=== PATIENT | male | born 1940 | race Caucasian/White ===

== ENCOUNTER 2020-11-27 14:15 | Outpatient (CLI) | payer OTHER, SELFPAY ==
--- NOTE | 2020-11-27 14:15 | USCV_ITS ---
Ernst Garcia Age: 80 Gender: M : 1940 Exam Date: 11/27/2020 14:57 Ordering Phys: Jyoti Smith MD ([email or web address]) Technologist: Ni Slade [place] [facility] [place]: Prosthetic MV BP: / HR: 76 Rhythm: Sinus Technical Quality: Adequate MEASUREMENTS (Male / Female) Normal Values 2D ECHO LV Diastolic Diameter PLAX 5.4 cm 4.2 - 5.9 / 3.9 - 5.3 cm LV Systolic Diameter PLAX 4.1 cm IVS Diastolic Thickness 1.1 cm 0.6 - 1.0 / 0.6 - 0.9 cm IVS Systolic Thickness 1.4 cm LVPW Diastolic Thickness 1.2 cm 0.6 - 1.0 / 0.6 - 0.9 cm LVPW Systolic Thickness 1.6 cm LVOT Diameter 2.1 cm LV Ejection Fraction 2D Teich 49.1 % LV Ejection Fraction MOD 2C 23.1 % LV Ejection Fraction 2C AL 22.3 % LA Diameter 4.9 cm LA Width 5.4 cm LA Height 6.5 cm RA Width 5.5 cm RA Height 6.8 cm Aorta at Sinotubular Diameter 3.8 cm DOPPLER AV Peak Velocity 104.0 cm/s LVOT Peak Velocity 70.0 cm/s AV Area Cont Eq vti 2.6 cm squared AV Area Cont Eq pk 2.4 cm squared MV Peak Velocity 225.0 cm/s MV Area PHT 1.7 cm squared Mitral E to A Ratio 9.1 MV E' Velocity 131.0 cm/s Mitral E to MV E' Ratio 39.0 Mitral E to LV E' Lateral Ratio 43.7 Mitral E to LV E' Septal Ratio 35.8 TR Peak Velocity 299.3 cm/s TR Peak Gradient 35.8 mmHg Right Atrial Pressure 10.0 mmHg Pulmonary Artery Systolic Pressu 45.8 mmHg PV Peak Velocity 76.0 cm/s RV Acceleration Time 0.1 s RV Ejection Time 0.3 s RV AcT/ET 0.2 FINDINGS Left Ventricle Normal left ventricular cavity size and mildly increased left ventricular wall thickness. Mildly decreased left ventricular systolic function. Left ventricular ejection fraction is estimated at 40-45 %. Mild global hypokinesis. Abnormal septal motion consistent with conduction abnormality. Right Ventricle Moderately increased right ventricular size. Moderately decreased right ventricular systolic function. Right ventricular systolic pressure 55 mmHg. Right Atrium Moderately increased right atrial size. Right atrial pressure estimated at 15 mmHg. Left Atrium Markedly increased left atrial size. Mitral Valve Moderate mitral annular calcification. Mitral valve bioprosthesis well-seated. Possible mild bioprosthetic mitral valve stenosis (peak velocity 2.1 m/s, mean gradient 7 mmHg). Mitral valve area by pressure half-time of 1.5 cm squared. Trace paravalvular regurgitation. No mitral valve regurgitation. Aortic Valve Mildly thickened trileaflet aortic valve. No aortic valve stenosis. No aortic valve regurgitation. Tricuspid Valve Structurally normal tricuspid valve. Moderate tricuspid valve regurgitation. Pulmonic Valve Structurally normal pulmonic valve. No pulmonary valve stenosis. Moderate to severe pulmonary valve regurgitation. Pericardium No pericardial effusion. Aorta Normal size aortic root at sinotubular junction. Ascending aorta mildly dilated measured at 4.2 cm. Dilated inferior vena cava with decreased respiratory variation. CONCLUSIONS 1. Normal left ventricular cavity size and mildly increased left ventricular wall thickness. Mildly decreased left ventricular systolic function. Left ventricular ejection fraction is estimated at 40-45 %. Mild global hypokinesis. Abnormal septal motion consistent with conduction abnormality. 2. Moderately dilated right ventricle with moderately decreased right ventricle systolic pressure. 3. Moderate pulmonary hypertension with pulmonary artery pressure estimated 55 mmHg. 4. Mitral valve bioprosthesis well-seated. Possible mild bioprosthetic mitral valve stenosis (peak velocity 2.1 m/s, mean gradient 7 mmHg). Mitral valve area by pressure half-time of 1.5 cm squared. Trace paravalvular regurgitation. No mitral valve regurgitation. 5. Markedly increased left atrial size. 6. Moderate tricuspid valve regurgitation. 7. Ascending aorta mildly dilated measured at 4.2 cm. 8. No prior similar studies to compare. Jyoti Smith MD (Electronically Signed) Final Date: 03 December 2020 13:19 S
== END 2020-11-27 14:16 | disposition home or self-care (01) ==
LOC: US 14:19
PROVIDERS: PCP Emergency Medicine Emergency Medical Services; Visit Provider Internal Medicine Cardiovascular Disease
DX: Z95.2 Presence of prosthetic heart valve (principal); I27.20 Pulmonary hypertension, unspecified; I34.0 Nonrheumatic mitral (valve) insufficiency
CPT/HCPCS: 93306

== ENCOUNTER → 2022-02-25 10:22 | Outpatient (BNVA) | payer OTHER, SELFPAY | PROVIDERS: PCP Emergency Medicine Emergency Medical Services; Visit Provider Internal Medicine Cardiovascular Disease | DX: I48.19 Other persistent atrial fibrillation (principal); Z95.2 Presence of prosthetic heart valve; T82.857A Stenosis of other cardiac prosthetic devices, implants and grafts, initial encounter; I36.1 Nonrheumatic tricuspid (valve) insufficiency; N18.9 Chronic kidney disease, unspecified; D69.6 Thrombocytopenia, unspecified; Z87.891 Personal history of nicotine dependence | CPT/HCPCS: 99214 ==

== ENCOUNTER 2022-08-05 17:38 | Inpatient (IN) | payer OTHER, SELFPAY ==
[2022-08-05] VITALS (9 sets, daily range): BP systolic 100–140; BP diastolic 72–108; PULSE 96–132; RESP 13–28; TEMP 36.4; O2SAT 90–98
--- NOTE | 2022-08-05 19:58 | W.ED.GENADLT ---
HPI - General Adult General: Chief complaint: General Medical Stated complaint: dehydration/cant urinate Time Seen by Provider: 08/05/22 19:22 Source: patient and family History of Present Illness: 82 yo male here with family. He complains of signficantly decreased urination. He is generally weak. He complains of right shoulder pain after trying to throw a rope over a tree limb. No fever. He has a history of atrial fibrillation, not on anticoagulation. He has had MVR in the past, bovine. He does have a history of transient renal failure due to dehydration. Onset (ago): day(s) Location: right and upper extremity Radiation: other Quality: other Pain Consistency: constant Relieving factors: none Exacerbating factors: none Associated symptoms: Reports confusion, decreased appetite and weakness (generalized); Deny chest pain, cough, dyspnea, fevers/chills, nausea, seizures or vomiting Review of Systems General: Reports: ROS unobtainable due to mental status (taken from family. ) Const: Denies: fever(s) or chills Card: Denies: chest pain Resp: Denies: dyspnea GI: Denies: nausea or vomiting Neuro: Reports: confusion PFSH ED PFSH: Medical History Atrial fibrillation Chronic kidney disease (CKD) Stenosis of prosthetic mitral valve Thrombocytopenia Tricuspid valve regurgitation, nonrheumatic Surgical History Hx of mitral valve replacement 2006 Family History Father Myocardial infarction Denies family history of Diabetes Stroke Social History Smoking and tobacco status: former smoker Alcohol intake: current Alcohol intake frequency: holidays/special occasions only Substance/Drug Use: never Physical Exam Const: GENERAL APPEARANCE: cooperative, ill appearing and frail appearing ORIENTATION/CONSCIOUSNESS: Yes awake, Yes oriented to person and Yes confused; not oriented to place HENMT: COMMON NORMALS: normocephalic and atraumatic HEAD & SCALP: normocephalic and atraumatic FACE & SINUS: normal facial exam NOSE: Normal nares present Eye: COMMON NORMALS: Equal, round and reactive pupils present and EOMs intact bilaterally PUPIL: Yes Equal, round and reactive pupils present Neck/C-Spine: CERVICAL SPINE: Yes cervical ROM normal Chest: CHEST: Yes Symmetrical chest wall rise Resp: COMMON NORMALS: clear to auscultation bilaterally EFFORT & INSPECTION: Yes tachypneic AUSCULTATION: clear to auscultation bilaterally and diminished lung sounds Cardio: COMMON NORMALS: negative for regular rate and negative for regular rhythm RATE: abnormal rate and tachycardic RHYTHM: abnormal rhythm and abnormal rhythm irregularly irregular GI: COMMON NORMALS: Normal to inspection, nondistended, normoactive bowel sounds present Extremity: GENERAL: Yes edema (1+) Neuro: MANUELA COMA SCALE: document GCS findings [place] coma scale eye opening: Spontaneous [place] coma scale verbal response: Confused [place] coma scale motor response: Obey commands [place] coma scale total score: 14 SENSORIUM/ORIENTATION: Yes oriented to person and No oriented to place Psych: ATTITUDE: Yes agitated (mildly) Course Vital Signs: Vital signs: Vital Signs Temperature 97.6 F 08/06/22 12:30 Pulse Rate 81 08/06/22 14:00 Respiratory Rate 14 08/06/22 12:30 Blood Pressure 111/90 08/06/22 12:30 Pulse Oximetry 92 08/06/22 12:30 Oxygen Delivery Me thod Nasal Cannula 08/06/22 08:00 Oxygen Flow Rate 2 08/06/22 08:00 Fraction of Inspir ed Oxygen 100 08/06/22 06:51 MDM - General Adult Medical Decision Making Mr. Garcia is confused, tachycardic, irregular and in pain. He is mildly sob by my observation. He is in Atrial fibrillation with rapid ventricular response. He's placed on diltiazem drip to control this. Heart rate currently and the 110s. He has received one liter fluid bolus, but is BNP is significantly elevated, he shows signs of early pulmonary edema 0n chest X-ray, and he had his fluid in his hepatic gutter on gallbladder ultrasound. This was performed because of his bilirubin elevation, the ideology of which is somewhat unclear. His gallbladder wall is thickened, but this may be from the edema surrounding the liver. He does not have significant elevation in other liver enzymes. Urinalysis is still pending at the time of admission. He is confused. He will require CSU admission at the very least. Hospitalists will see the patient in the ER. They are aware of the patient. Lab Data 08/06/22 01:25 08/06/22 07:11 Radiology Impressions Chest X-Ray 08/05/22 20:02 IMPRESSION: 1. Aortic valve replacement. 2. Mild to moderate globular cardiomegaly consistent with 4-chamber enlargment and/or pericardial effusion. 3. Minimal blunting of the right lateral costophrenic angle. Shoulder X-Ray 08/05/22 20:02 IMPRESSION: Moderate right acromioclavicular arthropathy. Gallbladder Ultrasound 08/05/22 22:01 IMPRESSION: 1. 13 mm thickened gallbladder wall versus pericholecystic hepatic edema. 2. Multiple gallstones within the gallbladder. 3. Sonographically negative Wood's sign suggesting no cholecystitis. 4. 12.5 mm main portal vein with bidirectional flow. 5. Gwoo-tz-jjefdsju perihepatic fluid consistent with ascites. Abdomen/Pelvis CT 08/05/22 22:28 IMPRESSION: 1. Mild to moderate cardiomegaly. 2. Mild left pleural fluid collection. 3. Mild to moderate right pleural fluid collection. 4. Mild four-quadrant ascites. 5. Prominent edema surrounding the gallbladder consistent with cholecystitis versus hepatitis versus portal hypertension. Head CT 08/06/22 08:00 IMPRESSION: 1. No acute intracranial findings. 2. Mild cerebral small-vessel disease. 3. Age-related involutional changes of the brain. 4. 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 Laboratory Results WBC 16.8 10^3/uL (4.0-10.0) H 08/05/22 19:41 RBC 4.04 10^6/uL (4.1-5.3) L 08/05/22 19:41 Hgb 12.9 g/dL (11.7-16.6) 08/05/22 19:41 Hct 40.0 % (42.0-52.0) L 08/05/22 19:41 MCV 99.0 fl (80-94) H 08/05/22 19:41 MCH 31.9 pg (28.0-34.0) 08/05/22 19:41 MCHC 32.3 g/dL (30.0-36.0) 08/05/22 19:41 RDW 16.1 % (12.1-15.1) H 08/05/22 19:41 Plt Count 93 10^3/cmm (130-400) L 08/05/22 19:41 MPV 10.9 fL (7.4-10.4) H 08/05/22 19:41 Neut % (Auto) 74.1 % 08/05/22 19:41 Lymph % (Auto) 15.4 % 08/05/22 19:41 Bee % (Auto) 9.2 % 08/05/22 19:41 Eos % (Auto) 0.2 % 08/05/22 19:41 Baso % (Auto) 0.4 % 08/05/22 19:41 Neut # (Auto) 12.41 10^3/uL (1.8-7.7) H 08/05/22 19:41 Lymph # (Auto) 2.6 10^3/uL (0.8-4.8) 08/05/22 19:41 Bee # (Auto) 1.6 10^3/uL (0.2-0.9) H 08/05/22 19:41 Eos # (Auto) 0.0 10^3/uL (0.0-0.8) 08/05/22 19:41 Baso # (Auto) 0.1 10^3/uL (0.0-0.1) 08/05/22 19:41 Nucleated RBC % (auto) 0 % 08/05/22 19:41 Nucleated RBCs # 0.0 /100WBC 08/05/22 19:41 PT 18.70 SECONDS (12.1-14.9) H 08/05/22 19:41 INR 1.51 (0.8-1.2) H 08/05/22 19:41 APTT 32.4 SECONDS (23.9-36.7) 08/05/22 19:41 Sodium 134 mmol/L (136-145) L 08/05/22 19:41 Potassium 5.2 mmol/L (3.5-5.1) H 08/05/22 19:41 Chloride 99 mmol/L (98-107) 08/05/22 19:41 Carbon Dioxide 20 mmol/L (22-29) L 08/05/22 19:41 Anion Gap 20.2 (5-19) H 08/05/22 19:41 BUN 44 mg/dL (8-23) H 08/05/22 19:41 Creatinine 1.9 mg/dL (0.7-1.2) H 08/05/22 19:41 GFR Calculation Not Reportable 08/05/22 19:41 Glucose 95 mg/dL (65-115) 08/05/22 19:41 Calculated Osmolality 289 mOsm/kg (285-295) 08/05/22 19:41 Calcium 9.1 mg/dL (8.5-10.5) 08/05/22 19:41 Magnesium 2.3 mg/dL (1.7-2.3) 08/05/22 19:41 Total Bilirubin 5.4 mg/dL (0.15-1.2) H 08/05/22 19:41 AST 29 U/L (0-40) 08/05/22 19:41 ALT 14 U/L (0-41) 08/05/22 19:41 Alkaline Phosphatase 92 U/L (40-130) 08/05/22 19:41 Creatine Kinase 111 U/L (39-308) 08/05/22 19:41 Troponin T Baseline 38 ng/L (0-15) H 08/05/22 19:41 Troponin T 120 Minute 40.71 ng/L (0-15) H 08/05/22 22:10 Delta Troponin T 2.71 ABS# (0-10) 08/05/22 22:10 NT-Pro-B Natriuret Pep 66501 pg/mL (0-450) H 08/05/22 19:41 Total Protein 6.9 g/dL (6.6-8.7) 08/05/22 19:41 Albumin 4.3 g/dL (3.5-5.2) 08/05/22 19:41 Globulin 2.6 g/dL (1.3-4.6) 08/05/22 19:41 Urine Color Red (Yellow) 08/05/22 19:41 Urine Appearance Cloudy (CLEAR) A 08/05/22 19:41 Urine pH 5 (5-7) 08/05/22 19:41 Ur Specific [place] 1.025 (1.005-1.030) 08/05/22 19:41 Urine Protein 2+ (Negative) H 08/05/22 19:41 Urine Glucose (UA) Norm (Normal) 08/05/22 19:41 Urine Ketones Negative (Negative) 08/05/22 19:41 Urine Blood 3+ (Negative) H 08/05/22 19:41 Urine Nitrate Positive (Negative) H 08/05/22 19:41 Urine Bilirubin 1+ (Negative) H 08/05/22 19:41 Urine Urobilinogen 1 mg/dL (Negative) H 08/05/22 19:41 Ur Leukocyte Esterase 2+ (Negative) H 08/05/22 19:41 Urine RBC 5-10 /hpf (0-2) H 08/05/22 19:41 Urine WBC 80-100 /hpf (0-5) H 08/05/22 19:41 Ur Squamous Epith Cells 0-4 /hpf (0-5) H 08/05/22 19:41 Amorphous Sediment Not Reportable 08/05/22 19:41 Urine Bacteria 4+ /hpf (NONE) H 08/05/22 19:41 Critical Care Time Critical Care Time: Critical Care Time: Yes Total Critical Care Time: 35 Attestation: This case had a high probability of a clinically significant, sudden, or life threatening deterioration of this patient's condition which required my full and direct attention, intervention and personal management. Time is independent of any procedures performed. 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
--- NOTE | 2022-08-05 20:02 | XRR_ITS ---
PROCEDURE INFORMATION: Exam: XR Right Shoulder Exam date and time: 08/05/2022 8:33 PM Age: 82 years old Clinical indication: Pain; Shoulder; Right; Additional info: R shoulder pain TECHNIQUE: Imaging protocol: Radiologic exam of the right shoulder. Views: 2 or more views. COMPARISON: CR (CHEST, ) 08/05/2022 8:30 PM FINDINGS: Bones/joints: Moderate right acromioclavicular arthropathy. Soft tissues: Normal. XR/XR shoulder RT min 2V* [id number] IMPRESSION: Moderate right acromioclavicular arthropathy.
--- NOTE | 2022-08-05 20:02 | XRR_ITS ---
PROCEDURE INFORMATION: Exam: XR Chest Exam date and time: 08/05/2022 8:30 PM Age: 82 years old Clinical indication: Other: Afib; Additional info: Afib rvr TECHNIQUE: Imaging protocol: Radiologic exam of the chest. Views: 1 view. COMPARISON: No relevant prior studies available. FINDINGS: Lungs: Unremarkable. No consolidation. Pleural spaces: Minimal blunting of the right lateral costophrenic angle. Heart/Mediastinum: Aortic valve replacement. Mild to moderate globular cardiomegaly consistent with 4-chamber enlargment and/or pericardial effusion. Bones/joints: Previous sternotomy. XR/XR chest 1V portable [id number] IMPRESSION: 1. Aortic valve replacement. 2. Mild to moderate globular cardiomegaly consistent with 4-chamber enlargment and/or pericardial effusion. 3. Minimal blunting of the right lateral costophrenic angle.
[2022-08-05 20:11] LABS: Basophils # 0.1 10^3/uL (0.0-0.1); Basophils % 0.4 %; Eosinophils % 0.2 %; Hemoglobin 12.9 g/dL (11.7-16.6); Lymphocytes # 2.6 10^3/uL (0.8-4.8); Lymphocytes % 15.4 %; Mean Corpuscular HGB Conc 32.3 g/dL (30.0-36.0); Mean Corpuscular Hemoglobin 31.9 pg (28.0-34.0); Mean Platelet Volume 10.9 fL (7.4-10.4); Monocytes # 1.6 10^3/uL (0.2-0.9); Monocytes % 9.2 %; Neutrophils # 12.41 10^3/uL (1.8-7.7); Neutrophils % 74.1 %; Nucleated Red Blood Cells % 0 %; Platelet Count 93 10^3/cmm (130-400); Red Blood Count 4.04 10^6/uL (4.1-5.3); Red Cell Distribution Width 16.1 % (12.1-15.1); White Blood Count 16.8 10^3/uL (4.0-10.0)
--- NOTE | 2022-08-05 20:16 | ECG_ITS ---
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 Measurements Intervals [place] Rate: 119 P: 0 [place]: 0 QRS: 97 QRSD: 97 T: 60 QT: 316 QTc: 445 Interpretive Statements ATRIAL FIBRILLATION WITH RAPID VENTRICULAR RESPONSE BORDERLINE RIGHT AXIS DEVIATION [QRS AXIS > 90] NONSPECIFIC T-WAVE ABNORMALITY ABNORMAL RHYTHM ECG No previous ECG available for comparison Electronically Signed On 08-05-2022 22:09:22 CDT by Anneliese Aceves M.D. [email or web address]
[2022-08-05] MEDS: sodium chloride 0.9% 1,000 ML 999 ML IV (20:22)
[2022-08-05 20:35] LABS: Troponin(5th) Baseline 38 ng/L (0-15)
[2022-08-05 20:36] LABS: Partial Thromboplastin Time 32.4 SECONDS (23.9-36.7)
[2022-08-05 20:44] LABS: Alanine Aminotransferase 14 U/L (0-41); Albumin Level 4.3 g/dL (3.5-5.2); Alkaline Phosphatase 92 U/L (40-130); Anion Gap 20.2 (5-19); Aspartate Amino Transferase 29 U/L (0-40); Blood Urea Nitrogen 44 mg/dL (8-23); Calcium 9.1 mg/dL (8.5-10.5); Carbon Dioxide 20 mmol/L (22-29); Chloride 99 mmol/L (98-107); Creatine Phosphokinase 111 U/L (39-308); Globulin 2.6 g/dL (1.3-4.6); Glucose 95 mg/dL (65-115); Magnesium 2.3 mg/dL (1.7-2.3); NT Pro B Type Natriuretic Pept 22549 pg/mL (0-450); Osmolality Calculated 289 mOsm/kg (285-295); Potassium 5.2 mmol/L (3.5-5.1); Sodium 134 mmol/L (136-145); Total Bilirubin 5.4 mg/dL (0.15-1.2); Total Protein 6.9 g/dL (6.6-8.7)
[2022-08-05 21:53] LABS: INR 1.51 (0.8-1.2)
[2022-08-05] MEDS: dilTIAZem 100 MG in sodium chloride 0.9% (add-van) 100 ML IV (21:57)
--- NOTE | 2022-08-05 22:01 | USR_ITS ---
PROCEDURE INFORMATION: Exam: US Abdomen, Limited; Right Upper Quadrant Exam date and time: 08/05/2022 10:15 PM Age: 82 years old Clinical indication: Abnormal findings; Abnormal lab test; Other: Hyperbiliruben; Additional info: Hyperbilirubinemia TECHNIQUE: Imaging protocol: Real time ultrasound of the abdomen with image documentation. Limited exam focused on the right upper quadrant. COMPARISON: No relevant prior studies available. FINDINGS: Liver: 15.3 cm liver. Gallbladder: 13 mm thickened gallbladder wall versus pericholecystic hepatic edema. Multiple gallstones within the gallbladder. Sonographically negative Wood's sign suggesting no cholecystitis. Biliary ducts: 6 mm common bile duct which is normal for the patient's age. Pancreas: Visualized pancreas is unremarkable. Right kidney: 11.8 x 5.3 x 5.1 cm right kidney. 1.1 cm right renal cortex. Inferior vena cava: Patent 4.7 cm diameter inferior vena cava. Portal venous: 12.5 mm main portal vein with bidirectional flow. Intraperitoneal space: [id number] perihepatic fluid consistent with ascites. US/US gall bladder [id number] IMPRESSION: 1. 13 mm thickened gallbladder wall versus pericholecystic hepatic edema. 2. Multiple gallstones within the gallbladder. 3. Sonographically negative Wood's sign suggesting no cholecystitis. 4. 12.5 mm main portal vein with bidirectional flow. 5. Pxgd-[id number] perihepatic fluid consistent with ascites.
--- NOTE | 2022-08-05 22:02 | ECG_ITS ---
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 Measurements Intervals [place] Rate: 128 P: 0 DE: 0 QRS: 101 QRSD: 102 T: -18 QT: 306 QTc: 447 Interpretive Statements ATRIAL FIBRILLATION WITH RAPID VENTRICULAR RESPONSE RIGHT AXIS DEVIATION [QRS AXIS > 100] NONSPECIFIC T-WAVE ABNORMALITY Compared to ECG 08/05/2022 20:16:49 No significant changes Electronically Signed On 08-06-2022 10:07:19 CDT by Hesham Cloud M.D. [id number]
--- NOTE | 2022-08-05 22:28 | CTR_ITS ---
PROCEDURE INFORMATION: Exam: CT Abdomen And Pelvis Without Contrast Exam date and time: 08/05/2022 11:44 PM Age: 82 years old Clinical indication: Other: Liver failure; Abdominal pain; Generalized TECHNIQUE: Imaging protocol: Computed tomography of the abdomen and pelvis without contrast. Radiation optimization: All CT scans at this facility use at least one of these dose optimization techniques: automated exposure control; mA and/or kV adjustment per patient size (includes targeted exams where dose is matched to clinical indication); or iterative reconstruction. REPORTING DATA: Count of CT and Cardiac NM exams in prior 12 months: This patient has received 0 known CTs and 0 known cardiac nuclear medicine studies in the 12 months prior to the current study. COMPARISON: US gall bladder [id number] 08/05/2022 10:15 PM RADIATION DOSE METRICS: Total DLP (mGy-cm): 937.7 FINDINGS: Pleural spaces: Mild left pleural fluid collection. Mild to moderate right pleural fluid collection. Heart: Mild to moderate cardiomegaly. Liver: See Gallbladder and bile ducts finding. Gallbladder and bile ducts: Prominent edema surrounding the gallbladder consistent with cholecystitis versus hepatitis versus portal hypertension. Pancreas: Normal. No ductal dilation. Spleen: Normal. No splenomegaly. Adrenal glands: Normal. No mass. Kidneys and ureters: Normal. No hydronephrosis. Stomach and bowel: Unremarkable. No obstruction. No mucosal thickening. Appendix: No evidence of appendicitis. Intraperitoneal space: Mild four-quadrant ascites. Vasculature: Calcification of the abdominal aorta and/or iliac arteries consistent with atherosclerotic vessel disease. One or more calcified pelvic phleboliths. Lymph nodes: Unremarkable. No enlarged lymph nodes. Urinary bladder: Unremarkable as visualized. Reproductive: Unremarkable as visualized. Bones/joints: Previous sternotomy. Soft tissues: Unremarkable. CT/CT abdomen pelvis wo con [id number] IMPRESSION: 1. Mild to moderate cardiomegaly. 2. Mild left pleural fluid collection. 3. Mild to moderate right pleural fluid collection. 4. Mild four-quadrant ascites. 5. Prominent edema surrounding the gallbladder consistent with cholecystitis versus hepatitis versus portal hypertension.
--- NOTE | 2022-08-05 22:42 | PC.NURSE ---
Unable to administer meds at this time secondary to US at bedside doing an echo. Pt has one IV with cardizem gtt infusing. Will start second IV and give meds as soon as US is complete.
[2022-08-05 22:43] LABS: Troponin 5 2HR 40.71 ng/L (0-15)
[2022-08-05 22:49] LABS: Troponin 5 2HR Delta 2.71 ABS# (0-10)
[2022-08-05] MEDS: ondansetron 2 mg/ML SDV 2 mL 4 MG IVP (23:24)
[2022-08-05] MEDS: morphine 4 mg/mL SDV 1 mL 2 MG IVP (23:24)
[2022-08-06] VITALS (52 sets, daily range): BP systolic 80–146; BP diastolic 46–92; PULSE 57–112; RESP 0–31; TEMP 36.4–37.2; O2SAT 83–99; BMI 30.5
--- NOTE | 2022-08-06 00:19 | USCV_ITS ---
Ernst Garcia Age: 82 Gender: M : 1940 Exam Date: 08/06/2022 09:34 Ordering Phys: Zach Fry MD Technologist: PARMJIT [place]am [place] [facility] [place]ication: afib BP: / HR: 85 Rhythm: Atrial fibrillation Technical Quality: Suboptimal secondary to patient agitation MEASUREMENTS (Male / Female) Normal Values 2D ECHO LV Diastolic Diameter PLAX 5.3 cm 4.2 - 5.9 / 3.9 - 5.3 cm LV Systolic Diameter PLAX 4.4 cm IVS Diastolic Thickness 0.8 cm 0.6 - 1.0 / 0.6 - 0.9 cm IVS Systolic Thickness 1.3 cm LVPW Diastolic Thickness 0.7 cm 0.6 - 1.0 / 0.6 - 0.9 cm LVPW Systolic Thickness 0.9 cm LVOT Diameter 2.4 cm LV Ejection Fraction 2D Teich 36.1 % LA Diameter 5.4 cm IVC Diameter 5.2 cm M-MODE Aortic Annulus Diameter 3.8 cm LA Ao Ratio MM 1.4 DOPPLER AV Peak Velocity 243.0 cm/s LVOT Peak Velocity 65.0 cm/s AV Area Cont Eq vti 1.0 cm squared AV Area Cont Eq pk 1.3 cm squared MV Area PHT 2.5 cm squared MV E' Velocity 209.0 cm/s TR Peak Velocity 292.8 cm/s TR Peak Gradient 34.3 mmHg Right Atrial Pressure 9.0 mmHg Pulmonary Artery Systolic Pressu 43.3 mmHg PV Peak Velocity 83.0 cm/s FINDINGS Left Ventricle The study is suboptimal because the patient was agitated. Additionally the rhythm is atrial fibrillation. The ventricle is probably normal in size. There are no obvious wall motion disturbances. Ventricular function is lower limit of normal with an ejection fraction of about 50%. Diastolic function cannot be determined due to the rhythm. Right Ventricle Normal right ventricular size and systolic function. Mild pulmonary hypertension, RVSP 43.3 mmHg. Right Atrium Moderately increased right atrial size. Left Atrium Moderately increased left atrial size. Mitral Valve The mitral valve appears normal. There is heavy mitral annular calcification. No obvious mitral stenosis. Probably trace mitral regurgitation. There may be a bioprosthetic mitral valve. It is poorly seen. Aortic Valve Moderate aortic valve calcification. Mild aortic valve stenosis, mean gradient 11.7 mmHg, MARIAH 1 cm squared. No aortic valve regurgitation Tricuspid Valve Structurally normal tricuspid valve. Severe tricuspid valve regurgitation. Pulmonic Valve Pulmonic valve not well visualized. Pericardium Normal pericardium without effusion. Aorta Normal ascending aorta dimension. IVC Dilated IVC. CONCLUSIONS The study is suboptimal because the patient was agitated. Additionally the rhythm is atrial fibrillation. The ventricle is probably normal in size. There are no obvious wall motion disturbances. Ventricular function is lower limit of normal with an ejection fraction of about 50%. Diastolic function cannot be determined due to the rhythm. Normal right ventricular size and systolic function. Mild pulmonary hypertension, RVSP 43.3 mmHg. Moderately increased right atrial size. Moderately increased left atrial size. The mitral valve appears normal. There is heavy mitral annular calcification. No obvious mitral stenosis. Probably trace mitral regurgitation. There may be a bioprosthetic mitral valve. It is poorly seen. Moderate aortic valve calcification. Mild aortic valve stenosis, mean gradient 11.7 mmHg, MARIAH 1 cm squared. No aortic valve regurgitation . Structurally normal tricuspid valve. Severe tricuspid valve regurgitation. Dilated IVC. There is essentially no change from the previous echo dated 11/27/2020 Dr. Hesham Cloud MD (Electronically Signed) Final Date: 07 August 2022 09:01 S
--- NOTE | 2022-08-06 00:23 | PM.HP ---
Providers/Chief Complaint Admitting Physician: Zach Fry MD Primary Care Provider: Daniel Rios DO Chief Complaint: dehydration/cant urinate History of Present Illness Ernst Garcia is a 82 year old male with a past medical history of Bovie and MVR, CKD, history of thrombocytopenia who presents [facility] due to poor appetite, decreased hydration, increased confusion. Currently patient is alert to person, not to place, not to time, he can follow some commands but is quite confused, most of the history was obtained by family members at bedside. Who tell me that for the last few days he has not had any appetite, has not been drinking water, his urine was looking more dark and cloudy. No falls, no injuries, he denies any abdominal pain, no diarrhea. No fevers, no cough. He denies any chest pain, no palpitations. Family members were worried that because his urination was decreasing was becoming more dark that he might be going to kidney failure so they brought him to [facility] for evaluation Review of Systems Const: Denies: fever(s) Card: Denies: chest pain Resp: Denies: dyspnea GI: Denies: abdominal pain : Denies: flank pain Neuro: Denies: headache(s) Medications/Allergies Home Medications Medication Instructions Recorded Confirmed Last Taken Type cholecalciferol (vitamin D3) 50 50 mcg PO DAILY 10/13/20 02/25/22 Unknown History mcg (2,000 unit) capsule multivitamin 1 tab PO DAILY 12/04/20 02/25/22 Unknown History ferrous sulfate 300 mg (60 mg PO 06/08/21 02/25/22 Unknown History iron) tablet zinc 50 mg tablet 50 mg PO DAILY 06/08/21 02/25/22 Unknown History furosemide 20 mg tablet 20 - 40 mg PO DAILY PRN edema 02/25/22 02/25/22 Unknown History Allergies Allergy/AdvReac Type Severity Reaction Status Date / Time acetaminophen [From Percocet] Allergy Unknown Verified 08/05/22 17:59 Histamine H2 Inhibitors Allergy Unknown Verified 08/05/22 17:59 oxycodone [From Percocet] Allergy Unknown Verified 08/05/22 17:59 pork derived (porcine) Allergy Unknown Verified 08/05/22 17:59 PFSH Acute PFSH: Medical History Atrial fibrillation Chronic kidney disease (CKD) Stenosis of prosthetic mitral valve Thrombocytopenia Tricuspid valve regurgitation, nonrheumatic Surgical History Hx of mitral valve replacement 2005 Family History Father Myocardial infarction Denies family history of Diabetes Stroke Social History Smoking and tobacco status: former smoker Alcohol intake: current Alcohol intake frequency: holidays/special occasions only Substance/Drug Use: never Vitals/I&O/Wt Last Vital Signs Temp 97.6 F 08/05/22 17:52 Pulse 132 H 08/05/22 22:33 Resp 28 H 08/05/22 22:33 BP 123/101 08/05/22 22:30 Pulse Ox 96 08/05/22 22:33 O2 Del Method Room Air 08/05/22 22:33 08/05/22 08/05/22 08/06/22 14:59 22:59 06:59 Intake Total 1002.167 / 1002.167 5.5 / 1007.667 Balance 1002.167 / 1002.167 5.5 / 1007.667 Weight last 48 hrs Weight 97.069 kg Physical Exam Const: COMMON NORMALS: no acute distress ORIENTATION/CONSCIOUSNESS: Yes awake, Yes oriented to person and Yes confused; not oriented to place and not oriented to time HENMT: COMMON NORMALS: normocephalic HEAD & SCALP: normocephalic Eye: COMMON NORMALS: Equal, round and reactive pupils present OTHER: Scleral icterus Neck/C-Spine: COMMON NORMALS: full ROM and no lymphadenopathy Lymph: LYMPHATIC: no lymphadenopathy noted Resp: COMMON NORMALS: normal respiratory effort, No retractions, No use of accessory muscles and clear to auscultation bilaterally AUSCULTATION: clear to auscultation bilaterally Cardio: COMMON NORMALS: S1 normal heart sound present and S2 normal heart sound present RATE: tachycardic RHYTHM: abnormal rhythm irregularly irregular HEART SOUNDS: S1 normal heart sound present and S2 normal heart sound present GI: COMMON NORMALS: Normal to inspection, nondistended, normoactive bowel sounds present and Soft to palpation OTHER: Right upper tenderness Extremity: NARRATIVE EXTREMITY EXAM: 1+ pitting edema bilateral extremity Neuro: COMMON NORMALS: patient oriented x3, CN's II-XII intact bilaterally, moves all extremities and no focal motor deficits Psych: COMMON NORMALS: mental status grossly normal Data 08/05/22 19:41 08/05/22 19:41 A&P Assessment and plan (1) Acute cholecystitis: (2) Leukocytosis: (3) Acute encephalopathy: (4) Elevated INR: (5) Acute kidney injury: (6) NSTEMI (non-ST elevated myocardial infarction): (7) Diastolic CHF: (8) Atrial fibrillation with RVR: Plan Acute encephalopathy -Etiology unclear -Obtain a UA -Nonfocal, no facial droop, no slurring of words, no focal weakness more global symptoms -Does have leukocytosis CT head -CT head -Neurochecks, aspiration precautions A-fib with RVR -Continue Cardizem drip -As per documentation patient and family have refused anticoagulation in the past -We will monitor, consider anticoagulation based on clinical progress Fluid overload, diastolic CHF -Hold off on Lasix for now KE, baseline creatinine unknown 1.9 monitor NSTEMI -Likely type II, from A-fib with RVR -Serial EKGs, serial troponins, telemetry monitoring -Cardiac echo Hyperbilirubinemia -Possibly secondary to gallstone passage -No intra or extrahepatic biliary dilatation -Multiple gallstones seen in the gallbladder -We will order acute hep panel -However no transaminitis, no alk phos elevation? Elevated INR, 1.51? Thrombocytopenia, chronic, monitor Concern for acute cholecystitis 1. ? 13 mm thickened gallbladder wall versus pericholecystic hepatic edema. 2. ? Multiple gallstones within the gallbladder. 3. ? Sonographically negative Wood's sign suggesting no cholecystitis. 4. ? 12.5 mm main portal vein with bidirectional flow. 5. ? Lfyz-ye-qlsbrzuk perihepatic fluid consistent with ascites. -Does have right upper quadrant tenderness -With leukocytosis, will start him on Zosyn -Keep n.p.o. Has ascites, monitor Attestations Medical Necessity Statement*: TherapyPatient requires hospitalization, inpatient, greater than 2 minutes, for her, acute encephalopathy,, NSTEMI, A-fib with RVR, fluid overload, KE, concerns for acute cholecystitis Diagnoses Acute cholecystitis K81.0 Leukocytosis D72.829 Acute encephalopathy G93.40 Elevated INR R79.1 Acute kidney injury N17.9 NSTEMI (non-ST elevated myocardial infarction) I21.4 Diastolic CHF I50.30 Atrial fibrillation with RVR I48.91
[2022-08-06 01:37] LABS: Basophils % 0.3 %; Hemoglobin 12.7 g/dL (11.7-16.6); Lymphocytes # 2.2 10^3/uL (0.8-4.8); Lymphocytes % 14.4 %; Mean Corpuscular HGB Conc 32.6 g/dL (30.0-36.0); Mean Corpuscular Hemoglobin 32.2 pg (28.0-34.0); Mean Corpuscular Volume 98.7 fl (80-94); Mean Platelet Volume 10.5 fL (7.4-10.4); Monocytes # 1.2 10^3/uL (0.2-0.9); Monocytes % 7.9 %; Neutrophils % 76.5 %; Nucleated Red Blood Cells % 0 %; Platelet Count 92 10^3/cmm (130-400); Red Blood Count 3.95 10^6/uL (4.1-5.3); White Blood Count 15.3 10^3/uL (4.0-10.0)
[2022-08-06] MEDS: enoxaparin 40 mg/0.4 mL Syringe SUBCUT (01:45)
[2022-08-06] MEDS: pantoprazole 40 mg SDV IVP (01:46)
[2022-08-06] MEDS: piperacillin-tazobactam 3.375 GM in sodium chloride 0.9% (plus) 50 ML IV ×3 (01:51→17:15)
[2022-08-06 01:58] LABS: Ammonia 28 umol/L (16-60); Lactic Sepsis W/Reflex 2.9 mmol/L (0.5-2.2)
[2022-08-06 01:59] LABS: Estmated Average Glucose 91; Hemoglobin A1C 4.8 % (4.0-6.0)
[2022-08-06 02:06] LABS: Troponin 5 6HR 39.08 ng/L (0-15)
[2022-08-06 02:12] LABS: Hepatitis A Antibody IgM Non-Reactive (Nonreactive); Hepatitis B Core IgM Non-Reactive (Nonreactive); Hepatitis B Surface Antigen Non-Reactive (Nonreactive); Hepatitis C Virus Antibody Non-Reactive (Nonreactive)
[2022-08-06 02:14] LABS: HIV 1 & 2 Antibody Non-Reactive (Non-Reactiv); HIV 1 & 2 Antigen Non-Reactive (Non-Reactiv); Troponin 5 6HR Delta 1.08 ng/L (0-12)
[2022-08-06 02:35] LABS: Bilirubin Urine 1+ (Negative); Blood Urine 3+ (Negative); Glucose Urine UA Norm (Normal); Ketones Urine Negative (Negative); Nitrate Urine Positive (Negative); Protein Urine 2+ (Negative); Specific Gravity, Urine 1.025 (1.005-1.030); Urine Appearance Cloudy (CLEAR); Urine Color Red (Yellow); Urobilinogen Urine 1 mg/dL (Negative); pH Urine 5 (5-7)
[2022-08-06 02:36] LABS: Add Urine Microscopic? YES; Leukocyte Esterase Urine 2+ (Negative)
[2022-08-06 02:39] LABS: Bacteria Urine 4+ /hpf; Squamous Epithelial Cell Urine 0-4 /hpf (0-5); WBC Urine 80-100 /hpf (0-5)
[2022-08-06 02:40] LABS: Add Urine Culture? Yes
--- NOTE | 2022-08-06 03:45 | PC.NURSE ---
Called to room by family stating pt is trying to get out of bed. 3 RN's at bedside to help pt back to bed. Pt is awake, but not alert to person, place, or time. Pt doesn't follow commands. Pt assisted back in the bed. Two RN's remained at bedside while this RN notifed Dr. Fry of pt condition. Verbal order for Haldol 1mg IM eery 4 hours PRN agitation received. Ordered and given.
[2022-08-06] MEDS: haloperidol inj 5 mg/mL INJ 1 mL 1 MG IM ×2 (04:05→09:52)
[2022-08-06 04:13] LABS: Alanine Aminotransferase 14 U/L (0-41); Albumin Level 3.9 g/dL (3.5-5.2); Alkaline Phosphatase 86 U/L (40-130); Anion Gap 15.9 (5-19); Aspartate Amino Transferase 27 U/L (0-40); Bilirubin Neonatal Total 5.6 mg/dL (0.15-1.0); Blood Urea Nitrogen 46 mg/dL (8-23); Carbon Dioxide 19 mmol/L (22-29); Chloride 93 mmol/L (98-107); Chol HDL Ratio 2.17 mg/dL (1.0-5.00); Cholesterol 76 mg/dL (0-200); Ferritin 278 ng/mL (30-400); Gamma Glutamyl Transferase 147 U/L (8-61); Glucose 102 mg/dL (65-115); HDL Cholesterol 35 mg/dL (60-100); LDL Cholesterol Calculated 28 mg/dL (50-129); Lipase 11 U/L (13-60); Magnesium 2.3 mg/dL (1.7-2.3); Osmolality Calculated 268 mOsm/kg (285-295); Phosphorus 3.1 mg/dL (2.5-4.5); Potassium 4.9 mmol/L (3.5-5.1); Sodium 123 mmol/L (136-145); Total Bilirubin 5.6 mg/dL (0.15-1.2); Total Protein 6.9 g/dL (6.6-8.7); Triglycerides 63 mg/dL (0-150)
[2022-08-06 04:36] LABS: Procalcitonin 1.13 ng/mL (0-0.5); Thyroid Stimulating Hormone 7.29 uIU/mL (0.27-4.20)
[2022-08-06] MEDS: morphine 4 mg/mL SDV 1 mL 2 MG IVP ×3 (04:40→19:50)
[2022-08-06 07:41] LABS: Free T4 Free Thyroxine 1.34 ng/dL (0.82-1.77); T3 Free 1.5 PG/ML (2.0-4.4)
[2022-08-06 07:44] LABS: Blood Urea Nitrogen 49 mg/dL (8-23); Calcium 8.7 mg/dL (8.5-10.5); Carbon Dioxide 20 mmol/L (22-29); Chloride 93 mmol/L (98-107); Glucose 103 mg/dL (65-115); Osmolality Calculated 267 mOsm/kg (285-295); Sodium 122 mmol/L (136-145)
--- NOTE | 2022-08-06 08:00 | CTR_ITS ---
PROCEDURE INFORMATION: Exam: CT Head Without Contrast Exam date and time: 08/06/2022 5:45 AM Age: 82 years old Clinical indication: Altered mental status/memory loss; Confusion or disorientation; Patient HX: Liver failure; Additional info: AMS TECHNIQUE: Imaging protocol: Computed tomography of the head without contrast. Radiation optimization: All CT scans at this facility use at least one of these dose optimization techniques: automated exposure control; mA and/or kV adjustment per patient size (includes targeted exams where dose is matched to clinical indication); or iterative reconstruction. REPORTING DATA: Count of CT and Cardiac NM exams in prior 12 months: This patient has received [address] and 0 known cardiac nuclear medicine studies in the 12 months prior to the current study. COMPARISON: No relevant prior studies available. RADIATION DOSE METRICS: Total DLP (mGy-cm): 1221.38 FINDINGS: Brain: There is no evidence of intracranial hemorrhage. No mass effect or midline shift. There is no territorial edema. There are mild confluent periventricular hypodensities consistent with chronic microischemic changes of white matter. Cerebral ventricles: There is moderate volume loss and commensurate ventricular dilatation, consistent with the patient's age. Paranasal sinuses: No air-fluid levels. Mastoid air cells: The visualized mastoid air cells are well aerated. Bones/joints: There is fibrous dysplasia involving the area of the left frontal bone and area of the frontal sinus, a developmental process. Soft tissues: Unremarkable. CT/CT head wo con* [id number] IMPRESSION: 1. No acute intracranial findings. 2. Mild cerebral small-vessel disease. 3. Age-related involutional changes of the brain. 4. 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
[2022-08-06] MEDS: dexmedetomidine 400 MCG in sodium chloride 0.9% (100 ml) 100 ML IV (10:46)
--- NOTE | 2022-08-06 16:51 | P.PN_ITS ---
Subjective Subjective: Sleeping, wakes up to voice. Denies pain, but is not very cooperative, turns away, not wanting to speak. Vitals/I&O/Wt Last Vital Signs Temp 97.6 F 08/06/22 12:30 Pulse 68 08/06/22 16:30 Resp 20 H 08/06/22 16:30 BP 103/64 08/06/22 16:30 Pulse Ox 91 08/06/22 16:30 O2 Del Method Nasal Cannula 08/06/22 08:00 O2 Flow Rate 2 08/06/22 08:00 FiO2 100 08/06/22 06:51 08/06/22 08/06/22 08/06/22 06:59 14:59 22:59 Intake Total 147.667 / 1149.834 100 / 100 Balance 147.667 / 1149.834 100 / 100 Weight last 48 hrs Weight 96.479 kg Weight 97.069 kg Physical Exam Const: ORIENTATION/CONSCIOUSNESS: Yes awake and Yes confused HENMT: COMMON NORMALS: oropharynx normal Neck/C-Spine: COMMON NORMALS: no JVD Resp: COMMON NORMALS: normal respiratory effort and clear to auscultation bilaterally AUSCULTATION: clear to auscultation bilaterally Cardio: COMMON NORMALS: no JVD, regular rhythm, S1 normal heart sound present, S2 normal heart sound present and No murmurs present (Cardio) RHYTHM: regular rhythm HEART SOUNDS: S1 normal heart sound present and S2 normal heart sound present GI: COMMON NORMALS: Normal to inspection, nondistended, normoactive bowel sounds present, Soft to palpation and non-tender PALPATION: Yes Soft to palpation Extremity: COMMON NORMALS: no joint enlargement and no pedal edema Neuro: COMMON NORMALS: moves all extremities Data 08/06/22 01:25 08/06/22 07:11 Micro: Microbiology 08/06/22 01:30 Blood Culture - Preliminary Blood SPECIMEN COLLECTED 08/06/22 01:25 Blood Culture - Preliminary Blood SPECIMEN COLLECTED A&P Assessment and plan (1) Acute cholecystitis: (2) Leukocytosis: (3) Acute encephalopathy: (4) Elevated INR: (5) Acute kidney injury: (6) NSTEMI (non-ST elevated myocardial infarction): (7) Diastolic CHF: (8) Atrial fibrillation with RVR: Plan Acute encephalopathy -Etiology unclear -He is noted to have urinary tract infection, 80-100 WBC, without hydronephrosis, obstruction on CT. Noted pleural effusion, but otherwise no good evidence for pneumonia. Effusion too small to tap at this time. Question of possible cholecystitis, possible transient choledocholithiasis noted by admitting physician, but appears less likely. Metabolic encephalopathy possible as well. She has KE, hyponatremia. -Nonfocal, no facial droop, no slurring of words, no focal weakness more global symptoms -CT head without acute findings. Mild cerebral small vessel disease. Age- related involutional changes. 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 -Neurochecks, aspiration precautions This morning at first, although confused, but subsequently with agitation, required a dose of Haldol, started on Precedex drip. Continue drip for now with cardiac monitoring in ICU. Hyperbilirubinemia, elevation of both direct and indirect bilirubin. Assess for hemolysis. Check LDH, haptoglobin, DIC panel. Noted INR abnormal 1.51. Peripheral smear. Reticulocyte. DIC panel. Was thought to have passed a possible CBD stone, reassess liver parameters. MRCP is ordered. Other liver parameters without elevation with normal AST, LT, alk phos. Ammonia 28. Question of possible cholecystitis, sonographic Wood negative. With echocardiogram as noted pulmonary hypertension, suspect perihepatic fluid may be related secondary to portal hypertension. However, does also have multiple gallstones in the gallbladder, wall thickening. At current time with the outside window for cholecystectomy at this time unless no other choice continue antibiotics, but would follow-up with surgery for consideration of interval cholecystectomy. Acute hepatitis panel and HIV negative. Complicated UTI: With acute encephalopathy. 80-100 WBC, 510 RBC. 0-4 squamous cell cells, positive nitrate. Continue Zosyn. Follow-up urine culture. No obstructive uropathy on CT. A-fib with RVR Wean down on Cardizem drip to 2.5 mg/h. Attempted transition this morning to oral Cardizem, but then he became agitated, confused, refused oral medication. -Attempt to switch to oral Cardizem, otherwise for now continue Cardizem drip -As per documentation patient and family have refused anticoagulation in the past -We will monitor, consider anticoagulation based on clinical progress Fluid overload, diastolic CHF -Hold off on Lasix for now KE, creatinine appears to have stated that 2. Reassess. No obstructive uropathy on CT. NSTEMI -Likely type II, from A-fib with RVR -Serial EKGs, serial troponins, telemetry monitoring -Follow-up cardiac echo Cardiology documentation reviewed. Elevated INR, 1.51. Follow-up requested. Vitamin K deficiency possible, otherwise additional assessment for DIC. Thrombocytopenia, reportedly chronic, however, with hyperbilirubinemia tiara tionally assess for hemolysis as above. No splenomegaly on CT. Has ascites, monitor Subclinical hypothyroidism. TSH 7.29, free T41.34. Will need follow-up thyroid studies. Discussed with nursing staff. Attempted to reach his but unsuccessful on the listed phone number. Will follow-up. Attestations Medical Necessity Statement*: Continue assessment and management of complicated UTI, further assessment of hyperbilirubinemia, possibly passed CBD stone, KE, optimization of control of A-fib with RVR, acute encephalopathy. Coding Level of Care Code Critical Care >/= 30 minutes Critical care time (in minutes): 35 The high probability of a clinically significant, sudden or life threatening deterioration, as referenced in this documentation, required my full and direct attention, intervention and personal management. The critical care time shown is in addition to time spent performing any reported separately billable procedures and includes the following: [x] Data and vital sign review and interpretation [x ] Patient assessment, examination and intervention [x] Medication orders and management [x] Patient/Family updates as able [x] Care Coordination and Documentation. Diagnoses Acute cholecystitis K81.0 Leukocytosis D72.829 Acute encephalopathy G93.40 Elevated INR R79.1 Acute kidney injury N17.9 NSTEMI (non-ST elevated myocardial infarction) I21.4 Diastolic CHF I50.30 Atrial fibrillation with RVR I48.91
[2022-08-06 17:28] LABS: LAB Peripheral Smear Sent for Review
[2022-08-06 17:32] LABS: INR 1.61 (0.8-1.2)
[2022-08-06 17:33] LABS: Fibrinogen 336 mg/dL (174-498); Partial Thromboplastin Time 36.6 SECONDS (23.9-36.7)
[2022-08-06 17:36] LABS: D Dimer 1.64 ug/mIFEU (0-0.59)
[2022-08-06 17:40] LABS: Alanine Aminotransferase 21 U/L (0-41); Albumin Level 3.4 g/dL (3.5-5.2); Alkaline Phosphatase 76 U/L (40-130); Blood Urea Nitrogen 52 mg/dL (8-23); Calcium 8.9 mg/dL (8.5-10.5); Carbon Dioxide 13 mmol/L (22-29); Chloride 97 mmol/L (98-107); Globulin 3.1 g/dL (1.3-4.6); Glucose 97 mg/dL (65-115); Osmolality Calculated 280 mOsm/kg (285-295); Sodium 128 mmol/L (136-145); Total Bilirubin 6.2 mg/dL (0.15-1.2); Total Protein 6.5 g/dL (6.6-8.7)
[2022-08-06 17:41] LABS: Anion Gap 23.4 (5-19); Aspartate Amino Transferase 45 U/L (0-40); Lactate Dehydrogenase 368 U/L (135-225); Potassium 5.4 mmol/L (3.5-5.1)
[2022-08-06] MEDS: dexmedetomidine 400 MCG in sodium chloride 0.9% (100 ml) 100 ML 7.53 MCG IV (21:11)
[2022-08-06] MEDS: dilTIAZem 30 mg Tablet 15 MG PO (22:59)
[2022-08-07] VITALS (47 sets, daily range): BP systolic 76–128; BP diastolic 51–90; PULSE 58–114; RESP 14–25; TEMP 36.6–37.2; O2SAT 83–100
[2022-08-07] MEDS: morphine 4 mg/mL SDV 1 mL 2 MG IVP ×2 (00:22→04:51)
[2022-08-07] MEDS: piperacillin-tazobactam 3.375 GM in sodium chloride 0.9% (plus) 50 ML IV ×3 (00:30→16:39)
[2022-08-07] MEDS: haloperidol inj 5 mg/mL INJ 1 mL 1 MG IM (00:30)
[2022-08-07] MEDS: pantoprazole 40 mg SDV IVP (00:30)
[2022-08-07] MEDS: enoxaparin 40 mg/0.4 mL Syringe SUBCUT (00:31)
--- NOTE | 2022-08-07 02:09 | PC.NURSE ---
Patient's MAP continues to trend into the upper 50s and low 60s. Hospitalist notified and order for 500 NS bolus received as well as repeat lactic acid with morning labs.
[2022-08-07] MEDS: sodium chloride 0.9% 500 ML 999 ML IV (02:22)
[2022-08-07 05:08] LABS: Basophils % 0.3 %; Eosinophils % 0.1 %; Hematocrit 35.1 % (42.0-52.0); Hemoglobin 11.2 g/dL (11.7-16.6); Lymphocytes # 1.4 10^3/uL (0.8-4.8); Lymphocytes % 13.4 %; Mean Corpuscular HGB Conc 31.9 g/dL (30.0-36.0); Mean Corpuscular Hemoglobin 32.1 pg (28.0-34.0); Mean Corpuscular Volume 100.6 fl (80-94); Mean Platelet Volume 11.3 fL (7.4-10.4); Monocytes # 0.7 10^3/uL (0.2-0.9); Monocytes % 6.8 %; Neutrophils # 8.03 10^3/uL (1.8-7.7); Neutrophils % 78.8 %; Nucleated Red Blood Cells % 0 %; Platelet Count 74 10^3/cmm (130-400); Red Blood Count 3.49 10^6/uL (4.1-5.3); Red Cell Distribution Width 16.2 % (12.1-15.1); White Blood Count 10.2 10^3/uL (4.0-10.0)
[2022-08-07 05:28] LABS: Alanine Aminotransferase 31 U/L (0-41); Alkaline Phosphatase 56 U/L (40-130); Aspartate Amino Transferase 60 U/L (0-40); Blood Urea Nitrogen 61 mg/dL (8-23); Calcium 8.3 mg/dL (8.5-10.5); Carbon Dioxide 19 mmol/L (22-29); Chloride 100 mmol/L (98-107); Globulin 2.4 g/dL (1.3-4.6); Glucose 92 mg/dL (65-115); Osmolality Calculated 291 mOsm/kg (285-295); Sodium 132 mmol/L (136-145); Total Bilirubin 4.9 mg/dL (0.15-1.2); Total Protein 5.4 g/dL (6.6-8.7)
[2022-08-07 05:41] LABS: Anion Gap 18.3 (5-19); Potassium 5.3 mmol/L (3.5-5.1)
[2022-08-07 06:17] LABS: Lactate (Lactic Acid level) 3.7 mmol/L (0.5-2.2)
[2022-08-07 07:54] LABS: D Dimer 2.56 ug/mIFEU (0-0.59); Fibrinogen 314 mg/dL (174-498); INR 1.97 (0.8-1.2); Partial Thromboplastin Time 36.9 SECONDS (23.9-36.7)
--- NOTE | 2022-08-07 08:44 | USR_ITS ---
PROCEDURE INFORMATION: Exam: US Duplex Lower Extremity Veins, Bilateral Exam date and time: 08/07/2022 3:20 PM Age: 82 years old Clinical indication: Swelling (edema) of limb; Lower extremity, bilateral; Additional info: Assess for dvt TECHNIQUE: Imaging protocol: Real-time duplex ultrasound of the bilateral extremities with 2-D garay scale, color Doppler flow and spectral waveform analysis including responses to compression and other maneuvers (when performed) with image documentation. Complete exam focused on the lower extremity veins. COMPARISON: CT abdomen pelvis wo con [id number] 08/05/2022 11:44 PM FINDINGS: Right deep veins: Occlusive DVT noted in the proximal aspects of the right peroneal and posterior tibial calf veins. The common femoral, superficial femoral, and popliteal veins are patent. Right superficial veins: Saphenofemoral junction is patent without thrombus. Left deep veins: Unremarkable. The common femoral, femoral, proximal profunda femoral and popliteal veins are patent without thrombus. Normal Doppler waveforms. Normal compressibility and/or augmentation response. Left superficial veins: Saphenofemoral junction is patent without thrombus. Soft tissues: Unremarkable. US/[place] [id number] IMPRESSION: 1. Occlusive DVT within the proximal aspects of the right peroneal and posterior tibial calf veins. 2. No left lower extremity DVT.
[2022-08-07] MEDS: dilTIAZem 30 mg Tablet 15 MG PO ×3 (09:23→22:03)
[2022-08-07 17:20] LABS: Anion Gap 16.5 (5-19); Blood Urea Nitrogen 69 mg/dL (8-23); Calcium 8.9 mg/dL (8.5-10.5); Carbon Dioxide 20 mmol/L (22-29); Chloride 90 mmol/L (98-107); Glucose 92 mg/dL (65-115); Osmolality Calculated 274 mOsm/kg (285-295); Potassium 4.5 mmol/L (3.5-5.1); Sodium 122 mmol/L (136-145)
--- NOTE | 2022-08-07 21:12 | P.PN_ITS ---
Subjective Subjective: Today he is doing slightly better, also noted by his family. He has been calmer, more alert, more interactive. He is oriented to being in the hospital, does not remember the year. Denies pain. Vitals/I&O/Wt Last Vital Signs Temp 98.0 F 08/07/22 20:30 Pulse 81 08/07/22 20:30 Resp 14 08/07/22 20:30 BP 116/85 08/07/22 20:30 Pulse Ox 95 08/07/22 20:30 O2 Del Method Room Air 08/07/22 20:30 O2 Flow Rate 1 08/07/22 04:00 FiO2 100 08/06/22 06:51 08/07/22 08/07/22 08/07/22 06:59 14:59 22:59 Intake Total 602.019 / 849.351 50 / 50 588.529 / 638.529 Output Total 125 / 125 400 / 400 Balance 477.019 / 724.351 50 / 50 188.529 / 238.529 Weight last 48 hrs Weight 96.479 kg Physical Exam Const: ORIENTATION/CONSCIOUSNESS: Yes awake, Yes oriented to place and Yes confused HENMT: COMMON NORMALS: oropharynx normal Neck/C-Spine: COMMON NORMALS: no JVD Resp: COMMON NORMALS: normal respiratory effort and clear to auscultation bilaterally AUSCULTATION: clear to auscultation bilaterally Cardio: COMMON NORMALS: no JVD, regular rhythm, S1 normal heart sound present, S2 normal heart sound present and No murmurs present (Cardio) RHYTHM: regular rhythm HEART SOUNDS: S1 normal heart sound present and S2 normal heart sound present GI: COMMON NORMALS: Normal to inspection, nondistended, normoactive bowel sounds present, Soft to palpation and non-tender PALPATION: Yes Soft to palpation Extremity: COMMON NORMALS: no joint enlargement and no pedal edema Neuro: COMMON NORMALS: moves all extremities SENSORIUM/ORIENTATION: Yes oriented to place Urinary Catheter Management: Tinsley: Cath Placed During This Visit: yes Reason for Continuing Indwelling Catheter: Accurate Measurement of Urinary Output in Critically Ill Patients Urinary Catheter Date of Insertion: 08/07/22 Urinary Catheter Time of Insertion: 17:19 Data 08/07/22 04:20 08/07/22 16:58 Micro: Microbiology 04/22/23 01:25 Blood Culture - Preliminary Blood Gram Negative Rods 08/05/22 19:41 Urine Culture - Preliminary Urine,Clean Catch Gram Negative Rods 08/06/22 01:30 Blood Culture - Preliminary Blood NEGATIVE TO DATE A&P Assessment and plan (1) Acute cholecystitis: (2) Leukocytosis: (3) Acute encephalopathy: (4) Elevated INR: (5) Acute kidney injury: (6) NSTEMI (non-ST elevated myocardial infarction): (7) Diastolic CHF: (8) Atrial fibrillation with RVR: Plan Acute encephalopathy Slightly better today. Still confusion, but is oriented to being in the hospital now. Cannot tell me the year. Continue to treat underlying conditions, continue to reorient. Per discussion with his also there is some possibility he may have been developing some very mild cognitive impairment previously, she did take over bills and finances several years ago. She states she otherwise is usually oriented, lucid, no problems with memory. She does state that they use shower stool for him but otherwise he is independent at baseline. She feels likely would want him to return home if possible with home health. We also discussed that unfortunately it is difficult to predict how he may recover cognitively from the episode of severe illness, there may be prolonged and/or incomplete/partial recovery. Acute encephalopathy likely secondary to complicated UTI, as well as acute metabolic cephalopathy with hyponatremia, KE. Metabolic acidosis. Noted also pleural effusion, but otherwise no good evidence for pneumonia. Effusion too small to tap at this time. -Nonfocal, no facial droop, no slurring of words, no focal weakness more global symptoms -CT head without acute findings. Mild cerebral small vessel disease. Age- related involutional changes. 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 -Neurochecks, aspiration precautions Transiently required Precedex drip on 08/06 in addition to Haldol due to 100 patient, but this has since resolved. Discontinue Precedex. Complicated UTI: Gram-negative rods in urine with gram-negative sepsis, with 2/4 bottles gram-negative rods in blood. Discussed with his and son. Continue Zosyn. Follow-up urine and blood culture. No obstructive uropathy on CT. Appears to be showing gradual improvement. Suspected sepsis on presentation, with acute kidney injury, also noted thrombocytopenia. DIC panel assessed, not suggestive of DIC, possibly low-grade DIC, fibrinogen 314. D-dimer noted abnormal 2.56. Followed up with lower extremity duplex with noted right lower extremity DVT. Urine retention: Over 200 mL on bladder scan. Now that he is calmer, more cooperative, less likely to pull out the catheter, Tinsley catheter placed. Monitor I&O. Right lower extremity DVT right peroneal and posterior tibial calf veins: Dis cussed with his and son. Discussed usually would want to start on anticoagulation, her, has been having dropping platelets. Currently on prophylactic Lovenox. May have risk of embolization and/or clot extension, although embolization less common with more distal clots. However, will benefit from anticoagulation once risk of bleeding is lower, platelets stabilized. Discussed option of starting anticoagulation currently, option of continuing with prophylactic dose Lovenox is currently, other consideration, possibly IVC filter, although this may be considered in case there is proximal extension of the clot. For now consensus is that they prefer to continue with prophylactic dose Lovenox, continue monitoring and moved to full dose anticoagulation once he is able to do so more safely. Hyperbilirubinemia, noted improving, bilirubin down to 4.9. Possibly some low- grade DIC, If platelets do not drop precipitously would benefit from anticoagulation. Otherwise haptoglobin 77. LDH 368. Not significantly suggestive of hemolysis. Plasmic score low risk group for TTP, but follow-up peripheral smear which has been ordered. Noted INR abnormal 1.97. Follow-up DIC panel, haptoglobin, LDH. Was thought to have passed a possible CBD stone, reassess liver parameters. MRCP is ordered. Other liver parameters without elevation with minimal abnormality AST, normal ALT, alk phos. Ammonia 28. Acute hepatitis and HIV negative. Question of possible cholecystitis, sonographic Wood negative. With echocardiogram as noted pulmonary hypertension, suspect perihepatic fluid may be related secondary to portal hypertension. However, does also have multiple gallstones in the gallbladder, wall thickening. At current time with the outside window for cholecystectomy at this time unless no other choice continue antibiotics, but would follow-up with surgery for consideration of interval cholecystectomy. Acute hepatitis panel and HIV negative. A-fib with RVR Now taking oral medication. Stop Cardizem drip. Continue p.o. Cardizem. -As per documentation patient and family have refused anticoagulation in the past -We will monitor, consider anticoagulation based on clinical progress Fluid overload, diastolic CHF -Hold off on Lasix for now KE, possibility of postrenal KE as well, with noted urine retention. Tinsley catheter placed. Today creatinine 2.5, BUN 69. Follow-up renal function. No obstructive uropathy on CT. NSTEMI -Likely type II, from A-fib with RVR -Serial EKGs, serial troponins, telemetry monitoring Echo with lower limit of normal EF. No obvious wall motion abnormality. Study suboptimal. Mild pulmonary hypertension. Bioprosthetic mitral valve, possibly trace regurgitation. Mild AVS. Severe TVR. Dilated IVC. Elevated INR, 1.9. held off vitamin K supplementation given DVT. Possible component of low-grade DIC. Follow-up INR, DIC panel. Does not appear to be in acute liver failure. Monitor liver parameters. Thrombocytopenia, reportedly chronic, however, with hyperbilirubinemia additionally assess for hemolysis as above. No splenomegaly on CT. Hyponatremia: For now does not obviously appear hypervolemic, but may be getting hypervolemic, noted distended IVC. He is off IV fluid. Recheck sodium. His appetite did improve today and he ate, do anticipate he may show some improvement. Has ascites, monitor Subclinical hypothyroidism. TSH 7.29, free T41.34. Will need follow-up thyroid studies. Discussed with case management, would prefer if you are able to return home with home health. We discussed with family that certainly depending on how he recovers he may be quite deconditioned and may benefit from rehabilitation. Attestations Medical Necessity Statement*: Continue admission for assessment and management of complicated UTI, resolving sepsis, acute encephalopathy, KE, possible low-grade DIC, additional comorbidities as above. Critical Care Time: The high probability of a clinically significant, sudden or life threatening deterioration of the patient's heme system(s) required my full and direct attention, intervention and personal management. The critical care time is as shown. This time is in addition to time spent performing any reported procedures but includes the following: [x] Data and vital sign review and interpretation [x] Patient assessment, examination and intervention [x] Documentation [x] Medication orders and management Critical Care Time (min): 20 Diagnoses Acute cholecystitis K81.0 Leukocytosis D72.829 Acute encephalopathy G93.40 Elevated INR R79.1 Acute kidney injury N17.9 NSTEMI (non-ST elevated myocardial infarction) I21.4 Diastolic CHF I50.30 Atrial fibrillation with RVR I48.91
[2022-08-08] VITALS (46 sets, daily range): BP systolic 88–136; BP diastolic 60–87; PULSE 81–99; RESP 12–25; TEMP 36.5–36.7; O2SAT 93–98
[2022-08-08] MEDS: pantoprazole 40 mg SDV IVP (01:30)
[2022-08-08] MEDS: enoxaparin 30 mg/0.3 mL Syringe SUBCUT (01:30)
[2022-08-08] MEDS: piperacillin-tazobactam 3.375 GM in sodium chloride 0.9% (plus) 50 ML IV ×3 (01:30→16:30)
[2022-08-08] MEDS: dilTIAZem 30 mg Tablet 15 MG PO ×4 (03:12→21:10)
[2022-08-08 04:23] LABS: Basophils # 0.1 10^3/uL (0.0-0.1); Basophils % 0.8 %; Eosinophils # 0.1 10^3/uL (0.0-0.8); Eosinophils % 1.3 %; Hemoglobin 12.8 g/dL (11.7-16.6); Lymphocytes # 1.6 10^3/uL (0.8-4.8); Mean Corpuscular HGB Conc 32.8 g/dL (30.0-36.0); Mean Corpuscular Hemoglobin 32.2 pg (28.0-34.0); Mean Corpuscular Volume 98.2 fl (80-94); Mean Platelet Volume 10.5 fL (7.4-10.4); Monocytes # 0.7 10^3/uL (0.2-0.9); Neutrophils # 6.03 10^3/uL (1.8-7.7); Nucleated Red Blood Cells % 0 %; Platelet Count 96 10^3/cmm (130-400); Red Blood Count 3.97 10^6/uL (4.1-5.3); Red Cell Distribution Width 16.2 % (12.1-15.1); White Blood Count 8.6 10^3/uL (4.0-10.0)
[2022-08-08 04:24] LABS: Hematocrit 39.2 % (42.0-52.0); Retic Production Index 2.84; Reticulocyte % 2.9 % (0.5-2.0)
[2022-08-08 04:43] LABS: Alanine Aminotransferase 60 U/L (0-41); Albumin Level 3.4 g/dL (3.5-5.2); Alkaline Phosphatase 67 U/L (40-130); Anion Gap 15.7 (5-19); Aspartate Amino Transferase 81 U/L (0-40); Blood Urea Nitrogen 70 mg/dL (8-23); Calcium 8.8 mg/dL (8.5-10.5); Carbon Dioxide 19 mmol/L (22-29); Chloride 98 mmol/L (98-107); Globulin 3.1 g/dL (1.3-4.6); Glucose 89 mg/dL (65-115); Osmolality Calculated 286 mOsm/kg (285-295); Potassium 4.7 mmol/L (3.5-5.1); Sodium 128 mmol/L (136-145); Total Bilirubin 4.2 mg/dL (0.15-1.2); Total Protein 6.5 g/dL (6.6-8.7)
[2022-08-08 04:44] LABS: Lactate Dehydrogenase 213 U/L (135-225)
[2022-08-08 05:20] LABS: INR 1.48 (0.8-1.2); Partial Thromboplastin Time 33.4 SECONDS (23.9-36.7)
[2022-08-08 05:21] LABS: Fibrinogen 409 mg/dL (174-498)
[2022-08-08 05:30] LABS: D Dimer 3.97 ug/mIFEU (0-0.59)
--- NOTE | 2022-08-08 09:30 | MR_ITS ---
WS: [id number] MRCP (MAGNETIC RESONANCE CHOLANGIOPANCREATOGRAPHY) HISTORY: hyperbilirubinemia COMPARISON: CT 08/05/2022 and gallbladder ultrasound 08/05/2022 TECHNIQUE: Multiple sequences are performed to evaluate the intra and extrahepatic ducts. Small layering RIGHT pleural effusion. Heart is moderately enlarged. Limited evaluation of the bowel ducts as patient unable to hold his breath. Portions of the gallbladd er visualized are not dilated. Common bile duct measures 5.5 mm. There is normal tapering towards the ampulla. The visualized pancreatic duct is not dilated. No intrahepatic duct dilatation. Gallbladder is very difficult to visualize due to motion. No significant gallbladder hydrops. Less th an 4 cm diameter. There are stones present. Diffuse gallbladder wall thickening was noted on the prio r ultrasound. No pericholecystic fluid. The intrahepatic ducts are more difficult to visualize due to motion and breathing artifact. Visualized liver is negative otherwise. There is no large mass. No ascites. MR/MR MRCP [id number] IMPRESSION: 1. Although limited the common bile duct is normal size measuring 5.5 mm. No f illing defects or choledocholithiasis. Normal tapering towards the ampulla of V ater. The intrahepatic ducts are less well visualized. 2. Normal pancreatic duct. 3. Cholelithiasis. 4. Gallbladder is not overly distended. No adjacent edema or pericholecystic f luid. 5. Small RIGHT pleural effusion.
--- NOTE | 2022-08-08 12:50 | PM.PN ---
Subjective Subjective: Patient is able to converse at [facility] numbers unremarkable Patient was told about the DVT Patient is contemplating EGD colonoscopy, IVC filter versus no intervention at all, at the bedside Had a family meeting in detail ICU nurse updated Vitals/I&O/Wt Last Vital Signs Temp 97.7 F 08/08/22 04:00 Pulse 91 08/08/22 10:43 Resp 21 H 08/08/22 09:30 BP 118/77 08/08/22 09:30 Pulse Ox 94 08/08/22 10:43 O2 Del Method Room Air 08/08/22 10:43 O2 Flow Rate 1 08/07/22 04:00 FiO2 100 08/06/22 06:51 08/07/22 08/08/22 08/08/22 22:59 06:59 14:59 Intake Total 888.529 / 938.529 250 / 1188.529 Output Total 800 / 800 250 / 1050 Balance 88.529 / 138.529 0 / 138.529 Weight last 48 hrs Weight 97.522 kg Physical Exam Narrative: Patient is sitting in a chair eating breakfast Abdomen soft bowel sound present S1, S2 Currently patient is on room air Doing well with S1-S2 heart sounds Clinical signs of fluid overload Lower extremity 2+ edema Tinsley catheter draining dark urine Urinary Catheter Management: Tinsley: Cath Placed During This Visit: yes Reason for Continuing Indwelling Catheter: Accurate Measurement of Urinary Output in Critically Ill Patients Urinary Catheter Date of Insertion: 08/07/22 Urinary Catheter Time of Insertion: 17:19 Data 08/08/22 04:06 08/08/22 04:06 Micro: Microbiology 08/05/22 19:41 Urine Culture - Final Urine,Clean Catch Enterobacter aerogenes 08/06/22 01:25 Blood Culture - Preliminary Blood Enterobacter aerogenes A&P Assessment and plan (1) Atrial fibrillation with RVR: (2) Diastolic CHF: (3) NSTEMI (non-ST elevated myocardial infarction): (4) Acute kidney injury: (5) Elevated INR: (6) Acute encephalopathy: (7) Leukocytosis: (8) Tricuspid valve regurgitation, nonrheumatic: (9) Stenosis of prosthetic mitral valve: Qualifiers: Encounter type: initial encounter Qualified Code(s): T82.857A - Stenosis of other cardiac prosthetic devices, implants and grafts, initial encounter (10) Chronic kidney disease (CKD): Qualifiers: Chronic kidney disease stage: unspecified stage Qualified Code(s): N18.9 - Chronic kidney disease, unspecified (11) Thrombocytopenia: (12) Hx of mitral valve replacement: Plan Metabolic encephalopathy related to UTI: Resolved Cholecystitis: Ruled out No signs of choledocholithiasis Right leg DVT, history of therapeutic Lovenox hemoglobin has remained stable Abnormal transaminases most likely related to passage of biliary stone no active signs of cholangitis Chronic thrombocytopenia Hemoglobin stable Patient has history of H. pylori ulcer 1994 which was treated Patient and family will discuss further whether they would opt for EGD colonoscopy Patient and his not agreeable for IVC filter placement or Eliquis for now A-fib RVR is chronic patient has been taking aspirin in the past Diastolic CHF with acute exacerbation Continue diuresis NSTEMI: Likely type II with A-fib History of mild AVS severe tricuspid valve regurgitation bioprosthetic mitral valve UTI with gram-negative matt Low platelets with confusion and high creatinine Confusion improved, peripheral smear was requested, TTP? Start patient on mechanical soft diet Detailed discussion took place when family was at the bedside this morning ICU nurse updated Resume all medications Family is willing to take him to home with home health services does not want SNF Goals of care we discussed, for now he is full code, will discuss with her today as he is more awake and alert Attestations Medical Necessity Statement*: Continue medical management Diagnoses Atrial fibrillation with RVR I48.91 Diastolic CHF I50.30 NSTEMI (non-ST elevated myocardial infarction) I21.4 Acute kidney injury N17.9 Elevated INR R79.1 Acute encephalopathy G93.40 Leukocytosis D72.829 Tricuspid valve regurgitation, nonrheumatic I36.1 Stenosis of prosthetic mitral valve T82.857A Encounter type: initial encounter Chronic kidney disease (CKD) N18.9 Chronic kidney disease stage: unspecified stage Thrombocytopenia D69.6 Hx of mitral valve replacement Z95.2
[2022-08-08] MEDS: FUROsemide 20 mg Tablet PO (13:45)
--- NOTE | 2022-08-08 18:34 | PC.NURSE ---
Shift summary: Pt to have EGD tomorrow. Tolerated being out of bed majority of day. uneventful shift
[2022-08-08] MEDS: metoprolol tartrate 25 mg Tablet 12.5 MG PO (21:10)
[2022-08-09] VITALS (52 sets, daily range): BP systolic 98–136; BP diastolic 63–95; PULSE 67–103; RESP 12–27; TEMP 36.5–36.7; O2SAT 84–100
[2022-08-09] MEDS: piperacillin-tazobactam 3.375 GM in sodium chloride 0.9% (plus) 50 ML IV ×2 (00:02→09:04)
[2022-08-09] MEDS: pantoprazole 40 mg SDV IVP (00:02)
[2022-08-09] MEDS: morphine 4 mg/mL SDV 1 mL 2 MG IVP (02:10)
[2022-08-09] MEDS: dilTIAZem 30 mg Tablet 15 MG PO ×2 (03:52→09:01)
[2022-08-09 05:42] LABS: Basophils # 0.1 10^3/uL (0.0-0.1); Basophils % 0.8 %; Eosinophils # 0.2 10^3/uL (0.0-0.8); Eosinophils % 2.1 %; Hematocrit 36.8 % (42.0-52.0); Lymphocytes # 1.8 10^3/uL (0.8-4.8); Lymphocytes % 22.1 %; Mean Corpuscular HGB Conc 32.6 g/dL (30.0-36.0); Mean Corpuscular Hemoglobin 32.3 pg (28.0-34.0); Mean Corpuscular Volume 98.9 fl (80-94); Mean Platelet Volume 10.3 fL (7.4-10.4); Monocytes # 0.8 10^3/uL (0.2-0.9); Monocytes % 10.2 %; Neutrophils # 5.05 10^3/uL (1.8-7.7); Neutrophils % 63.5 %; Nucleated Red Blood Cells % 0 %; Platelet Count 88 10^3/cmm (130-400); Red Blood Count 3.72 10^6/uL (4.1-5.3); Red Cell Distribution Width 16.5 % (12.1-15.1)
[2022-08-09 06:00] LABS: INR 1.33 (0.8-1.2)
[2022-08-09 06:01] LABS: Fibrinogen 358 mg/dL (174-498); Partial Thromboplastin Time 33.5 SECONDS (23.9-36.7)
[2022-08-09 06:04] LABS: Glucose Point of Care 108 mg/dL (70-110)
[2022-08-09 06:07] LABS: Alanine Aminotransferase 53 U/L (0-41); Albumin Level 3.3 g/dL (3.5-5.2); Alkaline Phosphatase 85 U/L (40-130); Aspartate Amino Transferase 66 U/L (0-40); Blood Urea Nitrogen 60 mg/dL (8-23); Calcium 8.6 mg/dL (8.5-10.5); Carbon Dioxide 18 mmol/L (22-29); Chloride 103 mmol/L (98-107); Globulin 2.7 g/dL (1.3-4.6); Glucose 94 mg/dL (65-115); Osmolality Calculated 295 mOsm/kg (285-295); Sodium 134 mmol/L (136-145)
[2022-08-09 06:10] LABS: D Dimer 4.34 ug/mIFEU (0-0.59)
[2022-08-09] MEDS: metoprolol tartrate 25 mg Tablet 12.5 MG PO ×2 (09:03→21:19)
[2022-08-09] MEDS: FUROsemide 20 mg Tablet PO (09:04)
--- NOTE | 2022-08-09 10:24 | PM.CONSULT ---
Providers/Reason For Consult Consulting Physician/Specialty*: Hospitalist Reason for Consult*: EGD Attending Physician: Christophe García MD Primary Care Provider: Daniel Rios DO History of Present Illness History of Present Illness Ernst Garcia is a 82 year old male with multiple medical problems. The patient found to have a DVT. The patient will need to be anticoagulated. Hospitalist would like a EGD before anticoagulation. The patient has a history of an upper GI bleed. Would like to rule out gastritis/peptic ulcer disease. Medications/Allergies Home Medications Medication Instructions Recorded Confirmed Last Taken Type cholecalciferol (vitamin D3) 50 50 mcg PO DAILY 10/13/20 08/06/22 Unknown History mcg (2,000 unit) capsule multivitamin 1 tab PO DAILY 12/04/20 08/06/22 Unknown History ferrous sulfate 300 mg (60 mg 300 mg PO DAILY 06/08/21 08/06/22 Unknown History iron) tablet zinc 50 mg tablet 50 mg PO DAILY 06/08/21 08/06/22 Unknown History furosemide 20 mg tablet 20 - 40 mg PO DAILY PRN edema 02/25/22 08/06/22 08/01/22 History Allergies Allergy/AdvReac Type Severity Reaction Status Date / Time acetaminophen [From Percocet] Allergy Unknown Verified 08/05/22 17:59 Histamine H2 Inhibitors Allergy Unknown Verified 08/05/22 17:59 oxycodone [From Percocet] Allergy Unknown Verified 08/05/22 17:59 pork derived (porcine) Allergy Unknown Verified 08/05/22 17:59 Current Medications Generic Name Dose Route Start Last Admin Trade Name Freq PRN Reason Stop Dose Admin Diltiazem HCl 15 mg 08/06/22 10:00 08/09/22 09:01 Diltiazem 30 Mg Tablet PO 15 mg Q6H INES Administration Enoxaparin Sodium 30 mg 08/08/22 00:30 08/08/22 01:30 Enoxaparin 30 Mg/0.3 Ml Syringe SUBCUT 30 mg Q24H INES Administration Furosemide 20 mg 08/08/22 13:15 08/09/22 09:04 Furosemide 20 Mg Tablet PO 20 mg DAILY INES Administration Haloperidol Lactate 1 mg 08/06/22 03:45 08/07/22 00:30 Haloperidol Inj 5 Mg/Ml Inj 1 Ml IM 1 mg Q4H PRN Administration AGITATION Piperacillin Sod/Tazobactam 50 mls @ 12.5 mls/hr 08/06/22 00:30 08/09/22 09:04 Sod 3.375 gm/ Sodium Chloride IV 12.5 mls/hr Q8H INES Administration Protocol Metoprolol Tartrate 12.5 mg 08/08/22 21:00 08/09/22 09:03 Metoprolol Tartrate 25 Mg Tablet PO 12.5 mg BID@0900,2100 INES Administration Morphine Sulfate 2 mg 08/06/22 00:19 08/09/22 02:10 Morphine 4 Mg/Ml Sdv 1 Ml IVP 2 mg Q4H PRN Administration SEVERE PAIN Pantoprazole Sodium 40 mg 08/06/22 00:30 08/09/22 00:02 Pantoprazole 40 Mg Sdv IVP 40 mg Q24H INES Administration PFSH Acute PFSH: Medical History Atrial fibrillation Chronic kidney disease (CKD) Stenosis of prosthetic mitral valve Thrombocytopenia Tricuspid valve regurgitation, nonrheumatic Surgical History Hx of mitral valve replacement 2005 Family History Father Myocardial infarction Denies family history of Diabetes Stroke Social History Smoking and tobacco status: former smoker Alcohol intake: current Alcohol intake frequency: holidays/special occasions only Substance/Drug Use: never Vitals/I&O/Wt Last Vital Signs Temp 97.7 F 08/09/22 04:00 Pulse 88 08/09/22 09:36 Resp 16 08/09/22 08:30 BP 118/74 08/09/22 08:30 Pulse Ox 93 08/09/22 09:36 O2 Del Method Room Air 08/09/22 09:36 O2 Flow Rate 1 08/07/22 04:00 FiO2 100 08/06/22 06:51 08/08/22 08/09/22 08/09/22 22:59 06:59 14:59 Intake Total 300 / 750 50 / 800 0 / 0 Output Total 1100 / 1100 400 / 1500 Balance -800 / -350 -350 / -700 0 / 0 Weight last 48 hrs Weight 215 lb Physical Exam Narrative: Generally: Sitting up in the chair HEENT: Normocephalic atraumatic Lungs: Clear to auscultation Heart: Irregular rate and rhythm Abdomen: Soft, nontender without masses. There is no hernias I can appreciate. Neurologic: The patient is awake, alert, oriented x3. Patient sensations intact throughout Urinary Catheter Management: Tinsley: Cath Placed During This Visit: yes Reason for Continuing Indwelling Catheter: Accurate Measurement of Urinary Output in Critically Ill Patients Urinary Catheter Date of Insertion: 08/07/22 Urinary Catheter Time of Insertion: 17:19 Data 08/09/22 04:48 08/09/22 04:48 Micro: Microbiology 08/09/22 08:29 Blood Culture - Preliminary Blood SPECIMEN COLLECTED 08/05/22 19:41 Urine Culture - Final Urine,Clean Catch Enterobacter aerogenes 08/06/22 01:25 Blood Culture - Preliminary Blood Enterobacter aerogenes A&P Assessment and plan (1) Deep venous thrombosis: I explained the risk and benefits of an EGD to the patient. The patient seems understand these risks and benefits would like to proceed. The patient's is at the bedside. She is in agreement. Her questions have been answered. Coding Level of Care Code Acute Code for [facility] Fwd Diagnoses Deep venous thrombosis I82.409
--- NOTE | 2022-08-09 13:04 | PC.SOCIAL ---
Pg 2 IMM Explained to pt & Pg 2 IMM. No questions voiced. Provided pt a copy. Initialed, dated, & timed a copy & placed in chart.
[2022-08-09] MEDS: sodium chloride 0.9% 1,000 ML 30 ML IV (13:25)
--- NOTE | 2022-08-09 13:33 | PM.PN ---
Subjective Subjective: Went for EGD today Dr. Ortiz has been notified and consulted Patient and in agreement Hemoglobin stable is endorsing that there is history of peptic ulcer disease which was treated in 1994, H. pylori ulcer was detected at that time which was treated Vitals/I&O/Wt Last Vital Signs Temp 97.8 F 08/09/22 13:17 Pulse 80 08/09/22 13:17 Resp 20 H 08/09/22 13:17 BP 130/73 08/09/22 13:17 Pulse Ox 90 08/09/22 12:00 O2 Del Method Room Air 08/09/22 09:36 O2 Flow Rate 1 08/07/22 04:00 FiO2 100 08/06/22 06:51 08/08/22 08/09/22 08/09/22 22:59 06:59 14:59 Intake Total 300 / 750 50 / 800 50 / 50 Output Total 1100 / 1100 400 / 1500 Balance -800 / -350 -350 / -700 50 / 50 Weight last 48 hrs Weight 97.522 kg Physical Exam Narrative: Patient is awake and alert Fatigued and lethargic Currently on room air Hemodynamically stable Fatigue and lethargic Able to follow commands Nonfocal neuro exam Abdomen soft No audible stridor or wheezing S1, S2 variable no signs of RVR, Urinary Catheter Management: Tinsley: Cath Placed During This Visit: yes Reason for Continuing Indwelling Catheter: Accurate Measurement of Urinary Output in Critically Ill Patients Urinary Catheter Date of Insertion: 08/07/22 Urinary Catheter Time of Insertion: 17:19 Data 08/09/22 04:48 08/09/22 04:48 Micro: Microbiology 08/06/22 01:25 Blood Culture - Final Blood Enterobacter aerogenes 08/09/22 08:29 Blood Culture - Preliminary Blood SPECIMEN COLLECTED 08/05/22 19:41 Urine Culture - Final Urine,Clean Catch Enterobacter aerogenes A&P Assessment and plan (1) Bacteremia: (2) Deep venous thrombosis: (3) Atrial fibrillation with RVR: (4) Diastolic CHF: (5) NSTEMI (non-ST elevated myocardial infarction): (6) Acute kidney injury: (7) Acute encephalopathy: (8) Stenosis of prosthetic mitral valve: Qualifiers: Encounter type: initial encounter Qualified Code(s): T82.857A - Stenosis of other cardiac prosthetic devices, implants and grafts, initial encounter (9) Tricuspid valve regurgitation, nonrheumatic: (10) Chronic kidney disease (CKD): Qualifiers: Chronic kidney disease stage: unspecified stage Qualified Code(s): N18.9 - Chronic kidney disease, unspecified (11) Thrombocytopenia: (12) UTI (urinary tract infection): Plan Metabolic encephalopathy related to UTI: Resolved Patient is awake and alert and oriented Patient is very fatigued and lethargic, Home health services on discharge stable request PT during hospitalization Cholecystitis ruled out MRCP unremarkable Right leg DVT patient and are in agreement for use of Eliquis however considering history of peptic ulcer disease/H. pylori would like to proceed with EGD first Chronic thrombocytopenia: Stable Hemoglobin stable A-fib without RVR we will use Eliquis and low-dose metoprolol Diastolic CHF with acute exacerbation Continue low-dose p.o. Lasix UTI with gram-negative matt: Bacteremia with gram-negative matt as well however sensitive to p.o. regimen I would use 2 weeks of p.o. antibiotics at discharge Patient is n.p.o., will advance diet after EGD Full code Plan to discharge him next 24 hours He can be transferred out of ICU after EGD DVT prophylaxis on hold Type II OH related to A-fib Spoke with Dr. Ortiz for EGD today Attestations Medical Necessity Statement*: He can be transferred out of ICU to [facility] Diagnoses Bacteremia R78.81 Deep venous thrombosis I82.409 Atrial fibrillation with RVR I48.91 Diastolic CHF I50.30 NSTEMI (non-ST elevated myocardial infarction) I21.4 Acute kidney injury N17.9 Acute encephalopathy G93.40 Stenosis of prosthetic mitral valve T82.857A Encounter type: initial encounter Tricuspid valve regurgitation, nonrheumatic I36.1 Chronic kidney disease (CKD) N18.9 Chronic kidney disease stage: unspecified stage Thrombocytopenia D69.6 UTI (urinary tract infection) N39.0
--- NOTE | 2022-08-09 13:57 | PC.NURSE ---
Patient arrived back to ICU from GI at 1353. EGD performed in GI lab, no findings.
[2022-08-09] MEDS: levoFLOXacin 750 mg Tablet PO (14:07)
--- NOTE | 2022-08-09 14:28 | ANES.PREANE2 ---
Pre-Anesthetic Assessment Height/Weight: Height 1.78 m Weight 97.522 kg Temp Pulse Resp BP Pulse Ox O2 Del Method O2 Flow Rate 97.8 F 67 19 H 110/77 98 Room Air 1 08/09/22 13:17 08/09/22 14:02 08/09/22 14:02 08/09/22 14:02 08/09/22 14:00 08/09/22 09:36 08/07/22 04:00 FiO2 100 08/06/22 06:51 Preop Diagnosis: DVT Operation Date: 08/09/22 12:30 Proposed Procedures p EGD(Not Applicable) - Abdullahi Ortiz MD Familial anesthetic complications: none Was Beta Ricardo taken within 24 hours: N/A Was Clonidine taken within 24 hours: N/A Social No alcohol and No tobacco Exam alert, oriented x 3, clear to auscultation bilaterally and regular rate & rhythm Airway Submandibular: within normal limits Cervical ROM: within normal limits Mallampati: Class II CV/HEM Atrial Fibrillation, Anemia, Coronary Artery Disease, Deep Vein Thrombosis and Myocardial Infarction Thrombocytopenia, MVR Chronic Renal Insufficiency Anesthetic Plan ASA status: 3 Anesthesia: MAC Medications/Allergies Home Medications Medication Instructions Recorded Confirmed Last Taken Type cholecalciferol (vitamin D3) 50 50 mcg PO DAILY 10/13/20 08/06/22 Unknown History mcg (2,000 unit) capsule multivitamin 1 tab PO DAILY 12/04/20 08/06/22 Unknown History ferrous sulfate 300 mg (60 mg 300 mg PO DAILY 06/08/21 08/06/22 Unknown History iron) tablet zinc 50 mg tablet 50 mg PO DAILY 06/08/21 08/06/22 Unknown History furosemide 20 mg tablet 20 - 40 mg PO DAILY PRN edema 02/25/22 08/06/22 08/01/22 History Allergies Allergy/AdvReac Type Severity Reaction Status Date / Time acetaminophen [From Percocet] Allergy Unknown Verified 08/05/22 17:59 Histamine H2 Inhibitors Allergy Unknown Verified 08/05/22 17:59 oxycodone [From Percocet] Allergy Unknown Verified 08/05/22 17:59 pork derived (porcine) Allergy Unknown Verified 08/05/22 17:59 Current Medications Generic Name Dose Route Start Last Admin Trade Name Freq PRN Reason Stop Dose Admin Furosemide 20 mg 08/08/22 13:15 08/09/22 09:04 Furosemide 20 Mg Tablet PO 20 mg DAILY INES Administration Haloperidol Lactate 1 mg 08/06/22 03:45 08/07/22 00:30 Haloperidol Inj 5 Mg/Ml Inj 1 Ml IM 1 mg Q4H PRN Administration AGITATION Sodium Chloride 1,000 mls @ 30 mls/hr 08/09/22 13:30 08/09/22 13:43 Sodium Chloride 0.9% IV 08/10/22 13:29 Infused .Q24H INES Infusion Levofloxacin 750 mg 08/09/22 14:00 08/09/22 14:07 Levofloxacin 750 Mg Tablet PO 750 mg Q48H INES Administration Protocol Metoprolol Tartrate 12.5 mg 08/08/22 21:00 08/09/22 09:03 Metoprolol Tartrate 25 Mg Tablet PO 12.5 mg BID@0900,2100 INES Administration Morphine Sulfate 2 mg 08/06/22 00:19 08/09/22 02:10 Morphine 4 Mg/Ml Sdv 1 Ml IVP 2 mg Q4H PRN Administration SEVERE PAIN Pantoprazole Sodium 40 mg 08/06/22 00:30 08/09/22 00:02 Pantoprazole 40 Mg Sdv IVP 40 mg Q24H INES Administration PFSH Anesthesia Medical History Atrial fibrillation Chronic kidney disease (CKD) Stenosis of prosthetic mitral valve Thrombocytopenia Tricuspid valve regurgitation, nonrheumatic Surgical History Hx of mitral valve replacement 2006 Family History Father Myocardial infarction Denies family history of Diabetes Stroke Social History Smoking and tobacco status: former smoker Alcohol intake: current Alcohol intake frequency: holidays/special occasions only Substance/Drug Use: never Data Anesthesia 08/09/22 04:48 08/09/22 04:48 Short CBC 08/08/22 08/08/22 08/09/22 Range/Units 04:06 04:06 04:48 WBC 8.6 8.0 (4.0-10.0) 10^3/uL Hgb 12.8 12.0 (11.7-16.6) g/dL Hct 39.2 L 39.0 L 36.8 L (42.0-52.0) % MCV 98.2 H 98.9 H (80-94) fl Plt Count 96 L 88 L (130-400) 10^3/cmm Neut % (Auto) 70.0 63.5 % Neut # (Auto) 6.03 5.05 (1.8-7.7) 10^3/uL BMP 08/07/22 08/08/22 08/09/22 16:58 04:06 04:48 Sodium 122 L 128 L 134 L Potassium 4.5 4.7 4.0 Chloride 90 L 98 103 Carbon Dioxide 20 L 19 L 18 L BUN 69 H 70 H 60 H Creatinine 2.5 H 2.4 H 2.1 H Glucose 92 89 94 Calcium 8.9 8.8 8.6 Liver Function 08/08/22 08/09/22 Range/Units 04:06 04:48 Total Bilirubin 4.2 H 3.0 H (0.15-1.2) mg/dL AST 81 H 66 H (0-40) U/L ALT 60 H 53 H (0-41) U/L Alkaline Phosphatase 67 85 (40-130) U/L Albumin 3.4 L 3.3 L (3.5-5.2) g/dL Coags 08/08/22 08/09/22 04:06 04:48 PT 18.40 H 16.90 H INR 1.48 H 1.33 H APTT 33.4 33.5 Fibrinogen 409 358 Fibrin Degrad Products Pos, 10-40 H Pos, >=40 H D-Dimer 3.97 H 4.34 H Microbiology 08/06/22 01:25 Blood Culture - Final Blood Enterobacter aerogenes 08/09/22 08:29 Blood Culture - Preliminary Blood SPECIMEN COLLECTED 08/05/22 19:41 Urine Culture - Final Urine,Clean Catch Enterobacter aerogenes Cardiac Studies: Echocardiogram 08/06/22
--- NOTE | 2022-08-09 14:30 | ANE.PACU2 ---
Inpatient post-anesthesia follow up: Airway intact: Yes Vital signs: Temperature 97.8 F Pulse Rate 67 Respiratory Rate 19 Blood Pressure 110/77 Pulse Oximetry 98 Oxygen Delivery Me thod [ Room Air Current Rate & Del kaykay] Oxygen Delivery Me thod Room Air Oxygen Flow Rate 1 Fraction of Inspir ed Oxygen 100 Hydration adequate: Yes Nausea and vomiting: No Pain level: 2 Mental status: Baseline
[2022-08-09] MEDS: apixaban 5 mg Tablet PO (21:19)
[2022-08-09] MEDS: acetaminophen 325 mg Tablet 650 MG PO (21:20)
[2022-08-10] VITALS (21 sets, daily range): BP systolic 105–128; BP diastolic 63–92; PULSE 73–161; RESP 12–21; TEMP 36.1–36.6; O2SAT 89–98
[2022-08-10] MEDS: pantoprazole 40 mg SDV IVP (01:04)
[2022-08-10] MEDS: morphine 4 mg/mL SDV 1 mL 2 MG IVP (01:15)
[2022-08-10 04:55] LABS: Basophils # 0.1 10^3/uL (0.0-0.1); Basophils % 0.7 %; Eosinophils # 0.1 10^3/uL (0.0-0.8); Eosinophils % 1.5 %; Hematocrit 35.2 % (42.0-52.0); Hemoglobin 11.6 g/dL (11.7-16.6); Lymphocytes # 1.7 10^3/uL (0.8-4.8); Lymphocytes % 22.5 %; Mean Corpuscular Hemoglobin 31.6 pg (28.0-34.0); Mean Corpuscular Volume 95.9 fl (80-94); Mean Platelet Volume 10.1 fL (7.4-10.4); Monocytes # 0.8 10^3/uL (0.2-0.9); Monocytes % 10.5 %; Neutrophils # 4.74 10^3/uL (1.8-7.7); Neutrophils % 62.8 %; Nucleated Red Blood Cells % 0 %; Platelet Count 77 10^3/cmm (130-400); Red Blood Count 3.67 10^6/uL (4.1-5.3); Red Cell Distribution Width 16.5 % (12.1-15.1); White Blood Count 7.5 10^3/uL (4.0-10.0)
[2022-08-10 05:19] LABS: Anion Gap 15.7 (5-19); Blood Urea Nitrogen 49 mg/dL (8-23); Calcium 8.5 mg/dL (8.5-10.5); Carbon Dioxide 19 mmol/L (22-29); Chloride 105 mmol/L (98-107); Glucose 93 mg/dL (65-115); Osmolality Calculated 295 mOsm/kg (285-295); Potassium 3.7 mmol/L (3.5-5.1); Sodium 136 mmol/L (136-145)
--- NOTE | 2022-08-10 06:37 | PM.DCS ---
Discharge Providers Date of Admission: 08/06/22 00:16 Date of Discharge: August 10, 2022 Attending Provider at Admission: Zach Fry MD Attending Provider at Discharge: Christophe García MD Primary Care Provider: Daniel Rios DO Diagnoses at Discharge Discharge Diagnosis (1) Bacteremia: Status: Acute (2) Deep venous thrombosis: Status: Acute (3) Atrial fibrillation with RVR: Status: Acute (4) Diastolic CHF: Status: Acute (5) NSTEMI (non-ST elevated myocardial infarction): Status: Acute (6) Acute kidney injury: Status: Acute (7) Acute encephalopathy: Status: Acute (8) Stenosis of prosthetic mitral valve: Status: Acute Qualifiers: Encounter type: initial encounter Qualified Code(s): T82.857A - Stenosis of other cardiac prosthetic devices, implants and grafts, initial encounter (9) Tricuspid valve regurgitation, nonrheumatic: Status: Acute (10) Chronic kidney disease (CKD): Status: Acute Qualifiers: Chronic kidney disease stage: unspecified stage Qualified Code(s): N18.9 - Chronic kidney disease, unspecified (11) Thrombocytopenia: Status: Acute (12) UTI (urinary tract infection): Status: Acute Reason for Visit Reason for Visit: dehydration/cant urinate Hospital Course Hospital Course 82-year-old male came in with metabolic encephalopathy, sepsis related to complicated UTI, states prior to this alert and oriented and normally independent, condition worsened over the preceding week or so, on presentation with dehydration, scant dark urine, also with A-fib with RVR. Has history of atrial fibrillation. On admission there was some concern for possible acute cholecystitis with thickened gallbladder wall versus pericholecystic hepatic edema, multiple gallstones within gallbladder. Hyperbilirubinemia. Elevation appears both direct and indirect bilirubin. CT abdomen pelvis with prominent edema surrounding gallbladder thought to be due to cholecystitis versus hepatitis versus portal hypertension. No intra or extrahepatic biliary dilation, so he was thought to have had a stone which he possibly passed. Abdomen has been nontender. MRCP unremarkable T. bili has been decreasing since then. overall suspicion for acute cholecystitis is on the low side, with more suspected congestive hepatopathy as he does have IVC dilation on echo, borderline low EF, mild pulmonary hypertension. Severe tricuspid regurgitation. sepsis with complicated UTI as he is having gram-negative matt growing in urine and in blood. Urine and blood culture showed Enterobacter erogenous sensitive to penicillin and levofloxacin. Patient's KE improved with the use of diuretics. I will discharge him on levofloxacin 7-day course. Family wants him to come home on home health services. They do not want him to go to any rehab at this point. During this visit he was diagnosed with right leg DVT, family was concerned about initiation of Eliquis because he carries history of A-fib and in the past patient experiencing bleeding with Pradaxa. I requested general surgeon for an EGD which did not show any signs of gastric or peptic ulcer disease. He has history of H. pylori 1994 which was eradicated with treatmenmt as per the . Patient and his both agreeable for use of Eliquis for treatment of DVT, he will be considered high risk for stroke [id number], I did enrollment counselor them regarding side effects of Eliquis. Chronic thrombocytopenia, is 50, has not reduced significantly, however peripheral smear did show schistocytes with hemoglobin remained stable, his confusion improved I do not think he is suffering from TTP or HUS, creatinine improved, at the time of discharge creatinine is 1.6, it peaked at 2.4 Physical Exam Narrative: Patient is awake and alert Much more energetic today Currently on room air Hemodynamically stable Fatigue and lethargic Able to follow commands Nonfocal neuro exam Abdomen soft No audible stridor or wheezing S1, S2 variable no signs of RVR, Urinary Catheter Management: Tinsley: Cath Placed During This Visit: yes Reason for Continuing Indwelling Catheter: Accurate Measurement of Urinary Output in Critically Ill Patients Urinary Catheter Date of Insertion: 08/07/22 Urinary Catheter Time of Insertion: 17:19 Discharge Data Studies Completed and Pending Completed Studies During Hospitalization Category Date Time Status CT abdomen pelvis wo con [id number] Stat Cat Scan 08/05/22 22:[address] head wo con* [id number] Routine Cat Scan 08/06/22 08:00 Completed XR chest 1V portable [id number] Stat Exams 08/05/22 20:02 Completed XR shoulder RT min 2V* [id number] Stat Exams 08/05/22 20:02 Completed MR MRCP [id number] Stat MRI 08/08/22 09:30 [place] [id number] Routine Ultrasound 08/07/22 08:44 Completed CV. echo complete* [id number] Routine Ultrasound 08/06/22 00:19 Completed US gall bladder [id number] Stat Ultrasound 08/05/22 22:01 Completed Pending at discharge Category Date Time Status Blood Culture Stat Lab 08/06/22 01:25 Results Blood Culture Stat Lab 08/09/22 08:09 Results Radiology Impressions Chest X-Ray 08/05/22 20:02 IMPRESSION: 1. Aortic valve replacement. 2. Mild to moderate globular cardiomegaly consistent with 4-chamber enlargment and/or pericardial effusion. 3. Minimal blunting of the right lateral costophrenic angle. Shoulder X-Ray 08/05/22 20:02 IMPRESSION: Moderate right acromioclavicular arthropathy. Gallbladder Ultrasound 08/05/22 22:01 IMPRESSION: 1. 13 mm thickened gallbladder wall versus pericholecystic hepatic edema. 2. Multiple gallstones within the gallbladder. 3. Sonographically negative Wood's sign suggesting no cholecystitis. 4. 12.5 mm main portal vein with bidirectional flow. 5. [id number] perihepatic fluid consistent with ascites. Abdomen/Pelvis CT 08/05/22 22:28 IMPRESSION: 1. Mild to moderate cardiomegaly. 2. Mild left pleural fluid collection. 3. Mild to moderate right pleural fluid collection. 4. Mild four-quadrant ascites. 5. Prominent edema surrounding the gallbladder consistent with cholecystitis versus hepatitis versus portal hypertension. Head CT 08/06/22 08:00 IMPRESSION: 1. No acute intracranial findings. 2. Mild cerebral small-vessel disease. 3. Age-related involutional changes of the brain. 4. 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 Venous Duplex 08/07/22 08:44 IMPRESSION: 1. Occlusive DVT within the proximal aspects of the right peroneal and posterior tibial calf veins. 2. No left lower extremity DVT. ADDENDUM: 08/07/22 1658 Findings were discussed with AICHA Chavez at 08/07/2022 4:57 PM CDT. Cholangiopancreatography MRI 08/08/22 09:30 IMPRESSION: 1. Although limited the common bile duct is normal size measuring 5.5 mm. No filling defects or choledocholithiasis. Normal tapering towards the ampulla of Vater. The intrahepatic ducts are less well visualized. 2. Normal pancreatic duct. 3. Cholelithiasis. 4. Gallbladder is not overly distended. No adjacent edema or pericholecystic fluid. 5. Small RIGHT pleural effusion. Laboratory Results WBC 7.5 10^3/uL (4.0-10.0) 08/10/22 04:32 RBC 3.67 10^6/uL (4.1-5.3) L 08/10/22 04:32 Hgb 11.6 g/dL (11.7-16.6) L 08/10/22 04:32 Hct 35.2 % (42.0-52.0) L 08/10/22 04:32 MCV 95.9 fl (80-94) H 08/10/22 04:32 MCH 31.6 pg (28.0-34.0) 08/10/22 04:32 MCHC 33.0 g/dL (30.0-36.0) 08/10/22 04:32 RDW 16.5 % (12.1-15.1) H 08/10/22 04:32 Plt Count 77 10^3/cmm (130-400) L 08/10/22 04:32 MPV 10.1 fL (7.4-10.4) 08/10/22 04:32 Neut % (Auto) 62.8 % 08/10/22 04:32 Lymph % (Auto) 22.5 % 08/10/22 04:32 Hayes % (Auto) 10.5 % 08/10/22 04:32 Eos % (Auto) 1.5 % 08/10/22 04:32 Baso % (Auto) 0.7 % 08/10/22 04:32 Reticulocyte % (Auto) 2.9 % (0.5-2.0) H 08/08/22 04:06 Neut # (Auto) 4.74 10^3/uL (1.8-7.7) 08/10/22 04:32 Lymph # (Auto) 1.7 10^3/uL (0.8-4.8) 08/10/22 04:32 Hayes # (Auto) 0.8 10^3/uL (0.2-0.9) 08/10/22 04:32 Eos # (Auto) 0.1 10^3/uL (0.0-0.8) 08/10/22 04:32 Baso # (Auto) 0.1 10^3/uL (0.0-0.1) 08/10/22 04:32 Nucleated RBC % (auto) 0 % 08/10/22 04:32 Nucleated RBCs # 0.0 /100WBC 08/10/22 04:32 Retic Production Index 2.84 08/08/22 04:06 Haptoglobin 108.0 mg/L (30-200) 08/08/22 04:06 PT 16.90 SECONDS (12.1-14.9) H 08/09/22 04:48 INR 1.33 (0.8-1.2) H 08/09/22 04:48 APTT 33.5 SECONDS (23.9-36.7) 08/09/22 04:48 Fibrinogen 358 mg/dL (174-498) 08/09/22 04:48 Fibrin Degrad Products Pos, >=40 ug/mL (NEG) H 08/09/22 04:48 D-Dimer 4.34 ug/mIFEU (0-0.59) H 08/09/22 04:48 Sodium 136 mmol/L (136-145) 08/10/22 04:32 Potassium 3.7 mmol/L (3.5-5.1) 08/10/22 04:32 Chloride 105 mmol/L (98-107) 08/10/22 04:32 Carbon Dioxide 19 mmol/L (22-29) L 08/10/22 04:32 Anion Gap 15.7 (5-19) 08/10/22 04:32 BUN 49 mg/dL (8-23) H 08/10/22 04:32 Creatinine 1.6 mg/dL (0.7-1.2) H 08/10/22 04:32 GFR Calculation Not Reportable 08/10/22 04:32 Glucose 93 mg/dL (65-115) 08/10/22 04:32 POC Glucose 108 mg/dL (70-110) 08/09/22 06:01 Estimat Average Glucose 91 08/06/22 01:25 Hemoglobin A1c 4.8 % (4.0-6.0) 08/06/22 01:25 Calculated Osmolality 295 mOsm/kg (285-295) 08/10/22 04:32 Lactic Acid 2.9 mmol/L (0.5-2.2) H 08/06/22 01:25 Lactate 3.7 mmol/L (0.5-2.2) H 08/07/22 04:50 Calcium 8.5 mg/dL (8.5-10.5) 08/10/22 04:32 Phosphorus 3.1 mg/dL (2.5-4.5) 08/06/22 01:25 Magnesium 2.3 mg/dL (1.7-2.3) 08/06/22 01:25 Ferritin 278 ng/mL (30-400) 08/06/22 01:25 Total Bilirubin 3.0 mg/dL (0.15-1.2) H 08/09/22 04:48 Direct Bilirubin 2.10 mg/dL (0.00-0.30) H 08/06/22 01:25 Neonat Total Bilirubin 5.6 mg/dL (0.15-1.0) H 08/06/22 01:25 GGT 147 U/L (8-61) H 08/06/22 01:25 AST 66 U/L (0-40) H 08/09/22 04:48 ALT 53 U/L (0-41) H 08/09/22 04:48 Alkaline Phosphatase 85 U/L (40-130) 08/09/22 04:48 Ammonia 28 umol/L (16-60) 08/06/22 01:25 Lactate Dehydrogenase 213 U/L (135-225) 08/08/22 04:06 Creatine Kinase 111 U/L (39-308) 08/05/22 19:41 Troponin T Baseline 38 ng/L (0-15) H 08/05/22 19:41 Troponin T 120 Minute 40.71 ng/L (0-15) H 08/05/22 22:10 Delta Troponin T 2.71 ABS# (0-10) 08/05/22 22:10 Troponin T Hi Sens 6Hr 39.08 ng/L (0-15) H 08/06/22 01:25 Troponin T Hi Sens 6Hr Delta 1.08 ng/L (0-12) 08/06/22 01:25 C-Reactive Protein 52.0 mg/L (0.0-4.9) H 08/06/22 01:25 NT-Pro-B Natriuret Pep 15929 pg/mL (0-450) H 08/05/22 19:41 Total Protein 6.0 g/dL (6.6-8.7) L 08/09/22 04:48 Albumin 3.3 g/dL (3.5-5.2) L 08/09/22 04:48 Globulin 2.7 g/dL (1.3-4.6) 08/09/22 04:48 Triglycerides 63 mg/dL (0-150) 08/06/22 01:25 Cholesterol 76 mg/dL (0-200) 08/06/22 01:25 LDL Cholesterol, Calc 28 mg/dL (50-129) L 08/06/22 01:25 HDL Cholesterol 35 mg/dL (60-100) L 08/06/22 01:25 LDL/HDL Ratio 0.80 RATIO (0.00-3.22) 08/06/22 01:25 Cholesterol/HDL Ratio 2.17 mg/dL (1.0-5.00) 08/06/22 01:25 Lipase 11 U/L (13-60) L 08/06/22 01:25 Procalcitonin 1.13 ng/mL (0-0.5) H 08/06/22 01:25 TSH 7.29 uIU/mL (0.27-4.20) H 08/06/22 01:25 Free T4 1.34 ng/dL (0.82-1.77) 08/06/22 01:25 Free T3 1.5 PG/ML (2.0-4.4) L 08/06/22 01:25 Urine Color Red (Yellow) 08/05/22 19:41 Urine Appearance Cloudy (CLEAR) A 08/05/22 19:41 Urine pH 5 (5-7) 08/05/22 19:41 Ur Specific [place] 1.025 (1.005-1.030) 08/05/22 19:41 Urine Protein 2+ (Negative) H 08/05/22 19:41 Urine Glucose (UA) Norm (Normal) 08/05/22 19:41 Urine Ketones Negative (Negative) 08/05/22 19:41 Urine Blood 3+ (Negative) H 08/05/22 19:41 Urine Nitrate Positive (Negative) H 08/05/22 19:41 Urine Bilirubin 1+ (Negative) H 08/05/22 19:41 Urine Urobilinogen 1 mg/dL (Negative) H 08/05/22 19:41 Ur Leukocyte Esterase 2+ (Negative) H 08/05/22 19:41 Urine RBC 5-10 /hpf (0-2) H 08/05/22 19:41 Urine WBC 80-100 /hpf (0-5) H 08/05/22 19:41 Ur Squamous Epith Cells 0-4 /hpf (0-5) H 08/05/22 19:41 Amorphous Sediment Not Reportable 08/05/22 19:41 Urine Bacteria 4+ /hpf (NONE) H 08/05/22 19:41 Hepatitis A IgM Ab Non-reactive (Nonreactive) 08/06/22 01:25 Hep Bs Antigen Non-reactive (Nonreactive) 08/06/22 01:25 Hep B Core IgM Ab Non-reactive (Nonreactive) 08/06/22 01:25 Hepatitis C Antibody Non-reactive (Nonreactive) 08/06/22 01:25 HIV 1&2 Ab & HIV 1 Ag Non-reactive (Non-Reactiv) 08/06/22 01:25 HIV 1&2 Antibody Non-reactive (Non-Reactiv) 08/06/22 01:25 Vitals Last Vital Signs Temp 97.0 F L 08/10/22 04:00 Pulse 73 08/10/22 06:00 Resp 12 08/10/22 04:00 BP 115/83 08/10/22 04:00 Pulse Ox 91 08/10/22 04:00 O2 Del Method Room Air 08/10/22 04:00 O2 Flow Rate 1 08/07/22 04:00 FiO2 100 08/06/22 06:51 Discharge Plan Discharge Patient Disposition: Home Health Service Condition: Serious Prescriptions: New levofloxacin 750 mg Tablet 750 mg PO DAILY Qty: 7 0RF potassium chloride 10 mEq tablet extended release 10 meq PO DAILY PRN (Reason: with lasix only) Qty: 30 0RF metoprolol tartrate 25 mg Tablet 12.5 mg PO BID@0900,2100 Qty: 60 0RF Eliquis 5 mg Tablet 5 mg PO BID@0900,2100 Qty: 60 3RF Continued cholecalciferol (vitamin D3) 50 mcg (2,000 unit) capsule 50 mcg PO DAILY multivitamin Tablet 1 tab PO DAILY zinc 50 mg tablet 50 mg PO DAILY Changed furosemide 20 mg tablet 20 mg PO DAILY PRN (Reason: edema) Qty: 30 0RF Discontinued ferrous sulfate 300 mg (60 mg iron) tablet 300 mg PO DAILY Discharge Orders: Discharge Order (Routine); Ordered 08/10/22 Ordered By: Christophe García Referrals: [facility] [place] [facility] ([facility]) [Outside] Patient Instructions: GI Discharge Instructions, Opioid Safety Discharge Attestations Time Spent in Discharge Care*: greater than 30 min Quality Metrics Clinical Quality Measures [ No reported AMI, CVA or VTE this stay] Coding Level of Care Code Acute Code for Chg Fwd Diagnoses Bacteremia R78.81 Deep venous thrombosis I82.409 Atrial fibrillation with RVR I48.91 Diastolic CHF I50.30 NSTEMI (non-ST elevated myocardial infarction) I21.4 Acute kidney injury N17.9 Acute encephalopathy G93.40 Stenosis of prosthetic mitral valve T82.857A Encounter type: initial encounter Tricuspid valve regurgitation, nonrheumatic I36.1 Chronic kidney disease (CKD) N18.9 Chronic kidney disease stage: unspecified stage Thrombocytopenia D69.6 UTI (urinary tract infection) N39.0
[2022-08-10] MEDS: FUROsemide 20 mg Tablet PO (09:08)
[2022-08-10] MEDS: metoprolol tartrate 25 mg Tablet 12.5 MG PO (09:08)
[2022-08-10] MEDS: apixaban 5 mg Tablet PO (09:09)
--- NOTE | 2022-08-10 13:30 | PC.NURSE ---
Pt discharged home with family. Discharge instructions provided and discussed. All questions answered. Delay related to follow-up order clarification, Lunch came and patient wanted to eat that prior to discharge and care of other critical patients.
== END 2022-08-10 13:30 | disposition home health service (06) | DRG 871 ==
LOC: ER 22:42 → ER IP 08-06 01:00 → ICU 08-06 08:04 → ER IP 08-06 17:53
PROVIDERS: Internal Medicine; Surgery Surgical Critical Care; Admitting Provider Family Medicine; Emergency Provider Emergency Medicine; PCP Emergency Medicine Emergency Medical Services; Visit Provider Internal Medicine
PROC: 0DJ08ZZ Inspection of Upper Intestinal Tract, Via Natural or Artificial Opening Endoscopic (ICD-10-PCS; CPT 43235; principal; 2022-08-09 12:30)
DX: A41.9 Sepsis, unspecified organism (principal); G93.41 Metabolic encephalopathy; I21.A1 Myocardial infarction type 2; I50.33 Acute on chronic diastolic (congestive) heart failure; N39.0 Urinary tract infection, site not specified; N17.9 Acute kidney failure, unspecified; I82.451 Acute embolism and thrombosis of right peroneal vein; I82.441 Acute embolism and thrombosis of right tibial vein; E87.20 Acidosis, unspecified; E87.1 Hypo-osmolality and hyponatremia; E86.0 Dehydration; I48.91 Unspecified atrial fibrillation; K76.1 Chronic passive congestion of liver; I27.20 Pulmonary hypertension, unspecified; I08.1 Rheumatic disorders of both mitral and tricuspid valves; B96.89 Other specified bacterial agents as the cause of diseases classified elsewhere; D69.6 Thrombocytopenia, unspecified; Z95.3 Presence of xenogenic heart valve; Z87.891 Personal history of nicotine dependence; Z87.11 Personal history of peptic ulcer disease; E03.8 Other specified hypothyroidism; K80.20 Calculus of gallbladder without cholecystitis without obstruction
CPT/HCPCS: 36415; 36416; 43235; 51702; 70450; 71045; 73030; 74176; 74181; 76705; 80048; 80053; 80061; 80074; 80503; 81001; 82140; 82247; 82248; 82550; 82728; 82962; 82977; 83010; 83036; 83605; 83615; 83690; 83735; 83880; 84100; 84145; 84439; 84443; 84481; 84484; 85014; 85025; 85045; 85362; 85378; 85384; 85610; 85730; 86140; 87040; 87077; 87086; 87186; 87205; 87806; 93005; 93306; 93970; 94664; 96372; 96374; 96375; 96376; 97110; 97161; 97530; 99285; C9113; J1630; J1650; J2270; J2405; J2543; J2704; J3490; J7030; J7040

== ENCOUNTER 2022-08-28 10:25 | Inpatient (IN) | payer OTHER, SELFPAY ==
[2022-08-28] VITALS (8 sets, daily range): BP systolic 101–136; BP diastolic 71–92; PULSE 90–105; RESP 15–18; TEMP 36.3–36.4; O2SAT 92–99; BMI 31.6
--- NOTE | 2022-08-28 10:29 | XRR_ITS ---
PROCEDURE INFORMATION: Exam: XR Chest Exam date and time: 08/28/2022 10:38 AM Age: 82 years old Clinical indication: Shortness of breath; Prior surgery; Surgery date: 6+ months; Surgery type: Open heart; Additional info: SOB TECHNIQUE: Imaging protocol: Radiologic exam of the chest. Views: 1 view. COMPARISON: CR (CHEST, ) 08/05/2022 8:30 PM FINDINGS: Lungs: Prominent bronchovascular markings likely chronic fibrotic changes in the lung bases. Stable 4 mm right upper lobe granuloma. Pleural spaces: Unremarkable. No pleural effusion. No pneumothorax. Heart/Mediastinum: Cardiomegaly. Bones/joints: Sternal sutures. XR/XR chest 1V portable [id number] IMPRESSION: No acute findings.
[2022-08-28] MEDS: ondansetron 2 mg/ML SDV 2 mL 4 MG IVP (11:18)
[2022-08-28] MEDS: morphine 4 mg/mL SDV 1 mL IVP (11:18)
--- NOTE | 2022-08-28 11:22 | ED_ITS ---
HPI - General Adult General: Chief complaint: General Medical Stated complaint: sob Time Seen by Provider: 08/28/22 10:34 Source: patient Mode of arrival: ambulatory Limitations: no limitations History of Present Illness: 82-year-old male who was recently diagnosed with DVT he is on Eliquis he states that he is just not been feeling well over the last 3 to 4 days he states he has not been eating or sleeping much he states he only got like an hour sleep last night he had some dyspnea he denies any chest pain denies any cough or fever he is in no distress here his pulse ox is 96% on room air does have a history of A- fib he states he did not take his medicines this morning. He is slightly tachycardic in the room at 105 Associated symptoms: Reports dyspnea; Deny chest pain, nausea, rash or vomiting Review of Systems Const: Denies: fever(s) or chills Eyes: Denies: eye discomfort ENMT: Denies: throat pain Card: Denies: chest pain Resp: Reports: dyspnea GI: Denies: abdominal pain, nausea, vomiting or diarrhea Musc: Denies: neck pain or back pain Skin/Breast: Denies: rash All/Imm: Denies: urticaria PFSH ED PFSH: Medical History Atrial fibrillation Atrial fibrillation with RVR Chronic kidney disease (CKD) Diastolic CHF Stenosis of prosthetic mitral valve Thrombocytopenia Tricuspid valve regurgitation, nonrheumatic Surgical History Hx of mitral valve replacement 2006 Family History Father Myocardial infarction Denies family history of Diabetes Stroke Social History Smoking and tobacco status: former smoker Alcohol intake: current Alcohol intake frequency: holidays/special occasions only Substance/Drug Use: never Physical Exam Const: COMMON NORMALS: patient oriented x3 HENMT: COMMON NORMALS: normocephalic and atraumatic HEAD & SCALP: normocephalic and atraumatic Eye: COMMON NORMALS: conjunctivae normal CONJUNCTIVA: Yes conjunctivae normal Neck/C-Spine: COMMON NORMALS: full ROM and supple Chest: COMMONS NORMALS: normal inspection of the chest and normal palpation of entire chest wall Resp: COMMON NORMALS: normal respiratory effort, No retractions, No use of accessory muscles and clear to auscultation bilaterally AUSCULTATION: clear to auscultation bilaterally Cardio: COMMON NORMALS: No murmurs present (Cardio) RATE: tachycardic RHYTHM: abnormal rhythm irregularly irregular GI: COMMON NORMALS: Normal to inspection, nondistended, normoactive bowel sounds present, Soft to palpation, non-tender and no masses PALPATION: Yes Soft to palpation Extremity: COMMON NORMALS: full ROM NARRATIVE EXTREMITY EXAM: 2+ edema Neuro: COMMON NORMALS: patient oriented x3, moves all extremities and no focal motor deficits Psych: COMMON NORMALS: mental status grossly normal, Normal thought process present and cooperative THOUGHT PROCESS: Normal thought process present Skin: COMMON NORMALS: no rashes or lesions noted and no wounds GENERAL SKIN EXAM: no rashes or lesions noted Course Vital Signs: Vital signs: Vital Signs Temperature 97.4 F L 08/28/22 10:33 Pulse Rate 93 08/28/22 12:07 Respiratory Rate 18 08/28/22 12:07 Blood Pressure 127/88 08/28/22 12:07 Pulse Oximetry 97 08/28/22 12:07 Oxygen Delivery Me thod Nasal Cannula 08/28/22 12:07 Oxygen Flow Rate 2 08/28/22 12:07 [facility] - General Adult Medical Decision Making Patient presents for shortness of breath CTA shows a possible PE he has missed his dose of Eliquis does have an elevated troponin and BNP which she does have at baseline as well as her blood pressure is normal we will give him Lovenox spoke to the hospitalist will admit. Medical Records I reviewed the patient's medical records. Lab Data I reviewed the patient's lab results. 08/28/22 11:25 08/28/22 11:25 Radiology Impressions Chest X-Ray 08/28/22 10:29 IMPRESSION: No acute findings. Chest CTA 08/28/22 11:25 IMPRESSION: Less than optimal examination likely due to patient's severe cardiac dysfunction. There likely is pulmonary embolism noted within the right lower lobe versus just poor contrast extending into the right lower lobe. ADDENDUM: 08/28/22 [id number] THIS REPORT CONTAINS FINDINGS THAT MAY BE CRITICAL TO PATIENT CARE. The findings were verbally communicated by me to CLARICE GONSALES at 1:03 PM DIRECTOR NEW PRODUCT on 08/28/2022. The findings were acknowledged and understood. There is a small amount of atelectasis involving the right base likely compressive from the effusion. Laboratory Results WBC 7.0 10^3/uL (4.0-10.0) 08/28/22 11:25 RBC 4.09 10^6/uL (4.1-5.3) L 08/28/22 11:25 Hgb 13.4 g/dL (11.7-16.6) 08/28/22 11:25 Hct 41.6 % (42.0-52.0) L 08/28/22 11:25 MCV 101.7 fl (80-94) H 08/28/22 11:25 MCH 32.8 pg (28.0-34.0) 08/28/22 11:25 MCHC 32.2 g/dL (30.0-36.0) 08/28/22 11:25 RDW 17.4 % (12.1-15.1) H 08/28/22 11:25 Plt Count 113 10^3/cmm (130-400) L 08/28/22 11:25 MPV 11.3 fL (7.4-10.4) H 08/28/22 11:25 Neut % (Auto) 49.5 % 08/28/22 11:25 Lymph % (Auto) 34.8 % 08/28/22 11:25 Nance % (Auto) 12.3 % 08/28/22 11:25 Eos % (Auto) 1.7 % 08/28/22 11:25 Baso % (Auto) 1.0 % 08/28/22 11:25 Neut # (Auto) 3.47 10^3/uL (1.8-7.7) 08/28/22 11:25 Lymph # (Auto) 2.4 10^3/uL (0.8-4.8) 08/28/22 11:25 Nance # (Auto) 0.9 10^3/uL (0.2-0.9) 08/28/22 11:25 Eos # (Auto) 0.1 10^3/uL (0.0-0.8) 08/28/22 11:25 Baso # (Auto) 0.1 10^3/uL (0.0-0.1) 08/28/22 11:25 Nucleated RBC % (auto) 0 % 08/28/22 11:25 Nucleated RBCs # 0.0 /100WBC 08/28/22 11:25 PT 27.90 SECONDS (12.1-14.9) H 08/28/22 11:25 INR 2.50 (0.8-1.2) H 08/28/22 11:25 Sodium 140 mmol/L (136-145) 08/28/22 11:25 Potassium 5.3 mmol/L (3.5-5.1) H 08/28/22 11:25 Chloride 104 mmol/L (98-107) 08/28/22 11:25 Carbon Dioxide 21 mmol/L (22-29) L 08/28/22 11:25 Anion Gap 20.3 (5-19) H 08/28/22 11:25 BUN 57 mg/dL (8-23) H 08/28/22 11:25 Creatinine 1.9 mg/dL (0.7-1.2) H 08/28/22 11:25 GFR Calculation Not Reportable 08/28/22 11:25 Glucose 77 mg/dL (65-115) 08/28/22 11:25 Calculated Osmolality 305 mOsm/kg (285-295) H 08/28/22 11:25 Calcium 9.8 mg/dL (8.5-10.5) 08/28/22 11:25 Total Bilirubin 2.8 mg/dL (0.15-1.2) H 08/28/22 11:25 AST 100 U/L (0-40) H 08/28/22 11:25 ALT 61 U/L (0-41) H 08/28/22 11:25 Alkaline Phosphatase 122 U/L (40-130) 08/28/22 11:25 Troponin T Baseline 35 ng/L (0-15) H 08/28/22 11:25 NT-Pro-B Natriuret Pep 41158 pg/mL (0-450) H 08/28/22 11:25 Total Protein 6.8 g/dL (6.6-8.7) 08/28/22 11:25 Albumin 3.6 g/dL (3.5-5.2) 08/28/22 11:25 Globulin 3.2 g/dL (1.3-4.6) 08/28/22 11:25 TSH 15.59 uIU/mL (0.27-4.20) H 08/28/22 11:25 EKG Data EKG 1: I personally reviewed and interpreted this EKG as follows: EKG interpretation date: 08/28/22 EKG interpretation time: 11:10 Interpretation: afib hr [address] or t wave abnormalities Computer generated interpretation: Chest X-Ray 08/28/22 10:29 IMPRESSION: No acute findings. Chest CTA 08/28/22 11:25 IMPRESSION: Less than optimal examination likely due to patient's severe cardiac dysfunction. There likely is pulmonary embolism noted within the right lower lobe versus just poor contrast extending into the right lower lobe. ADDENDUM: 08/28/22 2309 THIS REPORT CONTAINS FINDINGS THAT MAY BE CRITICAL TO PATIENT CARE. The findings were verbally communicated by me to CLARICE GONSALES at 1:03 PM DIRECTOR NEW PRODUCT on 08/28/2022. The findings were acknowledged and understood. There is a small amount of atelectasis involving the right base likely compressive from the effusion. Critical Care Time Critical Care Time: Critical Care Time: Yes Total Critical Care Time: 45 Attestation: The high probability of a clinically significant, sudden or life threatening deterioration of the patient's cv system(s) required my full and direct attention, intervention and personal management. The critical care time is as shown. This time is in addition to time spent performing any reported procedures but includes the following: [x] Data and vital sign review and interpretation [x] Patient assessment, examination and intervention [x] Documentation [x] Medication orders and management Discharge Plan Discharge Patient Disposition: Admitted As Inpatient Clinical Impression: Atrial fibrillation, Pulmonary embolism Condition: Stable Prescriptions: No Action cholecalciferol (vitamin D3) 50 mcg (2,000 unit) capsule 50 mcg PO QAM metoprolol tartrate 25 mg Tablet 12.5 mg PO BID@0900,2100 Qty: 60 0RF Eliquis 5 mg Tablet 5 mg PO BID@0900,2100 Qty: 60 3RF potassium chloride 10 mEq tablet extended release 10 meq PO DAILY PRN (Reason: with lasix only) Qty: 30 0RF furosemide 20 mg tablet 20 mg PO DAILY PRN (Reason: edema) Qty: 30 0RF Proscar 5 mg Tablet 5 mg PO QAM Vitamin C Plus Zinc 200-100 mg Tablet 1 tab PO QAM Tylenol Ex Str Rapid Release 500 mg Tablet 500 - 1,000 mg PO Q6H PRN (Reason: Pain) melatonin 10 mg Tablet 10 mg PO BEDTIME Referrals: Daniel Rios DO [Primary Care Provider] - Coding Level of Care Code ED Leave Specialist for Gal [facility]
--- NOTE | 2022-08-28 11:25 | CTR_ITS ---
PROCEDURE INFORMATION: Exam: CTA Chest With Contrast Exam date and time: 08/28/2022 12:36 PM Age: 82 years old Clinical indication: Shortness of breath; Prior surgery; Surgery date: 6+ months; Surgery type: Heart, valve; Additional info: SOB TECHNIQUE: Imaging protocol: Computed tomographic angiography of the chest with contrast. 3D rendering (Not supervised by radiologist): MIP and/or 3D reconstructed images were created by the technologist. Radiation optimization: All CT scans at this facility use at least one of these dose optimization techniques: automated exposure control; mA and/or kV adjustment per patient size (includes targeted exams where dose is matched to clinical indication); or iterative reconstruction. Contrast material: OMNI 350; Contrast volume: 100 ml; Contrast route: INTRAVENOUS (IV); REPORTING DATA: Count of CT and Cardiac NM exams in prior 12 months: This patient has received 2 known CTs and 0 known cardiac nuclear medicine studies in the 12 months prior to the current study. COMPARISON: CR (CHEST, ) 08/28/2022 10:38 AM RADIATION DOSE METRICS: Total DLP (mGy-cm): 505.87 FINDINGS: Pulmonary arteries: Less than optimal contrast within the main pulmonary arteries. Contrast is only 251 Hounsfield units. Contrast is worse within the lung bases with Hounsfield units of lower lobe pulmonary arteries being approximately 160-170. However, findings suggest pulmonary embolism noted within the right lower lobe. Aorta: Unremarkable. No aortic aneurysm. No aortic dissection. Lungs: Right upper lobe granuloma. Pleural spaces: Small to moderate right pleural effusion and trace left pleural effusion. Heart: Severe cardiomegaly. Contrast within the inferior vena cava suggesting significant heart disease. Mitral valve replacement. Severe right heart failure. The ratio is 54/20 which is 2.7. Lymph nodes: Unremarkable. No enlarged lymph nodes. Intraperitoneal space: Ascites. Bones/joints: Diffuse spinal arthritic changes. Sternal sutures. Soft tissues: Unremarkable. CT/CT angio chest PE protcl [id number] IMPRESSION: Less than optimal examination likely due to patient's severe cardiac dysfunction. There likely is pulmonary embolism noted within the right lower lobe versus just poor contrast extending into the right lower lobe.
--- NOTE | 2022-08-28 11:25 | PC.NURSE ---
refused covid swab
[2022-08-28 11:49] LABS: Basophils # 0.1 10^3/uL (0.0-0.1); Eosinophils # 0.1 10^3/uL (0.0-0.8); Eosinophils % 1.7 %; Hematocrit 41.6 % (42.0-52.0); Hemoglobin 13.4 g/dL (11.7-16.6); Lymphocytes # 2.4 10^3/uL (0.8-4.8); Lymphocytes % 34.8 %; Mean Corpuscular HGB Conc 32.2 g/dL (30.0-36.0); Mean Corpuscular Hemoglobin 32.8 pg (28.0-34.0); Mean Corpuscular Volume 101.7 fl (80-94); Mean Platelet Volume 11.3 fL (7.4-10.4); Monocytes # 0.9 10^3/uL (0.2-0.9); Monocytes % 12.3 %; Neutrophils # 3.47 10^3/uL (1.8-7.7); Neutrophils % 49.5 %; Nucleated Red Blood Cells % 0 %; Platelet Count 113 10^3/cmm (130-400); Red Blood Count 4.09 10^6/uL (4.1-5.3); Red Cell Distribution Width 17.4 % (12.1-15.1)
[2022-08-28 12:13] LABS: Troponin(5th) Baseline 35 ng/L (0-15)
[2022-08-28 12:21] LABS: Alanine Aminotransferase 61 U/L (0-41); Albumin Level 3.6 g/dL (3.5-5.2); Alkaline Phosphatase 122 U/L (40-130); Anion Gap 20.3 (5-19); Aspartate Amino Transferase 100 U/L (0-40); Blood Urea Nitrogen 57 mg/dL (8-23); Calcium 9.8 mg/dL (8.5-10.5); Carbon Dioxide 21 mmol/L (22-29); Chloride 104 mmol/L (98-107); Globulin 3.2 g/dL (1.3-4.6); Glucose 77 mg/dL (65-115); NT Pro B Type Natriuretic Pept 10399 pg/mL (0-450); Osmolality Calculated 305 mOsm/kg (285-295); Potassium 5.3 mmol/L (3.5-5.1); Sodium 140 mmol/L (136-145); Thyroid Stimulating Hormone 15.59 uIU/mL (0.27-4.20); Total Bilirubin 2.8 mg/dL (0.15-1.2); Total Protein 6.8 g/dL (6.6-8.7)
[2022-08-28] MEDS: iohexol 350 mg/mL 500 mL Btl (per mL) IV (12:42)
[2022-08-28] MEDS: sodium chloride 0.9% 500 ML 999 ML IV (12:43)
--- NOTE | 2022-08-28 12:52 | ECG_ITS ---
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 Measurements Intervals [place] Rate: 108 P: 0 CA: 0 QRS: 105 QRSD: 104 T: 28 QT: 375 QTc: 504 Interpretive Statements ATRIAL FIBRILLATION WITH RAPID VENTRICULAR RESPONSE POSSIBLE RIGHT VENTRICULAR HYPERTROPHY [SOME/ALL OF: PROMINENT R IN V1, LATE TRANSITION, RAD, ANN, SSS] NONSPECIFIC T-WAVE ABNORMALITY Compared to ECG 08/05/2022 22:10:01 Right-axis deviation no longer present T-wave abnormality still present Electronically Signed On 08-30-2022 0:22:29 CDT by Anneliese Aceves M.D. [id number]
[2022-08-28] MEDS: enoxaparin 100 mg/mL Syringe SUBCUT (13:21)
[2022-08-28 13:58] LABS: Troponin 5 2HR 32.62 ng/L (0-15)
[2022-08-28 14:01] LABS: Troponin 5 2HR Delta -2.38 ABS# (0-10)
--- NOTE | 2022-08-28 15:29 | P.HP_ITS ---
Providers/Chief Complaint Admitting Physician: Kip Brenner MD Primary Care Provider: Daniel Rios DO Chief Complaint: sob History of Present Illness Ernst Garcia is a 82 year old male with past medical history of atrial fibrillation , recently diagnosed DVT on Eliquis, MVR for MR, CKD stage III , was brought in today with chief complaint of shortness of breath, particularly experienced while he is sleeping, and overall not feeling well for the last 3 to 4 days, poor appetite poor sleep, CTA chest has shown possible: pulmonary embolism noted within the right lower lobe versus just poor contrast extending into the right lower lobe. Pertinent labs: WBC 7, H&H 13 and 41,PLT: 113, serum sodium 140, serum potassium 5.3, BUN 57, serum creatinine 1.9, troponin trend unremarkable, proBNP:70183 TSH :15 , total bilirubin: 2.8, AST 100, ALT 61. Patient was given 1 dose of therapeutic Lovenox in the ER Review of Systems General: Reports: 10 or more systems reviewed and unremarkable except in HPI and below Const: Denies: fever(s), chills, body aches, change in appetite or diaphoresis Card: Denies: palpitations, edema, swelling of feet/ankles, dyspnea on exertion, orthopnea or leg pain with exertion Resp: Denies: dyspnea, productive cough, wheezing or pain on inspiration GI: Denies: abdominal pain, nausea, vomiting, diarrhea or constipation : Denies: flank pain or difficulty urinating Musc: Denies: back pain, extremity pain or extremity swelling Neuro: Denies: headache(s), difficulty walking or confusion Medications/Allergies Home Medications Medication Instructions Recorded Confirmed Last Taken Type cholecalciferol (vitamin D3) 50 50 mcg PO QAM 10/13/20 08/28/22 08/27/22 History mcg (2,000 unit) capsule apixaban 5 mg tablet (Eliquis) 5 mg PO BID@0900,2100 #60 tabs 08/10/22 08/28/22 08/27/22 Rx furosemide 20 mg tablet 20 mg PO DAILY PRN edema #30 tabs 08/10/22 08/28/22 0 08/01/22 Rx metoprolol tartrate 25 mg tablet 12.5 mg PO BID@0900,2100 #60 tabs 08/10/22 08/28/22 08/27/22 Rx potassium chloride 10 mEq 10 meq PO DAILY PRN with lasix 08/10/22 08/28/22 Unknown Rx tablet,extended release only #30 tabs acetaminophen 500 mg tablet 500 - 1,000 mg PO Q6H PRN Pain 08/28/22 08/28/22 Unknown History finasteride 5 mg tablet (Proscar) 5 mg PO QAM 08/28/22 08/28/22 08/27/22 History melatonin 10 mg tablet 10 mg PO BEDTIME 08/28/22 08/28/22 08/27/22 History zinc sulfate-vitamin C 200 mg-100 1 tab PO QAM 08/28/22 08/28/22 08/27/22 History mg tablet Allergies Allergy/AdvReac Type Severity Reaction Status Date / Time codeine Allergy Unknown Unknown Verified 08/28/22 11:51 acetaminophen [From Percocet] Allergy Unknown Verified 08/28/22 11:51 Histamine H2 Inhibitors Allergy Unknown Verified 08/05/22 17:59 oxycodone [From Percocet] Allergy Unknown Verified 08/28/22 11:51 pork derived (porcine) Allergy Unknown Verified 08/28/22 11:51 shellfish derived Allergy Unknown Verified 08/28/22 11:51 PFSH Acute PFSH: Medical History (Updated 08/28/22 @ 20:36 by Kip Brenner MD) Atrial fibrillation Atrial fibrillation with RVR Chronic kidney disease (CKD) Diastolic CHF Stenosis of prosthetic mitral valve Thrombocytopenia Tricuspid valve regurgitation, nonrheumatic Surgical History Hx of mitral valve replacement 2005 Family History Father Myocardial infarction Denies family history of Diabetes Stroke Social History Smoking and tobacco status: former smoker Alcohol intake: current Alcohol intake frequency: holidays/special occasions only Substance/Drug Use: never Vitals/I&O/Wt Last Vital Signs Temp 97.4 F L 08/28/22 10:33 Pulse 93 08/28/22 12:07 Resp 18 08/28/22 12:07 BP 127/88 08/28/22 12:07 Pulse Ox 97 08/28/22 12:07 O2 Del Method Nasal Cannula 08/28/22 12:07 O2 Flow Rate 2 08/28/22 12:07 08/28/22 08/28/22 08/28/22 06:59 14:59 22:59 Intake Total 500 / 500 Balance 500 / 500 Weight last 48 hrs Weight 97.069 kg Physical Exam Const: COMMON NORMALS: patient oriented x3 HENMT: COMMON NORMALS: normocephalic and atraumatic Resp: COMMON NORMALS: clear to auscultation bilaterally EFFORT & INSPECTION: Yes symmetric chest movement AUSCULTATION: clear to auscultation bilaterally Cardio: COMMON NORMALS: regular rate, regular rhythm, S1 normal heart sound present, S2 normal heart sound present, No gallops present (Cardio), No murmurs present (Cardio), No rub (Cardio) and Peripheral pulses 2+ throughout RATE: regular rate RHYTHM: regular rhythm HEART SOUNDS: S1 normal heart sound present and S2 normal heart sound present PERIPHERAL PULSES: Peripheral pulses 2+ throughout GI: COMMON NORMALS: Normal to inspection, nondistended, normoactive bowel sounds present, Soft to palpation, non-tender, No hepatosplenomegaly present and no masses AUSCULTATION: Yes normoactive bowel sounds PALPATION: Yes Soft to palpation and Yes No hepatosplenomegaly present RECTAL EXAM: Yes deferred Extremity: COMMON NORMALS: no clubbing, cyanosis or edema and no pedal edema Neuro: COMMON NORMALS: patient oriented x3 Data 08/28/22 11:25 08/28/22 11:25 A&P Assessment and plan (1) Atrial fibrillation: (2) Pulmonary embolism: (3) Deep venous thrombosis: (4) Hyperkalemia: (5) Thrombocytopenia: (6) Chronic kidney disease (CKD): Qualifiers: Chronic kidney disease stage: unspecified stage Qualified Code(s): N18.9 - Chronic kidney disease, unspecified (7) Abnormal TSH: (8) Elevated bilirubin: (9) Transaminitis: Plan 82 year old male with past medical history of atrial fibrillation , recently d iagnosed DVT on Eliquis, MVR for MR, CKD stage III , was brought in today with chief complaint of shortness of breath, particularly experienced while he is sleeping, and overall not feeling well for the last 3 to 4 days, poor appetite poor sleep, Currently is being managed for. Assessment: Possible acute PE: CTA chest has shown possible: pulmonary embolism noted within the right lower lobe versus just poor contrast extending into the right lower lobe. Follow VQ scan: Currently he is on anticoagulation with Lovenox, will switch him to p.o. Eliquis on discharge History of recent DVT: Has been recently started on Eliquis History of atrial fibrillation: Continue metoprolol, continue Eliquis Elevated TSH: Follow repeat TSH free T3 3 and free T4 Elevated total bilirubin: Currently patient is denying any abdominal pain nausea vomiting Follow ultrasound abdomen CMP Transaminitis: Plan as above CKD: Currently serum creatinine is baseline Monitor BMP Avoid nephrotoxic's Monitor intake output charting Hyperkalemia: Monitor serum potassium for now On NEBS Chronic thrombocytopenia: Monitor platelet count for now Patient is complaining of: Significant shortness of breath while he is sleeping: With possible drop in saturation: Concern for sleep apnea Follow overnight pulse ox Possible sleep study as outpatient CODE STATUS: Full code DVT prophylaxis: On Lovenox Attestations Medical Necessity Statement*: Needs to be in hospital for management of PE. Anticipated length of stay greater than 2 midnights Coding Level of Care Code Acute Code for Chg Fwd Diagnoses Atrial fibrillation I48.91 Pulmonary embolism I26.99 Deep venous thrombosis I82.409 Hyperkalemia E87.5 Thrombocytopenia D69.6 Chronic kidney disease (CKD) N18.9 Chronic kidney disease stage: unspecified stage Abnormal TSH R79.89 Elevated bilirubin R17 Transaminitis R74.01
--- NOTE | 2022-08-28 15:58 | ECG_ITS ---
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 Measurements Intervals [place] Rate: 92 P: 0 ME: 0 QRS: 98 QRSD: 100 T: 0 QT: 383 QTc: 475 Interpretive Statements ATRIAL FIBRILLATION WITH ABERRANT CONDUCTION OR VENTRICULAR PREMATURE COMPLEXES BORDERLINE RIGHT AXIS DEVIATION [QRS AXIS > 90] NONSPECIFIC T-WAVE ABNORMALITY ABNORMAL RHYTHM ECG Compared to ECG 08/28/2022 12:52:23 Ventricular premature complex(es) now present Aberrant conduction of supraventricular beat(s) now present T-wave abnormality still present Electronically Signed On 08-28-2022 21:11:30 CDT by Anneliese Aceves M.D. [id number]
--- NOTE | 2022-08-28 17:08 | ECG_ITS ---
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 Measurements Intervals [place] Rate: 105 P: 0 MO: 0 QRS: 100 QRSD: 97 T: 29 QT: 352 QTc: 466 Interpretive Statements ATRIAL FIBRILLATION WITH RAPID VENTRICULAR RESPONSE WITH ABERRANT CONDUCTION OR VENTRICULAR PREMATURE COMPLEXES POSSIBLE RIGHT VENTRICULAR HYPERTROPHY [SOME/ALL OF: PROMINENT R IN V1, LATE TRANSITION, RAD, ANN, SSS] POSSIBLE ANTERIOR MYOCARDIAL INFARCTION , PROBABLY OLD [30 ms Q WAVE IN V3/V4, OR R < 0.2 mV IN V4] Compared to ECG 08/28/2022 15:58:40 Myocardial infarct finding now present T-wave abnormality no longer present Electronically Signed On 08-30-2022 0:22:59 CDT by Anneliese Aceves M.D. [id number]
[2022-08-28 18:07] LABS: Troponin 5 6HR 33.61 ng/L (0-15)
[2022-08-28 18:08] LABS: Troponin 5 6HR Delta -1.39 ng/L (0-12)
[2022-08-28] MEDS: metoprolol tartrate 25 mg Tablet 12.5 MG PO (21:51)
[2022-08-29] VITALS (9 sets, daily range): BP systolic 101–144; BP diastolic 77–84; PULSE 80–97; RESP 16–20; TEMP 36.4; O2SAT 90–94
[2022-08-29] MEDS: enoxaparin 100 mg/mL Syringe SUBCUT (00:29)
[2022-08-29] MEDS: oxyCODONE-APAP 5-325 mg Tablet 1 TAB PO (04:45)
[2022-08-29 05:09] LABS: Basophils # 0.1 10^3/uL (0.0-0.1); Basophils % 1.2 %; Eosinophils # 0.2 10^3/uL (0.0-0.8); Eosinophils % 2.5 %; Hematocrit 41.3 % (42.0-52.0); Hemoglobin 13.2 g/dL (11.7-16.6); Lymphocytes # 2.6 10^3/uL (0.8-4.8); Lymphocytes % 38.2 %; Mean Corpuscular Hemoglobin 32.6 pg (28.0-34.0); Mean Platelet Volume 11.1 fL (7.4-10.4); Monocytes # 0.7 10^3/uL (0.2-0.9); Monocytes % 10.9 %; Neutrophils # 3.13 10^3/uL (1.8-7.7); Neutrophils % 46.3 %; Nucleated Red Blood Cells % 0.3 %; Platelet Count 124 10^3/cmm (130-400); Red Blood Count 4.05 10^6/uL (4.1-5.3); Red Cell Distribution Width 17.9 % (12.1-15.1); White Blood Count 6.8 10^3/uL (4.0-10.0)
[2022-08-29 05:26] LABS: D Dimer 2.17 ug/mIFEU (0-0.59)
--- NOTE | 2022-08-29 06:00 | US_ITS ---
WS: [id number] RIGHT UPPER QUADRANT ULTRASOUND HISTORY: elevated bilirubin COMPARISON: 08/05/2022 Liver: 18.1 cm in length. Mild hepatomegaly and hepatic steatosis. Normal size liver with no bile bhaskar t dilatation. Portal Vein: Mild bidirectional flow in the portal vein. Some of this may be due to respiratory motio n artifact but very similar to the prior study. Suggest early portal hypertension. Gallbladder: Normally distended gallbladder but there is diffuse gallbladder wall thickening and ston es. Small amount of pericholecystic edema. Very similar to the prior study. Gallbladder wall is measu ring 7.4 mm. CBD: 0.3 cm Pancreas: Normal size and echogenicity. Right kidney: 10.6 cm in length. Normal size and echogenicity. No hydronephrosis or mass. Aorta and IVC: Marked dilatation of the IVC. Small amount of ascites. US/US abdomen limited 11070 IMPRESSION: 1. Abnormal gallbladder. Stones with diffuse gallbladder wall thickening and a small amount of pericholecystic fluid. Consider acute cholecystitis versus gal lbladder wall thickening due to ascites and hepatocellular disease. 2. Mild hepatic steatosis and hepatomegaly. 3. Mild reversal flow in the portal vein. Probably due to early changes of por marcos venous hypertension. 4. Markedly dilated IVC.
[2022-08-29 06:08] LABS: Anion Gap 18.3 (5-19); Blood Urea Nitrogen 58 mg/dL (8-23); Calcium 9.2 mg/dL (8.5-10.5); Carbon Dioxide 20 mmol/L (22-29); Chloride 103 mmol/L (98-107); Free T4 Free Thyroxine 0.94 ng/dL (0.82-1.77); Glucose 79 mg/dL (65-115); Osmolality Calculated 297 mOsm/kg (285-295); Potassium 5.3 mmol/L (3.5-5.1); Sodium 136 mmol/L (136-145); T3 Free 1.5 PG/ML (2.0-4.4); Thyroid Stimulating Hormone 14.39 uIU/mL (0.27-4.20)
[2022-08-29 06:20] LABS: INR 2.14 (0.8-1.2)
[2022-08-29] MEDS: cholecalciferol (vitamin D3) 1,000 unit Tablet 2000 UNIT PO (06:49)
[2022-08-29] MEDS: finasteride 5 mg Tablet PO (06:49)
[2022-08-29 07:17] LABS: Urine Appearance Hazy (CLEAR); Urine Color Dark Yellow (Yellow); pH Urine 5 (5-7)
[2022-08-29 07:18] LABS: Add Urine Culture? Yes; Add Urine Microscopic? YES; Bacteria Urine 1+ /hpf; Bilirubin Urine Neg (Negative); Blood Urine 3+ (Negative); Glucose Urine UA Norm (Normal); Ketones Urine Negative (Negative); Leukocyte Esterase Urine Negative (Negative); Nitrate Urine Negative (Negative); Protein Urine 1+ (Negative); RBC Urine 80-100 /hpf (0-2); Squamous Epithelial Cell Urine RARE /hpf (0-5); Urobilinogen Urine Norm (Negative); WBC Urine 0-4 /hpf (0-5)
[2022-08-29] MEDS: metoprolol tartrate 25 mg Tablet 12.5 MG PO ×2 (08:40→20:55)
--- NOTE | 2022-08-29 11:23 | PM.PN ---
Subjective Subjective: Patient could not sleep well He is agitated He has been diagnosed with nocturnal hypoxemia They do not want to use pork products Agreeable to resume Eliquis Bilirubin trending down Hypothyroid we will start levothyroxine is stating that they would like to go home with home health services once he is ready Abdominal ultrasound showed gallstones, patient is not showing any signs of fever, right upper quadrant pain however ultrasound did show small amount of pericholecystic fluid concerning for acute versus ascitic hepatocellular disease Dilated IVC Vitals/I&O/Wt Last Vital Signs Temp 97.6 F 08/29/22 07:37 Pulse 87 08/29/22 08:45 Resp 20 H 08/29/22 08:45 BP 101/77 08/29/22 07:37 Pulse Ox 93 08/29/22 08:45 O2 Del Method Room Air 08/29/22 08:45 O2 Flow Rate 2 08/28/22 16:19 08/28/22 08/29/22 08/29/22 22:59 06:59 14:59 Intake Total 240 / 740 240 / 240 Output Total 250 / 250 Balance 240 / 740 -250 / 490 240 / 240 Weight last 48 hrs Weight 103.51 kg Weight 97.069 kg Physical Exam Narrative: Lower extremities well 2+ to 3+ edema new line Patient awake and alert Nonfocal neuro exam S1, S2 is at the bedside Currently on room air Abdomen soft Patient very fatigued and lethargic Able to follow commands Data 08/29/22 04:58 08/29/22 04:58 A&P Assessment and plan (1) Transaminitis: (2) Elevated bilirubin: (3) Abnormal TSH: (4) Hypothyroid: (5) Deep venous thrombosis: (6) Pulmonary embolism: (7) Hyperkalemia: (8) Atrial fibrillation: (9) Thrombocytopenia: (10) Chronic kidney disease (CKD): Qualifiers: Chronic kidney disease stage: unspecified stage Qualified Code(s): N18.9 - Chronic kidney disease, unspecified Plan Nocturnal hypoxemia currently patient is doing well on room air We will put him on CPAP for tonight New onset of DVT, he was recently discharged on Eliquis, Does not want to use pork products patient and does not want to use Coumadin or heparin products Patient was diagnosed with DVT on 08/10, he has not taken enough doses of Eliquis yet to label failure of DOAC 1994 history of gastric ulcer, recent EGD did not show any peptic ulcer disease signs Patient and his does not want to use Pradaxa because he had an episode of bleeding in the past Gallbladder changes are chronic as last time patient is not showing any signs of right upper quadrant pain, nausea or vomiting, MRCP showed normal ducts New onset hypothyroidism: Add levothyroxine according to his body weight Fatigue and lethargy related to hypothyroidism Does not want to go to SNF for rehab Wants to go home with home health services Recent UTI he finished his antibiotic regimen Chronic thrombocytopenia, hemoglobin stable, creatinine at base Hyperkalemia: We will give him Kayexalate 1 dose Patient is not constipated Having regular bowel movement Full code Will need outpatient sleep study Peripheral smear did not show schistocytes however he does not have typical HUS or TTP signs Attestations Medical Necessity Statement*: Continue medical management Diagnoses Transaminitis R74.01 Elevated bilirubin R17 Abnormal TSH R79.89 Hypothyroid E03.9 Deep venous thrombosis I82.409 Pulmonary embolism I26.99 Hyperkalemia E87.5 Atrial fibrillation I48.91 Thrombocytopenia D69.6 Chronic kidney disease (CKD) N18.9 Chronic kidney disease stage: unspecified stage
[2022-08-29] MEDS: levothyroxine 88 mcg Tablet PO (12:04)
[2022-08-29] MEDS: sodium polystyrene sulfonate 15 gm/60 mL Btl PO (12:04)
[2022-08-29] MEDS: acetaminophen 325 mg Tablet 650 MG PO (15:52)
--- NOTE | 2022-08-29 17:18 | NM_ITS ---
WS: [id number] NUCLEAR MEDICINE LUNG VENTILATION AND PERFUSION CLINICAL INFORMATION: possible PE TECHNIQUE: Ventilation/perfusion lung scan with 32.0 mCi technetium 99m DTPA. 5.2 mCi MAA COMPARISON: CTA August 28, 2022 FINDINGS: CTA reviewed. Small RIGHT greater than LEFT pleural effusions. Suboptimal PE study as previ ously described. Relatively symmetric bilateral perfusion. Patchy ventilatory images with central radiotracer depositi on due to emphysema. Marked Cardiomegaly. A few matched ventilation/perfusion defects. No mismatched VQ defects to indicate pulmonary embolus. NM/NM pul vent and perfus* [id number] IMPRESSION: 1. Low probability for pulmonary embolus. 2. Recommend repeat CTA chest PE study if persistent concern or symptoms
[2022-08-29] MEDS: apixaban 5 mg Tablet 10 MG PO (20:55)
[2022-08-30] VITALS (9 sets, daily range): BP systolic 96–136; BP diastolic 60–81; PULSE 82–99; RESP 16–19; TEMP 36.2–36.6; O2SAT 90–99
[2022-08-30 05:33] LABS: Basophils # 0.1 10^3/uL (0.0-0.1); Eosinophils # 0.3 10^3/uL (0.0-0.8); Hematocrit 38.5 % (42.0-52.0); Hemoglobin 12.3 g/dL (11.7-16.6); Lymphocytes # 2.3 10^3/uL (0.8-4.8); Lymphocytes % 36.5 %; Mean Corpuscular HGB Conc 31.9 g/dL (30.0-36.0); Mean Corpuscular Hemoglobin 32.3 pg (28.0-34.0); Mean Platelet Volume 10.7 fL (7.4-10.4); Monocytes # 0.8 10^3/uL (0.2-0.9); Neutrophils # 2.87 10^3/uL (1.8-7.7); Neutrophils % 45.7 %; Nucleated Red Blood Cells % 0 %; Platelet Count 116 10^3/cmm (130-400); Red Blood Count 3.81 10^6/uL (4.1-5.3); Red Cell Distribution Width 17.6 % (12.1-15.1); White Blood Count 6.3 10^3/uL (4.0-10.0)
[2022-08-30] MEDS: finasteride 5 mg Tablet PO (05:48)
[2022-08-30] MEDS: levothyroxine 88 mcg Tablet PO (05:48)
[2022-08-30] MEDS: cholecalciferol (vitamin D3) 1,000 unit Tablet 2000 UNIT PO (05:48)
[2022-08-30] MEDS: apixaban 5 mg Tablet 10 MG PO (08:24)
--- NOTE | 2022-08-30 09:10 | PC.NURSE ---
Patient and at bedside refused covid swab.
[2022-08-30 09:49] LABS: Alanine Aminotransferase 45 U/L (0-41); Albumin Level 3.4 g/dL (3.5-5.2); Alkaline Phosphatase 106 U/L (40-130); Anion Gap 18.5 (5-19); Aspartate Amino Transferase 72 U/L (0-40); Blood Urea Nitrogen 50 mg/dL (8-23); Carbon Dioxide 19 mmol/L (22-29); Chloride 102 mmol/L (98-107); Globulin 2.7 g/dL (1.3-4.6); Glucose 97 mg/dL (65-115); Lactate Dehydrogenase 255 U/L (135-225); Osmolality Calculated 293 mOsm/kg (285-295); Potassium 4.5 mmol/L (3.5-5.1); Sodium 135 mmol/L (136-145); Total Bilirubin 2.4 mg/dL (0.15-1.2); Total Protein 6.1 g/dL (6.6-8.7)
[2022-08-30 09:50] LABS: Creatinine Clr Calc Pharmacy 39.7205
[2022-08-30 11:48] LABS: ABG PCO2 29.1 mmHg (35-45); ABG PH Result 7.45 (7.35-7.45); Arterial Blood Gas Hematocrit 39.1 % (42-52); Base Excess ABG -2.6 mmol/L (-2.0-2.0); Blood Gas Allen Test Pos; Blood Gas Sample Type Arterial; HCO3 ABG 20.3 mmol/L (22-26); PO2 ABG 82.1 mmHg (80.0-100.0)
[2022-08-30 11:49] LABS: Blood Gas Operator Identificat MONRO; Blood Gas Sample Site Radial, right; Oxygen Device ROOM AIR
--- NOTE | 2022-08-30 13:24 | P.PN_ITS ---
Subjective Subjective: Nocturnal hypoxemia Patient will need sleep study at the time of discharge Requested ABG Patient doing well on room air Patient does not qualify for BiPAP In order to get CPAP he will need sleep study outpatient We will get him approved for home oxygen Creatinine improving Plan to discharge him by tomorrow Held metoprolol because of low blood pressure Vitals/I&O/Wt Last Vital Signs Temp 97.8 F 08/30/22 08:00 Pulse 83 08/30/22 08:00 Resp 16 08/30/22 08:00 BP 96/66 08/30/22 08:00 Pulse Ox 94 08/30/22 08:00 O2 Del Method Room Air 08/30/22 08:00 O2 Flow Rate 2 08/30/22 07:34 08/29/22 08/30/22 08/30/22 22:59 06:59 14:59 Intake Total 630 / 1110 240 / 1350 120 / 120 Balance 630 / 1110 240 / 1350 120 / 120 Weight last 48 hrs Weight 103.51 kg Physical Exam Narrative: Patient showing signs of fluid overload Low blood pressure Currently on room air Lower extremity swelling Abdomen soft GCS 15 Nonfocal neuro exam Fatigue and lethargy Data 08/30/22 05:21 08/30/22 08:48 Micro: Microbiology 08/29/22 07:01 Urine Culture - Preliminary Urine,Clean Catch A&P Assessment and plan (1) Hypothyroid: (2) Transaminitis: (3) Elevated bilirubin: (4) Abnormal TSH: (5) Chronic kidney disease (CKD): Qualifiers: Chronic kidney disease stage: unspecified stage Qualified Code(s): N18.9 - Chronic kidney disease, unspecified (6) Thrombocytopenia: (7) Atrial fibrillation: (8) Pulmonary embolism: (9) Deep venous thrombosis: Plan Acute diastolic CHF exacerbation Judicious use of diuretics with low blood pressure VQ scan did not show PE I will continue patient on 5 mg of Eliquis twice a day for DVT Nocturnal hypoxemia will need sleep study to get CPAP approved outpatient We will discharge him on oxygen 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 Plan to discharge him tomorrow if doing better We will give him Lasix today if blood pressure is better A-fib without RVR Held metoprolol because of low blood pressure Fatigue and lethargy, patient wants go home with home health services does not prefer to go to SNF Had 1 bowel movement today Attestations Medical Necessity Statement*: Discharge tomorrow if stable Diagnoses Hypothyroid E03.9 Transaminitis R74.01 Elevated bilirubin R17 Abnormal TSH R79.89 Chronic kidney disease (CKD) N18.9 Chronic kidney disease stage: unspecified stage Thrombocytopenia D69.6 Atrial fibrillation I48.91 Pulmonary embolism I26.99 Deep venous thrombosis I82.409
[2022-08-30] MEDS: apixaban 5 mg Tablet PO (21:01)
[2022-08-31] VITALS: BP 109/77; PULSE 80; RESP 18; TEMP 36.7; O2SAT 98
[2022-08-31 04:56] VITALS: BP 110/76; PULSE 78; RESP 18; TEMP 36.7; O2SAT 98
[2022-08-31] MEDS: levothyroxine 100 mcg Tablet PO (06:23)
[2022-08-31] MEDS: cholecalciferol (vitamin D3) 1,000 unit Tablet 2000 UNIT PO (06:23)
[2022-08-31] MEDS: finasteride 5 mg Tablet PO (06:23)
[2022-08-31 07:34] VITALS: PULSE 78; RESP 16; O2SAT 96
[2022-08-31 08:00] VITALS: BP 107/68; PULSE 94; RESP 16; TEMP 36.6; O2SAT 94
[2022-08-31] MEDS: apixaban 5 mg Tablet PO (08:30)
--- NOTE | 2022-08-31 09:56 | PC.SOCIAL ---
IMM update IMM updated with patient and . Copy Pg 2 provided. Verbalized an understanding. Initialled, dated, timed, and placed in chart.
--- NOTE | 2022-08-31 11:16 | PM.DCS ---
Discharge Providers Date of Admission: 08/28/22 13:13 Date of Discharge: August 31, 2022 Attending Provider at Admission: Kip Brenner MD Attending Provider at Discharge: Christophe García MD Primary Care Provider: Daniel Rios DO Diagnoses at Discharge Discharge Diagnosis (1) Hypothyroid: Status: Acute (2) Transaminitis: Status: Acute (3) Elevated bilirubin: Status: Acute (4) Abnormal TSH: Status: Acute (5) Chronic kidney disease (CKD): Status: Acute Qualifiers: Chronic kidney disease stage: unspecified stage Qualified Code(s): N18.9 - Chronic kidney disease, unspecified (6) Thrombocytopenia: Status: Acute (7) Atrial fibrillation: Status: Acute (8) Pulmonary embolism: Status: Acute (9) Deep venous thrombosis: Status: Acute Reason for Visit Reason for Visit: sob Hospital Course Hospital Course 82-year-old male who was recently discharged from the hospital after management of diastolic CHF exacerbation and DVT he was discharged on Eliquis therapeutic dose, came back with worsening of heart failure at this time there was concern for severe hypothyroidism and PE hence he was given therapeutic Lovenox but because of his belief and mikhail that he does not want to use any pork products, he agreed with continuation of Eliquis when we did the CTA chest and VQ scan which showed low probability for PE, he does have EF of 50%, clinically very fluid overloaded He is high risk for readmissions, at this point he will continue his Eliquis 5 mg twice a day along Lasix which will be 40 mg a day along potassium supplements His constipation improved after getting laxatives Abdominal ultrasound was done which showed chronic changes of gallbladder patient does not show any active right upper quadrant pain He does have dilated IVC related to congestive heart failure During this hospitalization we started him on levothyroxine 100 mics, diagnosed him with nocturnal hypoxemia he will need outpatient sleep study, he will qualified for 2 L of oxygen for nocturnal hypoxemia He also has hepatic steatosis Early portal hypertension changes noted as well does not want to use rehab or care home for now they do know that he is high risk for readmissions, Physical Exam Narrative: Clinically fluid overloaded Currently on room air Awake and alert 3+ edema of legs Abdomen distended nontender at the bedside Discharge Data Studies Completed and Pending Completed Studies During Hospitalization Category Date Time Status CTA chest [CT angio chest PE protcl [id number]] Stat Cat Scan 08/28/22 11:25 Completed XR chest 1V portable [id number] Stat Exams 08/28/22 10:29 Completed NM pul vent and perfus* [id number] Routine Nuc Med 08/29/22 17:18 Completed US abdomen limited [id number] Routine Ultrasound 08/29/22 06:00 Completed Radiology Impressions Chest X-Ray 08/28/22 10:29 IMPRESSION: No acute findings. Chest CTA 08/28/22 11:25 IMPRESSION: Less than optimal examination likely due to patient's severe cardiac dysfunction. There likely is pulmonary embolism noted within the right lower lobe versus just poor contrast extending into the right lower lobe. ADDENDUM: 08/28/22 [id number] THIS REPORT CONTAINS FINDINGS THAT MAY BE CRITICAL TO PATIENT CARE. The findings were verbally communicated by me to CLARICE GONSALES at 1:03 PM SIGNAL TOWER DIRECTOR on 08/28/2022. The findings were acknowledged and understood. There is a small amount of atelectasis involving the right base likely compressive from the effusion. Abdomen Ultrasound 08/29/22 06:00 IMPRESSION: 1. Abnormal gallbladder. Stones with diffuse gallbladder wall thickening and a small amount of pericholecystic fluid. Consider acute cholecystitis versus gallbladder wall thickening due to ascites and hepatocellular disease. 2. Mild hepatic steatosis and hepatomegaly. 3. Mild reversal flow in the portal vein. Probably due to early changes of portal venous hypertension. 4. Markedly dilated IVC. Pulmonary Perfusion Imaging 08/29/22 17:18 IMPRESSION: 1. Low probability for pulmonary embolus. 2. Recommend repeat CTA chest PE study if persistent concern or symptoms Laboratory Results WBC 6.3 10^3/uL (4.0-10.0) 08/30/22 05:21 RBC 3.81 10^6/uL (4.1-5.3) L 08/30/22 05:21 Hgb 12.3 g/dL (11.7-16.6) 08/30/22 05:21 Hct 38.5 % (42.0-52.0) L 08/30/22 05:21 MCV 101.0 fl (80-94) H 08/30/22 05:21 MCH 32.3 pg (28.0-34.0) 08/30/22 05:21 MCHC 31.9 g/dL (30.0-36.0) 08/30/22 05:21 RDW 17.6 % (12.1-15.1) H 08/30/22 05:21 Plt Count 116 10^3/cmm (130-400) L 08/30/22 05:21 MPV 10.7 fL (7.4-10.4) H 08/30/22 05:21 Neut % (Auto) 45.7 % 08/30/22 05:21 Lymph % (Auto) 36.5 % 08/30/22 05:21 Nye % (Auto) 12.0 % 08/30/22 05:21 Eos % (Auto) 4.0 % 08/30/22 05:21 Baso % (Auto) 1.0 % 08/30/22 05:21 Neut # (Auto) 2.87 10^3/uL (1.8-7.7) 08/30/22 05:21 Lymph # (Auto) 2.3 10^3/uL (0.8-4.8) 08/30/22 05:21 Nye # (Auto) 0.8 10^3/uL (0.2-0.9) 08/30/22 05:21 Eos # (Auto) 0.3 10^3/uL (0.0-0.8) 08/30/22 05:21 Baso # (Auto) 0.1 10^3/uL (0.0-0.1) 08/30/22 05:21 Nucleated RBC % (auto) 0 % 08/30/22 05:21 Nucleated RBCs # 0.0 /100WBC 08/30/22 05:21 PT 24.70 SECONDS (12.1-14.9) H 08/29/22 04:58 INR 2.14 (0.8-1.2) H 08/29/22 04:58 D-Dimer 2.17 ug/mIFEU (0-0.59) H 08/29/22 04:58 Specimen Type Arterial 08/30/22 11:37 Sample Site Radial, right 08/30/22 11:37 ABG pH 7.45 (7.35-7.45) 08/30/22 11:37 ABG pCO2 29.1 mmHg (35-45) L 08/30/22 11:37 ABG pO2 82.1 mmHg (80.0-100.0) 08/30/22 11:37 ABG HCO3 20.3 mmol/L (22-26) L 08/30/22 11:37 ABG Base Excess -2.6 mmol/L (-2.0-2.0) L 08/30/22 11:37 Ethan Test Pos 08/30/22 11:37 Hematocrit 39.1 % (42-52) L 08/30/22 11:37 O2 Delivery Device Room air 08/30/22 11:37 FiO2 21.0 % 08/30/22 11:37 Ornamental Metal Erector ID [place] 08/30/22 11:37 Sodium 135 mmol/L (136-145) L 08/30/22 08:48 Potassium 4.5 mmol/L (3.5-5.1) 08/30/22 08:48 Chloride 102 mmol/L (98-107) 08/30/22 08:48 Carbon Dioxide 19 mmol/L (22-29) L 08/30/22 08:48 Anion Gap 18.5 (5-19) 08/30/22 08:48 BUN 50 mg/dL (8-23) H 08/30/22 08:48 Creatinine 1.7 mg/dL (0.7-1.2) H 08/30/22 08:48 GFR Calculation Not Reportable 08/30/22 08:48 Glucose 97 mg/dL (65-115) 08/30/22 08:48 Calculated Osmolality 293 mOsm/kg (285-295) 08/30/22 08:48 Calcium 9.0 mg/dL (8.5-10.5) 08/30/22 08:48 Total Bilirubin 2.4 mg/dL (0.15-1.2) H 08/30/22 08:48 AST 72 U/L (0-40) H 08/30/22 08:48 ALT 45 U/L (0-41) H 08/30/22 08:48 Alkaline Phosphatase 106 U/L (40-130) 08/30/22 08:48 Lactate Dehydrogenase 255 U/L (135-225) H 08/30/22 08:48 Troponin T Baseline 35 ng/L (0-15) H 08/28/22 11:25 Troponin T 120 Minute 32.62 ng/L (0-15) H 08/28/22 13:32 Delta Troponin T -2.38 ABS# (0-10) L 08/28/22 13:32 Troponin T Hi Sens 6Hr 33.61 ng/L (0-15) H 08/28/22 17:40 Troponin T Hi Sens 6Hr Delta -1.39 ng/L (0-12) L 08/28/22 17:40 NT-Pro-B Natriuret Pep 11391 pg/mL (0-450) H 08/28/22 11:25 Total Protein 6.1 g/dL (6.6-8.7) L 08/30/22 08:48 Albumin 3.4 g/dL (3.5-5.2) L 08/30/22 08:48 Globulin 2.7 g/dL (1.3-4.6) 08/30/22 08:48 TSH 14.39 uIU/mL (0.27-4.20) H 08/29/22 04:58 Free T4 0.94 ng/dL (0.82-1.77) 08/29/22 04:58 Free T3 1.5 PG/ML (2.0-4.4) L 08/29/22 04:58 Urine Color Dark yellow (Yellow) 08/29/22 07:01 Urine Appearance Hazy (CLEAR) A 08/29/22 07:01 Urine pH 5 (5-7) 08/29/22 07:01 Ur Specific [place] 1.020 (1.005-1.030) 08/29/22 07:01 Urine Protein 1+ (Negative) H 08/29/22 07:01 Urine Glucose (UA) Norm (Normal) 08/29/22 07:01 Urine Ketones Negative (Negative) 08/29/22 07:01 Urine Blood 3+ (Negative) H 08/29/22 07:01 Urine Nitrate Negative (Negative) 08/29/22 07:01 Urine Bilirubin Neg (Negative) 08/29/22 07:01 Urine Urobilinogen Norm mg/dL (Negative) 08/29/22 07:01 Ur Leukocyte Esterase Negative (Negative) 08/29/22 07:01 Urine RBC 80-100 /hpf (0-2) H 08/29/22 07:01 Urine WBC 0-4 /hpf (0-5) H 08/29/22 07:01 Ur Squamous Epith Cells Rare /hpf (0-5) 08/29/22 07:01 Amorphous Sediment Not Reportable 08/29/22 07:01 Urine Bacteria 1+ /hpf (NONE) H 08/29/22 07:01 Vitals Last Vital Signs Temp 97.9 F 08/31/22 08:00 Pulse 94 08/31/22 08:00 Resp 16 08/31/22 08:00 BP 107/68 08/31/22 08:00 Pulse Ox 94 08/31/22 08:00 O2 Del Method Room Air 08/31/22 08:00 O2 Flow Rate 2 08/30/22 20:00 Discharge Plan Discharge Patient Disposition: Home Health Service Condition: Stable Prescriptions: New levothyroxine [Levoxyl] 100 mcg Tablet 100 mcg PO QAM Qty: 90 3RF Continued cholecalciferol (vitamin D3) 50 mcg (2,000 unit) capsule 50 mcg PO QAM metoprolol tartrate 25 mg Tablet 12.5 mg PO BID@0900,2100 Qty: 60 0RF Eliquis 5 mg Tablet 5 mg PO BID@0900,2100 Qty: 60 3RF Proscar 5 mg Tablet 5 mg PO QAM Vitamin C Plus Zinc 200-100 mg Tablet 1 tab PO QAM Tylenol Ex Str Rapid Release 500 mg Tablet 500 - 1,000 mg PO Q6H PRN (Reason: Pain) melatonin 10 mg Tablet 10 mg PO BEDTIME Changed potassium chloride 10 mEq tablet extended release 10 meq PO DAILY Qty: 60 2RF furosemide 20 mg tablet 40 mg PO DAILY Qty: 60 2RF Discharge Orders: Discharge Order (Routine); Ordered 08/31/22 Ordered By: Christophe García Other Ambulatory Orders: Sleep Study/Titration (Routine) Timeframe: 1 Week Facility: [facility] - Location: [facility] Ordered By: Christophe García DME: Oxygen (Order) Location: None Selected Ordered By: Christophe García Referrals: [facility] ([facility]) [Outside] Daniel Rios DO [Primary Care Provider] - 09/13/22 1:00 pm Patient Instructions: Opioid Safety Activity Restrictions/Additional Instructions: In case of further worsening of shortness of breath and leg swelling you can use Lasix 40 mg twice a day to make it 80 mg please take potassium always with Lasix dose Continue Eliquis 5 mg twice daily Discharge Attestations Time Spent in Discharge Care*: greater than 30 min Quality Metrics Clinical Quality Measures [ No reported AMI, CVA or VTE this stay] Coding Level of Care Code Acute Code for Chg Fwd Diagnoses Hypothyroid E03.9 Transaminitis R74.01 Elevated bilirubin R17 Abnormal TSH R79.89 Chronic kidney disease (CKD) N18.9 Chronic kidney disease stage: unspecified stage Thrombocytopenia D69.6 Atrial fibrillation I48.91 Pulmonary embolism I26.99 Deep venous thrombosis I82.409
[2022-08-31 12:00] VITALS: BP 130/85; PULSE 87; RESP 18; TEMP 36.2; O2SAT 97
[2022-08-31 12:55] VITALS: BP 107/68; PULSE 94; RESP 16; TEMP 36.6; O2SAT 94
--- NOTE | 2022-08-31 12:57 | PC.NURSE ---
PT DISCHARGE PAPERWORK COMPLETED, SIGNED. PT EDUCATED. IV OUT. DRESSED AND DC WITH AND SON. LEFT VIA W/C WITH FAMILY. ALL BELONGINGS SENT WITH PATIENT.
== END 2022-08-31 12:56 | disposition home health service (06) | DRG 640 ==
LOC: ER 13:40 → MEDSURG 15:01
PROVIDERS: Internal Medicine; Admitting Provider Internal Medicine; Emergency Provider Emergency Medicine; PCP Emergency Medicine Emergency Medical Services; Visit Provider Internal Medicine
DX: E87.70 Fluid overload, unspecified (principal); I50.33 Acute on chronic diastolic (congestive) heart failure; K76.6 Portal hypertension; Z86.718 Personal history of other venous thrombosis and embolism; N18.30 Chronic kidney disease, stage 3 unspecified; E03.9 Hypothyroidism, unspecified; K59.00 Constipation, unspecified; R09.02 Hypoxemia; K76.0 Fatty (change of) liver, not elsewhere classified; Z79.01 Long term (current) use of anticoagulants; I48.91 Unspecified atrial fibrillation; Z95.3 Presence of xenogenic heart valve; I07.1 Rheumatic tricuspid insufficiency; Z87.891 Personal history of nicotine dependence; E87.5 Hyperkalemia; D69.6 Thrombocytopenia, unspecified; Z87.440 Personal history of urinary (tract) infections; K80.20 Calculus of gallbladder without cholecystitis without obstruction
CPT/HCPCS: 36415; 36600; 71045; 71275; 76705; 78014; 80048; 80053; 81001; 82803; 83615; 83880; 84439; 84443; 84481; 84484; 85025; 85378; 85610; 87086; 93005; 96372; 96374; 96375; 99285; A9540; A9567; J1650; J2270; J2405; J7040; Q9967

== ENCOUNTER → 2022-09-29 12:54 | Outpatient (BNVA) | payer OTHER, SELFPAY | PROVIDERS: PCP Emergency Medicine Emergency Medical Services; Visit Provider Internal Medicine Cardiovascular Disease | DX: I48.19 Other persistent atrial fibrillation (principal); G47.34 Idiopathic sleep related nonobstructive alveolar hypoventilation; R17 Unspecified jaundice; I26.99 Other pulmonary embolism without acute cor pulmonale; D69.6 Thrombocytopenia, unspecified; I36.1 Nonrheumatic tricuspid (valve) insufficiency; R74.01 Elevation of levels of liver transaminase levels; I13.0 Hypertensive heart and chronic kidney disease with heart failure and stage 1 through stage 4 chronic kidney disease, or unspecified chronic kidney disease; N18.9 Chronic kidney disease, unspecified; I50.30 Unspecified diastolic (congestive) heart failure; Z87.891 Personal history of nicotine dependence; Z79.01 Long term (current) use of anticoagulants | CPT/HCPCS: 99214 ==

== ENCOUNTER 2022-10-28 20:27 | Inpatient (IN) | payer OTHER, SELFPAY ==
[2022-10-28 20:32] VITALS: BP 124/84; PULSE 126; RESP 24; TEMP 36.8; O2SAT 95
--- NOTE | 2022-10-28 20:59 | ECG_ITS ---
[facility] Test Date: 2022-10-28 Pat Name: Ernst Garcia Department: Room: Gender: Male Primary Care Sales Representative: : 1940 Requested By: Ismael Nicolas Order Number: [id number] Mello MD: Jyoti Smith M.D. Measurements Intervals [place] Rate: 121 P: 93 LA: 124 QRS: 105 QRSD: 90 T: -4 QT: 365 QTc: 518 Interpretive Statements SINUS TACHYCARDIA WITH FREQUENT VENTRICULAR PREMATURE COMPLEXES RIGHT AXIS DEVIATION [QRS AXIS > 100] MARKED ST ELEVATION, CONSIDER INFERIOR INJURY ARTIFACT Compared to ECG 08/28/2022 17:54:02 Right-axis deviation now present ST (T wave) deviation now present Atrial fibrillation no longer present Aberrant conduction of supraventricular beat(s) no longer present Atrial abnormality no longer present Myocardial infarct finding still present Electronically Signed On 10-28-2022 23:27:14 CDT by Jyoti Smith M.D. [email or web address]
--- NOTE | 2022-10-28 21:11 | CTR_ITS ---
PROCEDURE INFORMATION: Exam: CTA Chest With Contrast Exam date and time: 10/28/2022 9:42 PM Age: 82 years old Clinical indication: Shortness of breath and tachypnea; Prior surgery; Surgery date: 6+ months; Surgery type: Cabg. Mitral valve; Patient HX: SOB with tachycardia and hypoxia. History of pe. ; Additional info: SOB, tachycardia, hypoxia TECHNIQUE: Imaging protocol: Computed tomographic angiography of the chest with contrast. Exam focused on the arteries. 3D rendering (Not supervised by radiologist): MIP and/or 3D reconstructed images were created by the technologist. Radiation optimization: All CT scans at this facility use at least one of these dose optimization techniques: automated exposure control; mA and/or kV adjustment per patient size (includes targeted exams where dose is matched to clinical indication); or iterative reconstruction. Contrast material: OMNI 350; Contrast volume: 100 ml; Contrast route: INTRAVENOUS (IV); REPORTING DATA: Count of CT and Cardiac NM exams in prior 12 months: This patient has received 3 known CTs and 0 known cardiac nuclear medicine studies in the 12 months prior to the current study. COMPARISON: CT angio chest PE protcl [id number] 08/28/2022 12:36 PM RADIATION DOSE METRICS: Total DLP (mGy-cm): 506.98 FINDINGS: Tubes, catheters and devices: Mitral valve prosthesis. Pulmonary arteries: Dilated central pulmonary arteries. No definite pulmonary artery filling defect. Evaluation of the smaller arteries is limited by breathing motion artifact. Aorta: Unremarkable. No aortic aneurysm. No aortic dissection. Veins: Severely dilated IVC and hepatic veins. Lungs: Atelectasis in the dependent right lung. Bandlike atelectasis or scarring in the right upper and middle lobes. Mild atelectasis in the posterior left lower lobe. Pleural spaces: Increased medium right and small left pleural effusions. Heart: Severe cardiomegaly with right atrial enlargement. Coronary arteries: Coronary artery calcifications and possible stents. Lymph nodes: Unremarkable. No enlarged lymph nodes. Liver: Cirrhotic appearing liver. Kidneys and ureters: Right renal cyst, Hounsfield units less than 20. No follow-up imaging is recommended. Intraperitoneal space: Increased mild-moderate ascites. Bones/joints: Median sternotomy changes. Kyphosis and degenerative changes of the thoracic spine. Stable minimal wedging of T12. No acute fracture. Soft tissues: Mild body wall edema. CT/CT angio chest PE protcl [id number] IMPRESSION: 1. No definite evidence for pulmonary embolus. Evaluation is limited by breathing motion artifact. 2. Increased medium right and small left pleural effusions with dependent atelectasis. 3. Increased ascites. 4. Severe cardiomegaly with right atrial enlargement. 5. Elevated right heart pressure with dilated IVC and hepatic veins. 6. Dilated central pulmonary arteries could indicate underlying pulmonary artery hypertension. COMMENTS: Consistent with the [employer]'s Incidental Findings Committee white paper (J Am Sujatha Radiol 2018): Any incidental renal lesion less than 1 cm or classified as too small to characterize, or any incidental cystic renal lesion characterized as simple-appearing, is likely benign. No follow-up imaging is recommended for these lesions per consensus recommendations based on imaging criteria.
--- NOTE | 2022-10-28 21:11 | XRR_ITS ---
PROCEDURE INFORMATION: Exam: XR Chest Exam date and time: 10/28/2022 9:27 PM Age: 82 years old Clinical indication: Shortness of breath; Additional info: Chills, SOB TECHNIQUE: Imaging protocol: Radiologic exam of the chest. Views: 1 view. COMPARISON: CR (CHEST, ) 08/28/2022 10:38 AM FINDINGS: Tubes, catheters and devices: Heart valve prosthesis. Lungs: Interstitial opacities in both lung bases. Mild atelectasis in the lung bases. Pleural spaces: Small right and trace left pleural effusions. No pneumothorax. Heart/Mediastinum: Worsened cardiomegaly. Bones/joints: Sternotomy wires. XR/XR chest 1V portable [id number] IMPRESSION: 1. Mild congestive heart failure pattern with worsened cardiomegaly.
--- NOTE | 2022-10-28 21:11 | USR_ITS ---
PROCEDURE INFORMATION: Exam: US Duplex Lower Extremity Veins, Bilateral Exam date and time: 10/28/2022 9:54 PM Age: 82 years old Clinical indication: Edema, localized; Lower extremity, bilateral; Additional info: Edema, pain, tachycardia TECHNIQUE: Imaging protocol: Real-time duplex ultrasound of the bilateral extremities with 2-D garay scale, color Doppler flow and spectral waveform analysis including responses to compression and other maneuvers (when performed) with image documentation. Complete exam focused on the lower extremity veins. COMPARISON: [place] [id number] 08/07/2022 3:20 PM FINDINGS: Right deep veins: The peroneal vein does not compress with color Doppler flow present. The posterior tibial vein does not compress, with no visible color flow. The common femoral, femoral, proximal profunda femoral and popliteal veins are patent without thrombus. Normal Doppler waveforms. Normal compressibility and/or augmentation response. Right superficial veins: Saphenofemoral junction is patent without thrombus. Left deep veins: Unremarkable. The common femoral, femoral, proximal profunda femoral and popliteal veins are patent without thrombus. Normal Doppler waveforms. Normal compressibility and/or augmentation response. Left superficial veins: Saphenofemoral junction is patent without thrombus. Soft tissues: Unremarkable. US/[place] [id number] IMPRESSION: 1. Occlusive deep vein thrombosis in the right posterior tibial vein and partial deep vein thrombosis in the peroneal vein.
[2022-10-28 21:12] VITALS: BP 141/89; PULSE 124; RESP 25; O2SAT 94
[2022-10-28] MEDS: dilTIAZem 5 mg/mL SDV 5 mL 15 MG IVP (21:39)
--- NOTE | 2022-10-28 21:44 | ED_ITS ---
HPI - Extremity Problem General: Chief complaint: Extremity Injury, Lower Stated complaint: shaking/LT leg pain/groin pain/ Time Seen by Provider: 10/28/22 20:56 Source: patient and family History of Present Illness: 82-year-old gentleman with a history of atrial fibrillation and heart failure. He presents complaining of shortness of breath, lower extremity swelling and testicular swelling that is worsened over the past few days. He evidently was doing okay earlier in the day, but suddenly became significantly short of breath at home with increased pain to his left thigh and groin area as well as shaking with chills. MD Complaint: extremity pain, extremity swelling and other Onset (ago): hour(s) Location: left (More so than right), right and lower extremity Radiation: proximal Relieving factors: nothing Exacerbating factors: exertion and palpation Associated symptoms: Deny chest pain or fever(s) Context: history of DVT Review of Systems Const: Reports: chills and body aches; Denies: fever(s) Eyes: Denies: change in vision ENMT: Denies: throat pain Card: Reports: palpitations and irregular heart rhythm; Denies: chest pain Resp: Reports: dyspnea; Denies: productive cough or non-productive cough GI: Reports: nausea; Denies: abdominal pain or vomiting [facility] PFSH: Medical History Abnormal TSH Atrial fibrillation Atrial fibrillation Atrial fibrillation with RVR Chronic kidney disease (CKD) Deep venous thrombosis Diastolic CHF Elevated bilirubin Hyperkalemia Hypothyroid Pulmonary embolism Stenosis of prosthetic mitral valve Thrombocytopenia Transaminitis Tricuspid valve regurgitation, nonrheumatic Surgical History Hx of mitral valve replacement 2006 Family History Father Myocardial infarction Denies family history of Diabetes Stroke Social History Smoking and tobacco status: former smoker Alcohol intake: current Alcohol intake frequency: holidays/special occasions only Substance/Drug Use: never Physical Exam Const: COMMON NORMALS: alert GENERAL APPEARANCE: cooperative, in distress, anxious, ill appearing and frail appearing HENMT: COMMON NORMALS: normocephalic, atraumatic and Normal external nose present HEAD & SCALP: normocephalic and atraumatic FACE & SINUS: normal facial exam NOSE: Normal external nose present Eye: COMMON NORMALS: Equal, round and reactive pupils present and EOMs intact bilaterally PUPIL: Yes Equal, round and reactive pupils present Chest: CHEST: Yes Symmetrical chest wall rise Resp: COMMON NORMALS: normal respiratory effort, No use of accessory muscles and clear to auscultation bilaterally AUSCULTATION: clear to auscultation bilaterally Cardio: COMMON NORMALS: regular rate and regular rhythm RATE: regular rate RHYTHM: regular rhythm GI: COMMON NORMALS: Soft to palpation INSPECTION: Yes Abdominal wall edema PALPATION: Yes Soft to palpation : MALE GROIN/PERINEUM EXAM: Yes edema and Yes erythema PENIS: edematous SCROTUM: Yes edematous Extremity: GENERAL: Yes edema Neuro: SENSORIUM/ORIENTATION: Yes alert Course Vital Signs: Vital signs: Vital Signs Temperature 98.3 F 10/28/22 20:32 Pulse Rate 124 H 10/28/22 21:12 Respiratory Rate 25 H 10/28/22 21:12 Blood Pressure 141/89 10/28/22 21:12 Pulse Oximetry 94 10/28/22 21:12 Oxygen Delivery Me thod Room Air 10/28/22 21:12 MDM - Extremity (Nontraumatic) Medical Decision Making Tachycardia, chills, shortness of breath, leg and testicular swelling. He is found to be in atrial fibrillation with RVR. He is started on diltiazem, at low-dose, and the rate has gone from 130s to 100. Saturations are 90% on room air. He is placed on oxygen for this. Mild thrombocytopenia, otherwise normal CBC. Creatinine is 1.4. Bicarb is 19. Lactate is 2.7. Chest x-ray shows congestive heart failure. CTA shows right and left pleural effusions and increased ascites and severe cardiomegaly with dilated central pulmonary a rteries. There is no pulmonary embolus. DVT present in the right popliteal system, although may be chronic. The patient is given IV Bumex here. Tinsley catheter for accurate output assessment, continue diltiazem drip and O2 support. He will go to the [facility]. Hospitalist has seen the patient in the ER. Lab Data 10/28/22 21:25 10/28/22 21:25 Radiology Impressions Chest CTA 10/28/22 21:11 IMPRESSION: 1. No definite evidence for pulmonary embolus. Evaluation is limited by breathing motion artifact. 2. Increased medium right and small left pleural effusions with dependent atelectasis. 3. Increased ascites. 4. Severe cardiomegaly with right atrial enlargement. 5. Elevated right heart pressure with dilated IVC and hepatic veins. 6. Dilated central pulmonary arteries could indicate underlying pulmonary artery hypertension. COMMENTS: Consistent with the [employer]'s Incidental Findings Committee white paper (J Am Sujatha Radiol 2018): Any incidental renal lesion less than 1 cm or classified as too small to characterize, or any incidental cystic renal lesion characterized as simple-appearing, is likely benign. No follow-up imaging is recommended for these lesions per consensus recommendations based on imaging criteria. Chest X-Ray 10/28/22 21:11 IMPRESSION: 1. Mild congestive heart failure pattern with worsened cardiomegaly. Venous Duplex 10/28/22 21:11 IMPRESSION: 1. Occlusive deep vein thrombosis in the right posterior tibial vein and partial deep vein thrombosis in the peroneal vein. ADDENDUM: 10/28/22 2300 There is no evidence for deep vein thrombosis in the left lower extremity. THIS REPORT CONTAINS FINDINGS THAT MAY BE CRITICAL TO PATIENT CARE. The findings were verbally communicated via telephone conference with ISMAEL BURGOS at 10:58 PM CDT on 10/28/2022. The findings were acknowledged and understood. Laboratory Results WBC 8.4 10^3/uL (4.0-10.0) 10/28/22 21:25 RBC 4.25 10^6/uL (4.1-5.3) 10/28/22 21:25 Hgb 13.3 g/dL (11.7-16.6) 10/28/22 21:25 Hct 42.5 % (42.0-52.0) 10/28/22: MCV 100.0 fl (80-94) H 10/28/22 21:25 MCH 31.3 pg (28.0-34.0) 10/28/22 21:25 MCHC 31.3 g/dL (30.0-36.0) 10/28/22:25 RDW 17.1 % (12.1-15.1) H 10/28/22 21:25 Plt Count 108 10^3/cmm (130-400) L 10/28/22 21: MPV 10.6 fL (7.4-10.4) H 10/28/22 21:25 Neut % (Auto) 71.2 % 10/28/22 21: Lymph % (Auto) 20.4 % 10/28/22 21: [place] % (Auto) 7.1 % 10/28/22 21: Eos % (Auto) 0.2 % 10/28/22 21: Baso % (Auto) 0.6 % 10/28/22 21: Neut # (Auto) 6.01 10^3/uL (1.8-7.7) 10/28/22: Lymph # (Auto) 1.7 10^3/uL (0.8-4.8) 10/28/22 21: [place] # (Auto) 0.6 10^3/uL (0.2-0.9) 10/28/22 21: Eos # (Auto) 0.0 10^3/uL (0.0-0.8) 10/28/22 21: Baso # (Auto) 0.1 10^3/uL (0.0-0.1) 10/28/22 21: Nucleated RBC % (auto) 0 % 10/28/22: Nucleated RBCs # 0.0 /100WBC 10/28/22 21: ESR 7 mm/hr (0-10) 10/28/22 21: PT 23.60 SECONDS (12.1-14.9) H 10/28/22 21: INR 2.02 (0.8-1.2) H 10/28/22 21:25 APTT 38.4 SECONDS (23.9-36.7) H 10/28/22 21:25 Sodium 137 mmol/L (136-145) 10/28/22 21:25 Potassium 3.9 mmol/L (3.5-5.1) 10/28/22 21:25 Chloride 103 mmol/L (98-107) 10/28/22 21: Carbon Dioxide 19 mmol/L (22-29) L 10/28/22 21: Anion Gap 18.9 (5-19) 10/28/22 21:25 BUN 40 mg/dL (8-23) H 10/28/22 21:25 Creatinine 1.4 mg/dL (0.7-1.2) H 10/28/22 21:25 GFR Calculation Not Reportable 10/28/22 21:25 Glucose 84 mg/dL (65-115) 10/28/22 21:25 Calculated Osmolality 293 mOsm/kg (285-295) 10/28/22 21:25 Lactic Acid 2.7 mmol/L (0.5-2.2) H 10/28/22 21:25 Calcium 8.8 mg/dL (8.5-10.5) 10/28/22 21:25 Magnesium 2.2 mg/dL (1.7-2.3) 10/28/22:25 Total Bilirubin 2.9 mg/dL (0.15-1.2) H 10/28/22 21:25 AST 36 U/L (0-40) 10/28/22 21:25 ALT 17 U/L (0-41) 10/28/22 21:25 Alkaline Phosphatase 103 U/L (40-130) 10/28/22 21:25 Creatine Kinase 97 U/L (39-308) 10/28/22 21:25 Troponin T Baseline 34 ng/L (0-15) H 10/28/22 21:25 C-Reactive Protein 12.4 mg/L (0.0-4.9) H 10/28/22 21:25 NT-Pro-B Natriuret Pep 3784 pg/mL (0-450) H 10/28/22 21:25 Total Protein 6.8 g/dL (6.6-8.7) 10/28/22 21:25 Albumin 3.5 g/dL (3.5-5.2) 10/28/22 21: Globulin 3.3 g/dL (1.3-4.6) 10/28/22 21:25 Critical Care Time Critical Care Time: Critical Care Time: Yes Total Critical Care Time: 35 Attestation: This case had a high probability of a clinically significant, sudden, or life threatening deterioration of this patient's condition which required my full and direct attention, intervention and personal management. Time is independent of any procedures performed. Discharge Plan Discharge Patient Disposition: Admitted As Inpatient Clinical Impression: Atrial fibrillation with rapid ventricular response, Pulmonary edema Condition: Stable Prescriptions: No Action cholecalciferol (vitamin D3) 50 mcg (2,000 unit) capsule 50 mcg PO QAM furosemide 20 mg tablet 40 mg PO DIRECTED Rx Instructions: Can take up to 80mg. Tries to take 2 tabs (40mg) metoprolol tartrate 25 mg Tablet 12.5 mg PO BID@0900,2100 Qty: 60 0RF Eliquis 5 mg Tablet 5 mg PO BID@0900,2100 Qty: 60 3RF Proscar 5 mg Tablet 5 mg PO QAM zinc sulfate-vitamin C 200-100 mg Tablet 1 tab PO QAM acetaminophen 500 mg Tablet 500 - 1,000 mg PO Q6H PRN (Reason: Pain) melatonin 10 mg Tablet 10 mg PO BEDTIME Levoxyl 100 mcg Tablet 100 mcg PO QAM Qty: 90 3RF potassium chloride 10 mEq tablet extended release 10 meq PO DAILY Qty: 60 2RF Referrals: Daniel Rios DO [Primary Care Provider] - Coding Level of Care Code ED [employer]
[2022-10-28] MEDS: iohexol 350 mg/mL 500 mL Btl (per mL) IV (21:49)
[2022-10-28 21:52] LABS: Basophils # 0.1 10^3/uL (0.0-0.1); Basophils % 0.6 %; Eosinophils % 0.2 %; Hematocrit 42.5 % (42.0-52.0); Hemoglobin 13.3 g/dL (11.7-16.6); Lymphocytes # 1.7 10^3/uL (0.8-4.8); Lymphocytes % 20.4 %; Mean Corpuscular HGB Conc 31.3 g/dL (30.0-36.0); Mean Corpuscular Hemoglobin 31.3 pg (28.0-34.0); Mean Platelet Volume 10.6 fL (7.4-10.4); Monocytes # 0.6 10^3/uL (0.2-0.9); Monocytes % 7.1 %; Neutrophils # 6.01 10^3/uL (1.8-7.7); Neutrophils % 71.2 %; Nucleated Red Blood Cells % 0 %; Platelet Count 108 10^3/cmm (130-400); Red Blood Count 4.25 10^6/uL (4.1-5.3); Red Cell Distribution Width 17.1 % (12.1-15.1); White Blood Count 8.4 10^3/uL (4.0-10.0)
[2022-10-28 21:53] LABS: Erythrocyte Sedimentation Rate 7 mm/hr (0-10)
[2022-10-28] MEDS: dilTIAZem 100 MG in sodium chloride 0.9% (add-van) 100 ML IV (22:02)
[2022-10-28 22:05] LABS: INR 2.02 (0.8-1.2)
[2022-10-28 22:06] LABS: Partial Thromboplastin Time 38.4 SECONDS (23.9-36.7)
[2022-10-28 22:11] LABS: Lactic Sepsis W/Reflex 2.7 mmol/L (0.5-2.2)
[2022-10-28 22:13] LABS: Troponin(5th) Baseline 34 ng/L (0-15)
[2022-10-28 22:20] LABS: Alanine Aminotransferase 17 U/L (0-41); Albumin Level 3.5 g/dL (3.5-5.2); Alkaline Phosphatase 103 U/L (40-130); Anion Gap 18.9 (5-19); Aspartate Amino Transferase 36 U/L (0-40); Blood Urea Nitrogen 40 mg/dL (8-23); C Reactive Protein 12.4 mg/L (0.0-4.9); Calcium 8.8 mg/dL (8.5-10.5); Carbon Dioxide 19 mmol/L (22-29); Chloride 103 mmol/L (98-107); Creatine Phosphokinase 97 U/L (39-308); Globulin 3.3 g/dL (1.3-4.6); Glucose 84 mg/dL (65-115); Magnesium 2.2 mg/dL (1.7-2.3); NT Pro B Type Natriuretic Pept 3784 pg/mL (0-450); Osmolality Calculated 293 mOsm/kg (285-295); Potassium 3.9 mmol/L (3.5-5.1); Sodium 137 mmol/L (136-145); Total Bilirubin 2.9 mg/dL (0.15-1.2); Total Protein 6.8 g/dL (6.6-8.7)
[2022-10-28 23:28] LABS: Reflex Lactate Order REFLEX LACTIC ORDERD
[2022-10-28] MEDS: lidocaine 2% Urojet 20 mL TOPICAL (23:30)
[2022-10-28] MEDS: bumetanide 0.25 mg/mL SDV 4 mL 2 MG IVP (23:41)
[2022-10-28 23:55] LABS: Add Urine Microscopic? YES; Bilirubin Urine Neg (Negative); Blood Urine 2+ (Negative); Glucose Urine UA Norm (Normal); Ketones Urine 1+ (Negative); Leukocyte Esterase Urine Trace (Negative); Nitrate Urine Positive (Negative); Protein Urine 1+ (Negative); Specific Gravity, Urine 1.015 (1.005-1.030); Urine Appearance Clear (CLEAR); Urine Color Yellow (Yellow); Urobilinogen Urine 1 mg/dL (Negative); pH Urine 5 (5-7)
[2022-10-28 23:56] LABS: Bacteria Urine TRACE /hpf; RBC Urine 0-4 /hpf (0-2)
[2022-10-28 23:57] LABS: Add Urine Culture? Yes
[2022-10-29] VITALS (57 sets, daily range): BP systolic 86–123; BP diastolic 54–80; PULSE 75–134; RESP 12–30; TEMP 36.8–37.8; O2SAT 88–98; BMI 35.3
--- NOTE | 2022-10-29 00:05 | P.HP_ITS ---
Providers/Chief Complaint Admitting Physician: Kanchan Fields MD Primary Care Provider: Daniel Rios DO Chief Complaint: shaking/LT leg pain/groin pain/ History of Present Illness Ernst Garcia is a 82 year old male with a past medical history of CAD, diastolic CHF, history of DVT for which she is currently on Eliquis, recent admission in August 2022 for CHF exacerbation. He has recently been dealing with persistent lower extremity edema for which she is currently taking Lasix 60 mg p.o. daily. He has significant edema involving bilateral lower extremities, worse over the thighs and the groin. He was in his usual state of health until this afternoon when he started to complain of sudden onset left leg pain. Pain involves his left thigh most prominently, he had difficulty moving the thigh. He became increasingly weak, experienced chills and was brought to the emergency room by his family. He has a Tmax of 100 Fahrenheit today. His left upper thigh appears to be erythematous and warm, slightly more swollen compared to the right side. Patient does not remember any trauma to this area. He has been experiencing intertrigo in bilateral inguinal folds, precipitated by urinary incontinence and wearing a diaper. He was also found to be in A-fib with RVR for which she has been started on Cardizem infusion. Denies any chest pain currently. States that this morning he had an episode of chest tightness which resolved. Denies feeling short of breath. He typically uses oxygen at nighttime. Currently on 2 L/min supplemental O2. Review of Systems General: Reports: 10 or more systems reviewed and unremarkable except in HPI and below Const: Reports: chills; Denies: fever(s) or body aches Eyes: Denies: change in vision, blurry vision or photophobia ENMT: Reports: hoarseness; Denies: throat pain, enlarged tonsils, odynophagia or nasal congestion Card: Denies: chest pain, palpitations, irregular heart rhythm, edema, swelling of feet/ankles, lightheadedness, pre-syncope, dyspnea on exertion or orthopnea Resp: Denies: dyspnea, productive cough, non-productive cough, wheezing, stridor, pain on inspiration, change in phlegm color, hemoptysis or chest congestion GI: Denies: abdominal pain, nausea, vomiting, hematemesis, coffee ground emesis, dysphagia, heartburn, diarrhea, constipation, GI cramping, change in stool character, hematochezia or melena : Denies: flank pain, dysuria, urinary frequency, urinary urgency, urinary hesitancy or hematuria Musc: Denies: neck pain, back pain, extremity pain, joint swelling, joint war mth or deformity Neuro: Denies: headache(s), numbness in extremities, weakness in extremities, sensory changes, difficulty walking, frequent falls, dizziness, vertigo, be havioral changes, Slurred speech present or seizure-like activity Psych: Denies: anxiety, depression, suicidal ideation or homicidal ideation Endo: Denies: polyuria, polydipsia, tired all the time, cold intolerance or hot flashes Juan/Lymph: Denies: easy bruising or easy bleeding Medications/Allergies Home Medications Medication Instructions Recorded Confirmed Last Taken Type cholecalciferol (vitamin D3) 50 50 mcg PO QAM 10/13/20 10/29/22 08/27/22 History mcg (2,000 unit) capsule apixaban 5 mg tablet (Eliquis) 5 mg PO BID@0900,2100 #60 tabs 08/10/22 10/29/22 08/27/22 Rx metoprolol tartrate 25 mg tablet 12.5 mg PO BID@0900,2100 #60 tabs 08/10/22 10/29/22 08/27/22 Rx acetaminophen 500 mg tablet 500 - 1,000 mg PO Q6H PRN Pain 08/28/22 10/29/22 Unknown History finasteride 5 mg tablet (Proscar) 5 mg PO QAM 08/28/22 10/29/22 08/27/22 History melatonin 10 mg tablet 10 mg PO BEDTIME 08/28/22 10/29/22 08/27/22 History zinc sulfate-vitamin C 200 mg-100 1 tab PO QAM 08/28/22 10/29/22 08/27/22 History mg tablet levothyroxine 100 mcg tablet 100 mcg PO QAM #90 tabs 08/31/22 10/29/22 Unknown Rx (Levoxyl) potassium chloride 10 mEq 10 meq PO DAILY #60 tabs 08/31/22 10/29/22 Unknown Rx tablet,extended release furosemide 20 mg tablet 40 mg PO DIRECTED 09/29/22 10/29/22 Unknown History Allergies Allergy/AdvReac Type Severity Reaction Status Date / Time codeine Allergy Unknown Unknown Verified 09/29/22 08:45 acetaminophen [From Percocet] Allergy Unknown Verified 09/29/22 08:45 Histamine H2 Inhibitors Allergy Unknown Verified 09/29/22 08:45 oxycodone [From Percocet] Allergy Unknown Verified 09/29/22 08:45 pork derived (porcine) Allergy Unknown Verified 09/29/22 08:45 shellfish derived Allergy Unknown Verified 09/29/22 08:45 PFSH Acute PFSH: Medical History Abnormal TSH Atrial fibrillation Atrial fibrillation Atrial fibrillation with RVR Chronic kidney disease (CKD) Deep venous thrombosis Diastolic CHF Elevated bilirubin Hyperkalemia Hypothyroid Pulmonary embolism Stenosis of prosthetic mitral valve Thrombocytopenia Transaminitis Tricuspid valve regurgitation, nonrheumatic Surgical History Hx of mitral valve replacement 2006 Family History Father Myocardial infarction Denies family history of Diabetes Stroke Social History Smoking and tobacco status: former smoker Alcohol intake: current Alcohol intake frequency: holidays/special occasions only Substance/Drug Use: never Vitals/I&O/Wt Last Vital Signs Temp 98.3 F 10/28/22 20:32 Pulse 124 H 10/28/22 21:12 Resp 25 H 10/28/22 21:12 BP 141/89 10/28/22 21:12 Pulse Ox 94 10/28/22 21:12 O2 Del Method Room Air 10/28/22 21:12 Physical Exam Narrative: General: No acute distress, AO x3 HEENT: PERRLA, pupils bilaterally equal and reactive, pallors not present Chest: B/l crcakles infra axillary areas CVS: S1-S2 regular, no murmurs, no tachycardia, no gallops, no rubs Abdomen: Soft, nontender, no organomegaly, bowel sounds present Neuro: No focal deficits, no facial deformity, AO x3, power 5/5 in all limbs Extremities: LE pitting edema, involving perineum. left thigh posterior cellulitis with warmth erythema and tenderness Data 10/29/22 04:41 10/29/22 04:41 Micro: Microbiology 10/28/22 21:31 Blood Culture - Preliminary Blood SPECIMEN COLLECTED 10/28/22 21:35 Blood Culture - Preliminary Blood SPECIMEN COLLECTED Other data: Radiology Impressions Chest CTA 10/28/22 21:11 IMPRESSION: 1. No definite evidence for pulmonary embolus. Evaluation is limited by breathing motion artifact. 2. Increased medium right and small left pleural effusions with dependent atelectasis. 3. Increased ascites. 4. Severe cardiomegaly with right atrial enlargement. 5. Elevated right heart pressure with dilated IVC and hepatic veins. 6. Dilated central pulmonary arteries could indicate underlying pulmonary artery hypertension. COMMENTS: Consistent with the [employer]'s Incidental Findings Committee white paper (J Am Sujatha Radiol 2018): Any incidental renal lesion less than 1 cm or classified as too small to characterize, or any incidental cystic renal lesion characterized as simple-appearing, is likely benign. No follow-up imaging is recommended for these lesions per consensus recommendations based on imaging criteria. Chest X-Ray 10/28/22 21:11 IMPRESSION: 1. Mild congestive heart failure pattern with worsened cardiomegaly. Venous Duplex 10/28/22 21:11 IMPRESSION: 1. Occlusive deep vein thrombosis in the right posterior tibial vein and partial deep vein thrombosis in the peroneal vein. ADDENDUM: 10/28/22 2300 There is no evidence for deep vein thrombosis in the left lower extremity. THIS REPORT CONTAINS FINDINGS THAT MAY BE CRITICAL TO PATIENT CARE. The findings were verbally communicated via telephone conference with JORGE BURGOS at 10:58 PM CDT on 10/28/2022. The findings were acknowledged and understood. Laboratory Results WBC 8.4 10^3/uL (4.0-10.0) 10/28/22 21:25 RBC 4.25 10^6/uL (4.1-5.3) 10/28/22 21:25 Hgb 13.3 g/dL (11.7-16.6) 10/28/22 21:25 Hct 42.5 % (42.0-52.0) 10/28/22 21:25 MCV 100.0 fl (80-94) H 10/28/22 21:25 MCH 31.3 pg (28.0-34.0) 10/28/22 21:25 MCHC 31.3 g/dL (30.0-36.0) 10/28/22 21: RDW 17.1 % (12.1-15.1) H 10/28/22 21: Plt Count 108 10^3/cmm (130-400) L 10/28/22 21:25 MPV 10.6 fL (7.4-10.4) H 10/28/22 21:25 Neut % (Auto) 71.2 % 10/28/22 21: Lymph % (Auto) 20.4 % 10/28/22 21: [place] % (Auto) 7.1 % 10/28/22 21: Eos % (Auto) 0.2 % 10/28/22: Baso % (Auto) 0.6 % 10/28/22: Neut # (Auto) 6.01 10^3/uL (1.8-7.7) 10/28/22 21: Lymph # (Auto) 1.7 10^3/uL (0.8-4.8) 10/28/22 21: [place] # (Auto) 0.6 10^3/uL (0.2-0.9) 10/28/22 21: Eos # (Auto) 0.0 10^3/uL (0.0-0.8) 10/28/22: Baso # (Auto) 0.1 10^3/uL (0.0-0.1) 10/28/22 21: Nucleated RBC % (auto) 0 % 10/28/22: Nucleated RBCs # 0.0 /100WBC 10/28/22 21: ESR 7 mm/hr (0-10) 10/28/22 21: PT 23.60 SECONDS (12.1-14.9) H 10/28/22 21: INR 2.02 (0.8-1.2) H 10/28/22 21: APTT 38.4 SECONDS (23.9-36.7) H 10/28/22 21:25 Sodium 137 mmol/L (136-145) 10/28/22 21: Potassium 3.9 mmol/L (3.5-5.1) 10/28/22 21:25 Chloride 103 mmol/L (98-107) 10/28/22 21:25 Carbon Dioxide 19 mmol/L (22-29) L 10/28/22 21:25 Anion Gap 18.9 (5-19) 10/28/22 21:25 BUN 40 mg/dL (8-23) H 10/28/22 21:25 Creatinine 1.4 mg/dL (0.7-1.2) H 10/28/22 21:25 GFR Calculation Not Reportable 10/28/22 21:25 Glucose 84 mg/dL (65-115) 10/28/22 21:25 Calculated Osmolality 293 mOsm/kg (285-295) 10/28/22 21:25 Lactic Acid 2.7 mmol/L (0.5-2.2) H 10/28/22 21:25 Calcium 8.8 mg/dL (8.5-10.5) 10/28/22 21:25 Magnesium 2.2 mg/dL (1.7-2.3) 10/28/22 21:25 Total Bilirubin 2.9 mg/dL (0.15-1.2) H 10/28/22 21:25 AST 36 U/L (0-40) 10/28/22 21:25 ALT 17 U/L (0-41) 10/28/22 21:25 Alkaline Phosphatase 103 U/L (40-130) 10/28/22 21:25 Creatine Kinase 97 U/L (39-308) 10/28/22 21:25 Troponin T Baseline 34 ng/L (0-15) H 10/28/22 21:25 C-Reactive Protein 12.4 mg/L (0.0-4.9) H 10/28/22 21:25 NT-Pro-B Natriuret Pep 3784 pg/mL (0-450) H 10/28/22 21:25 Total Protein 6.8 g/dL (6.6-8.7) 10/28/22 21:25 Albumin 3.5 g/dL (3.5-5.2) 10/28/22 21:25 Globulin 3.3 g/dL (1.3-4.6) 10/28/22 21:25 Urine Color Yellow (Yellow) 10/28/22 23:40 Urine Appearance Clear (CLEAR) 10/28/22 23:40 Urine pH 5 (5-7) 10/28/22 23:40 Ur Specific [place] 1.015 (1.005-1.030) 10/28/22 23:40 Urine Protein 1+ (Negative) H 10/28/22 23:40 Urine Glucose (UA) Norm (Normal) 10/28/22 23:40 Urine Ketones 1+ (Negative) H 10/28/22 23:40 Urine Blood 2+ (Negative) H 10/28/22 23:40 Urine Nitrate Positive (Negative) H 10/28/22 23:40 Urine Bilirubin Neg (Negative) 10/28/22 23:40 Urine Urobilinogen 1 mg/dL (Negative) H 10/28/22 23:40 Ur Leukocyte Esterase Trace (Negative) H 10/28/22 23:40 Urine RBC 0-4 /hpf (0-2) H 10/28/22 23:40 Urine WBC None /hpf (0-5) 10/28/22 23:40 Ur Squamous Epith Cells None /hpf (0-5) 10/28/22:40 Amorphous Sediment Not Reportable 10/28/22 23:40 Urine Bacteria Trace /hpf (NONE) 10/28/22 23:40 A&P Assessment and plan (1) Cellulitis: 82-year-old male presenting with chief complaints of sudden onset left lower extremity pain this afternoon and chills in the background of persisting lower extremity edema from known CHF. On examination he is found to have a left thigh that is more swollen, erythematous, warm and painful to touch compared to the right side. Clinically appears to have cellulitis. Suspect cellulitis precipitated by chronic edema and recent intertrigo. Start empiric antibiotic coverage with renally dosed cefepime and vancomycin Blood cultures have been collected in the emergency room. UA with positive nitrate, trace leukocyte esterase, however no urine WBCs. Abnormal UA may be related to recent known history of UTI for which patient was treated. Bilateral lower extremity Doppler shows nonocclusive DVT in the right posterior tibial vein and partial DVT in the peroneal vein, also seen on Doppler from July 2022 for which patient is currently on Eliquis. (2) Atrial fibrillation with rapid ventricular response: Patient found to have evidence of A-fib with RVR upon arrival He has been started on a Cardizem infusion in the emergency room, currently running at 5 mg/h Patient has missed multiple recent doses of metoprolol at home as his is overwhelmed trying to balance Lasix and metoprolol within blood pressure parameters given to her. A-fib currently likely precipitated by underlying infection, CHF Check EKG and troponin series given that he experienced an episode of chest pain this morning. Currently denies any active chest pain. EKG currently shows a fl utter. (3) Pulmonary edema: Bilateral lower extremity edema, crackles on exam, BNP currently at 3700, though this is an improvement over previous BNP of 22,000 and 10,000 in July and August 2022 respectively. He has received 2 mg of IV Lasix currently. We will monitor urine output Continuing Lasix at 40 mg IV every 12 hours after admission. Tinsley catheter placement for accurate output measurement. Pulmonary edema likely from a combination of acute on chronic systolic heart failure and pulmonary hypertension. Recent echocardiogram from July 2022 showed an LVEF of 50%, pulmonary hypertension with RVSP of 43.3. Heavy mitral annular calcification and trace mitral regurgitation were noted. He has evidence of severe tricuspid valve regurgitation. (4) Pulmonary hypertension: As above Plan DVT prophylaxis: Patient takes Eliquis for DVT which will be continued. PUD prophylaxis: Protonix 40 mg p.o. daily Attestations Medical Necessity Statement*: Greater than 2 midnight admission is anticipated for management of A-fib with RVR, currently requiring Cardizem infusion, cellulitis needing IV antibiotics, management of CHF and pulmonary hypertension needing IV diuresis Coding Level of Care Code Acute Code for Chg Fwd High MDM includes number and complexity of problems actively addressed during encounter, amount and/or complexity of data reviewed/ordered and described risk of complication, morbidity or mortality of management as documented Diagnoses Cellulitis L03.90 Atrial fibrillation with rapid ventricular response I48.91 Pulmonary edema J81.1 Pulmonary hypertension I27.20
[2022-10-29 00:06] LABS: Troponin 5 2HR 36.74 ng/L (0-15)
[2022-10-29 00:09] LABS: Lactic Acid level (Lactate) 2.3 mmol/L (0.5-2.2)
[2022-10-29 00:19] LABS: Troponin 5 2HR Delta 2.74 ABS# (0-10)
--- NOTE | 2022-10-29 01:18 | PC.PHAR ---
Pharmacokinetic dosing service Date: 10/29/22 Time: 117 Objective: Patient: Ernst Garcia Floor: 106-1 Age: 82 yo Serum creatinine: 1.4 mg/dL Height: 69.0 Inches Weight (kg): 109.18 Diagnosis: Relevant medical/social history: Cultures and sensitivities: Other labs: Assessment: IBW (kg): 70.70 Dosing wt(kg): 109.18 Estimated Creatinine clearance (ml/min): 40.7 CRCL method: Cockcroft and Gault using ibw(default). Drug selected: Vancomycin Loading dose (mg): 0 Vd (liters): 98.3 (factor used: 0.9 L/kg) Ronald (hr-1): 0.038 Half life (hrs): 18.24 Recommended dose: 2000 mg Interval: 24 hrs Infusion time (hrs): 1.5 Predicted peak (mcg/mL): 33.1 Predicted trough (mcg/mL): 14.08 Total body weight is being used for vancomycin dosing. Renal function is stable [ ] /unstable [ ] Recommendations: Give Vancomycin 2000 mg q 24 hrs with an expected Cpeak of 33.1 mcg/ml and an expected Ctrough of 14.08 mcg/ml Renal dosing of other antibiotics (review renal dosing of other medications and list guidelines here): Thank you for the consult, will continue to follow. Signature: Milana Rose [facility]
[2022-10-29] MEDS: FUROsemide 10 mg/mL SDV 4mL 40 MG IVP (01:20)
[2022-10-29] MEDS: cefepime 2,000 MG in sodium chloride 0.9% (plus) 50 ML 100 MG IV ×2 (01:20→12:25)
--- NOTE | 2022-10-29 02:00 | PC.NURSE ---
Nurse explained to patient that the Dr ordered a nasal swab to rule out respiratory illness and Covid. The patient refused to allow nurse to test him at this time.
[2022-10-29] MEDS: vancomycin 2,000 MG/400 ML PIGGYBACK 200 MG IV (02:29)
--- NOTE | 2022-10-29 03:12 | ECG_ITS ---
[facility] Test Date: 2022-10-29 Pat Name: Ernst Garcia Department: Room: 106 Gender: Male Nib Inspector: : 1940 Requested By: Ismael Nicolas Order Number: [id number] Riaz MD: Anneliese Aceves M.D. Measurements Intervals [place] Rate: 95 P: 0 IN: 0 QRS: 163 QRSD: 102 T: 27 QT: 364 QTc: 458 Interpretive Statements ATRIAL FIBRILLATION POSSIBLE RIGHT VENTRICULAR HYPERTROPHY [SOME/ALL OF: PROMINENT R IN V1, LATE TRANSITION, RAD, ANN, SSS] Poor R wave progression Compared to ECG 10/28/2022 20:59:59 Sinus tachycardia no longer present Ventricular premature complex(es) no longer present Right-axis deviation no longer present ST (T wave) deviation no longer present Myocardial infarct finding no longer present Electronically Signed On 10-29-2022 12:58:03 CDT by Anneliese Aceves M.D. [id number]
[2022-10-29 04:48] LABS: Basophils % 0.4 %; Hematocrit 37.5 % (42.0-52.0); Lymphocytes # 1.6 10^3/uL (0.8-4.8); Lymphocytes % 20.2 %; Mean Corpuscular Hemoglobin 31.4 pg (28.0-34.0); Mean Corpuscular Volume 98.2 fl (80-94); Mean Platelet Volume 10.1 fL (7.4-10.4); Monocytes # 0.4 10^3/uL (0.2-0.9); Monocytes % 4.9 %; Neutrophils % 74.2 %; Nucleated Red Blood Cells % 0 %; Platelet Count 88 10^3/cmm (130-400); Red Blood Count 3.82 10^6/uL (4.1-5.3); Red Cell Distribution Width 17.1 % (12.1-15.1); White Blood Count 7.9 10^3/uL (4.0-10.0)
[2022-10-29 05:09] LABS: Troponin 5 6HR 40.56 ng/L (0-15)
[2022-10-29 05:11] LABS: Alanine Aminotransferase 14 U/L (0-41); Albumin Level 3.1 g/dL (3.5-5.2); Alkaline Phosphatase 87 U/L (40-130); Anion Gap 17.9 (5-19); Aspartate Amino Transferase 30 U/L (0-40); Blood Urea Nitrogen 42 mg/dL (8-23); Calcium 8.4 mg/dL (8.5-10.5); Carbon Dioxide 19 mmol/L (22-29); Chloride 104 mmol/L (98-107); Globulin 2.7 g/dL (1.3-4.6); Glucose 82 mg/dL (65-115); Osmolality Calculated 294 mOsm/kg (285-295); Potassium 3.9 mmol/L (3.5-5.1); Sodium 137 mmol/L (136-145); Total Bilirubin 3.8 mg/dL (0.15-1.2); Total Protein 5.8 g/dL (6.6-8.7)
[2022-10-29 05:14] LABS: Troponin 5 6HR Delta 6.56 ng/L (0-12)
[2022-10-29] MEDS: finasteride 5 mg Tablet PO (05:48)
[2022-10-29] MEDS: levothyroxine 100 mcg Tablet PO (05:48)
[2022-10-29] MEDS: apixaban 5 mg Tablet PO ×2 (08:56→21:02)
[2022-10-29] MEDS: pantoprazole DR 40 mg Tablet PO (08:57)
[2022-10-29] MEDS: nystatin powder 15 gm Btl 1 APPLIC TOPICAL (09:09)
--- NOTE | 2022-10-29 09:29 | USR_ITS ---
PROCEDURE INFORMATION: Exam: US Abdomen Complete Exam date and time: 10/29/2022 5:11 PM Age: 82 years old Clinical indication: Abdominal pain; Epigastric; Additional info: Livert cirhhosisi, gall bladder TECHNIQUE: Imaging protocol: Real-time ultrasound of the abdomen with image documentation. Complete exam. COMPARISON: US abdomen limited [id number] 08/29/2022 7:14 AM FINDINGS: Pleural spaces: Bilateral pleural effusions. Liver: Cirrhotic morphology of the liver is unchanged. Liver enlarged measuring 26 cm. Gallbladder: There is a stone present in the neck of the gallbladder. Gallbladder wall thickness measures 7 mm. The sonographic Wood's sign is negative. Biliary ducts: Normal. No stones. No dilation. Pancreas: Visualized pancreas is unremarkable. Right kidney: Normal. No mass. No hydronephrosis. Left kidney: Normal. No mass. No hydronephrosis. Spleen: Normal. No splenomegaly. Intraperitoneal space: There is small to moderate volume ascites. Aorta: Normal. No aneurysm. Inferior vena cava: The IVC is dilated which is unchanged Portal venous: Portal vein is patent. US/US abdomen complete* [id number] IMPRESSION: 1. Liver cirrhosis with hepatomegaly and small to moderate volume ascites. 2. Gallstones in the neck of the gallbladder with thickened gallbladder wall. Sonographic Wood's sign is negative arguing against acute cholecystitis. Consider HIDA scan for follow-up. 3. Bilateral pleural effusions. 4. Persistent IVC dilatation.
--- NOTE | 2022-10-29 09:29 | USCV_ITS ---
Ernst Garcai Age: 82 Gender: M : 1940 Exam Date: 10/29/2022 16:33 Ordering Phys: Zach Fry MD Technologist: PARMJIT Exam Location: [facility] [place] Indication: sob BP: / HR: 77 Rhythm: Sinus Technical Quality: Adequate MEASUREMENTS (Male / Female) Normal Values 2D ECHO LV Diastolic Diameter PLAX 5.0 cm 4.2 - 5.9 / 3.9 - 5.3 cm LV Systolic Diameter PLAX 4.0 cm IVS Diastolic Thickness 0.9 cm 0.6 - 1.0 / 0.6 - 0.9 cm IVS Systolic Thickness 1.6 cm LVPW Diastolic Thickness 0.9 cm 0.6 - 1.0 / 0.6 - 0.9 cm LVPW Systolic Thickness 1.4 cm LVOT Diameter 2.1 cm LV Ejection Fraction 2D Teich 41.5 % LV Ejection Fraction MOD 2C 44.2 % LV Ejection Fraction 2C AL 45.2 % LA Diameter 5.4 cm M-MODE Aortic Annulus Diameter 3.6 cm LA Ao Ratio MM 1.8 MV E Point Septal Separation 1.5 cm DOPPLER AV Peak Velocity 89.0 cm/s LVOT Peak Velocity 63.0 cm/s AV Area Cont Eq vti 2.0 cm squared AV Area Cont Eq pk 2.4 cm squared MV Area PHT 1.9 cm squared MV E' Velocity 221.0 cm/s TR Peak Velocity 283.0 cm/s TR Peak Gradient 32.0 mmHg TV Peak E Velocity 79.0 cm/s Right Atrial Pressure 15.0 mmHg Pulmonary Artery Systolic Pressu 47.0 mmHg PV Peak Velocity 89.0 cm/s FINDINGS Left Ventricle Diffuse hypokinesia of the left ventricular ejection fraction of 44%. Right Ventricle Normal right ventricular size and systolic function. Right Atrium Moderately increased right atrial size. Left Atrium Moderately increased left atrial size. Mitral Valve Bioprosthetic valve the mitral position appears to be well- seated. Valve leaflets appear to be thickened. Aortic Valve Thickened aortic valve. Mild aortic valve calcification. Tricuspid Valve Possibly-severe tricuspid valve regurgitation. Estimated pulmonary artery peak systolic pressure of 47 mmHg Pulmonic Valve [id number]-[id number] pulmonary valve regurgitation. Pericardium Normal pericardium without effusion. Aorta Normal ascending aorta dimension. IVC Normal IVC dimension with <50% respiratory change of the inferior vena cava. CONCLUSIONS Diffuse hypokinesia of the left ventricular ejection fraction of 44%. Bioprosthetic valve the mitral position appears to be well- seated. Valve leaflets appear to be thickened.te biatrial enlargement. The mitral valve area is calculated to be 1.88 cm squared, based on pressure half-time Thickened aortic valve. Mild aortic valve calcification. Possibly severe tricuspid valve regurgitation. Estimated pulmonary artery peak systolic pressure of 47 mmHg. Snwm-ca-ntlumudd pulmonary valve regurgitation. There is no pericardial effusion. There are no intracardiac masses. Comparison with the previous study is difficult because of the difference in the technical quality. Dr Anneliese Aceves MD [facility] (Electronically Signed) Final Date: 29 October 2022 21:44 S
--- NOTE | 2022-10-29 09:32 | PC.NURSE ---
pt continues to refuse respiratory panel.dr ritter aware and stated that pt can come off isolation.
[2022-10-29] MEDS: bumetanide 0.25 mg/mL SDV 4 mL 1 MG IVP ×2 (10:29→21:01)
[2022-10-29] MEDS: albumin 25 G/100 ML BAG 60 G IV ×2 (10:30→21:04)
[2022-10-29] MEDS: midodrine 5 mg TABLET 10 MG PO ×2 (10:30→21:02)
[2022-10-29] MEDS: dilTIAZem 60 mg Tablet PO ×3 (10:31→21:02)
[2022-10-29 10:46] LABS: Ammonia 82 umol/L (16-60)
[2022-10-29 11:14] LABS: Free T4 Free Thyroxine 1.08 ng/dL (0.82-1.77); Procalcitonin 1.43 ng/mL (0-0.5); Thyroid Stimulating Hormone 5.83 uIU/mL (0.27-4.20)
[2022-10-29 11:24] LABS: Lipase 16 U/L (13-60); Total Bilirubin 3.6 mg/dL (0.15-1.2)
[2022-10-29 11:46] LABS: Gamma Glutamyl Transferase 136 U/L (8-61)
--- NOTE | 2022-10-29 12:10 | P.PN_ITS ---
Subjective Subjective: - Patient was seen this morning -Family members at bedside -He tells me that recently has been feeling more short of breath, more short of breath with exertion -No fevers, but has been complaining of weakness -No nausea, no vomiting, no abdominal pain does report abdominal distention Vitals/I&O/Wt Last Vital Signs Temp 99.9 F H 10/29/22 08:00 Pulse 92 10/29/22 09:17 Resp 23 H 10/29/22 08:00 BP 86/54 10/29/22 08:00 Pulse Ox 92 10/29/22 09:17 O2 Del Method Nasal Cannula 10/29/22 09:17 O2 Flow Rate 2 10/29/22 09:17 10/28/22 10/29/22 10/29/22 22:59 06:59 14:59 Intake Total 930 / 930 360 / 360 Output Total 1350 / 1350 575 / 575 Balance -420 / -420 -215 / -215 Weight last 48 hrs Weight 108.522 kg Weight 109.18 kg Physical Exam Const: COMMON NORMALS: no acute distress and patient oriented x3 Resp: COMMON NORMALS: normal respiratory effort, No retractions, No use of accessory muscles and clear to auscultation bilaterally AUSCULTATION: clear to auscultation bilaterally Cardio: COMMON NORMALS: regular rate, regular rhythm, S1 normal heart sound present and S2 normal heart sound present RATE: regular rate RHYTHM: regular rhythm HEART SOUNDS: S1 normal heart sound present and S2 normal heart sound present GI: COMMON NORMALS: Normal to inspection, nondistended, normoactive bowel sounds present and non-tender : OTHER: scrotal swelling Extremity: NARRATIVE EXTREMITY EXAM: 2+ pitting edema bilateral extremity Neuro: COMMON NORMALS: patient oriented x3 Psych: COMMON NORMALS: mental status grossly normal Skin: NARRATIVE SKIN EXAM: -erythema of bilateral lower extremity, Urinary Catheter Management: Tinsley: Cath Placed During This Visit: yes Reason for Continuing Indwelling Catheter: Acute Urinary Retention or Obs truction Urinary Catheter Date of Insertion: 10/29/22 Urinary Catheter Time of Insertion: 23:30 Data 10/29/22 04:41 10/29/22 04:41 Micro: Microbiology 10/28/22 21:31 Blood Culture - Preliminary Blood SPECIMEN COLLECTED 10/28/22 21:35 Blood Culture - Preliminary Blood SPECIMEN COLLECTED A&P Assessment and plan (1) Cellulitis: 82-year-old male presenting with chief complaints of sudden onset left lower extremity pain this afternoon and chills in the background of persisting lower extremity edema from known CHF. On examination he is found to have a left thigh that is more swollen, erythematous, warm and painful to touch compared to the right side. Clinically appears to have cellulitis. Suspect cellulitis precipitated by chronic edema and recent intertrigo. Continue empiric antibiotic coverage with renally dosed cefepime and vancomycin Blood cultures have been collected in the emergency room. UA with positive nitrate, trace leukocyte esterase, however no urine WBCs. Abnormal UA may be related to recent known history of UTI for which patient was treated. Bilateral lower extremity Doppler shows nonocclusive DVT in the right posterior tibial vein and partial DVT in the peroneal vein, also seen on Doppler from July 2022 for which patient is currently on Eliquis. (2) Atrial fibrillation with rapid ventricular response: Patient found to have evidence of A-fib with RVR upon arrival He has been started on a Cardizem infusion in the emergency room, currently running at 5 mg/h Patient has missed multiple recent doses of metoprolol at home as his is overwhelmed trying to balance Lasix and metoprolol within blood pressure parameters given to her. Start Cardizem 60 every 6 A-fib currently likely precipitated by underlying infection, CHF Check EKG and troponin series given that he experienced an episode of chest pain this morning. Currently denies any active chest pain. EKG currently shows a flutter. (3) Pulmonary edema: Bilateral lower extremity edema, crackles on exam, BNP currently at 3700, though this is an improvement over previous BNP of 22,000 and 10,000 in July and August 2022 respectively. He has received 2 mg of IV Lasix currently. We will monitor urine output Continuing Lasix at 40 mg IV every 12 hours after admission. Tinsley catheter placement for accurate output measurement. Pulmonary edema likely from a combination of acute on chronic systolic heart failure and pulmonary hypertension. Recent echocardiogram from July 2022 showed an LVEF of 50%, pulmonary hypertension with RVSP of 43.3. Heavy mitral annular calcification and trace mitral regurgitation were noted. He has evidence of severe tricuspid valve regurgitation. (4) Pulmonary hypertension: As above (5) NSTEMI (non-ST elevated myocardial infarction): - No chest pain complaints -Likely supply demand ischemia from respiratory failure and fluid overload however cannot rule out underlying cardiac etiology (6) Ascites: - We will perform a abdominal ultrasound (7) Liver cirrhosis: - Possibly secondary to right-sided heart failure and pulm hypertension (8) Pulmonary embolism: - On Eliquis (9) Chronic kidney disease (CKD): - Monitor creatinine Qualifiers: Chronic kidney disease stage: unspecified stage Qualified Code(s): N18.9 - Chronic kidney disease, unspecified (10) Nocturnal hypoxemia: (11) UTI (urinary tract infection): - Continue cefepime (12) CHF exacerbation: Plan DVT prophylaxis: Patient takes Eliquis for DVT which will be continued. PUD prophylaxis: Protonix 40 mg p.o. daily Goals of care, full code Attestations Medical Necessity Statement*: Patient requires hospitalization for fluid overload, CHF exacerbation, UTI, cellulitis, pulm hypertension, NSTEMI, Diagnoses Cellulitis L03.90 Atrial fibrillation with rapid ventricular response I48.91 Pulmonary edema J81.1 Pulmonary hypertension I27.20 NSTEMI (non-ST elevated myocardial infarction) I21.4 Ascites R18.8 Liver cirrhosis K74.60 Pulmonary embolism I26.99 Chronic kidney disease (CKD) N18.9 Chronic kidney disease stage: unspecified stage Nocturnal hypoxemia G47.34 UTI (urinary tract infection) N39.0 CHF exacerbation I50.9
[2022-10-29] MEDS: dilTIAZem 100 MG in sodium chloride 0.9% (add-van) 100 ML IV (13:04)
[2022-10-30] VITALS (29 sets, daily range): BP systolic 91–121; BP diastolic 55–77; PULSE 67–96; RESP 16–27; TEMP 36.7–37.2; O2SAT 90–95
[2022-10-30] MEDS: cefepime 2,000 MG in sodium chloride 0.9% (plus) 50 ML 100 MG IV ×2 (00:45→12:03)
[2022-10-30] MEDS: vancomycin 2,000 MG/400 ML PIGGYBACK 200 MG IV (01:37)
[2022-10-30 02:55] LABS: Basophils % 0.3 %; Eosinophils % 0.3 %; Hematocrit 34.3 % (42.0-52.0); Lymphocytes % 20.5 %; Mean Corpuscular HGB Conc 32.1 g/dL (30.0-36.0); Mean Corpuscular Hemoglobin 31.3 pg (28.0-34.0); Mean Corpuscular Volume 97.4 fl (80-94); Mean Platelet Volume 10.7 fL (7.4-10.4); Monocytes % 9.9 %; Neutrophils # 6.67 10^3/uL (1.8-7.7); Neutrophils % 68.5 %; Nucleated Red Blood Cells % 0 %; Platelet Count 81 10^3/cmm (130-400); Red Blood Count 3.52 10^6/uL (4.1-5.3); Red Cell Distribution Width 17.1 % (12.1-15.1); White Blood Count 9.7 10^3/uL (4.0-10.0)
[2022-10-30 03:13] LABS: Alanine Aminotransferase 12 U/L (0-41); Alkaline Phosphatase 72 U/L (40-130); Anion Gap 15.8 (5-19); Aspartate Amino Transferase 21 U/L (0-40); Blood Urea Nitrogen 43 mg/dL (8-23); C Reactive Protein 74.7 mg/L (0.0-4.9); Calcium 8.6 mg/dL (8.5-10.5); Carbon Dioxide 20 mmol/L (22-29); Chloride 101 mmol/L (98-107); Globulin 2.6 g/dL (1.3-4.6); Glucose 99 mg/dL (65-115); Osmolality Calculated 287 mOsm/kg (285-295); Phosphorus 3.3 mg/dL (2.5-4.5); Potassium 3.8 mmol/L (3.5-5.1); Sodium 133 mmol/L (136-145); Total Bilirubin 3.3 mg/dL (0.15-1.2); Total Protein 5.6 g/dL (6.6-8.7)
[2022-10-30 03:22] LABS: INR 2.99 (0.8-1.2)
[2022-10-30 03:25] LABS: NT Pro B Type Natriuretic Pept 5825 pg/mL (0-450); Procalcitonin 2.18 ng/mL (0-0.5)
[2022-10-30 03:26] LABS: Ammonia 48 umol/L (16-60); Lactate (Lactic Acid level) 1.5 mmol/L (0.5-2.2)
[2022-10-30] MEDS: levothyroxine 100 mcg Tablet PO (06:18)
[2022-10-30] MEDS: dilTIAZem 60 mg Tablet PO ×3 (06:18→17:45)
[2022-10-30] MEDS: finasteride 5 mg Tablet PO (06:18)
--- NOTE | 2022-10-30 07:00 | XRR_ITS ---
PROCEDURE INFORMATION: Exam: XR Chest Exam date and time: 10/30/2022 11:36 AM Age: 82 years old Clinical indication: Shortness of breath; TECHNIQUE: Imaging protocol: Radiologic exam of the chest. Views: 1 view. COMPARISON: CR (CHEST, ) 10/28/2022 9:27 PM FINDINGS: Lungs: There are hazy opacities in the mid to lower right lung field. Pleural spaces: Small to moderate right pleural effusion. Blunting of the left costophrenic angle is suggestive of a small pleural effusion. Heart/Mediastinum: Cardiomegaly similar to the prior study. Bones/joints: Unremarkable. Other findings: There are post-sternotomy changes and postoperative changes overlying the mediastinum. XR/XR chest 1V portable [id number] IMPRESSION: 1. Cardiomegaly with a right pleural effusion and possible small left pleural effusion, consistent with congestive heart failure. 2. There are hazy opacities in the mid to lower right lung field. Differential includes pulmonary edema and/or pneumonia.
[2022-10-30] MEDS: pantoprazole DR 40 mg Tablet PO ×2 (09:03→18:16)
[2022-10-30] MEDS: apixaban 5 mg Tablet PO ×2 (09:04→20:37)
[2022-10-30] MEDS: potassium chloride ER 20 mEq Tablet 40 MEQ PO (09:04)
[2022-10-30] MEDS: metOLazone 5 MG Tablet PO (09:05)
[2022-10-30] MEDS: albumin 25 G/100 ML BAG 60 G IV ×2 (09:16→22:25)
--- NOTE | 2022-10-30 10:04 | PC.OT ---
per OT weekend protocol: patient to be evaluated for skilled OT services on Monday
[2022-10-30] MEDS: bumetanide 0.25 mg/mL SDV 4 mL 1 MG IVP ×2 (10:21→22:25)
[2022-10-30] MEDS: acetaminophen 325 mg Tablet 650 MG PO (11:04)
[2022-10-30] MEDS: nystatin powder 15 gm Btl 1 APPLIC TOPICAL ×2 (11:45→18:35)
[2022-10-30] MEDS: morphine 4 mg/mL SDV 1 mL 2 MG IVP (12:00)
--- NOTE | 2022-10-30 17:49 | P.PN_ITS ---
Subjective Subjective: - Patient was seen in the morning -His is at bedside -He continues to complain of weakness, fatigue, tiredness -His abdomen is distended, he tells me there is a lot of pressure -No fevers, no chills -He still in A-fib heart rates are well controlled -His tells me that his edema has improved -I had a detailed discussion about patient's current condition -Patient has evidence of systolic CHF, with EF of 44%, with evidence of pulmonary hypertension, with evidence of cirrhosis which in my opinion is highly suspicious with cardiac cirrhosis with low albumin and elevated INR, anemia, th rombocytopenia, -In addition he has sepsis secondary to cellulitis, UTI he might have SBP -Nonetheless he is on antibiotic treatments -My concern at this time is his creatinine of 1.9, this might be reflective of some component of cardiorenal syndrome, we will have to monitor his creatinine closely -He does have a persistent DVT in his right lower extremity he is on Eliquis, adamant that he takes Eliquis as prescribed -I advised that with his underlying medical conditions, I am worried about his long-term prognosis -He tells me that his goal is to get home, and to ambulate -Blood pressures remain soft throughout the afternoon, will start on midodrine -As his Pro-Kevin, CRP remain elevated will expand his antibiotic coverage to Zosyn, hold Eliquis after dose tonight, for consideration of paracentesis Vitals/I&O/Wt Last Vital Signs Temp 98.0 F 10/30/22 15:33 Pulse 76 10/30/22 16:42 Resp 18 10/30/22 15:33 BP 91/55 10/30/22 15:33 Pulse Ox 90 10/30/22 15:33 O2 Del Method Nasal Cannula 10/30/22 15:33 O2 Flow Rate 2 10/30/22 09:32 10/30/22 10/30/22 10/30/22 06:59 14:59 22:59 Intake Total 940 / 940 Output Total 600 / 1650 380 / 380 450 / 830 Balance -600 / -604.833 560 / 560 -450 / 110 Weight last 48 hrs Weight 108.522 kg Weight 109.18 kg Physical Exam Const: COMMON NORMALS: no acute distress and patient oriented x3 Resp: COMMON NORMALS: normal respiratory effort, No retractions, No use of accessory muscles and clear to auscultation bilaterally AUSCULTATION: clear to auscultation bilaterally Cardio: COMMON NORMALS: regular rate, regular rhythm, S1 normal heart sound present and S2 normal heart sound present RATE: regular rate RHYTHM: regular rhythm HEART SOUNDS: S1 normal heart sound present and S2 normal heart sound present GI: OTHER: Abdomen soft, distended, fluid wave present, no guarding, no rebound, no rigidity Extremity: COMMON NORMALS: no pedal edema Neuro: COMMON NORMALS: patient oriented x3 Psych: COMMON NORMALS: mental status grossly normal Urinary Catheter Management: Tinsley: Cath Placed During This Visit: yes Reason for Continuing Indwelling Catheter: Accurate Measurement of Urinary Output in Critically Ill Patients Urinary Catheter Date of Insertion: 10/29/22 Urinary Catheter Time of Insertion: 23:30 Data 10/30/22 02:30 10/30/22 02:30 Micro: Microbiology 10/28/22 23:40 Urine Culture - Preliminary Urine,Clean Catch 10/28/22 21:31 Blood Culture - Preliminary Blood NEGATIVE TO DATE 10/28/22 21:35 Blood Culture - Preliminary Blood NEGATIVE TO DATE A&P Assessment and plan (1) Cellulitis: 82-year-old male presenting with chief complaints of sudden onset left lower extremity pain this afternoon and chills in the background of persisting lower extremity edema from known CHF. On examination he is found to have a left thigh that is more swollen, erythemat ous, warm and painful to touch compared to the right side. Clinically appears to have cellulitis. Suspect cellulitis precipitated by chronic edema and recent intertrigo. Continue empiric antibiotic coverage with renally dosed Zosyn and vancomycin Blood cultures have been collected in the emergency room. UA with positive nitrate, trace leukocyte esterase, however no urine WBCs. On antibiotics for UTI Bilateral lower extremity Doppler shows nonocclusive DVT in the right posterior tibial vein and partial DVT in the peroneal vein, also seen on Doppler from July 2022 for which patient is currently on Eliquis. (2) Atrial fibrillation with rapid ventricular response: Patient found to have evidence of A-fib with RVR upon arrival He has been started on a Cardizem infusion in the emergency room, currently running at 5 mg/h Patient has missed multiple recent doses of metoprolol at home as his is overwhelmed trying to balance Lasix and metoprolol within blood pressure parameters given to her. Currently Cardizem drip off, Cardizem p.o. 60 every 6 A-fib currently likely precipitated by underlying infection, CHF Check EKG and troponin series given that he experienced an episode of chest pain this morning. Currently denies any active chest pain. EKG currently shows a flutter. (3) Pulmonary edema: Bilateral lower extremity edema, crackles on exam, BNP currently at 5000, though this is an improvement over previous BNP of 22,000 and 10,000 in July and August 2022 respectively. He has received 2 mg of IV Lasix currently. We will monitor urine output Bumex 1 mg every 12 hours with albumin therapy 1 dose metolazone today Tinsley catheter placement for accurate output measurement. Pulmonary edema likely from a combination of acute on chronic systolic heart failure and pulmonary hypertension. (4) Pulmonary hypertension: As above (5) NSTEMI (non-ST elevated myocardial infarction): - No chest pain complaints -Likely supply demand ischemia from respiratory failure and fluid overload however cannot rule out underlying cardiac etiology (6) Ascites: - Has evidence of ascites -Order ultrasound abdomen for paracentesis, hold Eliquis after last dose tonight -Concerns for spontaneous bacterial peritonitis, continue Zosyn (7) Liver cirrhosis: - Possibly secondary to right-sided heart failure and pulm hypertension (8) Pulmonary embolism: - On Eliquis (9) Chronic kidney disease (CKD): - Monitor creatinine -Component of UTI, cellulitis -Component of hypoalbuminemia, liver cirrhosis -Component of hepatorenal syndrome Qualifiers: Chronic kidney disease stage: unspecified stage Qualified Code(s): N18.9 - Chronic kidney disease, unspecified (10) Nocturnal hypoxemia: - BiPAP (11) UTI (urinary tract infection): - Continue Zosyn (12) CHF exacerbation: -Diffuse hypokinesia of the left ventricular ejection fraction of ?44%. ?Bioprosthetic valve the mitral position appears to be well- ?seated.? Valve leaflets appear to be thickened.te biatrial ?enlargement. ?The mitral valve area is calculated to be 1.88 cm squared, based on ?pressure half-time ?Thickened aortic valve. Mild aortic valve calcification. ?Possibly severe tricuspid valve regurgitation. ? Estimated pulmonary artery peak systolic pressure of 47 mmHg. ?Hauc-cn-avlgrlxw pulmonary valve regurgitation. ?There is no pericardial effusion. ?There are no intracardiac masses. ?Comparison with the previous study is difficult because of the ?difference in the technical quality. -Currently on Bumex therapy -Monitor creatinine, monitor potassium, monitor mag (13) Systolic CHF: - As above (14) Anemia: - Protonix, Carafate likely sec to liver cirrhosis (15) Thrombocytopenia: - Monitor (16) Hepatorenal syndrome: (17) Hypotension: - Likely secondary to hypoalbuminemia -Liver cirrhosis -Cardiorenal syndrome -Diuresis -Midodrine 10 3 times daily (18) Moderate protein-calorie malnutrition: - Consult dietary -Has temporal muscle wasting, peripheral muscle wasting of bilateral arms, bilateral thighs (19) Physical deconditioning: - PT OT Plan DVT prophylaxis: Patient takes Eliquis for DVT which will be continued. PUD prophylaxis: Protonix 40 mg p.o. daily Goals of care, full code Attestations Medical Necessity Statement*: Patient requires hospitalization, for systolic CHF exacerbation, requiring diuresis, UTI, cellulitis, concerns for spontaneous bacterial peritonitis, KE, hepatorenal syndrome, atrial fibrillation and High Time for a total of 60 minutes, includes reviewing past or interval history, examining/interviewing patient, placing orders, counseling patient/family/other support, updating patient/family/other support, discussing plan of care with staff, communicating with other healthcare providers, documenting encounter and coordinating care Diagnoses Cellulitis L03.90 Atrial fibrillation with rapid ventricular response I48.91 Pulmonary edema J81.1 Pulmonary hypertension I27.20 NSTEMI (non-ST elevated myocardial infarction) I21.4 Ascites R18.8 Liver cirrhosis K74.60 Pulmonary embolism I26.99 Chronic kidney disease (CKD) N18.9 Chronic kidney disease stage: unspecified stage Nocturnal hypoxemia G47.34 UTI (urinary tract infection) N39.0 CHF exacerbation I50.9 Systolic CHF I50.20 Anemia D64.9 Thrombocytopenia D69.6 Hepatorenal syndrome K76.7 Hypotension I95.9 Moderate protein-calorie malnutrition E44.0 Physical deconditioning R53.81
[2022-10-30] MEDS: sucralfate 1 gm Tablet PO (18:16)
[2022-10-30] MEDS: midodrine 5 mg TABLET 10 MG PO (18:16)
[2022-10-30] MEDS: piperacillin-tazobactam 3.375 GM in sodium chloride 0.9% (plus) 50 ML IV (18:36)
[2022-10-31] VITALS (11 sets, daily range): BP systolic 100–114; BP diastolic 64–71; PULSE 61–88; RESP 13–28; TEMP 36.2–37; O2SAT 91–96
[2022-10-31] MEDS: vancomycin 2,000 MG/400 ML PIGGYBACK 200 MG IV (02:51)
[2022-10-31] MEDS: piperacillin-tazobactam 3.375 GM in sodium chloride 0.9% (plus) 50 ML IV ×3 (02:51→19:21)
[2022-10-31] MEDS: midodrine 5 mg TABLET 10 MG PO ×3 (03:04→17:21)
[2022-10-31 03:06] LABS: Basophils % 0.3 %; Eosinophils # 0.2 10^3/uL (0.0-0.8); Eosinophils % 1.9 %; Hematocrit 33.2 % (42.0-52.0); Hemoglobin 10.7 g/dL (11.7-16.6); Lymphocytes % 19.5 %; Mean Corpuscular HGB Conc 32.2 g/dL (30.0-36.0); Mean Corpuscular Hemoglobin 31.5 pg (28.0-34.0); Mean Corpuscular Volume 97.6 fl (80-94); Mean Platelet Volume 11.2 fL (7.4-10.4); Monocytes % 9.4 %; Neutrophils # 6.86 10^3/uL (1.8-7.7); Neutrophils % 68.1 %; Nucleated Red Blood Cells % 0 %; Platelet Count 79 10^3/cmm (130-400); Red Cell Distribution Width 17.1 % (12.1-15.1); White Blood Count 10.1 10^3/uL (4.0-10.0)
[2022-10-31 03:17] LABS: INR 2.39 (0.8-1.2)
[2022-10-31 03:24] LABS: Ammonia 43 umol/L (16-60); Lactate (Lactic Acid level) 1.1 mmol/L (0.5-2.2)
[2022-10-31 03:28] LABS: Alanine Aminotransferase 10 U/L (0-41); Albumin Level 3.2 g/dL (3.5-5.2); Alkaline Phosphatase 76 U/L (40-130); Anion Gap 16.6 (5-19); Aspartate Amino Transferase 20 U/L (0-40); Blood Urea Nitrogen 50 mg/dL (8-23); C Reactive Protein 76.3 mg/L (0.0-4.9); Carbon Dioxide 21 mmol/L (22-29); Chloride 100 mmol/L (98-107); Globulin 2.7 g/dL (1.3-4.6); Glucose 90 mg/dL (65-115); Magnesium 2.1 mg/dL (1.7-2.3); Osmolality Calculated 291 mOsm/kg (285-295); Phosphorus 3.3 mg/dL (2.5-4.5); Potassium 3.6 mmol/L (3.5-5.1); Sodium 134 mmol/L (136-145); Total Bilirubin 2.7 mg/dL (0.15-1.2); Total Protein 5.9 g/dL (6.6-8.7)
[2022-10-31 03:32] LABS: NT Pro B Type Natriuretic Pept 5890 pg/mL (0-450); Procalcitonin 1.88 ng/mL (0-0.5)
[2022-10-31] MEDS: sucralfate 1 gm Tablet PO ×2 (05:18→17:21)
[2022-10-31] MEDS: finasteride 5 mg Tablet PO (05:18)
[2022-10-31] MEDS: levothyroxine 100 mcg Tablet PO (05:18)
[2022-10-31] MEDS: albumin 25 G/100 ML BAG 60 G IV ×2 (09:13→22:51)
[2022-10-31] MEDS: pantoprazole DR 40 mg Tablet PO ×2 (09:13→17:21)
[2022-10-31] MEDS: nystatin powder 15 gm Btl 1 APPLIC TOPICAL (09:14)
[2022-10-31] MEDS: morphine 4 mg/mL SDV 1 mL 1 MG IVP ×2 (10:29→21:11)
[2022-10-31] MEDS: dilTIAZem 60 mg Tablet PO ×2 (11:50→17:21)
[2022-10-31] MEDS: apixaban 5 mg Tablet PO (15:03)
--- NOTE | 2022-10-31 16:36 | P.PN_ITS ---
Subjective Subjective: - Patient in and tell me that his edema has significantly improved, shortness of breath has improved -His main complaint is low back pain, he had to lie on his side throughout the night, did not get a lot of sleep during the night -Continues to feel fatigue, malaise, no fevers -No lightheadedness, no dizziness Vitals/I&O/Wt Last Vital Signs Temp 97.9 F 10/31/22 08:00 Pulse 80 10/31/22 14:00 Resp 18 10/31/22 12:00 BP 104/68 10/31/22 12:00 Pulse Ox 93 10/31/22 12:00 O2 Del Method Room Air 10/31/22 12:00 O2 Flow Rate 2 10/31/22 08:00 10/31/22 10/31/22 10/31/22 06:59 14:59 22:59 Intake Total 500 / 1490 640 / 640 50 / 690 Output Total 1800 / 2630 1350 / 1350 Balance -1300 / -1140 -710 / -710 50 / -660 Physical Exam Const: COMMON NORMALS: no acute distress and patient oriented x3 Resp: COMMON NORMALS: normal respiratory effort, No retractions, No use of accessory muscles and clear to auscultation bilaterally AUSCULTATION: clear to auscultation bilaterally Cardio: COMMON NORMALS: regular rate, regular rhythm, S1 normal heart sound present and S2 normal heart sound present RATE: regular rate RHYTHM: regular rhythm HEART SOUNDS: S1 normal heart sound present and S2 normal heart sound present GI: OTHER: Abdomen soft, distended, fluid wave present Extremity: COMMON NORMALS: no pedal edema Neuro: COMMON NORMALS: patient oriented x3 Psych: COMMON NORMALS: mental status grossly normal Urinary Catheter Management: Tinsley: Cath Placed During This Visit: yes Reason for Continuing Indwelling Catheter: Accurate Measurement of Urinary Output in Critically Ill Patients Urinary Catheter Date of Insertion: 10/29/22 Urinary Catheter Time of Insertion: 23:30 Data 10/31/22 02:17 10/31/22 02:17 Micro: Microbiology 10/28/22 23:40 Urine Culture - Final Urine,Clean Catch A&P Assessment and plan (1) Cellulitis: 82-year-old male presenting with chief complaints of sudden onset left lower extremity pain this afternoon and chills in the background of persisting lower extremity edema from known CHF. On examination he is found to have a left thigh that is more swollen, erythematous, warm and painful to touch compared to the right side. Clinically appears to have cellulitis. Suspect cellulitis precipitated by chronic edema and recent intertrigo. Continue empiric antibiotic coverage with renally dosed Zosyn and vancomycin Blood cultures have been collected in the emergency room, so far no growth UA with positive nitrate, trace leukocyte esterase, however no urine WBCs. On antibiotics for UTI Bilateral lower extremity Doppler shows nonocclusive DVT in the right posterior tibial vein and partial DVT in the peroneal vein, also seen on Doppler from July 2022 for which patient is currently on Eliquis. (2) Atrial fibrillation with rapid ventricular response: Patient found to have evidence of A-fib with RVR upon arrival He has been started on a Cardizem infusion in the emergency room, currently running at 5 mg/h Patient has missed multiple recent doses of metoprolol at home as his is overwhelmed trying to balance Lasix and metoprolol within blood pressure parameters given to her. Currently Cardizem drip off, Cardizem p.o. 60 every 6 A-fib currently likely precipitated by underlying infection, CHF Check EKG and troponin series given that he experienced an episode of chest pain this morning. Currently denies any active chest pain. EKG currently shows a flutter. (3) Pulmonary edema: Bilateral lower extremity edema, crackles on exam, BNP currently at 5000, though this is an improvement over previous BNP of 22,000 and 10,000 in July and August 2022 respectively. Edema has improved, is -3 L We will monitor urine output Creatinine is up to 1.9, hold Bumex, Tinsley catheter placement for accurate output measurement. Pulmonary edema likely from a combination of acute on chronic systolic heart failure and pulmonary hypertension. (4) Pulmonary hypertension: As above (5) NSTEMI (non-ST elevated myocardial infarction): - No chest pain complaints -Likely supply demand ischemia from respiratory failure and fluid overload however cannot rule out underlying cardiac etiology (6) Ascites: - Has evidence of ascites -Order ultrasound abdomen for paracentesis, Eliquis on hold -Concerns for spontaneous bacterial peritonitis, continue Zosyn (7) Liver cirrhosis: - Possibly secondary to right-sided heart failure and pulm hypertension (8) Pulmonary embolism: - On Eliquis (9) Chronic kidney disease (CKD): - Monitor creatinine -Component of UTI, cellulitis -Component of hypoalbuminemia, liver cirrhosis -Component of hepatorenal syndrome Qualifiers: Chronic kidney disease stage: unspecified stage Qualified Code(s): N18.9 - Chronic kidney disease, unspecified (10) Nocturnal hypoxemia: - BiPAP (11) UTI (urinary tract infection): - Continue Zosyn (12) CHF exacerbation: -Diffuse hypokinesia of the left ventricular ejection fraction of ?44%. ?Bioprosthetic valve the mitral position appears to be well- ?seated.? Valve leaflets appear to be thickened.te biatrial ?enlargement. ?The mitral valve area is calculated to be 1.88 cm squared, based on ?pressure half-time ?Thickened aortic valve. Mild aortic valve calcification. ?Possibly severe tricuspid valve regurgitation. ? Estimated pulmonary artery peak systolic pressure of 47 mmHg. ?[id number] pulmonary valve regurgitation. ?There is no pericardial effusion. ?There are no intracardiac masses. ?Comparison with the previous study is difficult because of the ?difference in the technical quality. -Currently on Bumex therapy -Monitor creatinine, monitor potassium, monitor mag (13) Systolic CHF: - As above (14) Anemia: - Protonix, Carafate likely sec to liver cirrhosis (15) Thrombocytopenia: - Monitor (16) Hepatorenal syndrome: (17) Hypotension: - Likely secondary to hypoalbuminemia -Liver cirrhosis -Cardiorenal syndrome -Diuresis -Midodrine 10 3 times daily (18) Moderate protein-calorie malnutrition: - Consult dietary -Has temporal muscle wasting, peripheral muscle wasting of bilateral arms, bilateral thighs (19) Physical deconditioning: - PT OT (20) Deep venous thrombosis: . Occlusive deep vein thrombosis in the right posterior tibial vein and partial deep vein thrombosis in the peroneal vein.? Currently on Eliquis Plan Plan for today, spoke to Dr. Alarcon, plan on paracentesis, Eliquis on hold will resume thereafter, hold next, given elevated creatinine, continue midodrine, continue albumin, continue antibiotic for cellulitis, will consider de- escalating prep Pro-Kevin remains elevated, blood cultures so far negative, spoke to patient's at bedside in detail, post spoke to patient, spoke to nursing staff DVT prophylaxis: Patient takes Eliquis for DVT which will be continued. PUD prophylaxis: Protonix 40 mg p.o. daily Goals of care, full code Attestations Medical Necessity Statement*: Patient requires hospitalization for cellulitis, UTI, concerns for spontaneous bacterial peritonitis, fluid overload, planning on paracentesis for 80s, physical deconditioning, protein, nutrition, Diagnoses Cellulitis L03.90 Atrial fibrillation with rapid ventricular response I48.91 Pulmonary edema J81.1 Pulmonary hypertension I27.20 NSTEMI (non-ST elevated myocardial infarction) I21.4 Ascites R18.8 Liver cirrhosis K74.60 Pulmonary embolism I26.99 Chronic kidney disease (CKD) N18.9 Chronic kidney disease stage: unspecified stage Nocturnal hypoxemia G47.34 UTI (urinary tract infection) N39.0 CHF exacerbation I50.9 Systolic CHF I50.20 Anemia D64.9 Thrombocytopenia D69.6 Hepatorenal syndrome K76.7 Hypotension I95.9 Moderate protein-calorie malnutrition E44.0 Physical deconditioning R53.81 Deep venous thrombosis I82.409
--- NOTE | 2022-10-31 17:55 | US_ITS ---
WS: [id number] Exam: US abdomen lmt fluid [id number] Date/Time of Exam: 10/31/2022 9:53 AM Reason For Exam: ascites, sbp This was a limited ultrasound for detection of free intraperitoneal fluid for possible paracentesis. Small amount of ascites noted. The largest collection is in the right lower quadrant with a very smal l collection seen in the right upper and upper and lower left abdomen.
[2022-11-01] VITALS (9 sets, daily range): BP systolic 102–126; BP diastolic 63–81; PULSE 61–85; RESP 16–23; TEMP 36.6–36.7; O2SAT 92–96
[2022-11-01] MEDS: dilTIAZem 60 mg Tablet PO ×5 (01:22→22:59)
[2022-11-01] MEDS: midodrine 5 mg TABLET 10 MG PO ×3 (01:22→17:43)
[2022-11-01] MEDS: vancomycin 2,000 MG/400 ML PIGGYBACK 200 MG IV (01:22)
[2022-11-01 01:44] LABS: Basophils % 0.4 %; Eosinophils # 0.3 10^3/uL (0.0-0.8); Hematocrit 35.3 % (42.0-52.0); Hemoglobin 11.4 g/dL (11.7-16.6); Lymphocytes # 2.5 10^3/uL (0.8-4.8); Lymphocytes % 25.1 %; Mean Corpuscular HGB Conc 32.3 g/dL (30.0-36.0); Mean Corpuscular Hemoglobin 31.4 pg (28.0-34.0); Mean Corpuscular Volume 97.2 fl (80-94); Monocytes # 0.8 10^3/uL (0.2-0.9); Monocytes % 7.9 %; Neutrophils # 6.35 10^3/uL (1.8-7.7); Neutrophils % 62.6 %; Nucleated Red Blood Cells % 0 %; Platelet Count 96 10^3/cmm (130-400); Red Blood Count 3.63 10^6/uL (4.1-5.3); Red Cell Distribution Width 16.8 % (12.1-15.1); White Blood Count 10.1 10^3/uL (4.0-10.0)
[2022-11-01 01:51] LABS: INR 1.97 (0.8-1.2)
[2022-11-01 01:56] LABS: Alanine Aminotransferase 11 U/L (0-41); Albumin Level 3.7 g/dL (3.5-5.2); Alkaline Phosphatase 72 U/L (40-130); Anion Gap 17.6 (5-19); Aspartate Amino Transferase 21 U/L (0-40); Blood Urea Nitrogen 48 mg/dL (8-23); C Reactive Protein 53.1 mg/L (0.0-4.9); Carbon Dioxide 20 mmol/L (22-29); Chloride 101 mmol/L (98-107); Globulin 2.1 g/dL (1.3-4.6); Glucose 99 mg/dL (65-115); Magnesium 2.1 mg/dL (1.7-2.3); Osmolality Calculated 293 mOsm/kg (285-295); Phosphorus 3.5 mg/dL (2.5-4.5); Potassium 3.6 mmol/L (3.5-5.1); Sodium 135 mmol/L (136-145); Total Bilirubin 2.8 mg/dL (0.15-1.2); Total Protein 5.8 g/dL (6.6-8.7)
[2022-11-01 01:58] LABS: Vancomycin Trough 24.8 ug/mL (10-15)
[2022-11-01 02:07] LABS: NT Pro B Type Natriuretic Pept 7130 pg/mL (0-450); Procalcitonin 1.25 ng/mL (0-0.5)
--- NOTE | 2022-11-01 02:24 | PC.PHAR ---
Pharmacokinetic dosing service Date: 11/01/22 Time: 223 Patient: Ernst Garcia Floor: 106-1 Weight: 108.522 Kilograms Vancomycin single level analysis: Current dose being given: 2000 mg Current dosing interval: 24 hrs Current infusion time (hrs): 2 Single level Trough Data: Trough level obtained: 24.8 mcg/ml Timing of trough - # of hrs before next dose: 0.5 Hrs Desired peak: 40 mcg/ml Desired trough: 15 mcg/ml Diagnosis: Relevant medical/social history: Cultures and sensitivities: Other labs: Estimated PK Parameters: New rate constant (ryan): 0.026 hr-1 Half-life: 26.66 Hours Vd from levels: 97.67 Liters (0.7 L/kg) CLvanco=?? 2.539 L/hr Estimated New Dose and Interval Recommended dose: 2581.1 mg Recommended interval: 39.7 Hrs Patient response: Patient is responding to treatment [yes/no] wbc decreasing, S/SX reduced [yes/no] Renal function is stable/unstable Recommendations: Give Vancomycin 1500 mg q 24 hrs. Infuse over 1.5 hrs Expected Cpeak: 32.4 mcg/mL Expected Ctrough: 18.1 mcg/mL AUC 0-24 /MARISOL Data: MARISOL 0.5 mcg/mL:?? AUC/MARISOL:? 1181.6 MARISLO 1.0 mcg/mL:?? AUC/MARISOL:? 590.8 Recommended labs and intervals: Measure Bun and Scr 3 times/week. Renal dosing of other antibiotics (review renal dosing of other medications and list guidelines here): Thank you for the consult, will continue to follow. Signature: Milana Rose [facility]
[2022-11-01] MEDS: piperacillin-tazobactam 3.375 GM in sodium chloride 0.9% (plus) 50 ML IV ×2 (03:43→11:57)
[2022-11-01] MEDS: apixaban 5 mg Tablet PO ×2 (03:43→17:43)
[2022-11-01] MEDS: sucralfate 1 gm Tablet PO ×2 (05:27→17:43)
[2022-11-01] MEDS: finasteride 5 mg Tablet PO (05:27)
[2022-11-01] MEDS: levothyroxine 100 mcg Tablet PO (05:27)
--- NOTE | 2022-11-01 08:54 | PC.SOCIAL ---
[facility] IMM update: Page 2 of [facility] dated and reviewed with pt/spouse. Copy provided. Copy dated, initialed and placed in chart.
[2022-11-01] MEDS: albumin 25 G/100 ML BAG 60 G IV ×2 (09:35→21:21)
[2022-11-01] MEDS: pantoprazole DR 40 mg Tablet PO ×2 (09:35→17:43)
[2022-11-01] MEDS: nystatin powder 15 gm Btl 1 APPLIC TOPICAL ×2 (09:36→17:44)
--- NOTE | 2022-11-01 16:03 | PM.PN ---
Subjective Subjective: - Patient was seen this morning, he is sitting up in a chair, he tells me he feels significantly better, his appetite is improved his edema has improved, he is more energetic, he does not want to ambulate, he has not had a bowel movement, also had extensive discussion with patient's at bedside Vitals/I&O/Wt Last Vital Signs Temp 97.9 F 11/01/22 08:00 Pulse 80 11/01/22 11:23 Resp 23 H 11/01/22 11:23 BP 117/75 11/01/22 11:23 Pulse Ox 92 11/01/22 11:23 O2 Del Method Room Air 11/01/22 11:23 O2 Flow Rate 2 11/01/22 04:00 11/01/22 11/01/22 11/01/22 06:59 14:59 22:59 Intake Total 406.667 / 1576.667 870 / 870 Output Total 1000 / 4050 700 / 700 Balance -593.333 / -2473.333 170 / 170 Physical Exam Const: COMMON NORMALS: no acute distress and patient oriented x3 Resp: COMMON NORMALS: normal respiratory effort, No retractions, No use of accessory muscles and clear to auscultation bilaterally AUSCULTATION: clear to auscultation bilaterally Cardio: COMMON NORMALS: regular rate, regular rhythm, S1 normal heart sound present and S2 normal heart sound present RATE: regular rate RHYTHM: regular rhythm HEART SOUNDS: S1 normal heart sound present and S2 normal heart sound present GI: COMMON NORMALS: Normal to inspection, nondistended, normoactive bowel sounds present and non-tender Extremity: COMMON NORMALS: no pedal edema Neuro: COMMON NORMALS: patient oriented x3 Psych: COMMON NORMALS: mental status grossly normal Urinary Catheter Management: Tinsley: Cath Placed During This Visit: yes Reason for Continuing Indwelling Catheter: Accurate Measurement of Urinary Output in Critically Ill Patients Urinary Catheter Date of Insertion: 10/29/22 Urinary Catheter Time of Insertion: 23:30 Data 11/01/22 01:25 11/01/22 01:25 Micro: Microbiology 10/28/22 23:40 Urine Culture - Final Urine,Clean Catch A&P Assessment and plan (1) Cellulitis: 82-year-old male presenting with chief complaints of sudden onset left lower extremity pain this afternoon and chills in the background of persisting lower extremity edema from known CHF. On examination he is found to have a left thigh that is more swollen, erythematous, warm and painful to touch compared to the right side. Clinically appears to have cellulitis. Suspect cellulitis precipitated by chronic edema and recent intertrigo. De-escalate to Cipro and Doxy Blood cultures have been collected in the emergency room, so far no growth UA with positive nitrate, trace leukocyte esterase, however no urine WBCs. On antibiotics for UTI Bilateral lower extremity Doppler shows nonocclusive DVT in the right posterior tibial vein and partial DVT in the peroneal vein, also seen on Doppler from July 2022 for which patient is currently on Eliquis. (2) Atrial fibrillation with rapid ventricular response: Patient found to have evidence of A-fib with RVR upon arrival He has been started on a Cardizem infusion in the emergency room, currently running at 5 mg/h Patient has missed multiple recent doses of metoprolol at home as his is overwhelmed trying to balance Lasix and metoprolol within blood pressure parameters given to her. Currently Cardizem drip off, Cardizem p.o. 60 every 6 A-fib currently likely precipitated by underlying infection, CHF Check EKG and troponin series given that he experienced an episode of chest pain this morning. Currently denies any active chest pain. EKG currently shows a flutter. (3) Pulmonary edema: Bilateral lower extremity edema, crackles on exam, BNP currently at 5000, though this is an improvement over previous BNP of 22,000 and 10,000 in July and August 2022 respectively. Edema has improved, We will monitor urine output Creatinine is up to 2.1, hold Bumex, Tinsley catheter placement for accurate output measurement. Pulmonary edema likely from a combination of acute on chronic systolic heart failure and pulmonary hypertension. (4) Pulmonary hypertension: As above (5) NSTEMI (non-ST elevated myocardial infarction): - No chest pain complaints -Likely supply demand ischemia from respiratory failure and fluid overload however cannot rule out underlying cardiac etiology (6) Ascites: - Has evidence of ascites -Order ultrasound abdomen for paracentesis, not enough ascites to perform paracentesis -Switch to Cipro (7) Liver cirrhosis: - Possibly secondary to right-sided heart failure and pulm hypertension (8) Pulmonary embolism: - On Eliquis (9) Chronic kidney disease (CKD): - Monitor creatinine -Component of UTI, cellulitis -Component of hypoalbuminemia, liver cirrhosis -Component of hepatorenal syndrome Qualifiers: Chronic kidney disease stage: unspecified stage Qualified Code(s): N18.9 - Chronic kidney disease, unspecified (10) Nocturnal hypoxemia: - BiPAP (11) UTI (urinary tract infection): - Continue Zosyn (12) CHF exacerbation: -Diffuse hypokinesia of the left ventricular ejection fraction of ?44%. ?Bioprosthetic valve the mitral position appears to be well- ?seated.? Valve leaflets appear to be thickened.te biatrial ?enlargement. ?The mitral valve area is calculated to be 1.88 cm squared, based on ?pressure half-time ?Thickened aortic valve. Mild aortic valve calcification. ?Possibly severe tricuspid valve regurgitation. ? Estimated pulmonary artery peak systolic pressure of 47 mmHg. ?[id number] pulmonary valve regurgitation. ?There is no pericardial effusion. ?There are no intracardiac masses. ?Comparison with the previous study is difficult because of the ?difference in the technical quality. -Daily dose Bumex -Monitor creatinine, monitor potassium, monitor mag (13) Systolic CHF: - As above (14) Anemia: - Protonix, Carafate likely sec to liver cirrhosis (15) Thrombocytopenia: - Monitor (16) Hepatorenal syndrome: (17) Hypotension: - Likely secondary to hypoalbuminemia -Liver cirrhosis -Cardiorenal syndrome -Diuresis -Midodrine 10 3 times daily (18) Moderate protein-calorie malnutrition: - Consult dietary -Has temporal muscle wasting, peripheral muscle wasting of bilateral arms, bilateral thighs (19) Physical deconditioning: - PT OT (20) Deep venous thrombosis: . Occlusive deep vein thrombosis in the right posterior tibial vein and partial deep vein thrombosis in the peroneal vein.? Currently on Eliquis Plan Plan for today, up out of bed, PT OT, de-escalate antibiotic therapy, hold Bumex, continue midodrine, continue albumin therapy, DVT prophylaxis: Patient takes Eliquis for DVT which will be continued. PUD prophylaxis: Protonix 40 mg p.o. daily Goals of care, full code Attestations Medical Necessity Statement*: Patient requires hospitalization for KE, fluid overload, cellulitis, UTI, SBP Diagnoses Cellulitis L03.90 Atrial fibrillation with rapid ventricular response I48.91 Pulmonary edema J81.1 Pulmonary hypertension I27.20 NSTEMI (non-ST elevated myocardial infarction) I21.4 Ascites R18.8 Liver cirrhosis K74.60 Pulmonary embolism I26.99 Chronic kidney disease (CKD) N18.9 Chronic kidney disease stage: unspecified stage Nocturnal hypoxemia G47.34 UTI (urinary tract infection) N39.0 CHF exacerbation I50.9 Systolic CHF I50.20 Anemia D64.9 Thrombocytopenia D69.6 Hepatorenal syndrome K76.7 Hypotension I95.9 Moderate protein-calorie malnutrition E44.0 Physical deconditioning R53.81 Deep venous thrombosis I82.409
[2022-11-01] MEDS: doxycycline 100 mg Tablet PO (17:43)
[2022-11-02] VITALS (10 sets, daily range): BP systolic 102–119; BP diastolic 63–78; PULSE 68–82; RESP 16–24; TEMP 36.4–36.9; O2SAT 89–96
[2022-11-02] MEDS: midodrine 5 mg TABLET 10 MG PO ×2 (03:16→10:12)
[2022-11-02 04:35] LABS: Basophils # 0.1 10^3/uL (0.0-0.1); Basophils % 0.6 %; Eosinophils # 0.3 10^3/uL (0.0-0.8); Eosinophils % 3.1 %; Hematocrit 35.1 % (42.0-52.0); Hemoglobin 11.4 g/dL (11.7-16.6); Lymphocytes # 2.8 10^3/uL (0.8-4.8); Lymphocytes % 29.4 %; Mean Corpuscular HGB Conc 32.5 g/dL (30.0-36.0); Mean Corpuscular Hemoglobin 31.9 pg (28.0-34.0); Mean Corpuscular Volume 98.3 fl (80-94); Mean Platelet Volume 10.7 fL (7.4-10.4); Monocytes # 0.9 10^3/uL (0.2-0.9); Monocytes % 9.9 %; Neutrophils # 5.23 10^3/uL (1.8-7.7); Neutrophils % 55.4 %; Nucleated Red Blood Cells % 0 %; Platelet Count 99 10^3/cmm (130-400); Red Blood Count 3.57 10^6/uL (4.1-5.3); Red Cell Distribution Width 16.8 % (12.1-15.1); White Blood Count 9.5 10^3/uL (4.0-10.0)
[2022-11-02 05:03] LABS: Alanine Aminotransferase 13 U/L (0-41); Albumin Level 3.9 g/dL (3.5-5.2); Alkaline Phosphatase 87 U/L (40-130); Anion Gap 15.6 (5-19); Aspartate Amino Transferase 26 U/L (0-40); Blood Urea Nitrogen 45 mg/dL (8-23); Calcium 9.1 mg/dL (8.5-10.5); Carbon Dioxide 21 mmol/L (22-29); Chloride 102 mmol/L (98-107); Glucose 83 mg/dL (65-115); Magnesium 2.2 mg/dL (1.7-2.3); Osmolality Calculated 291 mOsm/kg (285-295); Phosphorus 2.9 mg/dL (2.5-4.5); Potassium 3.6 mmol/L (3.5-5.1); Sodium 135 mmol/L (136-145); Total Bilirubin 2.6 mg/dL (0.15-1.2); Total Protein 5.9 g/dL (6.6-8.7)
[2022-11-02 05:09] LABS: Creatinine Clr Calc Pharmacy 39.4453
[2022-11-02 05:14] LABS: NT Pro B Type Natriuretic Pept 7539 pg/mL (0-450)
[2022-11-02] MEDS: dilTIAZem 60 mg Tablet PO ×2 (05:59→10:12)
[2022-11-02] MEDS: apixaban 5 mg Tablet PO (06:00)
[2022-11-02] MEDS: finasteride 5 mg Tablet PO (06:00)
[2022-11-02] MEDS: levothyroxine 100 mcg Tablet PO (06:00)
[2022-11-02] MEDS: sucralfate 1 gm Tablet PO (06:00)
[2022-11-02] MEDS: ciprofloxacin 500 mg Tablet PO (08:03)
[2022-11-02] MEDS: doxycycline 100 mg Tablet PO (08:03)
[2022-11-02] MEDS: pantoprazole DR 40 mg Tablet PO (08:03)
[2022-11-02] MEDS: nystatin powder 15 gm Btl 1 APPLIC TOPICAL (08:10)
[2022-11-02] MEDS: HYDROcodone-acetaminophen 5-325 mg Tablet 1 TAB PO (10:10)
[2022-11-02] MEDS: metOLazone 5 MG Tablet PO (10:12)
[2022-11-02] MEDS: bumetanide 1 mg Tablet PO (10:12)
[2022-11-02] MEDS: albumin 25 G/100 ML BAG 60 G IV (10:13)
[2022-11-02] MEDS: potassium chloride ER 20 mEq Tablet 40 MEQ PO (10:13)
--- NOTE | 2022-11-02 12:04 | P.DS_ITS ---
Discharge Providers Date of Admission: 10/29/22 00:10 Date of Discharge: November 02, 2022 Attending Provider at Admission: Kanchan Fields MD Attending Provider at Discharge: Zach Fry MD Primary Care Provider: Daniel Rios DO Diagnoses at Discharge Discharge Diagnosis (1) Cellulitis: Status: Acute (2) Atrial fibrillation with rapid ventricular response: Status: Acute (3) Pulmonary edema: Status: Acute (4) Pulmonary hypertension: Status: Acute (5) NSTEMI (non-ST elevated myocardial infarction): Status: Resolved (6) Ascites: Status: Acute (7) Liver cirrhosis: Status: Acute (8) Pulmonary embolism: Status: Acute (9) Chronic kidney disease (CKD): Status: Acute Qualifiers: Chronic kidney disease stage: unspecified stage Qualified Code(s): N18.9 - Chronic kidney disease, unspecified (10) Nocturnal hypoxemia: Status: Acute (11) UTI (urinary tract infection): Status: Resolved (12) CHF exacerbation: Status: Acute (13) Systolic CHF: Status: Acute (14) Anemia: Status: Acute (15) Thrombocytopenia: Status: Acute (16) Hepatorenal syndrome: Status: Acute (17) Hypotension: Status: Acute (18) Moderate protein-calorie malnutrition: Status: Acute (19) Physical deconditioning: Status: Acute (20) Deep venous thrombosis: Status: Acute Reason for Visit Reason for Visit: shaking/LT leg pain/groin pain/ Hospital Course Hospital Course Ernst Garcia is a 82 year old male with a past medical history of CAD, diastolic CHF, history of DVT for which she is currently on Eliquis, recent admission in August 2022 for CHF exacerbation. He has recently been dealing with persistent lower extremity edema for which she is currently taking Lasix 60 mg p.o. daily.? He has significant edema involving bilateral lower extremities, worse over the thighs and the groin. He was in his usual state of health until this afternoon when he started to complain of sudden onset left leg pain.? Pain involves his left thigh most prominently, he had difficulty moving the thigh.? He became increasingly weak, experienced chills and was brought to the emergency room by his family. He has a Tmax of 100 Fahrenheit today.? His left upper thigh appears to be erythematous and warm, slightly more swollen compared to the right side.? Patient does not remember any trauma to this area.? He has been experiencing intertrigo in bilateral inguinal folds, precipitated by urinary incontinence and wearing a diaper. He was also found to be in A-fib with RVR for which she has been started on Cardizem infusion.? Denies any chest pain currently.? States that this morning he had an episode of chest tightness which resolved.? Denies feeling short of breath.? He typically uses oxygen at nighttime.? Currently on 2 L/min supplemental O2. Patient was admitted to [facility] for A-fib with RVR, fluid overload, pulmonary edema, systolic CHF exacerbation, cellulitis, UTI, concerns for spontaneous bacterial peritonitis For his A-fib with RVR, managed with Cardizem drip, overall clinically improved, does not tolerate beta-rangel, discharged on Cardizem 120 twice daily -For his anticoagulation, with his liver cirrhosis, his INR is elevated at 1.97 on discharge, monitor as outpatient as he is on Eliquis 5 twice daily for history of pulmonary embolism, and persistent DVT of right lower extremity For patient's systolic CHF exacerbation, and pulmonary edema, EF of 44%, received diuresis during his hospitalization, diuresed over 5 L. On discharge I would discharge him on Bumex 1 mg once daily, with metolazone Monday with a close follow-up with primary care provider for recheck creatinine on Monday, recheck potassium Monday and follow-up with cardiology for his cellulitis he was managed with broad-spectrum antibiotic therapy, overall clinically improved, discharged on doxycycline For his UTI, overall clinically improved, his blood cultures remain negative, urine cultures remain negative discharged on ciprofloxacin There was concerns for spontaneous bacterial peritonitis during his hospitalization, however no paracentesis could be performed due to poor ultrasonic windows, difficulty to access ascites for a tap. Nonetheless I discharged him on 7 days of ciprofloxacin he should follow-up with For radiographic evidence of liver cirrhosis, his hepatitis serology has been negative, no history of alcoholism, potentially etiology could be right-sided heart failure, pulmonary hypertension, cardiac cirrhosis. Nonetheless he has anemia, thrombocytopenia, elevated INR, hypoalbuminemia, ascites, on radiograph has cirrhotic appearing liver, and evidence of ascites. I am going to have him follow-up with the GI physician through [facility] - Please take Bumex 1 mg once daily, with metolazone Monday -Take potassium 20 mEq once daily -If you gain more than 3 to 4 pounds, or you suddenly feel more short of breath or you develop lower extremity edema, take Bumex 1 mg twice daily for 3 days, with potassium 20 meq equivalents twice a day for 3 days, -If after 3 days you continue to feel short of breath come to the emergency room -But after 3 days if you feel well, go back to Bumex 1 mg once a day with potassium 20 meq once a day -Your creatinine on discharge is 1.7 -I have taken roughly 5 L of fluid off of you, please limit fluid intake between 1.5 to 2 L, limit salt intake -If you feel lightheaded or dizzy or you have low blood pressures please hold Bumex, metolazone, for at least 24 hours -Please have Dr. Rios and recheck your creatinine, hemoglobin, INR on Monday -Your potassium was 3.7 -For your cellulitis please continue doxycycline and ciprofloxacin -For your UTI ciprofloxacin -Please see Dr. love in 1 week -For your atrial fibrillation take Cardizem 120 twice daily with Eliquis 5 twice daily -Monitor your hemoglobin 11.4 and your platelet count 99k -Your INR was 1.97 11/01/2022 likely secondary to liver cirrhosis, monitor especially as you are on Eliquis -If you develop bloody or black stools or you fall please go to emergency room -For your pulm hypertension, fluid overload please follow-up with Dr. Becerra -For your liver cirrhosis please follow-up with a GI physician for at least 24 hours Physical Exam Const: COMMON NORMALS: no acute distress and patient oriented x3 Resp: COMMON NORMALS: normal respiratory effort, No retractions, No use of accessory muscles and clear to auscultation bilaterally AUSCULTATION: clear to auscultation bilaterally Cardio: COMMON NORMALS: regular rate, regular rhythm, S1 normal heart sound present and S2 normal heart sound present RATE: regular rate RHYTHM: regular rhythm HEART SOUNDS: S1 normal heart sound present and S2 normal heart sound present GI: COMMON NORMALS: Normal to inspection, nondistended, normoactive bowel so unds present and non-tender Extremity: COMMON NORMALS: no pedal edema Neuro: COMMON NORMALS: patient oriented x3 Psych: COMMON NORMALS: mental status grossly normal Urinary Catheter Management: Tinsley: Cath Placed During This Visit: yes Reason for Continuing Indwelling Catheter: Acute Urinary Retention or Obstruction Urinary Catheter Date of Insertion: 10/29/22 Urinary Catheter Time of Insertion: 23:30 Discharge Data Studies Completed and Pending Completed Studies During Hospitalization Category Date Time Status CTA chest [CT angio chest PE protcl [id number]] Stat Cat Scan 10/28/22 21:11 Completed XR chest 1V portable [id number] Routine Exams 10/30/22 07:00 Completed XR chest 1V portable [id number] Stat Exams 10/28/22 21:11 Completed CV. echo complete* [id number] Routine Ultrasound 10/29/22 09:29 Completed US abdomen complete* [id number] Routine Ultrasound 10/29/22 09:29 Completed US abdomen lmt fluid [id number] Routine Ultrasound 10/31/22 17:55 Completed US venous duplex lower extremity bilat [CV venous Ultrasound 10/28/22 21:11 [place] [id number]] Stat Pending at discharge Category Date Time Status Albumin Body Fluid Routine Lab 10/31/22 13:23 Ordered Amylase Body Fluid Routine Lab 10/31/22 13:23 Ordered Anaerobic Culture Routine Lab 10/31/22 13:24 Ordered Blood Culture Stat Lab 10/28/22 21:35 Results Body Fluid Analysis Routine Lab 10/31/22 13:23 Ordered Body Fluid Culture & GS Routine Lab 10/31/22 13:23 Ordered Body Fluid Specific [place] Routine Lab 10/31/22 13:23 Ordered Cholesterol Body Fluid Routine Lab 10/31/22 13:23 Ordered Complete Blood Count w/Auto AM LABS Lab 11/03/22 04:00 Ordered Complete Blood Count w/Auto AM LABS Lab 11/04/22 04:00 Ordered Comprehensive Metabolic Panel AM LABS Lab 11/03/22 04:00 Ordered Comprehensive Metabolic Panel AM LABS Lab 11/04/22 04:00 Ordered Cyto Order Verification Routine Lab 10/31/22 13:23 Ordered Fluid Alkaline Phos. Routine Lab 10/31/22 13:23 Ordered Glucose Body Fluid Routine Lab 10/31/22 13:23 Ordered LDH Body Fluid Routine Lab 10/31/22 13:23 Ordered Magnesium AM LABS Lab 11/03/22 04:00 Ordered Magnesium AM LABS Lab 11/04/22 04:00 Ordered Mycobacteria, Culture w/Fluor Routine Lab 10/31/22 13:24 Ordered NT Pro B Type Natriuretic Pept QAM Lab 11/03/22 06:00 Ordered NT Pro B Type Natriuretic Pept QAM Lab 11/04/22 06:00 Ordered Phosphorus AM LABS Lab 11/03/22 04:00 Ordered Phosphorus AM LABS Lab 11/04/22 04:00 Ordered Total Protein Body Fluid Routine Lab 10/31/22 13:23 Ordered Triglycerides Body Fluid Routine Lab 10/31/22 13:23 Ordered Uric Acid Body Fluid Routine Lab 10/31/22 13:23 Ordered pH Body Fluid Routine Lab 10/31/22 13:23 Ordered Cytology [PTH] Routine Pth 10/31/22 13:24 Ordered Radiology Impressions Chest CTA 10/28/22 21:11 IMPRESSION: 1. No definite evidence for pulmonary embolus. Evaluation is limited by breathing motion artifact. 2. Increased medium right and small left pleural effusions with dependent atelectasis. 3. Increased ascites. 4. Severe cardiomegaly with right atrial enlargement. 5. Elevated right heart pressure with dilated IVC and hepatic veins. 6. Dilated central pulmonary arteries could indicate underlying pulmonary artery hypertension. COMMENTS: Consistent with the [employer]'s Incidental Findings Committee white paper (J Am Sujatha Radiol 2018): Any incidental renal lesion less than 1 cm or classified as too small to characterize, or any incidental cystic renal lesion characterized as simple-appearing, is likely benign. No follow-up imaging is recommended for these lesions per consensus recommendations based on imaging criteria. Venous Duplex 10/28/22 21:11 IMPRESSION: 1. Occlusive deep vein thrombosis in the right posterior tibial vein and partial deep vein thrombosis in the peroneal vein. ADDENDUM: 10/28/22 2300 There is no evidence for deep vein thrombosis in the left lower extremity. THIS REPORT CONTAINS FINDINGS THAT MAY BE CRITICAL TO PATIENT CARE. The findings were verbally communicated via telephone conference with JORGE BURGOS at 10:58 PM CDT on 10/28/2022. The findings were acknowledged and understood. Chest X-Ray 10/30/22 07:00 IMPRESSION: 1. Cardiomegaly with a right pleural effusion and possible small left pleural effusion, consistent with congestive heart failure. 2. There are hazy opacities in the mid to lower right lung field. Differential includes pulmonary edema and/or pneumonia. Laboratory Results WBC 9.5 10^3/uL (4.0-10.0) 11/02/22 04:04 RBC 3.57 10^6/uL (4.1-5.3) L 11/02/22 04:04 Hgb 11.4 g/dL (11.7-16.6) L 11/02/22 04:04 Hct 35.1 % (42.0-52.0) L 11/02/22 04:04 MCV 98.3 fl (80-94) H 11/02/22 04:04 MCH 31.9 pg (28.0-34.0) 11/02/22 04:04 MCHC 32.5 g/dL (30.0-36.0) 11/02/22 04:04 RDW 16.8 % (12.1-15.1) H 11/02/22 04:04 Plt Count 99 10^3/cmm (130-400) L 11/02/22 04:04 MPV 10.7 fL (7.4-10.4) H 11/02/22 04:04 Neut % (Auto) 55.4 % 11/02/22 04:04 Lymph % (Auto) 29.4 % 11/02/22 04:04 [place] % (Auto) 9.9 % 11/02/22 04:04 Eos % (Auto) 3.1 % 11/02/22 04:04 Baso % (Auto) 0.6 % 11/02/22 04:04 Neut # (Auto) 5.23 10^3/uL (1.8-7.7) 11/02/22 04:04 Lymph # (Auto) 2.8 10^3/uL (0.8-4.8) 11/02/22 04:04 [place] # (Auto) 0.9 10^3/uL (0.2-0.9) 11/02/22 04:04 Eos # (Auto) 0.3 10^3/uL (0.0-0.8) 11/02/22 04:04 Baso # (Auto) 0.1 10^3/uL (0.0-0.1) 11/02/22 04:04 Nucleated RBC % (auto) 0 % 11/02/22 04:04 Nucleated RBCs # 0.0 /100WBC 11/02/22 04:04 ESR 7 mm/hr (0-10) 10/28/22 21:25 PT 23.20 SECONDS (12.1-14.9) H 11/01/22 01:25 INR 1.97 (0.8-1.2) H 11/01/22 01:25 APTT 38.4 SECONDS (23.9-36.7) H 10/28/22 21:25 Sodium 135 mmol/L (136-145) L 11/02/22 04:04 Potassium 3.6 mmol/L (3.5-5.1) 11/02/22 04:04 Chloride 102 mmol/L (98-107) 11/02/22 04:04 Carbon Dioxide 21 mmol/L (22-29) L 11/02/22 04:04 Anion Gap 15.6 (5-19) 11/02/22 04:04 BUN 45 mg/dL (8-23) H 11/02/22 04:04 Creatinine 1.7 mg/dL (0.7-1.2) H 11/02/22 04:04 GFR Calculation Not Reportable 11/02/22 04:04 Glucose 83 mg/dL (65-115) 11/02/22 04:04 Calculated Osmolality 291 mOsm/kg (285-295) 11/02/22 04:04 Lactic Acid 2.7 mmol/L (0.5-2.2) H 10/28/22 21:25 Lactic Acid (Sepsis) 2.3 mmol/L (0.5-2.2) H 10/28/22 23:40 Lactate 1.1 mmol/L (0.5-2.2) 10/31/22 02:17 Calcium 9.1 mg/dL (8.5-10.5) 11/02/22 04:04 Phosphorus 2.9 mg/dL (2.5-4.5) 11/02/22 04:04 Magnesium 2.2 mg/dL (1.7-2.3) 11/02/22 04:04 Total Bilirubin 2.6 mg/dL (0.15-1.2) H 11/02/22 04:04 Direct Bilirubin 1.20 mg/dL (0.00-0.30) H 10/29/22 10:13 Indirect Bilirubin 2.40 10/29/22 10:13 GGT 136 U/L (8-61) H 10/29/22 10:13 AST 26 U/L (0-40) 11/02/22 04:04 ALT 13 U/L (0-41) 11/02/22 04:04 Alkaline Phosphatase 87 U/L (40-130) 11/02/22 04:04 Ammonia 43 umol/L (16-60) 10/31/22 02:17 Creatine Kinase 97 U/L (39-308) 10/28/22 21:25 Troponin T Baseline 34 ng/L (0-15) H 10/28/22 21:25 Troponin T 120 Minute 36.74 ng/L (0-15) H 10/28/22 23:40 Delta Troponin T 2.74 ABS# (0-10) 10/28/22 23:40 Troponin T Hi Sens 6Hr 40.56 ng/L (0-15) H 10/29/22 04:41 Troponin T Hi Sens 6Hr Delta 6.56 ng/L (0-12) 10/29/22 04:41 C-Reactive Protein 53.1 mg/L (0.0-4.9) H 11/01/22 01:25 NT-Pro-B Natriuret Pep 7539 pg/mL (0-450) H 11/02/22 04:04 Total Protein 5.9 g/dL (6.6-8.7) L 11/02/22 04:04 Albumin 3.9 g/dL (3.5-5.2) 11/02/22 04:04 Globulin 2.0 g/dL (1.3-4.6) 11/02/22 04:04 Lipase 16 U/L (13-60) 10/29/22 10:13 Procalcitonin 1.25 ng/mL (0-0.5) H 11/01/22 01:25 TSH 5.83 uIU/mL (0.27-4.20) H 10/29/22 10:13 Free T4 1.08 ng/dL (0.82-1.77) 10/29/22 10:13 Free T3 1.0 PG/ML (2.0-4.4) L 10/29/22 10:13 Random Cortisol 24.00 ug/dL (2.47-19.5) H 10/29/22 10:13 Urine Color Yellow (Yellow) 10/28/22 23:40 Urine Appearance Clear (CLEAR) 10/28/22 23:40 Urine pH 5 (5-7) 10/28/22 23:40 Ur Specific [place] 1.015 (1.005-1.030) 10/28/22 23:40 Urine Protein 1+ (Negative) H 10/28/22 23:40 Urine Glucose (UA) Norm (Normal) 10/28/22 23:40 Urine Ketones 1+ (Negative) H 10/28/22 23:40 Urine Blood 2+ (Negative) H 10/28/22 23:40 Urine Nitrate Positive (Negative) H 10/28/22 23:40 Urine Bilirubin Neg (Negative) 10/28/22 23:40 Urine Urobilinogen 1 mg/dL (Negative) H 10/28/22 23:40 Ur Leukocyte Esterase Trace (Negative) H 10/28/22 23:40 Urine RBC 0-4 /hpf (0-2) H 10/28/22 23:40 Urine WBC None /hpf (0-5) 10/28/22 23:40 Ur Squamous Epith Cells None /hpf (0-5) 10/28/22 23:40 Amorphous Sediment Not Reportable 10/28/22 23:40 Urine Bacteria Trace /hpf (NONE) 10/28/22 23:40 Vancomycin Trough 24.8 ug/mL (10-15) H 11/01/22 01:25 Vitals Last Vital Signs Temp 98.3 F 11/02/22 08:00 Pulse 80 11/02/22 08:45 Resp 16 11/02/22 08:45 BP 114/78 11/02/22 08:00 Pulse Ox 91 11/02/22 08:45 O2 Del Method Room Air 11/02/22 08:45 O2 Flow Rate 2 11/01/22 04:00 Discharge Plan Discharge Patient Disposition: Home Health Service Condition: Stable Prescriptions: New hydrocodone-acetaminophen 5-325 mg Tablet 1 tab PO Q12H PRN (Reason: Moderate Pain) 5 Days Qty: 10 0RF ciprofloxacin HCl 500 mg Tablet 500 mg PO DAILY 5 Days Qty: 5 0RF doxycycline monohydrate 100 mg Tablet 100 mg PO BID 5 Days Qty: 10 0RF bumetanide 1 mg Tablet 1 mg PO DAILY 30 Days Qty: 30 0RF lactulose 20 gram/30 mL Solution 20 g PO Q12H PRN (Reason: constipation) 30 Days Qty: 1200 0RF midodrine 10 mg tablet 10 mg PO Q8H 30 Days Qty: 90 0RF sucralfate 1 gram Tablet 1 g PO Q12H 30 Days Qty: 60 0RF pantoprazole 40 mg Tablet,Delayed Release (Dr/Ec) 40 mg PO BID 30 Days Qty: 60 0RF Cardizem 120 mg tablet 120 mg PO BID 30 Days Qty: 60 0RF metolazone 5 mg tablet 5 mg PO .mwf 30 Days Qty: 12 0RF Continued cholecalciferol (vitamin D3) 50 mcg (2,000 unit) capsule 50 mcg PO QAM Eliquis 5 mg Tablet 5 mg PO BID@0900,2100 Qty: 60 3RF finasteride [Proscar] 5 mg Tablet 5 mg PO QAM zinc sulfate-vitamin C 200-100 mg Tablet 1 tab PO QAM melatonin 10 mg Tablet 10 mg PO BEDTIME levothyroxine [Levoxyl] 100 mcg Tablet 100 mcg PO QAM Qty: 90 3RF Changed potassium chloride 10 mEq tablet extended release 20 meq PO DAILY 30 Days Qty: 60 0RF Discontinued furosemide 20 mg tablet 40 mg PO DIRECTED Rx Instructions: Can take up to 80mg. Tries to take 2 tabs (40mg) 2XDay metoprolol tartrate 25 mg Tablet 12.5 mg PO BID@0900,2100 Qty: 60 0RF acetaminophen 500 mg Tablet 500 - 1,000 mg PO Q6H PRN (Reason: Pain) Discharge Orders: Discharge Order (Routine); Ordered 11/02/22 Ordered By: Zach Fry Referrals: [facility] ([facility]) [Outside] Karsten Becerra MD [Physician] - 2 weeks Bogdan Terry MD [Referring] - 1 month Daniel Rios DO [Primary Care Provider] - 1-3 days Jyoti Love MD [Physician] - 1 week Discharge Diet: Cardiac Discharge Activity: Resume usual activity Patient Instructions: Opioid Safety Activity Restrictions/Additional Instructions: - Please take Bumex 1 mg once daily, with metolazone Monday -Take potassium 20 mEq once daily -If you gain more than 3 to 4 pounds, or you suddenly feel more short of breath or you develop lower extremity edema, take Bumex 1 mg twice daily for 3 days, with potassium 20 meq equivalents twice a day for 3 days, -If after 3 days you continue to feel short of breath come to the emergency room -But after 3 days if you feel well, go back to Bumex 1 mg once a day with potassium 20 meq once a day -Your creatinine on discharge is 1.7 -I have taken roughly 5 L of fluid off of you, please limit fluid intake between 1.5 to 2 L, limit salt intake -If you feel lightheaded or dizzy or you have low blood pressures please hold Bumex, metolazone, for at least 24 hours -Please have Dr. Rios and recheck your creatinine, hemoglobin, INR on Monday -Your potassium was 3.7 -For your cellulitis please continue doxycycline and ciprofloxacin -For your UTI ciprofloxacin -Please see Dr. love in 1 week -For your atrial fibrillation take Cardizem 120 twice daily with Eliquis 5 twice daily -Monitor your hemoglobin 11.4 and your platelet count 99k -Your INR was 1.97 11/01/2022 likely secondary to liver cirrhosis, monitor especially as you are on Eliquis -If you develop bloody or black stools or you fall please go to emergency room -For your pulm hypertension, fluid overload please follow-up with Dr. Becerra -For your liver cirrhosis please follow-up with a GI physician for at least 24 hours Discharge Attestations Time Spent in Discharge Care*: greater than 30 min Quality Metrics Clinical Quality Measures [ No reported AMI, CVA or VTE this stay] Coding Level of Care Code 96966 Total time (in minutes) for Discharge: 60 Diagnoses Cellulitis L03.90 Atrial fibrillation with rapid ventricular response I48.91 Pulmonary edema J81.1 Pulmonary hypertension I27.20 NSTEMI (non-ST elevated myocardial infarction) I21.4 Ascites R18.8 Liver cirrhosis K74.60 Pulmonary embolism I26.99 Chronic kidney disease (CKD) N18.9 Chronic kidney disease stage: unspecified stage Nocturnal hypoxemia G47.34 UTI (urinary tract infection) N39.0 CHF exacerbation I50.9 Systolic CHF I50.20 Anemia D64.9 Thrombocytopenia D69.6 Hepatorenal syndrome K76.7 Hypotension I95.9 Moderate protein-calorie malnutrition E44.0 Physical deconditioning R53.81 Deep venous thrombosis I82.409
== END 2022-11-02 16:18 | disposition home health service (06) | DRG 280 ==
LOC: ER 23:18 → CSU 10-29 00:36
PROVIDERS: Admitting Provider Student in an Organized Health Care Education/Training Program; Emergency Provider Emergency Medicine; PCP Emergency Medicine Emergency Medical Services; Visit Provider Family Medicine
DX: I13.0 Hypertensive heart and chronic kidney disease with heart failure and stage 1 through stage 4 chronic kidney disease, or unspecified chronic kidney disease (principal); I50.23 Acute on chronic systolic (congestive) heart failure; I21.A1 Myocardial infarction type 2; K65.2 Spontaneous bacterial peritonitis; I82.541 Chronic embolism and thrombosis of right tibial vein; L03.116 Cellulitis of left lower limb; N39.0 Urinary tract infection, site not specified; R18.8 Other ascites; N17.9 Acute kidney failure, unspecified; E44.0 Moderate protein-calorie malnutrition; I82.551 Chronic embolism and thrombosis of right peroneal vein; I48.91 Unspecified atrial fibrillation; I25.10 Atherosclerotic heart disease of native coronary artery without angina pectoris; N18.9 Chronic kidney disease, unspecified; L30.4 Erythema intertrigo; R32 Unspecified urinary incontinence; Z99.81 Dependence on supplemental oxygen; E87.70 Fluid overload, unspecified; K74.60 Unspecified cirrhosis of liver; D63.1 Anemia in chronic kidney disease; D69.6 Thrombocytopenia, unspecified; I27.20 Pulmonary hypertension, unspecified; Z79.01 Long term (current) use of anticoagulants; Z68.33 Body mass index [BMI] 33.0-33.9, adult; T44.7X6A Underdosing of beta-adrenoreceptor antagonists, initial encounter; I07.1 Rheumatic tricuspid insufficiency; Z87.891 Personal history of nicotine dependence; Z95.3 Presence of xenogenic heart valve; E03.9 Hypothyroidism, unspecified; Z91.A4 Caregiver's other noncompliance with patient's medication regimen
CPT/HCPCS: 36415; 51702; 71045; 71275; 76700; 76705; 80053; 80202; 81001; 82140; 82247; 82248; 82533; 82550; 82977; 83605; 83690; 83735; 83880; 84100; 84145; 84439; 84443; 84481; 84484; 85025; 85610; 85651; 85730; 86140; 87040; 87086; 93005; 93306; 93970; 96365; 96366; 96375; 96376; 97116; 97161; 97167; 97530; 97535; 99285; J0692; J1940; J2270; J2543; J3372; J3490; P9046; Q9967

== ENCOUNTER 2022-11-12 13:53 | Emergency (ER) | payer OTHER, SELFPAY ==
[2022-11-12] VITALS (7 sets, daily range): BP systolic 108–114; BP diastolic 62–68; PULSE 70–81; RESP 18–20; TEMP 36.6; O2SAT 93–97
--- NOTE | 2022-11-12 14:09 | ED_ITS ---
HPI - Fall General: Chief Complaint: Fall Stated Complaint: Fall Right side hip X Week Ago Time Seen by Provider: 11/12/22 14:09 History of Present Illness: Mr. Garcia is an 82-year-old gentleman with complex past medical history including use of anticoagulation presenting to the emergency department for evaluation of continued hip pain after fall. He was in the hospital from 10/28 through 11/02 and actually felt remarkably well at time of discharge. On the evening of 11/03 however he slipped out of a chair getting out and fell on his right side. No head strike or loss of consciousness. He did have pain in his arm and hip however the arm is improved. Hip however has subsequently worsened. He has developed ecchymosis and swelling as well as worse pain with ambulation. Moderate intensity with worsening with palpation and movement. He apparently had an outpatient x-ray which was reportedly negative. Denies distal numbness or tingling. No other specific changes in health, exacerbating, or alleviating factors identified. Onset (ago): day(s) Fall from: standing Place fall occurred: home Loss of consciousness: None Prolonged down time: minute(s) Symptoms prior to fall: none Location of injury: pelvis Location of injury - extremities: Right: thigh Quality: aching Review of Systems General: Reports: 10 or more systems reviewed and unremarkable except in HPI and below PFSH ED PFSH: Medical History Abnormal TSH Atrial fibrillation Atrial fibrillation Atrial fibrillation with RVR Chronic kidney disease (CKD) Deep venous thrombosis Diastolic CHF Elevated bilirubin Hyperkalemia Hypothyroid Pulmonary embolism Stenosis of prosthetic mitral valve Thrombocytopenia Transaminitis Tricuspid valve regurgitation, nonrheumatic Surgical History Hx of mitral valve replacement 2006 Family History Father Myocardial infarction Denies family history of Diabetes Stroke Social History Smoking and tobacco status: former smoker Alcohol intake: current Alcohol intake frequency: holidays/special occasions only Substance/Drug Use: never Physical Exam Const: COMMON NORMALS: alert GENERAL APPEARANCE: cooperative and well developed HENMT: COMMON NORMALS: normocephalic and atraumatic HEAD & SCALP: normocephalic and atraumatic Eye: COMMON NORMALS: conjunctivae normal CONJUNCTIVA: Yes conjunctivae normal SCLERA: sclerae normal Neck/C-Spine: COMMON NORMALS: supple GENERAL: Yes trachea midline Resp: COMMON NORMALS: normal respiratory effort EFFORT & INSPECTION: Yes able to speak in complete sentences Cardio: COMMON NORMALS: regular rate and regular rhythm RATE: regular rate RHYTHM: regular rhythm GI: COMMON NORMALS: Soft to palpation PALPATION: Yes Soft to palpation and No Tenderness to palpation present (GI) Extremity: NARRATIVE EXTREMITY EXAM: Ecchymosis with soft tissue edema and tenderness to the anterior lateral thigh. Tenderness palpation of lateral right hip. CMS intact GENERAL: Yes normal exam except as noted and Yes edema Neuro: COMMON NORMALS: moves all extremities SENSORIUM/ORIENTATION: Yes alert and No Orientation impaired Psych: COMMON NORMALS: mental status grossly normal and Normal thought process present THOUGHT PROCESS: Normal thought process present Course Vital Signs: Vital signs: Vital Signs Temperature 98 F 11/12/22 18:33 Pulse Rate 81 11/12/22 18:33 Respiratory Rate 18 11/12/22 18:33 Blood Pressure 114/64 11/12/22 18:33 Pulse Oximetry 97 11/12/22 18:33 Oxygen Delivery Me thod Nasal Cannula 11/12/22 17:30 Oxygen Flow Rate 2 11/12/22 17:30 MDM - Fall Medical Decision Making 82-year-old presenting with fall. Exam as above. Nontoxic. Head to toe exam performed. No leukocytosis, mildly worse than baseline anemia however no evidence of bleeding. Normal platelet count. Metabolic end with mild hypokalemia, baseline renal function. T. bili noted to be elevated. No right upper quadrant tenderness on palpation. CT demonstrates initially no acute fracture however subsequently noted to have suprapubic right fracture. Discussed with orthopedics. Fluid in the vaginal signs likely secondary to overall hemoglobin has improved. Clinically does not appear to have department syndrome and this would be very atypical given presence in all departments. Improved with analgesia. The results of ED evaluation were discussed with the patient including prescriptions and/or symptomatic cares (if applicable) including appropriate and responsible use, followup plan, and return precautions. The patient verbalized understanding and felt safe for discharge. Medical Records I reviewed the patient's medical records. Lab Data I reviewed the patient's lab results. 11/12/22 15:48 11/12/22 15:[address] 11/12/22 14:27 IMPRESSION: 1. No acute fracture. 2. Diffuse edematous soft tissue swelling. Extensive elongated fluid collections along the fascial planes of all compartments most pronounced along the superficial anterior compartment raises possibility of degloving type injury. 3. Diffuse vascular calcifications. 4. Large bilateral hydroceles. ADDENDUM: 11/12/22 703 Addendum I was requested to provide additional review of the exam. There is a minimally displaced fracture involving the right medial superior pubic with no obvious involvement or diastasis of the symphysis pubis. No obvious acute fracture line or cortical displacement is otherwise seen in the acetabulum or proximal femur on the right. If there is strong clinical concern for occult proximal femoral fracture, follow-up exam or MRI correlation may also be considered. Diffuse subcutaneous soft tissue edema and skin thickening is also seen throughout the right hemipelvis and extending throughout the right thigh and partially visualized proximal calf. Similar changes are probably present in the contralateral left thigh. Additionally there is low-density fascial fluid collection both superficial and deep compartment. These findings represent extensive edema which may be on the basis of 3rd spacing however cellulitis may also be considered. An aggressive infectious process such as necrotizing fasciitis should be excluded clinically. Follow-up imaging may also be helpful. The somewhat discrete deep superficial collection in the lateral aspect of the right trochanteric region demonstrate hyperdense appearance suspicious for a acute/subacute hematoma, measuring about 10 cm in length and about 2 x 7.2 cm cross-section and probably represent a degloving injury (Glynn Bridgette lesion). Therefore continued clinical and imaging follow-up should be obtained for this findings. The addendum findings were discussed with Dr. Melo by phone at about 7:00 p.m. Eastern time. Pelvis CT 11/12/22 14:27 IMPRESSION: 1. No acute fracture. 2. 7.7 cm hematoma overlies the right greater trochanter. 3. Chronic and incidental findings as above, to include diffuse vascular calcifications, cholelithiasis, colonic diverticulosis, and mild ascites. Laboratory Results WBC 8.0 10^3/uL (4.0-10.0) 11/12/22 15:48 RBC 3.00 10^6/uL (4.1-5.3) L 11/12/22 15:48 Hgb 9.5 g/dL (11.7-16.6) L 11/12/22 15:48 Hct 29.5 % (42.0-52.0) L 11/12/22 15:48 MCV 98.3 fl (80-94) H 11/12/22 15:48 MCH 31.7 pg (28.0-34.0) 11/12/22 15:48 MCHC 32.2 g/dL (30.0-36.0) 11/12/22 15:48 RDW 16.8 % (12.1-15.1) H 11/12/22 15:48 Plt Count 134 10^3/cmm (130-400) 11/12/22 15:48 MPV 10.1 fL (7.4-10.4) 11/12/22 15:48 Neut % (Auto) 60.8 % 11/12/22 15:48 Lymph % (Auto) 24.1 % 11/12/22 15:48 [place] % (Auto) 12.3 % 11/12/22 15:48 Eos % (Auto) 1.0 % 11/12/22 15:48 Baso % (Auto) 0.9 % 11/12/22 15:48 Neut # (Auto) 4.84 10^3/uL (1.8-7.7) 11/12/22 15:48 Lymph # (Auto) 1.9 10^3/uL (0.8-4.8) 11/12/22 15:48 [place] # (Auto) 1.0 10^3/uL (0.2-0.9) H 11/12/22 15:48 Eos # (Auto) 0.1 10^3/uL (0.0-0.8) 11/12/22 15:48 Baso # (Auto) 0.1 10^3/uL (0.0-0.1) 11/12/22 15:48 Nucleated RBC % (auto) 0 % 11/12/22 15:48 Nucleated RBCs # 0.0 /100WBC 11/12/22 15:48 ESR 4 mm/hr (0-10) 11/12/22 15:48 Sodium 140 mmol/L (136-145) 11/12/22 15:48 Potassium 3.3 mmol/L (3.5-5.1) L 11/12/22 15:48 Chloride 100 mmol/L (98-107) 11/12/22 15:48 Carbon Dioxide 28 mmol/L (22-29) 11/12/22 15:48 Anion Gap 15.3 (5-19) 11/12/22 15:48 BUN 41 mg/dL (8-23) H 11/12/22 15:48 Creatinine 1.7 mg/dL (0.7-1.2) H 11/12/22 15:48 GFR Calculation Not Reportable 11/12/22 15:48 Glucose 99 mg/dL (65-115) 11/12/22 15:48 Calculated Osmolality 300 mOsm/kg (285-295) H 11/12/22 15:48 Calcium 9.4 mg/dL (8.5-10.5) 11/12/22 15:48 Total Bilirubin 3.9 mg/dL (0.15-1.2) H 11/12/22 15:48 AST 28 U/L (0-40) 11/12/22 15:48 ALT 12 U/L (0-41) 11/12/22 15:48 Alkaline Phosphatase 115 U/L (40-130) 11/12/22 15:48 Creatine Kinase 36 U/L (39-308) L 11/12/22 15:48 C-Reactive Protein 27.0 mg/L (0.0-4.9) H 11/12/22 15:48 Total Protein 6.5 g/dL (6.6-8.7) L 11/12/22 15:48 Albumin 3.8 g/dL (3.5-5.2) 11/12/22 15:48 Globulin 2.7 g/dL (1.3-4.6) 11/12/22 15:48 Discharge Plan Discharge Patient Disposition: Home Clinical Impression: Fall, Hematoma, Closed fracture of superior pubic ramus Condition: Stable Prescriptions: New ondansetron 4 mg tablet,disintegrating 4 mg PO Q8H PRN (Reason: nausea and vomiting) Qty: 15 0RF No Action cholecalciferol (vitamin D3) 50 mcg (2,000 unit) capsule 50 mcg PO QAM hydrocodone-acetaminophen 5-325 mg tablet 1 tab PO Q4H PRN (Reason: pain) 5 Days Qty: 30 0RF Eliquis 5 mg Tablet 5 mg PO BID@0900,2100 Qty: 60 3RF bumetanide 1 mg Tablet 1 mg PO DAILY 30 Days Qty: 30 0RF lactulose 20 gram/30 mL Solution 20 g PO Q12H PRN (Reason: constipation) 30 Days Qty: 1200 0RF midodrine 10 mg tablet 10 mg PO Q8H 30 Days Qty: 90 0RF sucralfate 1 gram Tablet 1 g PO Q12H 30 Days Qty: 60 0RF pantoprazole 40 mg Tablet,Delayed Release (Dr/Ec) 40 mg PO BID 30 Days Qty: 60 0RF diltiazem HCl [Cardizem] 120 mg tablet 120 mg PO BID 30 Days Qty: 60 0RF metolazone 5 mg tablet 5 mg PO .mwf 30 Days Qty: 12 0RF zinc acetate 50 mg (zinc) Capsule 50 mg PO DAILY tamsulosin 0.4 mg capsule 0.4 mg PO DAILY potassium chloride 20 mEq Tablet Extended Release 20 meq PO DAILY melatonin 10 mg Tablet 10 mg PO BEDTIME PRN (Reason: Sleep) levothyroxine [Levoxyl] 100 mcg Tablet 100 mcg PO QAM Qty: 90 3RF loratadine 10 mg tablet 10 mg PO BID Qty: 10 0RF Discharge Orders: Discharge ED (Routine); Ordered 11/12/22 Ordered By: Jl Melo Referrals: Daniel Rios, DO [Primary Care Provider] - Discharge Diet: Usual diet Discharge Activity: Increase activity as tolerated Patient Instructions: Pelvic Fracture (ED), Fall Prevention for Older Adults (ED), Hematoma (ED), Opioid Safety Activity Restrictions/Additional Instructions: Thank you for visiting the emergency department. You were seen and evaluated for continued hip pain after fall. The most likely cause of this is a superior pubic rami fracture. You also have a hematoma. I will message case management for follow-up with orthopedics. Please also follow-up with your primary care provider. Ambulate cautiously with a walker. I will prescribe [place]. Use this cautiously as discussed. Return for recurrent falls, uncontrolled symptoms, or anything else that you are concerned about and feel needs emergency department evaluation. Coding Level of Care Code ED Transportation Lead for [facility]
--- NOTE | 2022-11-12 14:27 | CTR_ITS ---
PROCEDURE INFORMATION: Exam: CT Pelvis Without Contrast Exam date and time: 11/12/2022 2:47 PM Age: 82 years old Clinical indication: Injury or trauma; Blunt trauma (contusions or hematomas); Right; Hip and pelvic region; Injury date: 11/03/2022; Injury details: Per pts family fall x9 days ago, bruising has extended from posterior RT buttocks down laterally RT femur mid leg; Additional info: Fall, R pelvis pain TECHNIQUE: Imaging protocol: Computed tomography of the pelvis without contrast. Radiation optimization: All CT scans at this facility use at least one of these dose optimization techniques: automated exposure control; mA and/or kV adjustment per patient size (includes targeted exams where dose is matched to clinical indication); or iterative reconstruction. REPORTING DATA: Count of CT and Cardiac NM exams in prior 12 months: This patient has received 4 known CTs and 0 known cardiac nuclear medicine studies in the 12 months prior to the current study. COMPARISON: CT abdomen pelvis wo con [id number] 08/05/2022 11:44 PM RADIATION DOSE METRICS: Total DLP (mGy-cm): 621.2 FINDINGS: Gallbladder and bile ducts: Cholelithiasis. Stomach and bowel: No bowel dilatation to suggest obstruction. Mild colonic diverticulosis without findings of diverticulitis. Appendix: Normal. Intraperitoneal space: Mild ascites similar to comparison. No free air or well organized fluid collection. Vasculature: Diffuse vascular calcifications without aneurysm. Lymph nodes: No enlarged lymph nodes. Urinary bladder: Urinary bladder is unremarkable. Reproductive: Normal as visualized. Bones/joints: No acute fracture. Degenerative changes of the lower lumbar spine and sacroiliac joints. Soft tissues: Diffuse subcutaneous edema with 7.7 x 3.2 cm hematoma superficial to the right greater trochanter. CT/CT pelvis wo con [id number] IMPRESSION: 1. No acute fracture. 2. 7.7 cm hematoma overlies the right greater trochanter. 3. Chronic and incidental findings as above, to include diffuse vascular calcifications, cholelithiasis, colonic diverticulosis, and mild ascites.
--- NOTE | 2022-11-12 14:27 | CTR_ITS ---
PROCEDURE INFORMATION: Exam: CT Right Lower Extremity Without Contrast; Thigh Exam date and time: 11/12/2022 2:47 PM Age: 82 years old Clinical indication: Injury or trauma; Blunt trauma; Thigh or upper leg; Right; Injury date: 11/03/2022; Injury details: Per pts family fall x9 days ago, bruising has extended from posterior RT buttocks down laterally RT femur mid leg; Additional info: Fall, worsening pain, suspected hematoma TECHNIQUE: Imaging protocol: CT of the right lower extremity without contrast was performed. Exam focused on the thigh. Radiation optimization: All CT scans at this facility use at least one of these dose optimization techniques: automated exposure control; mA and/or kV adjustment per patient size (includes targeted exams where dose is matched to clinical indication); or iterative reconstruction. REPORTING DATA: Count of CT and Cardiac NM exams in prior 12 months: This patient has received 4 known CTs and 0 known cardiac nuclear medicine studies in the 12 months prior to the current study. COMPARISON: CT abdomen pelvis wo con [id number] 08/05/2022 11:44 PM RADIATION DOSE METRICS: Total DLP (mGy-cm): 936.2 FINDINGS: Bones/joints: No acute fracture. Bilateral knee arthroplasties. Soft tissues: Diffuse subcutaneous edema of both legs. Elongated fluid collections along fascial planes of all compartments most pronounced along the superficial aspect of the anterior compartment. Vasculature: Diffuse vascular calcifications. Intraperitoneal space: Mild ascites. Reproductive: Large bilateral hydroceles. CT/CT femur RT wo con* [id number] IMPRESSION: 1. No acute fracture. 2. Diffuse edematous soft tissue swelling. Extensive elongated fluid collections along the fascial planes of all compartments most pronounced along the superficial anterior compartment raises possibility of degloving type injury. 3. Diffuse vascular calcifications. 4. Large bilateral hydroceles.
[2022-11-12] MEDS: fentaNYL 50 mcg/mL INJ 2mL IVP (15:12)
[2022-11-12 16:07] LABS: Basophils # 0.1 10^3/uL (0.0-0.1); Basophils % 0.9 %; Eosinophils # 0.1 10^3/uL (0.0-0.8); Hematocrit 29.5 % (42.0-52.0); Hemoglobin 9.5 g/dL (11.7-16.6); Lymphocytes # 1.9 10^3/uL (0.8-4.8); Lymphocytes % 24.1 %; Mean Corpuscular HGB Conc 32.2 g/dL (30.0-36.0); Mean Corpuscular Hemoglobin 31.7 pg (28.0-34.0); Mean Corpuscular Volume 98.3 fl (80-94); Mean Platelet Volume 10.1 fL (7.4-10.4); Monocytes % 12.3 %; Neutrophils # 4.84 10^3/uL (1.8-7.7); Neutrophils % 60.8 %; Nucleated Red Blood Cells % 0 %; Platelet Count 134 10^3/cmm (130-400); Red Cell Distribution Width 16.8 % (12.1-15.1)
[2022-11-12 16:12] LABS: Erythrocyte Sedimentation Rate 4 mm/hr (0-10)
[2022-11-12 16:27] LABS: Alanine Aminotransferase 12 U/L (0-41); Albumin Level 3.8 g/dL (3.5-5.2); Alkaline Phosphatase 115 U/L (40-130); Anion Gap 15.3 (5-19); Aspartate Amino Transferase 28 U/L (0-40); Blood Urea Nitrogen 41 mg/dL (8-23); Calcium 9.4 mg/dL (8.5-10.5); Carbon Dioxide 28 mmol/L (22-29); Chloride 100 mmol/L (98-107); Creatine Phosphokinase 36 U/L (39-308); Globulin 2.7 g/dL (1.3-4.6); Glucose 99 mg/dL (65-115); Osmolality Calculated 300 mOsm/kg (285-295); Potassium 3.3 mmol/L (3.5-5.1); Sodium 140 mmol/L (136-145); Total Bilirubin 3.9 mg/dL (0.15-1.2); Total Protein 6.5 g/dL (6.6-8.7)
[2022-11-12] MEDS: HYDROcodone-acetaminophen 5-325 mg Tablet 1 TAB PO (18:32)
--- NOTE | 2022-11-14 07:37 | DCPLANNER ---
Addendum entered by Juanita Brink 11/23/22 10:44: Patient had a follow up appointment scheduled with ortho - patient did attend appointment Original Note: manager forms had message to schedule a follow up appointment for patient with ortho. manager forms sent patients information to the front office staff at ortho. Patients information will be printed and reviewed. Clinic will call patient with appointment information.
== END 2022-11-12 18:46 | disposition home or self-care (01) ==
PROVIDERS: Emergency Provider Emergency Medicine; PCP Emergency Medicine Emergency Medical Services
DX: S32.591A Other specified fracture of right pubis, initial encounter for closed fracture (principal); W07.XXXA Fall from chair, initial encounter; D64.9 Anemia, unspecified
CPT/HCPCS: 36415; 72192; 73700; 80053; 82550; 85025; 85651; 86140; 96374; 99284; J3010

== ENCOUNTER → 2022-11-14 10:56 | Outpatient (BNVA) | payer OTHER, SELFPAY | PROVIDERS: PCP Emergency Medicine Emergency Medical Services; Visit Provider Nurse Practitioner Family | DX: I50.20 Unspecified systolic (congestive) heart failure (principal); I48.19 Other persistent atrial fibrillation; Z79.01 Long term (current) use of anticoagulants; Z87.891 Personal history of nicotine dependence | CPT/HCPCS: 99214 ==

== ENCOUNTER → 2022-11-17 13:55 | Outpatient (BNVA) | payer OTHER, SELFPAY | PROVIDERS: PCP Emergency Medicine Emergency Medical Services; Referring Provider Nurse Practitioner Family; Visit Provider Nurse Practitioner Family | DX: S32.511A Fracture of superior rim of right pubis, initial encounter for closed fracture (principal); W07.XXXA Fall from chair, initial encounter | CPT/HCPCS: 27197; 72190; 99204; 99214 ==

== ENCOUNTER 2022-11-19 23:07 | Emergency (ER) | payer OTHER, SELFPAY ==
[2022-11-19 23:10] VITALS: BP 119/68; PULSE 92; RESP 18; TEMP 36.3; O2SAT 96; BMI 32.0
--- NOTE | 2022-11-19 23:43 | ED_ITS ---
HPI - Skin/Abscess/Foreign Bdy General: Chief complaint: Skin/Abscess/Foreign Body Stated complaint: rash Time Seen by Provider: 11/19/22 23:26 History of Present Illness: 82-year-old male patient comes in today for complaints of itching/burning rash with whelps. Patient was given Benadryl at home and by the time he arrived to the ER the rashes started to clear. On my evaluation the rash was clear and patient was feeling better. Patient appears nontoxic. Patient appears no pain. Review of Systems General: Reports: 10 or more systems reviewed and unremarkable except in HPI and below Skin/Breast: Reports: rash, pruritus and erythema PFSH ED PFSH: Medical History Abnormal TSH Atrial fibrillation Atrial fibrillation Atrial fibrillation with RVR Chronic kidney disease (CKD) Deep venous thrombosis Diastolic CHF Elevated bilirubin Hyperkalemia Hypothyroid Pulmonary embolism Stenosis of prosthetic mitral valve Thrombocytopenia Transaminitis Tricuspid valve regurgitation, nonrheumatic Surgical History Hx of mitral valve replacement 2006 Family History Father Myocardial infarction Denies family history of Diabetes Stroke Social History Smoking and tobacco status: former smoker Alcohol intake: current Alcohol intake frequency: holidays/special occasions only Substance/Drug Use: never Physical Exam Const: COMMON NORMALS: alert HENMT: COMMON NORMALS: normocephalic HEAD & SCALP: normocephalic Neck/C-Spine: COMMON NORMALS: full ROM Chest: COMMONS NORMALS: normal inspection of the chest Resp: COMMON NORMALS: normal respiratory effort Cardio: COMMON NORMALS: regular rate and regular rhythm RATE: regular rate RHYTHM: regular rhythm GI: COMMON NORMALS: Soft to palpation and non-tender PALPATION: Yes Soft to palpation OTHER: Umbilical hernia noted Back/Pelvis: COMMON NORMALS: thoracic and lumbar spine normal to inspection Extremity: COMMON NORMALS: normal to inspection Neuro: SENSORIUM/ORIENTATION: Yes alert Skin: COMMON NORMALS: no rashes or lesions noted GENERAL SKIN EXAM: no rashes or lesions noted Course Vital Signs: Vital signs: Vital Signs Temperature 97.3 F L 11/19/22 23:10 Pulse Rate 92 11/19/22 23:10 Respiratory Rate 18 11/19/22 23:10 Blood Pressure 119/68 11/19/22 23:10 Pulse Oximetry 96 11/19/22 23:10 Oxygen Delivery Me thod Room Air 11/19/22 23:10 MDM - Skin/Abscess/Foreign Bdy Medicial Decision Making 82-year-old male patient comes in today with rash. On exam the rash is cleared and patient felt improvement of symptoms. Patient been given some Benadryl at home. Vital signs are normal. Differential diagnosis includes but not limited to anaphylaxis, allergic reaction, hives. Suspect patient does have a sensitivity to something he ate at supper that caused an allergic reaction. The use of the Benadryl resolved the symptoms. Patient was given 10 of dexamethasone to help with recurrence of symptoms. Patient was also given 1 cetirizine in the ER. Recommended continuing Claritin 10 mg 1 tablet twice daily to help with rash and itching for the next 5 days. Use Benadryl as needed for breakthrough symptoms. Follow-up with primary care. Family and patient both reported understanding. Discharge Plan Discharge Patient Disposition: Home Clinical Impression: Allergic reaction Qualifiers: Encounter type: initial encounter Qualified Code(s): T78.40XA - Allergy, unspecified, initial encounter Condition: Stable Prescriptions: New loratadine 10 mg tablet 10 mg PO BID Qty: 10 0RF No Action cholecalciferol (vitamin D3) 50 mcg (2,000 unit) capsule 50 mcg PO QAM hydrocodone-acetaminophen 5-325 mg tablet 1 tab PO Q4H PRN (Reason: pain) 5 Days Qty: 30 0RF Eliquis 5 mg Tablet 5 mg PO BID@0900,2100 Qty: 60 3RF bumetanide 1 mg Tablet 1 mg PO DAILY 30 Days Qty: 30 0RF lactulose 20 gram/30 mL Solution 20 g PO Q12H PRN (Reason: constipation) 30 Days Qty: 1200 0RF midodrine 10 mg tablet 10 mg PO Q8H 30 Days Qty: 90 0RF sucralfate 1 gram Tablet 1 g PO Q12H 30 Days Qty: 60 0RF pantoprazole 40 mg Tablet,Delayed Release (Dr/Ec) 40 mg PO BID 30 Days Qty: 60 0RF diltiazem HCl [Cardizem] 120 mg tablet 120 mg PO BID 30 Days Qty: 60 0RF metolazone 5 mg tablet 5 mg PO .mwf 30 Days Qty: 12 0RF zinc acetate 50 mg (zinc) Capsule 50 mg PO DAILY tamsulosin 0.4 mg capsule 0.4 mg PO DAILY potassium chloride 20 mEq Tablet Extended Release 20 meq PO DAILY ondansetron 4 mg tablet,disintegrating 4 mg PO Q8H PRN (Reason: nausea and vomiting) Qty: 15 0RF melatonin 10 mg Tablet 10 mg PO BEDTIME PRN (Reason: Sleep) levothyroxine [Levoxyl] 100 mcg Tablet 100 mcg PO QAM Qty: 90 3RF Discharge Orders: Discharge ED (Routine); Ordered 11/19/22 Ordered By: Bogdan Yanes Referrals: Daniel Rios DO [Primary Care Provider] - Discharge Diet: Usual diet Discharge Activity: Increase activity as tolerated Patient Instructions: Allergic Reaction Activity Restrictions/Additional Instructions: Continue loratadine 10 mg 1 tablet twice a day for the next 5 days to help prevent recurrence of rash. Use Benadryl as needed for breakthrough rash. Normal diet and fluids. Follow-up with primary care as needed. Return to ED for new concerns. 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
[2022-11-19] MEDS: cetirizine 10 mg Tablet PO (23:44)
[2022-11-19] MEDS: dexamethasone 10 mg/mL INJ IM (23:44)
[2022-11-20 00:29] VITALS: BP 115/60; PULSE 86; RESP 18; O2SAT 94
== END 2022-11-20 00:41 | disposition home or self-care (01) ==
PROVIDERS: Emergency Provider Nurse Practitioner Family; PCP Emergency Medicine Emergency Medical Services
DX: T78.1XXA Other adverse food reactions, not elsewhere classified, initial encounter (principal); R21 Rash and other nonspecific skin eruption; N18.9 Chronic kidney disease, unspecified; I50.9 Heart failure, unspecified; Z87.891 Personal history of nicotine dependence; X58.XXXA Exposure to other specified factors, initial encounter
CPT/HCPCS: 96372; 99284; J1100

== ENCOUNTER → 2022-12-20 12:35 | Outpatient (BNVA) | payer OTHER, SELFPAY | PROVIDERS: PCP Emergency Medicine Emergency Medical Services; Visit Provider Nurse Practitioner Family | DX: W07.XXXA Fall from chair, initial encounter; S32.511A Fracture of superior rim of right pubis, initial encounter for closed fracture | CPT/HCPCS: 72190; 99213 ==

== ENCOUNTER → 2022-12-27 13:37 | Outpatient (BNVA) | payer OTHER, SELFPAY | PROVIDERS: PCP Emergency Medicine Emergency Medical Services; Visit Provider Internal Medicine Cardiovascular Disease | DX: I50.9 Heart failure, unspecified (principal); I48.19 Other persistent atrial fibrillation; Z95.2 Presence of prosthetic heart valve; I36.1 Nonrheumatic tricuspid (valve) insufficiency; N18.9 Chronic kidney disease, unspecified; D69.6 Thrombocytopenia, unspecified; T82.857A Stenosis of other cardiac prosthetic devices, implants and grafts, initial encounter; Y99.8 Other external cause status | CPT/HCPCS: 99214 ==

== ENCOUNTER → 2023-01-16 10:01 | Outpatient (BNVA) | payer OTHER, SELFPAY | PROVIDERS: PCP Emergency Medicine Emergency Medical Services; Visit Provider Internal Medicine Pulmonary Disease | DX: J81.1 Chronic pulmonary edema (principal); I82.409 Acute embolism and thrombosis of unspecified deep veins of unspecified lower extremity; I50.20 Unspecified systolic (congestive) heart failure; I27.20 Pulmonary hypertension, unspecified; Z79.01 Long term (current) use of anticoagulants; M79.89 Other specified soft tissue disorders | CPT/HCPCS: 99204 ==

== ENCOUNTER 2023-01-29 19:44 | Inpatient (IN) | payer OTHER, SELFPAY ==
[2023-01-29 20:08] VITALS: BP 113/67; PULSE 87; RESP 18; TEMP 37.5; O2SAT 94; BMI 29.9
--- NOTE | 2023-01-29 21:32 | XRR_ITS ---
PROCEDURE INFORMATION: Exam: XR Chest Exam date and time: 01/29/2023 9:55 PM Age: 82 years old Clinical indication: Shortness of breath; Patient HX: SOB; Chest congestion; Copd; Smoker TECHNIQUE: Imaging protocol: Radiologic exam of the chest. Views: 1 view. COMPARISON: CR (CHEST, ) 10/30/2022 11:36 AM FINDINGS: Tubes, catheters and devices: Stable prosthetic mitral valve. Lungs: Calcified granuloma in the right upper lobe. [id number] interstitial pulmonary edema with superimposed atelectasis versus pneumonia in the right middle lobe and right and left lower lobes. Pleural spaces: Stable chronic right pleural effusion versus pleural thickening. No pneumothorax. Heart/Mediastinum: Stable marked enlargement of the cardiac silhouette. Enlargement of the central pulmonary arteries. Findings may suggest pulmonary hypertension. Vasculature: Vascular calcifications in the aorta. Bones/joints: Poststernotomy changes in the chest. Bones are diffusely osteopenic. Degenerative changes in the spine and shoulders. Osseous findings are stable. XR/XR chest 1V portable [id number] IMPRESSION: 1. [id number] interstitial pulmonary edema with superimposed atelectasis versus pneumonia in the right middle lobe and right and left lower lobes. Recommend followup chest imaging to insure resolution of these findings. 2. Stable chronic right pleural effusion versus pleural thickening. 3. Incidental/nonacute findings are listed in the report.
[2023-01-29 21:54] LABS: Basophils # 0.1 10^3/uL (0.0-0.1); Basophils % 0.5 %; Eosinophils # 0.1 10^3/uL (0.0-0.8); Eosinophils % 1.2 %; Hematocrit 32.3 % (37-53); Lymphocytes # 1.5 10^3/uL (0.8-4.8); Lymphocytes % 15.4 %; Mean Corpuscular HGB Conc 32.5 g/dL (30-55); Mean Corpuscular Hemoglobin 32.1 pg (27-33); Mean Corpuscular Volume 98.8 fl (82-101); Mean Platelet Volume 9.8 fL (7.4-10.4); Monocytes # 0.8 10^3/uL (0.2-0.9); Monocytes % 8.6 %; Neutrophils # 7.12 10^3/uL (1.8-7.7); Neutrophils % 73.8 %; Nucleated Red Blood Cells % 0 %; Platelet Count 98 10^3/cmm (157-399); Red Blood Count 3.27 10^6/uL (3.85-5.65); Red Cell Distribution Width 15.5 % (12.1-15.1); White Blood Count 9.66 10^3/uL (3.29-11.43)
[2023-01-29 22:08] LABS: Bilirubin Urine Neg (Negative); Glucose Urine UA Norm (Normal); Ketones Urine Negative (Negative); Nitrate Urine Negative (Negative); Protein Urine 1+ (Negative); Specific Gravity, Urine 1.005 (1.005-1.030); Urine Appearance Clear (CLEAR); Urine Color Amber (Yellow); Urobilinogen Urine 4 mg/dL (Negative); pH Urine 7 (5-7)
[2023-01-29 22:09] LABS: Add Urine Culture? No; Add Urine Microscopic? YES; Amorphous Sediment Urine 1+ /hpf; Blood Urine 2+ (Negative); Leukocyte Esterase Urine Negative (Negative); Squamous Epithelial Cell Urine 0-4 /hpf (0-5); WBC Urine RARE /hpf (0-5)
[2023-01-29 22:24] LABS: Alanine Aminotransferase 14 U/L (0-41); Albumin Level 4.1 g/dL (3.5-5.2); Alkaline Phosphatase 115 U/L (40-130); Anion Gap 14.4 (5-19); Aspartate Amino Transferase 30 U/L (0-40); Blood Urea Nitrogen 42 mg/dL (8-23); Calcium 9.1 mg/dL (8.5-10.5); Carbon Dioxide 28 mmol/L (22-29); Chloride 100 mmol/L (98-107); Glucose 102 mg/dL (65-115); Magnesium 2.4 mg/dL (1.7-2.3); NT Pro B Type Natriuretic Pept 7644 pg/mL (0-450); Osmolality Calculated 299 mOsm/kg (285-295); Potassium 3.4 mmol/L (3.5-5.1); Sodium 139 mmol/L (136-145); Total Bilirubin 2.5 mg/dL (0.15-1.2); Total Protein 7.1 g/dL (6.6-8.7)
--- NOTE | 2023-01-29 23:25 | ECG_ITS ---
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 Measurements Intervals [place] Rate: 99 P: 0 [place]: 0 QRS: 106 QRSD: 118 T: -81 QT: 409 QTc: 526 Interpretive Statements ATRIAL FIBRILLATION WITH ABERRANT CONDUCTION OR VENTRICULAR PREMATURE COMPLEXES POSSIBLE RIGHT VENTRICULAR HYPERTROPHY [SOME/ALL OF: PROMINENT R IN V1, LATE TRANSITION, RAD, ANN, SSS] NONSPECIFIC ST & T-WAVE ABNORMALITY PROLONGED QT INTERVAL Compared to ECG 10/29/2022 03:51:52 Ventricular premature complex(es) now present Aberrant conduction of supraventricular beat(s) now present T-wave abnormality now present Prolonged QT interval now present Poor R-wave progression no longer present Electronically Signed On 01-30-2023 23:14:41 CDT by Anneliese Aceves M.D. [email or web address]
--- NOTE | 2023-01-29 23:28 | W.ED.BACK ---
HPI - Back Pain/Injury General: Chief Complaint: Back Pain/Injury Stated Complaint: low back pain Time Seen by Provider: 01/29/23 21:04 History of Present Illness: 82-year-old male with complex medical history including atrial fibrillation, GERD, history of DVT, PE, CHF, thrombocytopenia, chronic renal insufficiency, hypertension and thyroid disorder presents emergency room with family due to vague complaint of mid back pain, fatigue, weakness and shortness of breath within the past few days. Patient denies any productive cough denies coughing up blood or vomiting blood. Patient with some leg swelling but denies any calf pain or neck pain. No known sick contact or recent foreign travel. Associated symptoms: Reports fatigue; Deny abdominal pain, fever(s), nausea, syncope or vomiting Review of Systems General: Reports: 10 or more systems reviewed and unremarkable except in HPI and below Const: Reports: fatigue and malaise; Denies: fever(s) or body aches Card: Reports: edema and dyspnea on exertion; Denies: chest pain, palpitations, irregular heart rhythm, syncope or pre-syncope Resp: Reports: dyspnea and productive cough; Denies: wheezing, pain on inspiration or change in phlegm color GI: Denies: abdominal pain, nausea, vomiting or hematemesis Musc: Reports: back pain, extremity swelling and joint swelling; Denies: extremity pain, joint redness, joint warmth or joint stiffness Neuro: Denies: headache(s), numbness in extremities, weakness in extremities or sensory changes [facility] ED PFSH: Medical History Abnormal TSH Atrial fibrillation Atrial fibrillation Atrial fibrillation with RVR Chronic kidney disease (CKD) Deep venous thrombosis Diastolic CHF Elevated bilirubin Hyperkalemia Hypothyroid Pulmonary embolism Stenosis of prosthetic mitral valve Thrombocytopenia Transaminitis Tricuspid valve regurgitation, nonrheumatic Surgical History Hx of mitral valve replacement 2005 Family History Father Myocardial infarction Denies family history of Diabetes Stroke Social History Smoking and tobacco/nicotine status: never used tobacco/nicotine Substance/Drug Use: never Physical Exam Const: COMMON NORMALS: patient oriented x3 HENMT: COMMON NORMALS: normocephalic, atraumatic, hearing grossly normal bilaterally, external ears normal, EAC's normal, TM's normal bilaterally, Normal external nose present, Normal nasal mucous membranes and turbinates present, moist oral mucous membranes, oropharynx normal, dentition normal and gingiva normal HEAD & SCALP: normocephalic and atraumatic NOSE: Normal external nose present and Normal nasal mucous membranes and turbinates present EXTERNAL EAR: Yes external ears normal EXTERNAL AUDITORY CANAL: EAC's normal TYMPANIC MEMBRANE: TM's normal bilaterally Neck/C-Spine: COMMON NORMALS: full ROM, no lymphadenopathy, supple, no meningeal signs, no JVD, Thyroid normal and No carotid bruits THYROID: Thyroid normal Chest: COMMONS NORMALS: normal inspection of the chest, normal palpation of entire chest wall, normal inspection of the breasts and normal palpation of the breasts Breast/axilla inspection: Yes normal inspection of the breasts BREAST/AXILLA PALPATION: Yes normal palpation of the breasts Resp: AUSCULTATION: crackles and diminished lung sounds on the right Cardio: COMMON NORMALS: no JVD, regular rate, regular rhythm, S1 normal heart sound present, S2 normal heart sound present and Peripheral pulses 2+ throughout PALPATION: normal PMI RATE: regular rate RHYTHM: regular rhythm HEART SOUNDS: S1 normal heart sound present, S2 normal heart sound present and Murmur heart sound present BRUITS: Abdominal aortic bruit present PERIPHERAL PULSES: Peripheral pulses 2+ throughout GI: COMMON NORMALS: Normal to inspection, nondistended, normoactive bowel sounds present, Soft to palpation, non-tender, No hepatosplenomegaly present, no masses and no bruits PALPATION: Yes Soft to palpation and Yes No hepatosplenomegaly present : COMMON NORMALS: Yes no CVA tenderness BLADDER/KIDNEY EXAM: Yes no CVA tenderness Back/Pelvis: COMMON NORMALS: no CVA tenderness, thoracic and lumbar spine normal to inspection, no thoracic nor lumbar tenderness, thoraco-lumbar ROM normal and straight leg raise negative bilaterally Extremity: COMMON NORMALS: capillary refill normal GENERAL: No calf tenderness and Yes edema (2 plus edema) Neuro: COMMON NORMALS: patient oriented x3, CN's II-XII intact bilaterally, moves all extremities, no focal motor deficits, no sensory deficits noted, deep tendon reflexes 2+ bilaterally and gait normal MENINGEAL SIGNS: Yes no meningeal signs Psych: COMMON NORMALS: mental status grossly normal, Normal thought process present, cooperative, normal affect, speech normal, activity/motor behavior normal, denies hallucinations, denies homicidal ideation and denies suicidal ideation SPEECH: Yes normal speech THOUGHT PROCESS: Normal thought process present Course Vital Signs: Vital signs: Vital Signs Temperature 98.6 F 01/30/23 20:00 Pulse Rate 78 01/30/23 22:08 Respiratory Rate 16 01/30/23 22:08 Blood Pressure 119/66 01/30/23 20:00 Pulse Oximetry 98 01/30/23 22:08 Oxygen Delivery Me thod Nasal Cannula 01/30/23 22:08 Oxygen Flow Rate 2 01/30/23 22:08 MDM - Back Pain/Injury Medical Decision Making Patient was made comfortable emergency room and had extensive work-up done including CBC, CMP, chest x-ray, CT scan and EKG. I discussed the CT scan and lab findings with patient and family. Discussed patient with the hospitalist patient was treated with IV antibiotic Differential Diagnosis Likely sciatica, strain of lumbar region, renal colic, pyelonephritis, thoracic back pain, AAA and discitis Labs 01/29/23 21:47 01/29/23 21:47 Radiology Impressions Chest X-Ray 01/29/23 21:32 IMPRESSION: 1. Cpoh-li-myxilvpr interstitial pulmonary edema with superimposed atelectasis versus pneumonia in the right middle lobe and right and left lower lobes. Recommend followup chest imaging to insure resolution of these findings. 2. Stable chronic right pleural effusion versus pleural thickening. 3. Incidental/nonacute findings are listed in the report. Lumbar Spine CT 01/30/23 13:10 IMPRESSION: Multilevel degenerative changes. No acute bony findings. 3.2 cm abdominal aortic aneurysm. Additional details as above. Pelvis CT 01/30/23 13:10 IMPRESSION: Early healing of right pubic fracture. No new abnormalities. Laboratory Results WBC 9.66 10^3/uL (3.29-11.43) 01/29/23 21:47 RBC 3.27 10^6/uL (3.85-5.65) L 01/29/23 21:47 Hgb 10.50 g/dL (11.27-16.99) L 01/29/23 21:47 Hct 32.3 % (37-53) L 01/29/23 21:47 MCV 98.8 fl (82-101) 01/29/23 21:47 MCH 32.1 pg (27-33) 01/29/23 21:47 MCHC 32.5 g/dL (30-55) 01/29/23 21:47 RDW 15.5 % (12.1-15.1) H 01/29/23 21:47 Plt Count 98 10^3/cmm (157-399) L 01/29/23 21:47 MPV 9.8 fL (7.4-10.4) 01/29/23 21:47 Neut % (Auto) 73.8 % 01/29/23 21:47 Lymph % (Auto) 15.4 % 01/29/23 21:47 [place] % (Auto) 8.6 % 01/29/23 21:47 Eos % (Auto) 1.2 % 01/29/23 21:47 Baso % (Auto) 0.5 % 01/29/23 21:47 Neut # (Auto) 7.12 10^3/uL (1.8-7.7) 01/29/23 21:47 Lymph # (Auto) 1.5 10^3/uL (0.8-4.8) 01/29/23 21:47 [place] # (Auto) 0.8 10^3/uL (0.2-0.9) 01/29/23 21:47 Eos # (Auto) 0.1 10^3/uL (0.0-0.8) 01/29/23 21:47 Baso # (Auto) 0.1 10^3/uL (0.0-0.1) 01/29/23 21:47 Nucleated RBC % (auto) 0 % 01/29/23 21:47 Nucleated RBCs # 0.0 /100WBC 01/29/23 21:47 Sodium 139 mmol/L (136-145) 01/29/23 21:47 Potassium 3.4 mmol/L (3.5-5.1) L 01/29/23 21:47 Chloride 100 mmol/L (98-107) 01/29/23 21:47 Carbon Dioxide 28 mmol/L (22-29) 01/29/23 21:47 Anion Gap 14.4 (5-19) 01/29/23 21:47 BUN 42 mg/dL (8-23) H 01/29/23 21:47 Creatinine 1.7 mg/dL (0.7-1.2) H 01/29/23 21:47 GFR Calculation Not Reportable 01/29/23 21:47 Glucose 102 mg/dL (65-115) 01/29/23 21:47 Calculated Osmolality 299 mOsm/kg (285-295) H 01/29/23 21:47 Calcium 9.1 mg/dL (8.5-10.5) 01/29/23 21:47 Magnesium 2.4 mg/dL (1.7-2.3) H 01/29/23 21:47 Total Bilirubin 2.5 mg/dL (0.15-1.2) H 01/29/23 21:47 AST 30 U/L (0-40) 01/29/23 21:47 ALT 14 U/L (0-41) 01/29/23 21:47 Alkaline Phosphatase 115 U/L (40-130) 01/29/23 21:47 Troponin T Baseline 31 ng/L (0-15) H 01/29/23 21:47 Troponin T 120 Minute 30.89 ng/L (0-15) H 01/30/23 00:07 Delta Troponin T -0.11 ABS# (0-10) L 01/30/23 00:07 NT-Pro-B Natriuret Pep 7644 pg/mL (0-450) H 01/29/23 21:47 Total Protein 7.1 g/dL (6.6-8.7) 01/29/23 21:47 Albumin 4.1 g/dL (3.5-5.2) 01/29/23 21:47 Globulin 3.0 g/dL (1.3-4.6) 01/29/23 21:47 Urine Color [place] (Yellow) 01/29/23 21:40 Urine Appearance Clear (CLEAR) 01/29/23 21:40 Urine pH 7 (5-7) 01/29/23 21:40 Ur Specific [place] 1.005 (1.005-1.030) 01/29/23 21:40 Urine Protein 1+ (Negative) H 01/29/23 21:40 Urine Glucose (UA) Norm (Normal) 01/29/23 21:40 Urine Ketones Negative (Negative) 01/29/23 21:40 Urine Blood 2+ (Negative) H 01/29/23 21:40 Urine Nitrate Negative (Negative) 01/29/23 21:40 Urine Bilirubin Neg (Negative) 01/29/23 21:40 Urine Urobilinogen 4 mg/dL (Negative) H 01/29/23 21:40 Ur Leukocyte Esterase Negative (Negative) 01/29/23 21:40 Urine RBC 5-10 /hpf (0-2) H 01/29/23 21:40 Urine WBC Rare /hpf (0-5) 01/29/23 21:40 Ur Squamous Epith Cells 0-4 /hpf (0-5) H 01/29/23 21:40 Amorphous Sediment 1+ /hpf 01/29/23 21:40 Urine Bacteria None /hpf (NONE) 01/29/23 21:40 XR interpretation done by ED provider, pending radiology final review Discharge Plan Discharge Patient Disposition: Admitted As Inpatient Admit Provider: Charlene Miles Clinical Impression: Thrombocytopenia, Systolic CHF, Chronic kidney disease (CKD), Pleural effusion Condition: Stable Coding Level of Care Code ED [employer] for Bethg Bacilio
[2023-01-29 23:45] LABS: Troponin(5th) Baseline 31 ng/L (0-15)
[2023-01-30] VITALS (23 sets, daily range): BP systolic 92–120; BP diastolic 56–83; PULSE 60–120; RESP 15–27; TEMP 37–37.1; O2SAT 92–100
[2023-01-30 00:42] LABS: Troponin 5 2HR 30.89 ng/L (0-15)
[2023-01-30 00:44] LABS: Troponin 5 2HR Delta -0.11 ABS# (0-10)
[2023-01-30] MEDS: FUROsemide 10 mg/mL SDV 4mL 40 MG IVP (00:44)
[2023-01-30] MEDS: cefTRIAXone 1,000 MG in sodium chloride 0.9% (plus) 50 ML 100 MG IV (00:45)
[2023-01-30] MEDS: azithromycin 500 MG in sodium chloride 0.9% 250 ML 250 MG IV (00:47)
--- NOTE | 2023-01-30 03:05 | PM.HP ---
Providers/Chief Complaint Admitting Physician: Charlene Miles MD Primary Care Provider: Daniel Rios DO Chief Complaint: low back pain History of Present Illness Ernst Garcia is a 82 year old male with history of hypertension CHF hypothyroidism BPH atrial fibrillation on Eliquis was brought in by family for complaint of low back pain since 1 day. As per the family he seems to be not his usual for the last 2 days. There is no history of fever cold cough chest pain shortness of breath abdominal pain nausea vomiting or urinary complaints. As per the , she reports she thought low back pain was secondary to UTI and hence he was brought to the hospital. Family is in denial about the chest x-ray findings and BNP and does not want to get him any IV antibiotics or Lasix at this time until he sees cardiology in a.m. Review of Systems Narrative: As per HPI Medications/Allergies Home Medications Medication Instructions Recorded Confirmed Last Taken Type cholecalciferol (vitamin D3) 50 50 mcg PO QAM 10/13/20 01/16/23 11/12/22 History mcg (2,000 unit) capsule melatonin 10 mg tablet 10 mg PO BEDTIME PRN Sleep 08/28/22 01/16/23 08/27/22 History levothyroxine 100 mcg tablet 100 mcg PO QAM #90 tabs 08/31/22 01/16/23 11/12/22 Rx (Levoxyl) ondansetron 4 mg disintegrating 4 mg PO Q8H PRN nausea and 11/12/22 01/16/23 Unknown Rx tablet vomiting #15 tabs potassium chloride 20 mEq 20 meq PO DAILY 11/12/22 01/16/23 11/12/22 History tablet,extended release tamsulosin 0.4 mg capsule 0.4 mg PO DAILY 11/12/22 01/16/23 11/12/22 History zinc acetate 50 mg (zinc) capsule 50 mg PO DAILY 11/12/22 01/16/23 11/12/22 History hydrocodone 5 mg-acetaminophen 325 1 tab PO Q6H PRN pain 5 days #20 12/20/22 01/16/23 Unknown Rx mg tablet tabs bumetanide 1 mg tablet 1 mg PO DIRECTED 12/27/22 01/16/23 Unknown History diltiazem HCl 120 mg 120 mg PO BID 12/27/22 01/16/23 Unknown History capsule,extended release 12 hr loratadine 10 mg tablet 10 mg PO BID PRN 12/27/22 01/16/23 Unknown History metolazone 5 mg tablet 5 mg PO .MWF 12/27/22 01/16/23 Unknown History midodrine 10 mg tablet 10 mg PO TID 12/27/22 01/16/23 Unknown History pantoprazole 40 mg tablet,delayed 40 mg PO DAILY PRN 12/27/22 01/16/23 Unknown History release sucralfate 1 gram tablet (Carafate) 1 g PO BID 12/27/22 01/16/23 Unknown History apixaban 2.5 mg tablet (Eliquis) 2.5 mg PO BID #60 tabs 01/16/23 01/16/23 Unknown Rx Allergies Allergy/AdvReac Type Severity Reaction Status Date / Time codeine Allergy Unknown Unknown Verified 01/16/23 10:30 acetaminophen [From Percocet] Allergy Unknown Verified 01/16/23 10:30 Histamine H2 Inhibitors Allergy Unknown Verified 01/16/23 10:30 oxycodone [From Percocet] Allergy Unknown Verified 01/16/23 10:30 pork derived (porcine) Allergy Unknown Verified 01/16/23 10:30 shellfish derived Allergy Unknown Verified 01/16/23 10:30 PFSH Acute PFSH: Medical History Abnormal TSH Atrial fibrillation Atrial fibrillation Atrial fibrillation with RVR Chronic kidney disease (CKD) Deep venous thrombosis Diastolic CHF Elevated bilirubin Hyperkalemia Hypothyroid Pulmonary embolism Stenosis of prosthetic mitral valve Thrombocytopenia Transaminitis Tricuspid valve regurgitation, nonrheumatic Surgical History Hx of mitral valve replacement 2006 Family History Father Myocardial infarction Denies family history of Diabetes Stroke Social History Smoking and tobacco/nicotine status: never used tobacco/nicotine Substance/Drug Use: never Vitals/I&O/Wt Last Vital Signs Temp 99.5 F 01/29/23 20:08 Pulse 99 01/30/23 01:28 Resp 18 01/30/23 01:20 BP 92/63 01/30/23 01:20 Pulse Ox 94 01/30/23 01:28 O2 Del Method Nasal Cannula 01/30/23 01:36 01/29/23 01/29/23 01/30/23 14:59 22:59 06:59 Intake Total 50 / 50 Output Total 175 / 175 Balance -125 / -125 Weight last 48 hrs Weight 92.079 kg Physical Exam Narrative: He is alert awake oriented x3 Chest air entry equal on both sides crackles heard over left basilar area Cardiovascular normal heart sounds no murmurs Abdomen NAD Extremities 1+ pitting edema bilateral lower extremity Data 01/29/23 21:47 01/29/23 21:47 Micro: Microbiology 01/30/23 00:07 Blood Culture - Preliminary Blood SPECIMEN COLLECTED 01/29/23 23:42 Blood Culture - Preliminary Blood SPECIMEN COLLECTED CXR: Radiologist's impression: IMPRESSION: 1. ? Fste-rm-dayxefyk interstitial pulmonary edema with superimposed atelectasis versus pneumonia in the right middle lobe and right and left lower lobes. Recommend followup chest imaging to insure resolution of these findings. 2. ? Stable chronic right pleural effusion versus pleural thickening. 3. ? Incidental/nonacute findings are listed in the report. ? EKG 1: My Interpretation: Atrial fibrillation at [address]-T changes Prolonged QT intervals QTc 526 A&P Assessment and plan (1) Pneumonia: (2) CHF exacerbation: Plan 82 year old male with history of hypertension CHF hypothyroidism BPH atrial fibrillation on Eliquis was brought in by family for complaint of low back pain since 1 day and was found to have a BNP of 7200 with chest x-ray consistent with fluid overload versus pneumonia. Counseled and explained the family about the treatment plan for the patient, but they refused for IV antibiotics and Lasix until he was seen by cardiology Dr. Clarence Serrano. He received 1 dose of IV Lasix ceftriaxone and azithromycin in the ER Will follow-up with cardiology in a.m. Daily weight Monitor I's and O's Resume home medications Cardiac diet for now IV pantoprazole 40 mg twice a day for stress ulcer prophylaxis He is on Eliquis for atrial fibrillation, no further need for DVT prophylaxis He is full code. Attestations Medical Necessity Statement*: He might need 2 days of continued hospitalization for management of CHF versus pneumonia Time Spent in Patient Care: 30 minutes Coding Level of Care Code Acute Code for Chg Fwd Diagnoses Pneumonia J18.9 CHF exacerbation I50.9 Time Spent (min) 30
[2023-01-30 05:52] LABS: NT Pro B Type Natriuretic Pept 9371 pg/mL (0-450)
[2023-01-30] MEDS: levothyroxine 100 mcg Tablet PO (07:06)
[2023-01-30] MEDS: cholecalciferol (vitamin D3) 1,000 unit Tablet 2000 UNIT PO (07:06)
[2023-01-30] MEDS: pantoprazole 40 mg SDV IVP (07:06)
[2023-01-30] MEDS: albuterol 2.5 mg/3 mL Neb INHALATION (09:26)
[2023-01-30] MEDS: potassium chloride ER 20 mEq Tablet PO (09:32)
[2023-01-30] MEDS: tamsulosin 0.4 mg Capsule PO (09:32)
[2023-01-30] MEDS: midodrine 5 mg TABLET 10 MG PO ×3 (09:32→22:53)
[2023-01-30] MEDS: apixaban 5 mg Tablet 2.5 MG PO ×2 (09:32→18:39)
[2023-01-30] MEDS: dilTIAZem ER (24HR) 120 mg Capsule PO ×2 (09:33→18:39)
[2023-01-30] MEDS: metOLazone 5 MG Tablet PO (09:33)
[2023-01-30] MEDS: sucralfate 1 gm Tablet PO ×2 (09:33→18:39)
[2023-01-30] MEDS: zinc gluconate 50 mg Tablet PO (09:33)
[2023-01-30] MEDS: bumetanide 1 mg Tablet PO (09:33)
--- NOTE | 2023-01-30 13:10 | CTR_ITS ---
PROCEDURE INFORMATION: Exam: CT Pelvis Without Contrast; Skeletal Exam date and time: 01/30/2023 6:10 PM Age: 82 years old Clinical indication: Pelvic pain; Additional info: Back pain, known pubic fracture , recurrent falls, C/O worsening back TECHNIQUE: Imaging protocol: Computed tomography of the pelvis without contrast. Exam focused on the skeleton. Radiation optimization: All CT scans at this facility use at least one of these dose optimization techniques: automated exposure control; mA and/or kV adjustment per patient size (includes targeted exams where dose is matched to clinical indication); or iterative reconstruction. REPORTING DATA: Count of CT and Cardiac NM exams in prior 12 months: This patient has received 6 known CTs and 0 known cardiac nuclear medicine studies in the 12 months prior to the current study. COMPARISON: CT pelvis wo con [id number] 11/12/2022 2:47 PM RADIATION DOSE METRICS: Total DLP (mGy-cm): 457 FINDINGS: Bones/joints: Bony callus is seen developing at the margins of the previously demonstrated right pubic fracture. Bony bridging not currently demonstrated at pubic fracture site. No evident change in position/alignment. Diffuse osteopenia noted. No new abnormalities. Soft tissues: Unremarkable. CT/CT bony pelvis [id number] IMPRESSION: Early healing of right pubic fracture. No new abnormalities.
--- NOTE | 2023-01-30 13:10 | CTR_ITS ---
PROCEDURE INFORMATION: Exam: CT Lumbar Spine Without Contrast Exam date and time: 01/30/2023 6:10 PM Age: 82 years old Clinical indication: Low back pain; Additional info: Low back pain, h/o recurrent falls TECHNIQUE: Imaging protocol: Computed tomography of the lumbar spine without contrast. Radiation optimization: All CT scans at this facility use at least one of these dose optimization techniques: automated exposure control; mA and/or kV adjustment per patient size (includes targeted exams where dose is matched to clinical indication); or iterative reconstruction. REPORTING DATA: Count of CT and Cardiac NM exams in prior 12 months: This patient has received 6 known CTs and 0 known cardiac nuclear medicine studies in the 12 months prior to the current study. COMPARISON: CT pelvis wo con [id number] 11/12/2022 2:47 PM RADIATION DOSE METRICS: Total DLP (mGy-cm): 935 FINDINGS: Bones/joints: Diffuse osteopenia. Multilevel degenerative disc change greatest at L4-L5 and L5-S1 where there is marked disc space loss. Multilevel facet arthrosis greatest at L2-L3 and L3-L4. Multilevel bilateral neural foraminal narrowing. Multilevel Schmorl's nodes noted. No acute bony findings. Pleural spaces: Bilateral pleural fluid suggested right greater than left. Kidneys and ureters: 3 mm left renal calculus suggested. Vasculature: Infrarenal abdominal aortic aneurysm measures up to 3.2 cm greatest dimension. No evident rupture. Soft tissues: Unremarkable. CT/CT lumbar spine wo con* [id number] IMPRESSION: Multilevel degenerative changes. No acute bony findings. 3.2 cm abdominal aortic aneurysm. Additional details as above.
--- NOTE | 2023-01-30 13:19 | P.PN_ITS ---
Subjective Subjective: Overnight labs and H&P reviewed. states patient has been complaining of lower back pain for the last 3 to 4 days. He has not had any recent falls though does have some spontaneous bruising noted over the chest wall. Patient is continuing to be on Eliquis 2.5 mg twice daily, dose reduced recently. Clarified status of anticoagulation with him with him as outpatient notes were conflicting regarding continuing anticoagulation. Per cardiology notes from December 27, 2022, patient notes s tates he is not on anticoagulation due to advanced age. states that she brought him in after patient started c/o generalized discomfort and weakness after she had increased diuresis last week to Bumex 1 mg po BID and then skipped one day yesterday. Bumex has been resumed. Medications: Reviewed: Yes Vitals/I&O/Wt Last Vital Signs Temp 98.8 F 01/30/23 02:55 Pulse 83 01/30/23 10:00 Resp 18 01/30/23 09:26 BP 105/67 01/30/23 11:00 Pulse Ox 95 01/30/23 11:00 O2 Del Method Room Air 01/30/23 09:26 O2 Flow Rate 2 01/30/23 05:00 01/29/23 01/30/23 01/30/23 22:59 06:59 14:59 Intake Total 300 / 300 540 / 540 Output Total 800 / 800 1325 / 1325 Balance -500 / -500 -785 / -785 Weight last 48 hrs Weight 92.079 kg Weight 92.079 kg Physical Exam Narrative: General: No acute distress, AO x3 HEENT: PERRLA, pupils bilaterally equal and reactive, pallors not present Chest: Normal vesicular breath sounds, no added sounds, equal good air entry bilaterally CVS: S1-S2 regular, no murmurs, no tachycardia, no gallops, no rubs Abdomen: Soft, nontender, no organomegaly, bowel sounds present Neuro: No focal deficits, no facial deformity, AO x3, power 5/5 in all limbs Extremities: Bilateral lower extremity edema, chronic, no signs of cellulitis. Data 01/29/23 21:47 01/29/23 21:47 Micro: Microbiology 01/30/23 00:07 Blood Culture - Preliminary Blood SPECIMEN COLLECTED 01/29/23 23:42 Blood Culture - Preliminary Blood SPECIMEN COLLECTED A&P Assessment and plan (1) CHF exacerbation: (2) Liver cirrhosis: (3) Pulmonary hypertension: (4) Tricuspid valve regurgitation, nonrheumatic: (5) Pulmonary embolism: (6) Deep venous thrombosis: (7) Chronic kidney disease (CKD): (8) Atrial fibrillation: Qualifiers: Atrial fibrillation type: persistent (not longstanding) Qualified Code(s): I48.19 - Other persistent atrial fibrillation Plan 82 year old male with past medical history of CAD, diastolic CHF, history of DVT for which she is currently on Eliquis,atrial fibrillation on Eliquis was brought in by family for complaint of low back pain. Family denies any fall recently, most recent fall was not September which patient suffered a pelvic fracture which is on conservative management per orthopedics. #Low back pain Patient states his pain has acutely worsened over the last 2 to 3 days. Does not recall any trauma, however he is noted to have some spontaneous bruising over his chest wall. Lower back is tender to palpation We will obtain a CT of the pelvis and CT of the lumbar spine to evaluate for any new displacement of known pelvic fracture versus any new fracture in the interim's. #Acute on chronic diastolic CHF exacerbation Patient has been on Bumex 1 mg p.o. twice daily and alternate day metolazone 5 mg p.o. His was concerned that she may have over diuresed him at home resulting in dehydration and generalized weakness. Reassured her that overall patient is hypervolemic rather than dehydrated. His BNP is elevated. Chest x-ray showing bilateral infiltrates most likely to be consistent with known pulmonary edema. His lower extremity edema is persisting though overall appears to be stable and at baseline. She is agreeable to resuming Bumex 1 mg p.o. daily with alternate day metola zone. Monitor urine output and renal function. Creatinine is currently at baseline of 1.7. It appears overnight patient had requested specifically to be treated by Dr. Zach Fry has not been very happy with his overall care. Unfortunately Dr. Fry is not on service this week, unable to care for the patient. This was discussed with the family and they are amenable to continuing care with the hospitalist service and current providers. #A-fib Currently rate controlled Eliquis dose recently reduced to 2.5 mg twice daily as outpatient. Clarified with his outpatient qualifications examiner that okay to continue anticoagulation for now if patient does not suffer any new falls or major bleeding episodes. Hemoglobin is currently stable. #UA not currently indicative of UTI. Patient has previously had UTIs with Enterobacter erogenes. This was one of the family's concerns with ongoing back pain. Currently on ceftriaxone empirically while awaiting urine cx # intertrigo: Clotrimazole local application Cardiac diet for now PO pantoprazole 40 mg twice a day for stress ulcer prophylaxis He is on Eliquis for atrial fibrillation, will suffice for DVT prophylaxis He is full code. Attestations Medical Necessity Statement*: pending pelvis CT Coding Level of Care Code Acute Code for Chg Fwd Diagnoses CHF exacerbation I50.9 Liver cirrhosis K74.60 Pulmonary hypertension I27.20 Tricuspid valve regurgitation, nonrheumatic I36.1 Pulmonary embolism I26.99 Deep venous thrombosis I82.409 Chronic kidney disease (CKD) N18.9 Atrial fibrillation I48.19 Atrial fibrillation type: persistent (not longstanding)
[2023-01-30] MEDS: pantoprazole DR 40 mg Tablet PO (18:39)
[2023-01-31] VITALS (7 sets, daily range): BP systolic 97; BP diastolic 55–61; PULSE 65–72; RESP 16–18; TEMP 37–37.1; O2SAT 95–100
[2023-01-31] MEDS: cefTRIAXone 1,000 MG in sodium chloride 0.9% (plus) 50 ML 100 MG IV (01:48)
[2023-01-31 04:34] LABS: Basophils # 0.1 10^3/uL (0.0-0.1); Basophils % 0.8 %; Eosinophils # 0.3 10^3/uL (0.0-0.8); Eosinophils % 4.4 %; Hematocrit 28.3 % (37-53); Lymphocytes # 1.9 10^3/uL (0.8-4.8); Lymphocytes % 26.6 %; Mean Corpuscular HGB Conc 32.9 g/dL (30-55); Mean Corpuscular Hemoglobin 32.1 pg (27-33); Mean Corpuscular Volume 97.6 fl (82-101); Mean Platelet Volume 9.8 fL (7.4-10.4); Monocytes # 0.8 10^3/uL (0.2-0.9); Monocytes % 11.3 %; Neutrophils # 4.07 10^3/uL (1.8-7.7); Neutrophils % 56.2 %; Nucleated Red Blood Cells % 0 %; Platelet Count 92 10^3/cmm (157-399); Red Cell Distribution Width 15.2 % (12.1-15.1); White Blood Count 7.25 10^3/uL (3.29-11.43)
[2023-01-31 05:00] LABS: Alanine Aminotransferase 10 U/L (0-41); Albumin Level 3.6 g/dL (3.5-5.2); Alkaline Phosphatase 98 U/L (40-130); Anion Gap 12.9 (5-19); Aspartate Amino Transferase 24 U/L (0-40); Blood Urea Nitrogen 39 mg/dL (8-23); Calcium 8.7 mg/dL (8.5-10.5); Carbon Dioxide 28 mmol/L (22-29); Chloride 99 mmol/L (98-107); Globulin 2.7 g/dL (1.3-4.6); Glucose 84 mg/dL (65-115); Magnesium 2.2 mg/dL (1.7-2.3); Osmolality Calculated 293 mOsm/kg (285-295); Phosphorus 3.3 mg/dL (2.5-4.5); Sodium 137 mmol/L (136-145); Total Bilirubin 1.7 mg/dL (0.15-1.2); Total Protein 6.3 g/dL (6.6-8.7)
[2023-01-31 05:11] LABS: Potassium 2.9 mmol/L (3.5-5.1)
[2023-01-31] MEDS: cholecalciferol (vitamin D3) 1,000 unit Tablet 2000 UNIT PO (06:35)
[2023-01-31] MEDS: levothyroxine 100 mcg Tablet PO (06:36)
[2023-01-31] MEDS: lidocaine 1% 5 ML in potassium chloride premix 100 ML 26.25 ML IV (06:37)
--- NOTE | 2023-01-31 06:51 | PC.NURSE ---
Patients potassium was 2.9 this morning. ordered IV potassium 40MEQ X 1.
[2023-01-31] MEDS: midodrine 5 mg TABLET 10 MG PO (08:28)
[2023-01-31] MEDS: bumetanide 1 mg Tablet PO (08:28)
[2023-01-31] MEDS: sucralfate 1 gm Tablet PO (08:28)
[2023-01-31] MEDS: zinc gluconate 50 mg Tablet PO (08:28)
[2023-01-31] MEDS: pantoprazole DR 40 mg Tablet PO (08:28)
[2023-01-31] MEDS: potassium chloride ER 20 mEq Tablet PO ×2 (08:28→16:29)
[2023-01-31] MEDS: dilTIAZem ER (24HR) 120 mg Capsule PO (08:29)
[2023-01-31] MEDS: tamsulosin 0.4 mg Capsule PO (08:29)
[2023-01-31] MEDS: apixaban 5 mg Tablet 2.5 MG PO (08:29)
--- NOTE | 2023-01-31 09:30 | PC.CHAP ---
Pastoral Care Encounter/Spiritual Assessment Type of Contact [] Declined net developer consultant visit [] Patient/Family/Request visit [] Outpatient visit [] Follow-up visit [] Physician referral [] Code/Alert [x] Routine visit [] Staff referral [] Actively dying [] Patient sleeping [] Family support [] [] Out of room [] Palliative care [] [] Receiving care in room [] Pre-surgical visit [] Trauma [] Long length of stay [] ICU visit [] Other: Relational/Emotional Strength [x] Patient feels connected with others/family/visitors/staff [] Distress [] Loneliness/isolation [] Abandonment Spirituality of Patient [x] Person of Sofía [] Attends Religious of their Sofía [] Believes in Prayer [] Reads Bible or Alevism materials [x] There are Spiritual issues to be addressed Manager Bar Interventions [x] Prayer [x] Active listening [] Non-anxious presence [] Spiritual/emotional support [] Crisis/trauma care [] Spiritual counseling [] Bereavement support [] Provided bereavement packet [] Provided Bible/devotional materials [] Provided toy/stuffed animal, coloring book to patient or family member [] Provided Communion [] Anointing/[place] [] Salvation [x] Completed spiritual assessment [] Other: Impact on Illness or Injury [] Angry [] Fearful [] Anxious [] Often cries [] Exhaustion [] Unable to work [] Unable to attend religious [] Unable to walk/stand [] Unable to read [] Unable to drive [] Unable to eat/drink [] Unable to sleep [] Unable to be with family [] Patient intubated [] Other: Summary Time spent with patient 5 min
[2023-01-31 15:02] LABS: Potassium 3.4 mmol/L (3.5-5.1)
--- NOTE | 2023-01-31 15:56 | P.DS_ITS ---
Discharge Providers Date of Admission: 01/30/23 01:22 Date of Discharge: January 31, 2023 Attending Provider at Admission: Charlene Miles MD Attending Provider at Discharge: Kanchan Fields MD Primary Care Provider: Daniel Rios DO Diagnoses at Discharge Discharge Diagnosis (1) CHF exacerbation: Status: Acute (2) Liver cirrhosis: Status: Acute (3) Pulmonary hypertension: Status: Acute (4) Tricuspid valve regurgitation, nonrheumatic: Status: Acute (5) Pulmonary embolism: Status: Acute (6) Deep venous thrombosis: Status: Acute (7) Chronic kidney disease (CKD): Status: Acute (8) Atrial fibrillation: Status: Acute Qualifiers: Atrial fibrillation type: persistent (not longstanding) Qualified Code(s): I48.19 - Other persistent atrial fibrillation Reason for Visit Reason for Visit: low back pain Brief History: Ernst Garcia is a 82 year old male with history of hypertension CHF hypothyroidism BPH atrial fibrillation on Eliquis was brought in by family for complaint of low back pain since 1 day.??As per the , she reports she thought low back pain was secondary to UTI and hence he was brought to the hospital. Hospital course as below: #Low back pain Patient stated his pain has acutely worsened over the last 2 to 3 days. Does not recall any trauma CT of the pelvis and CT of the lumbar spine to evaluate for any new displacement of known pelvic fracture versus any new fracture was overall negative. showed healing pelvic fracture. Incidentally noted 3.2 cm abdominal aortic aneurysm, not ruptured, recommed f/up with PCP. #Acute on chronic diastolic CHF exacerbation Patient has been on Bumex 1 mg p.o. twice daily and alternate day metolazone 5 mg p.o. His was concerned that she may have over diuresed him at home resulting in dehydration and generalized weakness. Reassured her that overall patient is hypervolemic rather than dehydrated.? His BNP is elevated.? Chest x-ray showing bilateral infiltrates most likely to be consistent with known pulmonary edema. His lower extremity edema is persisting though overall appears to be stable and at baseline. we resumed Bumex 1 mg p.o. daily with alternate day metolazone. Monitor urine output and renal function. Creatinine is currently at baseline of 1.5. Recommend to continue Bumex 1mg po Bid for next 3 days and then reduce dose to 1mg po daily. #A-fib Currently rate controlled Eliquis dose recently reduced to 2.5 mg twice daily as outpatient. 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 Hemoglobin is currently stable. #UA not currently indicative of UTI.? Patient has previously had UTIs with Enterobacter aerogenes.? This was one of the family's concerns with ongoing back pain.eventually UA and urine cx returned negative, making UTI unlikely. Abx ewre discontinued. # intertrigo: Clotrimazole local application Cardiac diet for now PO pantoprazole 40 mg twice a day for stress ulcer prophylaxis He is on Eliquis for atrial fibrillation, will suffice for DVT prophylaxis He is full code. Physical Exam Narrative: General: No acute distress, AO x3 HEENT: PERRLA, pupils bilaterally equal and reactive, pallors not present Chest: Normal vesicular breath sounds, no added sounds, equal good air entry bilaterally CVS: S1-S2 regular, no murmurs, no tachycardia, no gallops, no rubs Abdomen: Soft, nontender, no organomegaly, bowel sounds present Neuro: No focal deficits, no facial deformity, AO x3, power 5/5 in all limbs Extremities: chronic LE pitting edema Discharge Data Studies Completed and Pending Completed Studies During Hospitalization Category Date Time Status CT lumbar spine wo con* [id number] Routine Cat Scan 01/30/23 13:[address] pelvis wo bone [CT bony pelvis [id number]] Routine Cat Scan 01/30/23 13:10 Completed XR chest 1V portable [id number] Stat Exams 01/29/23 21:32 Completed Pending at discharge Category Date Time Status Blood Culture Stat Lab 01/29/23 23:42 Results Radiology Impressions Chest X-Ray 01/29/23 21:32 IMPRESSION: 1. Eber-sa-ighbemdo interstitial pulmonary edema with superimposed atelectasis versus pneumonia in the right middle lobe and right and left lower lobes. Recommend followup chest imaging to insure resolution of these findings. 2. Stable chronic right pleural effusion versus pleural thickening. 3. Incidental/nonacute findings are listed in the report. Lumbar Spine CT 01/30/23 13:10 IMPRESSION: Multilevel degenerative changes. No acute bony findings. 3.2 cm abdominal aortic aneurysm. Additional details as above. Pelvis CT 01/30/23 13:10 IMPRESSION: Early healing of right pubic fracture. No new abnormalities. Laboratory Results WBC 7.25 10^3/uL (3.29-11.43) 01/31/23 04:27 RBC 2.90 10^6/uL (3.85-5.65) L 01/31/23 04:27 Hgb 9.30 g/dL (11.27-16.99) L 01/31/23 04:27 Hct 28.3 % (37-53) L 01/31/23 04:27 MCV 97.6 fl (82-101) 01/31/23 04:27 MCH 32.1 pg (27-33) 01/31/23 04:27 MCHC 32.9 g/dL (30-55) 01/31/23 04:27 RDW 15.2 % (12.1-15.1) H 01/31/23 04:27 Plt Count 92 10^3/cmm (157-399) L 01/31/23 04:27 MPV 9.8 fL (7.4-10.4) 01/31/23 04:27 Neut % (Auto) 56.2 % 01/31/23 04:27 Lymph % (Auto) 26.6 % 01/31/23 04:27 [place] % (Auto) 11.3 % 01/31/23 04:27 Eos % (Auto) 4.4 % 01/31/23 04:27 Baso % (Auto) 0.8 % 01/31/23 04:27 Neut # (Auto) 4.07 10^3/uL (1.8-7.7) 01/31/23 04:27 Lymph # (Auto) 1.9 10^3/uL (0.8-4.8) 01/31/23 04:27 [place] # (Auto) 0.8 10^3/uL (0.2-0.9) 01/31/23 04:27 Eos # (Auto) 0.3 10^3/uL (0.0-0.8) 01/31/23 04:27 Baso # (Auto) 0.1 10^3/uL (0.0-0.1) 01/31/23 04:27 Nucleated RBC % (auto) 0 % 01/31/23 04:27 Nucleated RBCs # 0.0 /100WBC 01/31/23 04:27 Sodium 137 mmol/L (136-145) 01/31/23 04:27 Potassium 3.4 mmol/L (3.5-5.1) L 01/31/23 14:36 Chloride 99 mmol/L (98-107) 01/31/23 04:27 Carbon Dioxide 28 mmol/L (22-29) 01/31/23 04:27 Anion Gap 12.9 (5-19) 01/31/23 04:27 BUN 39 mg/dL (8-23) H 01/31/23 04:27 Creatinine 1.5 mg/dL (0.7-1.2) H 01/31/23 04:27 GFR Calculation Not Reportable 01/31/23 04:27 Glucose 84 mg/dL (65-115) 01/31/23 04:27 Calculated Osmolality 293 mOsm/kg (285-295) 01/31/23 04:27 Calcium 8.7 mg/dL (8.5-10.5) 01/31/23 04:27 Phosphorus 3.3 mg/dL (2.5-4.5) 01/31/23 04:27 Magnesium 2.2 mg/dL (1.7-2.3) 01/31/23 04:27 Total Bilirubin 1.7 mg/dL (0.15-1.2) H 01/31/23 04:27 AST 24 U/L (0-40) 01/31/23 04:27 ALT 10 U/L (0-41) 01/31/23 04:27 Alkaline Phosphatase 98 U/L (40-130) 01/31/23 04:27 Troponin T Baseline 31 ng/L (0-15) H 01/29/23 21:47 Troponin T 120 Minute 30.89 ng/L (0-15) H 01/30/23 00:07 Delta Troponin T -0.11 ABS# (0-10) L 01/30/23 00:07 NT-Pro-B Natriuret Pep 9371 pg/mL (0-450) H 01/30/23 04:33 Total Protein 6.3 g/dL (6.6-8.7) L 01/31/23 04:27 Albumin 3.6 g/dL (3.5-5.2) 01/31/23 04:27 Globulin 2.7 g/dL (1.3-4.6) 01/31/23 04:27 Urine Color [place] (Yellow) 01/29/23 21:40 Urine Appearance Clear (CLEAR) 01/29/23 21:40 Urine pH 7 (5-7) 01/29/23 21:40 Ur Specific [place] 1.005 (1.005-1.030) 01/29/23 21:40 Urine Protein 1+ (Negative) H 01/29/23 21:40 Urine Glucose (UA) Norm (Normal) 01/29/23 21:40 Urine Ketones Negative (Negative) 01/29/23 21:40 Urine Blood 2+ (Negative) H 01/29/23 21:40 Urine Nitrate Negative (Negative) 01/29/23 21:40 Urine Bilirubin Neg (Negative) 01/29/23 21:40 Urine Urobilinogen 4 mg/dL (Negative) H 01/29/23 21:40 Ur Leukocyte Esterase Negative (Negative) 01/29/23 21:40 Urine RBC 5-10 /hpf (0-2) H 01/29/23 21:40 Urine WBC Rare /hpf (0-5) 01/29/23 21:40 Ur Squamous Epith Cells 0-4 /hpf (0-5) H 01/29/23 21:40 Amorphous Sediment 1+ /hpf 01/29/23 21:40 Urine Bacteria None /hpf (NONE) 01/29/23 21:40 Vitals Last Vital Signs Temp 98.6 F 01/31/23 04:38 Pulse 65 01/31/23 12:32 Resp 16 01/31/23 07:39 BP 97/61 01/31/23 12:32 Pulse Ox 95 01/31/23 12:32 O2 Del Method Nasal Cannula 01/31/23 07:39 O2 Flow Rate 2 01/31/23 07:39 Discharge Plan Discharge Patient Disposition: Home Condition: Stable Prescriptions: Continued cholecalciferol (vitamin D3) 50 mcg (2,000 unit) capsule 50 mcg PO QAM Eliquis 2.5 mg tablet 2.5 mg PO BID Qty: 60 3RF hydrocodone-acetaminophen 5-325 mg tablet 1 tab PO Q6H PRN (Reason: pain) 5 Days Qty: 20 0RF loratadine 10 mg tablet 10 mg PO BID PRN (Reason: allergies) bumetanide 1 mg tablet 1 mg PO DIRECTED Rx Instructions: May take additional 1mg x3 days for swelling diltiazem HCl 120 mg capsule,extended release 12 hr 120 mg PO BID midodrine 10 mg tablet 10 mg PO TID Rx Instructions: do not give last dose of day after 6PM or within 4 hrs of bedtime sucralfate [Carafate] 1 gram tablet 1 g PO BID pantoprazole 40 mg tablet,delayed release (DR/EC) 40 mg PO DAILY PRN (Reason: Acid Reflux) metolazone 5 mg tablet 5 mg PO .MWF zinc acetate 50 mg (zinc) Capsule 50 mg PO DAILY tamsulosin 0.4 mg capsule 0.4 mg PO DAILY potassium chloride 20 mEq Tablet Extended Release 20 meq PO DAILY ondansetron 4 mg tablet,disintegrating 4 mg PO Q8H PRN (Reason: nausea and vomiting) Qty: 15 0RF melatonin 10 mg Tablet 10 mg PO BEDTIME PRN (Reason: Sleep) levothyroxine [Levoxyl] 100 mcg Tablet 100 mcg PO QAM Qty: 90 3RF finasteride 5 mg tablet 5 mg PO DAILY finasteride 5 mg Tablet 5 mg PO DAILY Discharge Orders: Discharge Order (Routine); Ordered 01/31/23 Ordered By: Kanchan Fields [place] [facility] [place] [Outside] Daniel Rios DO [Primary Care Provider] - Discharge Diet: Usual diet Discharge Activity: Resume usual activity Patient Instructions: Pleural Effusion (DC), Pulmonary Arterial Hypertension (ED), CHF Stoplight, Opioid Safety, Pneumonia Stoplight Discharge Attestations Time Spent in Discharge Care*: greater than 30 min Quality Metrics Clinical Quality Measures [ No reported AMI, CVA or VTE this stay] Coding Level of Care Code Acute Code for Chg Fwd Diagnoses CHF exacerbation I50.9 Liver cirrhosis K74.60 Pulmonary hypertension I27.20 Tricuspid valve regurgitation, nonrheumatic I36.1 Pulmonary embolism I26.99 Deep venous thrombosis I82.409 Chronic kidney disease (CKD) N18.9 Atrial fibrillation I48.19 Atrial fibrillation type: persistent (not longstanding)
--- NOTE | 2023-01-31 17:09 | PC.NURSE ---
Discharge Note Patient discharged to home via [w/c to POV] accompanied by [ and son]. Discharge instructions reviewed with patient and/or patient access representative. Mobile pharmacy medications and/or prescriptions provided. Belongings/home medications returned.
== END 2023-01-31 17:09 | disposition home health service (06) | DRG 291 ==
LOC: ER 23:48 → MEDSURG 01-30 00:28 → CSU 01-30 06:11
PROVIDERS: Admitting Provider Internal Medicine; Emergency Provider Family Medicine; PCP Emergency Medicine Emergency Medical Services; Visit Provider Student in an Organized Health Care Education/Training Program
DX: I13.0 Hypertensive heart and chronic kidney disease with heart failure and stage 1 through stage 4 chronic kidney disease, or unspecified chronic kidney disease (principal); I50.33 Acute on chronic diastolic (congestive) heart failure; N18.9 Chronic kidney disease, unspecified; Z87.440 Personal history of urinary (tract) infections; E03.9 Hypothyroidism, unspecified; N40.0 Benign prostatic hyperplasia without lower urinary tract symptoms; I48.91 Unspecified atrial fibrillation; Z79.01 Long term (current) use of anticoagulants; I71.43 Infrarenal abdominal aortic aneurysm, without rupture; L30.4 Erythema intertrigo; Z79.891 Long term (current) use of opiate analgesic; Z86.718 Personal history of other venous thrombosis and embolism; Z86.711 Personal history of pulmonary embolism; Z95.2 Presence of prosthetic heart valve; I08.1 Rheumatic disorders of both mitral and tricuspid valves; M51.36 Other intervertebral disc degeneration, lumbar region; S32.501D Unspecified fracture of right pubis, subsequent encounter for fracture with routine healing; W19.XXXD Unspecified fall, subsequent encounter
CPT/HCPCS: 36415; 71045; 72131; 72192; 80053; 81001; 83735; 83880; 84100; 84132; 84484; 85025; 87040; 93005; 94640; 94664; 96365; 96366; 96375; 96376; 99285; C9113; J0456; J0696; J1940; J3480; J7050; J7613

== ENCOUNTER → 2023-02-08 11:57 | Outpatient (BNVA) | payer OTHER, MEDICARE, SELFPAY | PROVIDERS: PCP Emergency Medicine Emergency Medical Services; Visit Provider Nurse Practitioner | DX: S32.511D Fracture of superior rim of right pubis, subsequent encounter for fracture with routine healing; W19.XXXD Unspecified fall, subsequent encounter | CPT/HCPCS: 72190; 99213 ==

== ENCOUNTER → 2023-03-08 10:19 | Outpatient (BNVA) | payer OTHER, MEDICARE, SELFPAY | PROVIDERS: PCP Emergency Medicine Emergency Medical Services; Visit Provider Nurse Practitioner | DX: S32.511D Fracture of superior rim of right pubis, subsequent encounter for fracture with routine healing; W19.XXXD Unspecified fall, subsequent encounter | CPT/HCPCS: 72190; 99214 ==

== ENCOUNTER → 2023-04-03 12:39 | Outpatient (BNVA) | payer OTHER, MEDICARE, SELFPAY | PROVIDERS: PCP Emergency Medicine Emergency Medical Services; Visit Provider Nurse Practitioner Family | DX: I48.19 Other persistent atrial fibrillation (principal); Z79.01 Long term (current) use of anticoagulants; I50.22 Chronic systolic (congestive) heart failure; I71.40 Abdominal aortic aneurysm, without rupture, unspecified | CPT/HCPCS: 99214 ==

== ENCOUNTER 2023-04-14 12:23 | Outpatient (CLI) | payer OTHER, SELFPAY ==
--- NOTE | 2023-04-14 13:15 | USR_ITS ---
PROCEDURE INFORMATION: Exam: US Duplex Scan of Aorta, Inferior Vena Cava, Iliac Vasculature, or Bypass Grafts, Complete Exam date and time: 04/14/2023 12:33 PM Age: 82 years old Clinical indication: Screening exam; Abn CT 3.2 cm [address] seen on CT. Not seen on US; Additional info: Aortic aneurysm, schedule for 6 months TECHNIQUE: Imaging protocol: Real-time duplex ultrasound scan of the Aorta, IVC, iliac vasculature, or bypass grafts in the abdomen with color Doppler flow and spectral waveform analysis with image documentation. Complete exam. COMPARISON: US abdomen lmt fluid [id number] 10/31/2022 9:21 AM FINDINGS: Aorta: Aorta measures up to approximately 2.4 cm distally, the proximal mid portions are not well visualized for accurate measurement. Normal waveform. US/CV duplex aorta [id number] IMPRESSION: Distal aorta measures up to 2.4 cm. Proximal and mid portions of the abdominal aorta are not well visualized.
== END 2023-04-14 12:24 | disposition home or self-care (01) ==
LOC: RAD 12:24
PROVIDERS: PCP Emergency Medicine Emergency Medical Services; Visit Provider Nurse Practitioner Family
DX: I71.40 Abdominal aortic aneurysm, without rupture, unspecified (principal)
CPT/HCPCS: 93978

== ENCOUNTER 2023-05-22 17:38 | Emergency (ER) | payer OTHER, SELFPAY ==
[2023-05-22] VITALS (9 sets, daily range): BP systolic 98–129; BP diastolic 60–80; PULSE 71–87; RESP 13–26; TEMP 36.6; O2SAT 91–99; BMI 33.2
--- NOTE | 2023-05-22 20:15 | CTR_ITS ---
PROCEDURE INFORMATION: Exam: CT Abdomen And Pelvis Without Contrast Exam date and time: 05/22/2023 8:53 PM Age: 82 years old Clinical indication: Abdominal pain; Localized; Lower; Additional info: Abd pain, nausea, constipation, ventral/umbilical hernia TECHNIQUE: Imaging protocol: Computed tomography of the abdomen and pelvis without contrast. Radiation optimization: All CT scans at this facility use at least one of these dose optimization techniques: automated exposure control; mA and/or kV adjustment per patient size (includes targeted exams where dose is matched to clinical indication); or iterative reconstruction. COMPARISON: CT bony pelvis [id number] 30/01/2023 18:10 RADIATION DOSE METRICS: Total DLP (mGy-cm): 1000 FINDINGS: Tubes, catheters and devices: Mitral valve prosthesis. Lungs: Atelectasis in the right lung base. Pleural spaces: Small right pleural effusion. Heart: Cardiomegaly. Liver: Mild hepatomegaly. Cirrhotic appearing liver. No discrete nodule visualized. Gallbladder and bile ducts: Small calcified stones in the gallbladder. No visible wall thickening. The bile ducts are normal. Pancreas: Atrophic pancreas. Spleen: Calcified granulomas in the spleen. Adrenal glands: Normal. No mass. Kidneys and ureters: 3 mm left renal calculus. Right renal cyst, Hounsfield units less than 20. No follow-up imaging is recommended. No hydronephrosis. Stomach and bowel: Diverticulosis of the colon. No diverticulitis. Small hiatal hernia containing a short loop of nonobstructive small bowel. The stomach and small bowel are otherwise unremarkable. No wall thickening or obstruction. Appendix: The appendix is not visualized. No secondary signs of appendicitis. Intraperitoneal space: Mild ascites. No free peritoneal air. Vasculature: Dilated IVC and bilateral iliac veins. Arterial calcifications. No aneurysm. Lymph nodes: Prominent inguinal and bilateral iliac lymph nodes are most likely reactive. Urinary bladder: Unremarkable as visualized. Reproductive: Unremarkable as visualized. Bones/joints: Median sternotomy changes. Degenerative changes of the spine and hip joints. Mild T12 and L3 compression fractures. Multiple Schmorl's nodes. Diffuse osteopenia. Soft tissues: Diffuse body wall edema. Fat containing hernia in the superior midline abdomen. CT/CT abdomen pelvis wo con [id number] IMPRESSION: 1. Mild hepatomegaly with possible liver cirrhosis. 2. Cardiomegaly with dilated IVC and iliac veins, consistent with right heart failure. 3. Anasarca including a right pleural effusion, ascites, and body wall edema. 4. Diverticulosis of the colon without diverticulitis. 5. Cholelithiasis. 6. Left renal calculus. 7. Age indeterminate mild T12 and L3 compression fractures. COMMENTS: Consistent with the [employer]'s Incidental Findings Committee white paper (J Am Sujatha Radiol 2018): Any incidental renal lesion less than 1 cm or classified as too small to characterize, or any incidental cystic renal lesion characterized as simple-appearing, is likely benign. No follow-up imaging is recommended for these lesions per consensus recommendations based on imaging criteria.
[2023-05-22 20:23] LABS: Basophils # 0.1 10^3/uL (0.0-0.1); Basophils % 0.7 %; Eosinophils # 0.2 10^3/uL (0.0-0.8); Hematocrit 37.6 % (37-53); Lymphocytes # 1.7 10^3/uL (0.8-4.8); Lymphocytes % 22.6 %; Mean Corpuscular HGB Conc 31.9 g/dL (30-55); Mean Corpuscular Volume 97.2 fl (82-101); Mean Platelet Volume 10.7 fL (7.4-10.4); Monocytes # 0.8 10^3/uL (0.2-0.9); Monocytes % 10.5 %; Neutrophils # 4.82 10^3/uL (1.8-7.7); Neutrophils % 62.7 %; Nucleated Red Blood Cells % 0 %; Platelet Count 97 10^3/cmm (157-399); Red Blood Count 3.87 10^6/uL (3.85-5.65); Red Cell Distribution Width 16.1 % (12.1-15.1); White Blood Count 7.69 10^3/uL (3.29-11.43)
[2023-05-22] MEDS: morphine 4 mg/mL SDV 1 mL 2 MG IVP (20:26)
[2023-05-22] MEDS: ondansetron 2 mg/ML SDV 2 mL 4 MG IVP (20:26)
--- NOTE | 2023-05-22 20:31 | W.ED.ABDPA2 ---
HPI - Abdominal Pain General: Chief Complaint: Abdominal Pain Stated Complaint: lower abd pain Time Seen by Provider: 05/22/23 20:09 History of Present Illness: Patient presents to the ER with complaints of abdominal pain over about the last 2 weeks. I constipation without a bowel movement over the last 4 days. Patient has taken Ex-Lax and prune juice including 8 ounces of prune juice today he did have a's very small bowel movement. Patient's abdominal pain still worsens. Patient does have a history of constipation but is usually controlled. Patient has not had any nausea vomiting fevers or chills. Patient does have a ventral hernia secondary to open heart surgery and also umbilical hernia. Review of Systems General: Reports: 10 or more systems reviewed and unremarkable except in HPI and below PFSH ED PFSH: Medical History Hypothyroid Transaminitis Elevated bilirubin Abnormal TSH Hyperkalemia Pulmonary embolism Atrial fibrillation Deep venous thrombosis Atrial fibrillation with RVR Diastolic CHF Stenosis of prosthetic mitral valve Tricuspid valve regurgitation, nonrheumatic Chronic kidney disease (CKD) Thrombocytopenia Atrial fibrillation Surgical History Hx of mitral valve replacement 2006 Family History Father Myocardial infarction Denies family history of Diabetes Stroke Social History Smoking and tobacco/nicotine status: never used tobacco/nicotine Substance/Drug Use: never Physical Exam Const: COMMON NORMALS: no acute distress, average body habitus, patient oriented x3, no limitations, healthy appearing, alert and well nourished HENMT: COMMON NORMALS: normocephalic, atraumatic, hearing grossly normal bilaterally, external ears normal, Normal external nose present, moist oral mucous membranes and oropharynx normal HEAD & SCALP: normocephalic and atraumatic NOSE: Normal external nose present EXTERNAL EAR: Yes external ears normal Neck/C-Spine: COMMON NORMALS: no JVD Chest: COMMONS NORMALS: normal inspection of the chest and normal palpation of entire chest wall Resp: COMMON NORMALS: normal respiratory effort, No retractions, No use of accessory muscles and clear to auscultation bilaterally AUSCULTATION: clear to auscultation bilaterally Cardio: COMMON NORMALS: no JVD, regular rate, regular rhythm, S1 normal heart sound present, S2 normal heart sound present, No gallops present (Cardio), No clicks present (Cardio), No murmurs present (Cardio) and No rub (Cardio) RATE: regular rate RHYTHM: regular rhythm HEART SOUNDS: S1 normal heart sound present and S2 normal heart sound present GI: COMMON NORMALS: Normal to inspection, nondistended, normoactive bowel sounds present, Soft to palpation, No hepatosplenomegaly present, no masses and no bruits; negative for non-tender (Diffuse tenderness to palpation) PALPATION: Yes Soft to palpation and Yes No hepatosplenomegaly present Neuro: COMMON NORMALS: patient oriented x3 SENSORIUM/ORIENTATION: Yes alert Course Vital Signs: Vital signs: Vital Signs Temperature 97.9 F 05/22/23 18:32 Pulse Rate 86 05/22/23 23:38 Respiratory Rate 26 H 05/22/23 23:38 Blood Pressure 98/63 05/22/23 23:38 Pulse Oximetry 93 05/22/23 23:38 Oxygen Delivery Me thod Nasal Cannula 05/22/23 23:38 Oxygen Flow Rate 2 05/22/23 23:38 MDM - Abdominal Pain Medical Decision Making Physical exam was performed lab work was obtained as well as abdominal/pelvic CT scan with contrast. Lab work was essentially unremarkable or stable for the patient. Abdomen pelvic CT scan was similar to the previous 1 with the exception of mild T12 and L3 compression fractures. These results was discussed with the patient's who said he had a fall with a pelvic fracture back over the summer but she was unaware of any compression fractures. Upon reviewing the lumbar spine CT on 01/30/2023 these showed no fractures. Patient will be referred back to his primary care for further evaluation and treatment and should continue his bowel prep regimen. Differential Diagnosis Likely abdominal pain and constipation; Unlikely acute appendicitis, calculus of kidney, diverticulitis, endometriosis, gastroenteritis, pancreatitis or small bowel obstruction Medical Records I reviewed the patient's medical records. Lab Data I reviewed the patient's lab results. 05/22/23 19:35 05/22/23 19:35 Labs/Radiology: Radiology Impressions Abdomen/Pelvis CT 05/22/23 20:15 IMPRESSION: 1. Mild hepatomegaly with possible liver cirrhosis. 2. Cardiomegaly with dilated IVC and iliac veins, consistent with right heart failure. 3. Anasarca including a right pleural effusion, ascites, and body wall edema. 4. Diverticulosis of the colon without diverticulitis. 5. Cholelithiasis. 6. Left renal calculus. 7. Age indeterminate mild T12 and L3 compression fractures. COMMENTS: Consistent with the [employer]'s Incidental Findings Committee white paper (J Am Sujatha Radiol 2018): Any incidental renal lesion less than 1 cm or classified as too small to characterize, or any incidental cystic renal lesion characterized as simple-appearing, is likely benign. No follow-up imaging is recommended for these lesions per consensus recommendations based on imaging criteria. Laboratory Results WBC 7.69 10^3/uL (3.29-11.43) 05/22/23 19:35 RBC 3.87 10^6/uL (3.85-5.65) 05/22/23 19:35 Hgb 12.00 g/dL (11.27-16.99) 05/22/23 19:35 Hct 37.6 % (37-53) 05/22/23 19:35 MCV 97.2 fl (82-101) 05/22/23 19:35 MCH 31.0 pg (27-33) 05/22/23 19:35 MCHC 31.9 g/dL (30-55) 05/22/23 19:35 RDW 16.1 % (12.1-15.1) H 05/22/23 19:35 Plt Count 97 10^3/cmm (157-399) L 05/22/23 19:35 MPV 10.7 fL (7.4-10.4) H 05/22/23 19:35 Neut % (Auto) 62.7 % 05/22/23 19:35 Lymph % (Auto) 22.6 % 05/22/23 19:35 [place] % (Auto) 10.5 % 05/22/23 19:35 Eos % (Auto) 3.0 % 05/22/23 19:35 Baso % (Auto) 0.7 % 05/22/23 19:35 Neut # (Auto) 4.82 10^3/uL (1.8-7.7) 05/22/23 19:35 Lymph # (Auto) 1.7 10^3/uL (0.8-4.8) 05/22/23 19:35 [place] # (Auto) 0.8 10^3/uL (0.2-0.9) 05/22/23 19:35 Eos # (Auto) 0.2 10^3/uL (0.0-0.8) 05/22/23 19:35 Baso # (Auto) 0.1 10^3/uL (0.0-0.1) 05/22/23 19:35 Nucleated RBC % (auto) 0 % 05/22/23 19:35 Nucleated RBCs # 0.0 /100WBC 05/22/23 19:35 Sodium 137 mmol/L (136-145) 05/22/23 19:35 Potassium 3.9 mmol/L (3.5-5.1) 05/22/23 19:35 Chloride 102 mmol/L (98-107) 05/22/23 19:35 Carbon Dioxide 23 mmol/L (22-29) 05/22/23 19:35 Anion Gap 15.9 (5-19) 05/22/23 19:35 BUN 29 mg/dL (8-23) H 05/22/23 19:35 Creatinine 1.5 mg/dL (0.7-1.2) H 05/22/23 19:35 GFR Calculation Not Reportable 05/22/23 19:35 Glucose 92 mg/dL (65-115) 05/22/23 19:35 Calculated Osmolality 289 mOsm/kg (285-295) 05/22/23 19:35 Calcium 9.2 mg/dL (8.5-10.5) 05/22/23 19:35 Total Bilirubin 2.1 mg/dL (0.15-1.2) H 05/22/23 19:35 AST 30 U/L (0-40) 05/22/23 19:35 ALT 17 U/L (0-41) 05/22/23 19:35 Alkaline Phosphatase 90 U/L (40-130) 05/22/23 19:35 Total Protein 7.2 g/dL (6.6-8.7) 05/22/23 19:35 Albumin 4.0 g/dL (3.5-5.2) 05/22/23 19:35 Globulin 3.2 g/dL (1.3-4.6) 05/22/23 19:35 Lipase 38 U/L (13-60) 05/22/23 19:35 Urine Color Yellow (Yellow) 05/22/23 22:37 Urine Appearance Clear (CLEAR) 05/22/23 22:37 Urine pH 5 (5-7) 05/22/23 22:37 Ur Specific [place] 1.020 (1.005-1.030) 05/22/23 22:37 Urine Protein Trace (Negative) 05/22/23 22:37 Urine Glucose (UA) Norm (Normal) 05/22/23 22:37 Urine Ketones 1+ (Negative) H 05/22/23 22:37 Urine Blood 2+ (Negative) H 05/22/23 22:37 Urine Nitrate Negative (Negative) 05/22/23 22:37 Urine Bilirubin Neg (Negative) 05/22/23 22:37 Urine Urobilinogen Neg mg/dL (Negative) 05/22/23 22:37 Ur Leukocyte Esterase Negative (Negative) 05/22/23 22:37 Urine RBC 0-4 /hpf (0-2) H 05/22/23 22:37 Urine WBC None /hpf (0-5) 05/22/23 22:37 Ur Squamous Epith Cells None /hpf (0-5) 05/22/23 22:37 Amorphous Sediment Not Reportable 05/22/23 22:37 Urine Bacteria Trace /hpf (NONE) 05/22/23 22:37 Urine Mucus 1+ /hpf 05/22/23 22:37 All radiology interpretation(s) finalized by discharge Discharge Plan Discharge Clinical Impression: Closed compression fracture of lumbar vertebra, Abdominal pain, Closed compression fracture of thoracic vertebra, Acute constipation Condition: Stable Prescriptions: No Action cholecalciferol (vitamin D3) 50 mcg (2,000 unit) capsule 50 mcg PO QAM Eliquis 2.5 mg tablet 2.5 mg PO BID Qty: 60 3RF hydrocodone-acetaminophen 5-325 mg tablet 1 tab PO Q6H PRN (Reason: pain) 5 Days Qty: 20 0RF loratadine 10 mg tablet 10 mg PO BID PRN (Reason: allergies) bumetanide 1 mg tablet 1 mg PO DIRECTED Rx Instructions: May take additional 1mg x3 days for swelling diltiazem HCl 120 mg capsule,extended release 12 hr 120 mg PO BID midodrine 10 mg tablet 10 mg PO TID Rx Instructions: do not give last dose of day after 6PM or within 4 hrs of bedtime sucralfate [Carafate] 1 gram tablet 1 g PO BID pantoprazole 40 mg tablet,delayed release (DR/EC) 40 mg PO DAILY PRN (Reason: Acid Reflux) metolazone 5 mg tablet 5 mg PO .MWF zinc acetate 50 mg (zinc) Capsule 50 mg PO DAILY tamsulosin 0.4 mg capsule 0.4 mg PO DAILY ondansetron 4 mg tablet,disintegrating 4 mg PO Q8H PRN (Reason: nausea and vomiting) Qty: 15 0RF potassium chloride 20 mEq tablet extended release 20 meq PO QID melatonin 10 mg Tablet 10 mg PO BEDTIME PRN (Reason: Sleep) levothyroxine [Levoxyl] 100 mcg Tablet 100 mcg PO QAM Qty: 90 3RF finasteride 5 mg tablet 5 mg PO DAILY finasteride 5 mg Tablet 5 mg PO DAILY Referrals: Daniel Rios, [Primary Care Provider] - Patient Instructions: Abdominal Pain (ED), Constipation (ED), Fractures - Compression Activity Restrictions/Additional Instructions: Please increase your fiber and also increase your MiraLAX to daily use as well as as needed laxatives. Your CT scan showed you may have a T12 and L3 compression fracture that did not show up on previous lumbar spine CAT scan. Please follow-up with your family practice physician for these as you may benefit from treatment. 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
[2023-05-22 20:42] LABS: Alanine Aminotransferase 17 U/L (0-41); Alkaline Phosphatase 90 U/L (40-130); Anion Gap 15.9 (5-19); Aspartate Amino Transferase 30 U/L (0-40); Blood Urea Nitrogen 29 mg/dL (8-23); Calcium 9.2 mg/dL (8.5-10.5); Carbon Dioxide 23 mmol/L (22-29); Chloride 102 mmol/L (98-107); Globulin 3.2 g/dL (1.3-4.6); Glucose 92 mg/dL (65-115); Lipase 38 U/L (13-60); Osmolality Calculated 289 mOsm/kg (285-295); Potassium 3.9 mmol/L (3.5-5.1); Sodium 137 mmol/L (136-145); Total Bilirubin 2.1 mg/dL (0.15-1.2); Total Protein 7.2 g/dL (6.6-8.7)
[2023-05-22] MEDS: sodium chloride 0.9% 1,000 ML 999 ML IV (21:44)
[2023-05-22] MEDS: bumetanide 0.25 mg/mL SDV 4 mL 1 MG IVP (21:44)
[2023-05-22 22:54] LABS: Add Urine Culture? No; Add Urine Microscopic? YES; Bacteria Urine TRACE /hpf; Bilirubin Urine Neg (Negative); Blood Urine 2+ (Negative); Glucose Urine UA Norm (Normal); Ketones Urine 1+ (Negative); Leukocyte Esterase Urine Negative (Negative); Mucus Urine 1+ /hpf; Nitrate Urine Negative (Negative); Protein Urine Trace (Negative); RBC Urine 0-4 /hpf (0-2); Urine Appearance Clear (CLEAR); Urine Color Yellow (Yellow); Urobilinogen Urine Neg (Negative); pH Urine 5 (5-7)
[2023-05-23 00:37] VITALS: BP 98/55; PULSE 86; RESP 18; O2SAT 92
== END 2023-05-23 00:39 | disposition home or self-care (01) ==
PROVIDERS: Emergency Medicine; Emergency Provider Emergency Medicine; PCP Emergency Medicine Emergency Medical Services
DX: K59.00 Constipation, unspecified (principal); S32.030A Wedge compression fracture of third lumbar vertebra, initial encounter for closed fracture; S22.080A Wedge compression fracture of T11-T12 vertebra, initial encounter for closed fracture; Z79.01 Long term (current) use of anticoagulants; N18.9 Chronic kidney disease, unspecified; I50.30 Unspecified diastolic (congestive) heart failure; W19.XXXA Unspecified fall, initial encounter
CPT/HCPCS: 36415; 74176; 80053; 81001; 83690; 85025; 96361; 96374; 96375; 99285; J2270; J2405; J3490; J7030

== ENCOUNTER 2023-05-30 10:10 | Emergency (ER) | payer OTHER, SELFPAY ==
[2023-05-30 10:14] VITALS: BP 101/75; PULSE 113; RESP 18; TEMP 36.8; O2SAT 93; BMI 31.6
--- NOTE | 2023-05-30 10:19 | XRR_ITS ---
PROCEDURE INFORMATION: Exam: XR Right Toe(s) Exam date and time: 05/30/2023 10:30 AM Age: 82 years old Clinical indication: Injury or trauma; Other: Laceration; Toes; Right great; Foreign body involvement not specified; Additional info: Trauma/laceration TECHNIQUE: Imaging protocol: Radiologic exam of the right toes. Views: Minimum 2 views. COMPARISON: No relevant prior studies available. FINDINGS: Bones/joints: Normal. No radiopaque foreign material. No fracture or dislocation. Bandage is present over the great toe. Soft tissues: Arterial calcifications. XR/XR toe RT min 2V [id number] IMPRESSION: No acute findings.
--- NOTE | 2023-05-30 10:19 | W.ED.WOUNDLC ---
HPI - Wound/Laceration General: Chief Complaint: Wound/Laceration Stated Complaint: Lac to R toe Time Seen by Provider: 05/30/23 10:12 Source: patient and EMS Mode of arrival: EMS Limitations: no limitations History of Present Illness: Patient is an 82-year-old male who presents to ED today for evaluation of a laceration to his right great toe. Patient arrives via EMS. Patient states he was getting out of bed when he accidentally jammed his toe against something. Last tetanus is unknown but he is refusing one today. He is on Eliquis. EMS states that family placed clotting powder on the laceration to help with bleeding. Bleeding is controlled upon arrival. He has no other injuries or complaints at this time. Onset (ago): hour(s) Extremity Location: Right: foot (great toe) Place: home Patient tetanus UTD: No (unknown-refuses one today) Context: accidental Associated symptoms: Reports no associated symptoms Review of Systems Musc: Reports: extremity pain (R toe) Skin/Breast: Reports: other (laceration to R toe) [facility] ED PFSH: Medical History Hypothyroid Transaminitis Elevated bilirubin Abnormal TSH Hyperkalemia Pulmonary embolism Atrial fibrillation Deep venous thrombosis Atrial fibrillation with RVR Diastolic CHF Stenosis of prosthetic mitral valve Tricuspid valve regurgitation, nonrheumatic Chronic kidney disease (CKD) Thrombocytopenia Atrial fibrillation Surgical History Hx of mitral valve replacement 2006 Family History Father Myocardial infarction Denies family history of Diabetes Stroke Social History Smoking and tobacco/nicotine status: never used tobacco/nicotine Substance/Drug Use: never Physical Exam Const: COMMON NORMALS: no acute distress, patient oriented x3, no limitations, alert and well nourished Extremity: COMMON NORMALS: capillary refill normal GENERAL: Yes normal exam except as noted RIGHT LOWER EXTREMITY: Yes foot & digits (laceration overlying dorsal R great toe; caked in clotting powder) Right foot and digits: Yes neurovascular exam (normal) and Yes other (copiously irrigated; does not appear to involve tendon) OTHER: chronic bilateral leg edema/redness-states this is improved from his baseline Neuro: COMMON NORMALS: patient oriented x3, moves all extremities, no focal motor deficits and no sensory deficits noted SENSORIUM/ORIENTATION: Yes alert Skin: TRAUMA: laceration Procedures Laceration Laceration 1: Site: lower extremity (R great toe) Side (If applicable): right Size (cm): 2.0 Description: linear and stellate Depth: simple, single layer (does not involve tendon; XR showing no fracture) Local Anesthetic: lidocaine 2% (digital block) Amount of anesthesia used (mL): 3.0 Pre-repair: wound explored and irrigated extensively Skin layer closed with: nylon Size (cm): 4-0 Number of sutures: 5 Technique: simple, interrupted Course Vital Signs: Vital signs: Vital Signs Temperature 98.2 F 05/30/23 10:14 Pulse Rate 113 H 05/30/23 10:14 Respiratory Rate 18 05/30/23 10:14 Blood Pressure 101/75 05/30/23 10:14 Pulse Oximetry 93 05/30/23 10:14 Oxygen Delivery Me thod Room Air 05/30/23 10:14 MDM - Wound/Laceration Medical Decision Making Patient is an 82-year-old male here for treatment of a right great toe laceration that he sustained just prior to arrival. He is not a diabetic. Toe does not appear to involve tendon. XR negative for acute fracture. Wound was copiously irrigated and repaired as documented. He will be placed on prophylactic antibiotics and given strict return precautions. Differential Diagnosis Likely laceration Medical Records I reviewed the patient's medical records. Lab Data Radiology Impressions Toe X-Ray 05/30/23 10:19 IMPRESSION: No acute findings. All radiology interpretation(s) finalized by discharge Discharge Plan Discharge Patient Disposition: Home Clinical Impression: Laceration of great toe Qualifiers: Encounter type: initial encounter Damage to nail status: without damage Foreign body presence: without foreign body Laterality: right Qualified Code(s): S91.111A - Laceration without foreign body of right great toe without damage to nail, initial encounter Condition: Stable Prescriptions: New cephalexin 500 mg capsule 500 mg PO Q6H 7 Days Qty: 28 0RF No Action cholecalciferol (vitamin D3) 50 mcg (2,000 unit) capsule 50 mcg PO QAM Eliquis 2.5 mg tablet 2.5 mg PO BID Qty: 60 3RF loratadine 10 mg tablet 10 mg PO BID PRN (Reason: allergies) bumetanide 1 mg tablet 1 mg PO DAILY diltiazem HCl 120 mg capsule,extended release 12 hr 120 mg PO BID midodrine 10 mg tablet 10 mg PO TID Rx Instructions: do not give last dose of day after 6PM or within 4 hrs of bedtime sucralfate [Carafate] 1 gram tablet 1 g PO BID pantoprazole 40 mg tablet,delayed release (DR/EC) 40 mg PO DAILY PRN (Reason: Acid Reflux) metolazone 5 mg tablet 5 mg PO .MWF zinc acetate 50 mg (zinc) Capsule 50 mg PO DAILY tamsulosin 0.4 mg capsule 0.4 mg PO DAILY ondansetron 4 mg tablet,disintegrating 4 mg PO Q8H PRN (Reason: nausea and vomiting) Qty: 15 0RF potassium chloride 20 mEq tablet extended release 20 meq PO QID melatonin 10 mg Tablet 10 mg PO BEDTIME PRN (Reason: Sleep) levothyroxine [Levoxyl] 100 mcg Tablet 100 mcg PO QAM Qty: 90 3RF finasteride 5 mg Tablet 5 mg PO DAILY oxycodone-acetaminophen 5-325 mg tablet 1 tab PO Q8H PRN (Reason: pain) Qty: 14 0RF Discharge Orders: Discharge ED (Routine); Ordered 05/30/23 Ordered By: Kenia Billingsley Referrals: Daniel Rios DO [Primary Care Provider] - Patient Instructions: Care For Your Stitches (DC), Laceration (DC) Activity Restrictions/Additional Instructions: Keep wound/laceration clean with warm soap and water twice daily. Monitor for signs of infection such as redness, swelling, increased pain, or drainage. Please seek medical re-evaluation if these occur. If you received sutures today these will need to be removed (unless you were told by the provider that they are absorbable). The provider should have discussed with you the length of time until removal-7 DAYS. You may soak the foot in warm soapy water for 15 to 20 minutes 3-4 times daily. Pat dry. He may leave the laceration open to air. If shoe wear is required, have wound dressed and make sure shoes have a well padded/firm sole. 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
--- NOTE | 2023-05-30 11:00 | PC.NURSE ---
ASSUMED CARE OF PATIENT FROM AICHA HOPE AT 1100.
[2023-05-30 11:45] VITALS: BP 100/75; PULSE 102; O2SAT 92
--- NOTE | 2023-05-30 11:51 | PC.NURSE ---
LIDOCAINE ADMISISTERED BY JULIETTE WOODY.
== END 2023-05-30 12:26 | disposition home or self-care (01) ==
PROVIDERS: Emergency Provider Physician Assistant; PCP Emergency Medicine Emergency Medical Services
DX: S91.111A Laceration without foreign body of right great toe without damage to nail, initial encounter (principal); Z79.01 Long term (current) use of anticoagulants; I50.30 Unspecified diastolic (congestive) heart failure; N18.9 Chronic kidney disease, unspecified; W22.8XXA Striking against or struck by other objects, initial encounter
CPT/HCPCS: 12001; 73660; 99283

== ENCOUNTER 2023-06-01 22:30 | Emergency (ER) | payer OTHER, SELFPAY ==
[2023-06-01 22:38] VITALS: BP 123/82; PULSE 130; RESP 22; TEMP 36.4; O2SAT 95; BMI 34.2
--- NOTE | 2023-06-01 22:46 | XRR_ITS ---
PROCEDURE INFORMATION: Exam: XR Chest Exam date and time: 06/01/2023 10:53 PM Age: 82 years old Clinical indication: Dyspnea TECHNIQUE: Imaging protocol: Radiologic exam of the chest. Views: 1 view. COMPARISON: 1. CR XR chest 1V portable [id number] 01/29/2023 9:[address] abdomen pelvis wo con [id number] 05/22/2023 8:53 PM FINDINGS: Lungs: Right basilar consolidation or atelectasis. Pleural spaces: [id number] right pleural effusion. Heart/Mediastinum: Stable cardiomegaly with sequelae from prior cardiac valve surgery. Bones/joints: No acute osseous abnormality. XR/XR chest 1V portable [id number] IMPRESSION: 1. [id number] right pleural effusion. 2. Right basilar consolidation or atelectasis.
--- NOTE | 2023-06-01 22:53 | W.ED.ARRPALP ---
HPI - Arrhythmia/Palpitations General: Chief Complaint: Arrhythmia/Palpitations Stated Complaint: low O2, low bp, high hr Time Seen by Provider: 06/01/23 22:43 History of Present Illness: 82-year-old male presents to the emergency department with his family members. Family member states that they became concerned because the patient's blood pressure was elevated. Patient's also states that he does have a history of atrial fibrillation and she has noticed that his heart rate was elevated into the 130s. Patient's states that he is intermittently shaking uncontrollably she states she does not know why. Patient has been recently seen here in the emergency department for a laceration to the foot which was sutured and he was provided antibiotics. Family states that the patient has not had a fever chills or night sweats. He denies shortness of breath or chest pain. Patient's states that his oxygen saturation level was 93%. Review of Systems General: Reports: 10 or more systems reviewed and unremarkable except in HPI and below Card: Reports: palpitations and irregular heart rhythm Resp: Reports: dyspnea PFSH ED PFSH: Medical History Hypothyroid Transaminitis Elevated bilirubin Abnormal TSH Hyperkalemia Pulmonary embolism Atrial fibrillation Deep venous thrombosis Atrial fibrillation with RVR Diastolic CHF Stenosis of prosthetic mitral valve Tricuspid valve regurgitation, nonrheumatic Chronic kidney disease (CKD) Thrombocytopenia Atrial fibrillation Surgical History Hx of mitral valve replacement 2005 Family History Father Myocardial infarction Denies family history of Diabetes Stroke Social History Smoking and tobacco/nicotine status: never used tobacco/nicotine Substance/Drug Use: never Physical Exam Narrative: EXAM NARRATIVE: Constitutional: the patient appears well nourished and of normal development. Vital signs as documented. No acute distress at present. Alert and oriented-to person, place, time and situation. Head, eyes, ears, nose, mouth, throat: Normocephalic, atraumatic. Pupils-equal, round, reactive to light. No scleral icterus. Normal-appearing external ears. Normal appearing nasal turbinates, no drainage. No obvious oral lesions, posterior oropharynx without erythema or exudates. Neck: Supple, trachea is midline, no lymphadenopathy, no jugular venous distension, thyromegaly, or carotid bruits. Carotid upstrokes are brisk bilaterally. Lungs: clear to auscultation to all lung driver. Symmetrical rise and fall of chest, no obvious signs of increased work of breathing at present. Cardiac: Atrial fibrillation with rapid ventricular response., positive S1, S2. No murmurs, rubs or gallops that I can appreciate Abdomen: Soft, non-tender to palpation, normal active bowel sounds to all quadrants. No palpable masses, no organomegaly and abdominal bruits. Extremities: 2+ pulses in the upper extremities that are equal bilaterally, 2+ pulses in the lower extremities that are equal bilaterally. Non-edematous. Moves all extremities well, sensation to all extremities are noted. Right great toe with well-approximated laceration with sutures no obvious signs of infection at present. Skin: Warm, dry, intact. Course Vital Signs: Vital signs: Vital Signs Temperature 97.5 F L 06/01/23 22:38 Pulse Rate 117 H 06/02/23 01:37 Respiratory Rate 32 H 06/02/23 01:37 Blood Pressure 119/70 06/02/23 01:37 Pulse Oximetry 96 06/02/23 01:37 Oxygen Delivery Me thod Nasal Cannula 06/01/23 23:31 Oxygen Flow Rate 1 06/01/23 23:31 MDM - Arrhythmia/Palpitations Medical Decision Making Physical exam completed and documented I will obtain laboratory evaluation to include a CBC, CMP, cardiac enzymes and twelve-lead EKG as well as a chest x-ray. Given the patient's atrial fibrillation with rapid ventricular response I will provide the patient with Cardizem and reevaluate. Medical Records I reviewed the patient's medical records. Lab Data I reviewed the patient's lab results. 06/01/23 23:08 06/01/23 23:08 Radiology Impressions Chest X-Ray 06/01/23 22:46 IMPRESSION: 1. Rqjjt-[id number]-jryhjwze right pleural effusion. 2. Right basilar consolidation or atelectasis. Laboratory Results WBC 10.36 10^3/uL (3.29-11.43) 06/01/23 23:08 RBC 3.93 10^6/uL (3.85-5.65) 06/01/23 23:08 Hgb 12.20 g/dL (11.27-16.99) 06/01/23 23:08 Hct 38.4 % (37-53) 06/01/23 23:08 MCV 97.7 fl (82-101) 06/01/23 23:08 MCH 31.0 pg (27-33) 06/01/23 23:08 MCHC 31.8 g/dL (30-55) 06/01/23 23:08 RDW 16.6 % (12.1-15.1) H 06/01/23 23:08 Plt Count 108 10^3/cmm (157-399) L 06/01/23 23:08 MPV 10.0 fL (7.4-10.4) 06/01/23 23:08 Neut % (Auto) 79.5 % 06/01/23 23:08 Lymph % (Auto) 10.5 % 06/01/23 23:08 [place] % (Auto) 7.3 % 06/01/23 23:08 Eos % (Auto) 1.6 % 06/01/23 23:08 Baso % (Auto) 0.5 % 06/01/23 23:08 Neut # (Auto) 8.23 10^3/uL (1.8-7.7) H 06/01/23 23:08 Lymph # (Auto) 1.1 10^3/uL (0.8-4.8) 06/01/23 23:08 [place] # (Auto) 0.8 10^3/uL (0.2-0.9) 06/01/23 23:08 Eos # (Auto) 0.2 10^3/uL (0.0-0.8) 06/01/23 23:08 Baso # (Auto) 0.1 10^3/uL (0.0-0.1) 06/01/23 23:08 Nucleated RBC % (auto) 0 % 06/01/23 23:08 Nucleated RBCs # 0.0 /100WBC 06/01/23 23:08 ESR 4 mm/hr (0-10) 06/01/23 23:08 PT 20.30 SECONDS (12.1-14.9) H 06/01/23 23:08 INR 1.67 (0.8-1.2) H 06/01/23 23:08 APTT 39.2 SECONDS (23.9-36.7) H 06/01/23 23:08 Sodium 138 mmol/L (136-145) 06/01/23 23:08 Potassium 3.9 mmol/L (3.5-5.1) 06/01/23 23:08 Chloride 102 mmol/L (98-107) 06/01/23 23:08 Carbon Dioxide 21 mmol/L (22-29) L 06/01/23 23:08 Anion Gap 18.9 (5-19) 06/01/23 23:08 BUN 38 mg/dL (8-23) H 06/01/23 23:08 Creatinine 2.0 mg/dL (0.7-1.2) H 06/01/23 23:08 GFR Calculation Not Reportable 06/01/23 23:08 Glucose 106 mg/dL (65-115) 06/01/23 23:08 Calculated Osmolality 295 mOsm/kg (285-295) 06/01/23 23:08 Lactic Acid 2.3 mmol/L (0.5-2.2) H 06/01/23 23:08 Calcium 9.2 mg/dL (8.5-10.5) 06/01/23 23:08 Total Bilirubin 2.7 mg/dL (0.15-1.2) H 06/01/23 23:08 AST 32 U/L (0-40) 06/01/23 23:08 ALT 14 U/L (0-41) 06/01/23 23:08 Alkaline Phosphatase 117 U/L (40-130) 06/01/23 23:08 C-Reactive Protein 16.5 mg/L (0.0-4.9) H 06/01/23 23:08 Total Protein 7.5 g/dL (6.6-8.7) 06/01/23 23:08 Albumin 4.1 g/dL (3.5-5.2) 06/01/23 23:08 Globulin 3.4 g/dL (1.3-4.6) 06/01/23 23:08 Procalcitonin 0.21 ng/mL (0-0.5) 06/01/23 23:08 All radiology interpretation(s) finalized by discharge Discharge Plan Discharge Patient Disposition: Home Clinical Impression: Atrial fibrillation with rapid ventricular response Condition: Stable Prescriptions: No Action cholecalciferol (vitamin D3) 50 mcg (2,000 unit) capsule 50 mcg PO QAM Eliquis 2.5 mg tablet 2.5 mg PO BID Qty: 60 3RF loratadine 10 mg tablet 10 mg PO BID PRN (Reason: allergies) bumetanide 1 mg tablet 1 mg PO DAILY diltiazem HCl 120 mg capsule,extended release 12 hr 120 mg PO BID midodrine 10 mg tablet 10 mg PO TID Rx Instructions: do not give last dose of day after 6PM or within 4 hrs of bedtime sucralfate [Carafate] 1 gram tablet 1 g PO BID pantoprazole 40 mg tablet,delayed release (DR/EC) 40 mg PO DAILY PRN (Reason: Acid Reflux) metolazone 5 mg tablet 5 mg PO .MWF zinc acetate 50 mg (zinc) Capsule 50 mg PO DAILY tamsulosin 0.4 mg capsule 0.4 mg PO DAILY ondansetron 4 mg tablet,disintegrating 4 mg PO Q8H PRN (Reason: nausea and vomiting) Qty: 15 0RF potassium chloride 20 mEq tablet extended release 20 meq PO QID melatonin 10 mg Tablet 10 mg PO BEDTIME PRN (Reason: Sleep) levothyroxine [Levoxyl] 100 mcg Tablet 100 mcg PO QAM Qty: 90 3RF finasteride 5 mg Tablet 5 mg PO DAILY oxycodone-acetaminophen 5-325 mg tablet 1 tab PO Q8H PRN (Reason: pain) Qty: 14 0RF cephalexin 500 mg capsule 500 mg PO Q6H 7 Days Qty: 28 0RF Discharge Orders: Discharge ED (Routine); Ordered 06/02/23 Ordered By: Fredy Genao Referrals: Daniel Rios, DO [Primary Care Provider] - Discharge Diet: Usual diet Discharge Activity: Resume usual activity Patient Instructions: Opioid Safety, Pain Management Activity Restrictions/Additional Instructions: Activity Restrictions/Additional Instructions: Thank you for choosing [facility] for your healthcare needs today. Please realize that you were seen in the Emergency Department and that we are providing you with an emergency medical screening exam and this may not be a complete and all inclusive of all the testing and or medical work-up that you may need to determine your ailment or severity of your illness. It is very important that you follow-up as instructed with your Primary care provider or Specialist for additional evaluation and to discuss your medical treatment plan. You may return to the Emergency Department should you have concerns or if your condition changes or worsens in any way. Coding Level of Care Code ED [employer]
[2023-06-01] MEDS: dilTIAZem 5 mg/mL SDV 5 mL 10 MG IVP (22:58)
[2023-06-01 23:14] LABS: Basophils # 0.1 10^3/uL (0.0-0.1); Basophils % 0.5 %; Eosinophils # 0.2 10^3/uL (0.0-0.8); Eosinophils % 1.6 %; Hematocrit 38.4 % (37-53); Lymphocytes # 1.1 10^3/uL (0.8-4.8); Lymphocytes % 10.5 %; Mean Corpuscular HGB Conc 31.8 g/dL (30-55); Mean Corpuscular Volume 97.7 fl (82-101); Monocytes # 0.8 10^3/uL (0.2-0.9); Monocytes % 7.3 %; Neutrophils # 8.23 10^3/uL (1.8-7.7); Neutrophils % 79.5 %; Nucleated Red Blood Cells % 0 %; Platelet Count 108 10^3/cmm (157-399); Red Blood Count 3.93 10^6/uL (3.85-5.65); Red Cell Distribution Width 16.6 % (12.1-15.1); White Blood Count 10.36 10^3/uL (3.29-11.43)
[2023-06-01 23:16] VITALS: BP 115/76; PULSE 112; O2SAT 98
[2023-06-01 23:27] LABS: INR 1.67 (0.8-1.2)
[2023-06-01 23:28] LABS: Partial Thromboplastin Time 39.2 SECONDS (23.9-36.7)
[2023-06-01 23:31] VITALS: BP 128/78; PULSE 107; O2SAT 96
[2023-06-01 23:36] LABS: Alanine Aminotransferase 14 U/L (0-41); Albumin Level 4.1 g/dL (3.5-5.2); Alkaline Phosphatase 117 U/L (40-130); Anion Gap 18.9 (5-19); Aspartate Amino Transferase 32 U/L (0-40); Blood Urea Nitrogen 38 mg/dL (8-23); C Reactive Protein 16.5 mg/L (0.0-4.9); Calcium 9.2 mg/dL (8.5-10.5); Carbon Dioxide 21 mmol/L (22-29); Chloride 102 mmol/L (98-107); Globulin 3.4 g/dL (1.3-4.6); Glucose 106 mg/dL (65-115); Lactic Sepsis W/Reflex 2.3 mmol/L (0.5-2.2); Osmolality Calculated 295 mOsm/kg (285-295); Potassium 3.9 mmol/L (3.5-5.1); Sodium 138 mmol/L (136-145); Total Bilirubin 2.7 mg/dL (0.15-1.2); Total Protein 7.5 g/dL (6.6-8.7)
[2023-06-01 23:38] LABS: Erythrocyte Sedimentation Rate 4 mm/hr (0-10)
[2023-06-01 23:41] LABS: Procalcitonin 0.21 ng/mL (0-0.5)
[2023-06-01 23:46] VITALS: BP 128/72; PULSE 114; RESP 21; O2SAT 98
[2023-06-02 00:59] LABS: Reflex Lactate Order REFLEX LACTIC ORDERD
[2023-06-02] MEDS: dilTIAZem 5 mg/mL SDV 5 mL IVP (01:03)
[2023-06-02 01:06] VITALS: BP 113/60; PULSE 113; RESP 23; O2SAT 97
[2023-06-02 01:37] VITALS: BP 119/70; PULSE 117; RESP 32; O2SAT 96
== END 2023-06-02 01:39 | disposition home or self-care (01) ==
PROVIDERS: Emergency Provider Internal Medicine; PCP Emergency Medicine Emergency Medical Services
DX: I48.20 Chronic atrial fibrillation, unspecified (principal); Z79.01 Long term (current) use of anticoagulants; N18.9 Chronic kidney disease, unspecified; I50.30 Unspecified diastolic (congestive) heart failure
CPT/HCPCS: 71045; 80053; 83605; 84145; 85025; 85610; 85651; 85730; 86140; 96374; 96376; 99285; J3490

== ENCOUNTER → 2023-06-02 15:12 | Outpatient (BNVA) | payer OTHER, SELFPAY | PROVIDERS: PCP Emergency Medicine Emergency Medical Services; Referring Provider Emergency Medicine Emergency Medical Services; Visit Provider Orthopaedic Surgery | DX: M48.54XA Collapsed vertebra, not elsewhere classified, thoracic region, initial encounter for fracture; M48.56XA Collapsed vertebra, not elsewhere classified, lumbar region, initial encounter for fracture | CPT/HCPCS: 72040; 72080; 99204 ==

== ENCOUNTER 2023-06-09 11:24 | Emergency (ER) | payer OTHER, SELFPAY ==
[2023-06-09 11:30] VITALS: BP 103/69; PULSE 84; RESP 18; TEMP 36.7; O2SAT 95; BMI 33.4
--- NOTE | 2023-06-09 11:42 | CT_ITS ---
WS: [id number] CT ABDOMEN PELVIS TECHNIQUE: Noncontrast CT of the abdomen and pelvis with coronal and sagittal reformatted images. CLINICAL INFORMATION: abdominal pain, chills COMPARISON: 05/22/2023 DLP: 885.[address] scans at [facility] use at least one of these dose optimization techniques: automated e xposure control; mA and/or kV adjustment per patient size (includes targeted exams where dose is matc hed to clinical indication); or iterative reconstruction. FINDINGS: Sternotomy. Enlarged RIGHT atrium. Small RIGHT pleural effusion with compressive atelectasi s RIGHT lower lobe. Tiny LEFT pleural effusion. Normal GE junction. Cirrhotic liver. Cardiomegaly with diffuse dilatation of the IVC and iliac veins compatible with CHF/ RIGHT heart failure. This is unchanged compared to previous. Diffuse body wall anasarca. Cholelithias is. Noncontrast spleen is normal. Small amount of perisplenic ascites is unchanged. Adrenal glands are normal. Renal atrophy. No hydron ephrosis. Diffuse fatty atrophy of the pancreas. Normal caliber abdominal aorta. Aortic calcification . Umbilical hernia with a small outpouching of nonobstructed bowel unchanged compared to 05/22/2023. Di ffuse mesenteric edema. Small amount of free fluid in the pelvis. Sigmoid diverticulosis. Chronic RIGHT pubic rami fracture with callus formation. Stable T12 and L3 compression fractures. Mild compression of the L1 superior end plate is new compare d to previous. No retropulsion. IMPRESSION: 1. Mild compression of the L1 superior endplate is new compared to previous. 2. Small RIGHT pleural effusion with compressive atelectasis RIGHT lower lobe slightly progressed co mpared to previous. 3. Stable cirrhotic liver with diffuse body wall anasarca and mesenteric edema. 4. Stable diffuse dilatation of the IVC and iliac veins with enlarged RIGHT heart chambers compatibl e with RIGHT heart failure/CHF. 5. Stable cholelithiasis. 6. Umbilical hernia containing a tiny portion of small bowel without evidence of obstruction. This i s unchanged.
--- NOTE | 2023-06-09 11:43 | XR_ITS ---
WS: [id number] Examination: XR chest 1V portable [id number] Reason for Exam: sob-chronic Date: 06/09/2023 Comparison: 06/01/2023 Findings: There is marked enlargement of the cardiac silhouette. Previous median sternotomy and valve replaceme nt are noted. The vascular markings are increased suggesting pulmonary venous hypertension There is continued but smaller right pleural effusion. Impression: Continued cardiomegaly with pulmonary venous hypertension The right effusion has diminished in size in the interval.
--- NOTE | 2023-06-09 11:43 | ED_ITS ---
HPI - Extremity Problem 2 General: Chief complaint: Abdominal Pain Stated complaint: left leg pain and blisters Time Seen by Provider: 06/09/23 11:32 Source: patient and family Mode of arrival: wheelchair Limitations: no limitations History of Present Illness: Patient is an 82-year-old male with a history of hypertension, CHF (last echo 10/2022 with an EF of 44%), chronic l[facility]hedema ([facility]), CKD, hypothyroidism, BPH, CAD, and atrial fibrillation on Eliquis here along with family for concerns of redness to his left lower leg. They report patient has a chronic history of lower extremity edema and feels like his swelling is at baseline but they began noticing worsening redness to the left leg a few days ago. He was subsequently seen by his PCP at the [facility] and placed on cephalexin. He has been on this medication approximately 48 hours. Family has not noticed much of an improvement. He is not running fevers. Patient also has a complaint of abdominal pain. He has had this over the past several weeks and this does not seem to be improving. MD Complaint: extremity swelling and other (redness to legs L>R) Onset (ago): day(s) Pain Consistency: constant Location: left and lower extremity Radiation: none Relieving factors: nothing Exacerbating factors: nothing Associated symptoms: Deny chest pain, fever(s) or rash Review of Systems 2 Const: Denies: fever(s), chills, body aches, fatigue or malaise Eyes: Denies: change in vision, blurry vision, photophobia, floaters or seeing flashes Card: Denies: chest pain, palpitations, irregular heart rhythm, lightheadedness, syncope or dyspnea on exertion Resp: Reports: dyspnea (chronic-wears O2 continuously ); Denies: productive cough or pain on inspiration GI: Reports: abdominal pain; Denies: nausea, vomiting, heartburn or diarrhea : Denies: flank pain, difficulty urinating or dysuria Musc: Reports: extremity swelling (chronic); Denies: neck pain, back pain, joint pain, joint swelling, joint redness or joint warmth Skin/Breast: Reports: erythema (L lower anterior leg); Denies: rash Neuro: Denies: headache(s), numbness in extremities, weakness in extremities or sensory changes PFSH ED 2 PFSH: Medical History Hypothyroid Transaminitis Elevated bilirubin Abnormal TSH Hyperkalemia Pulmonary embolism Atrial fibrillation Deep venous thrombosis Atrial fibrillation with RVR Diastolic CHF Stenosis of prosthetic mitral valve Tricuspid valve regurgitation, nonrheumatic Chronic kidney disease (CKD) Thrombocytopenia Atrial fibrillation Surgical History Hx of mitral valve replacement 2005 Family History Father Myocardial infarction Denies family history of Diabetes Stroke Social History Smoking and tobacco/nicotine status: never used tobacco/nicotine Substance/Drug Use: never Physical Exam 2 Const: COMMON NORMALS: patient oriented x3, no limitations and alert G ENERAL APPEARANCE: cooperative and ill appearing (chronically ill appearing) ORIENTATION/CONSCIOUSNESS: Yes awake, Yes oriented to person and Yes oriented to place HENMT: COMMON NORMALS: normocephalic and atraumatic HEAD & SCALP: normal to inspection, normocephalic and atraumatic Eye: COMMON NORMALS: no scleral icterus Chest: COMMONS NORMALS: normal inspection of the chest and normal palpation of entire chest wall Resp: COMMON NORMALS: normal respiratory effort OTHER: wearing his normal 2L O2 via NC GI: COMMON NORMALS: Normal to inspection, nondistended, normoactive bowel sounds present, Soft to palpation, No hepatosplenomegaly present and no masses INSPECTION: Yes normal to inspection and Yes visible herniation (chronic midline hernias that do not appear incarcerated) AUSCULTATION: Yes normoactive bowel sounds PALPATION: Yes Soft to palpation, Yes Tenderness to palpation present (GI) (across mid to lower abdomen), No Guarding due to palpation present (GI), No Rigid due to palpation and Yes No hepatosplenomegaly present Extremity: COMMON NORMALS: full ROM NARRATIVE EXTREMITY EXAM: chronic bilateral LE edema/erythema; there does seem to be worsening erythema affecting anterior left lower leg that family is concerned with; intact sutures overlying R great toe placed by myself last time I saw him in ED-no redness/drainage/or other signs of infection-these were removed today; lymphedema is chronic and affects up to this thighs which family states is normal GENERAL: Yes edema Neuro: COMMON NORMALS: patient oriented x3 SENSORIUM/ORIENTATION: Yes alert, Yes oriented to person and Yes oriented to place Course 2 Vital Signs: Vital signs: Vital Signs Temperature 98.0 F 06/09/23 11:30 Pulse Rate 84 06/09/23 13:21 Respiratory Rate 19 H 06/09/23 13:21 Blood Pressure 103/64 06/09/23 13:21 Pulse Oximetry 96 06/09/23 13:21 Oxygen Delivery Me thod Room Air 06/09/23 13:21 Oxygen Flow Rate 2 06/09/23 13:02 MDM - Extremity (Nontraumatic) Medical Decision Making Patient is an 82-year-old male with an extensive past medical history here for concerns of worsening redness to his left anterior lower leg. Patient has extensive chronic bilateral lower extremity lymphedema. He does have some baseline erythema related to this but family states redness to the left leg is worse. He has been Keflex approximately 48 hours. He is not tachycardic or febrile. His soft BP is normal for him. He has a normal white count. ESR is normal. His CRP is chronically elevated. Will add Augmentin. I do not feel he needs admission for IV antibiotics at this time. Remainder of labs are pretty much at baseline. He has chronic thrombocytopenia. Chronic kidney disease. Chronic hyperbilirubinemia. UA without evidence for infection. CXR showing continued cardiomegaly with other findings consistent with his known CHF. Last echo was approximately 8 months ago. He is following up with cardiology for this. He takes Bumex 1mg daily and metolazone MWF. Family states they have not noticed any worsening leg swelling or weight gain. He has not had to increase his baseline [address] abdomen/pelvis obtained due to his complaint of continued abdominal pain showing stable changes related to his liver cirrhosis and CHF. New L1 fracture compared to previous. Has already seen Dr. Niño for some other back fractures and has MRIs of thoracic/lumbar spine ordered. Return precautions given. Medical Records I reviewed the patient's medical records. Lab Data I reviewed the patient's lab results. 06/09/23 12:01 06/09/23 12:01 Laboratory Results WBC 9.85 10^3/uL (3.29-11.43) 06/09/23 12:01 RBC 3.62 10^6/uL (3.85-5.65) L 06/09/23 12:01 Hgb 11.40 g/dL (11.27-16.99) 06/09/23 12:01 Hct 34.7 % (37-53) L 06/09/23 12:01 MCV 95.9 fl (82-101) 06/09/23 12:01 MCH 31.5 pg (27-33) 06/09/23 12:01 MCHC 32.9 g/dL (30-55) 06/09/23 12:01 RDW 17.4 % (12.1-15.1) H 06/09/23 12:01 Plt Count 133 10^3/cmm (157-399) L 06/09/23 12:01 MPV 10.0 fL (7.4-10.4) 06/09/23 12:01 Neut % (Auto) 66.9 % 06/09/23 12:01 Lymph % (Auto) 15.2 % 06/09/23 12:01 [place] % (Auto) 11.1 % 06/09/23 12:01 Eos % (Auto) 1.7 % 06/09/23 12:01 Baso % (Auto) 0.8 % 06/09/23 12:01 Neut # (Auto) 6.59 10^3/uL (1.8-7.7) 06/09/23 12:01 Lymph # (Auto) 1.5 10^3/uL (0.8-4.8) 06/09/23 12:01 [place] # (Auto) 1.1 10^3/uL (0.2-0.9) H 06/09/23 12:01 Eos # (Auto) 0.2 10^3/uL (0.0-0.8) 06/09/23 12:01 Baso # (Auto) 0.1 10^3/uL (0.0-0.1) 06/09/23 12:01 Nucleated RBC % (auto) 0 % 06/09/23 12:01 Nucleated RBCs # 0.0 /100WBC 06/09/23 12:01 ESR 5 mm/hr (0-10) 06/09/23 12:01 Sodium 138 mmol/L (136-145) 06/09/23 12:01 Potassium 4.3 mmol/L (3.5-5.1) 06/09/23 12:01 Chloride 101 mmol/L (98-107) 06/09/23 12:01 Carbon Dioxide 23 mmol/L (22-29) 06/09/23 12:01 Anion Gap 18.3 (5-19) 06/09/23 12:01 BUN 44 mg/dL (8-23) H 06/09/23 12:01 Creatinine 2.1 mg/dL (0.7-1.2) H 06/09/23 12:01 GFR Calculation Not Reportable 06/09/23 12:01 Glucose 118 mg/dL (65-115) H 06/09/23 12:01 Calculated Osmolality 298 mOsm/kg (285-295) H 06/09/23 12:01 Calcium 9.1 mg/dL (8.5-10.5) 06/09/23 12:01 Total Bilirubin 2.6 mg/dL (0.15-1.2) H 06/09/23 12:01 AST 32 U/L (0-40) 06/09/23 12:01 ALT 14 U/L (0-41) 06/09/23 12:01 Alkaline Phosphatase 135 U/L (40-130) H 06/09/23 12:01 C-Reactive Protein 77.4 mg/L (0.0-4.9) H 06/09/23 12:01 Total Protein 6.7 g/dL (6.6-8.7) 06/09/23 12:01 Albumin 3.5 g/dL (3.5-5.2) 06/09/23 12:01 Globulin 3.2 g/dL (1.3-4.6) 06/09/23 12:01 Urine Color Yellow (Yellow) 06/09/23 13:16 Urine Appearance Clear (CLEAR) 06/09/23 13:16 Urine pH 5 (5-7) 06/09/23 13:16 Ur Specific [place] 1.020 (1.005-1.030) 06/09/23 13:16 Urine Protein 1+ (Negative) H 06/09/23 13:16 Urine Glucose (UA) Norm (Normal) 06/09/23 13:16 Urine Ketones 1+ (Negative) H 06/09/23 13:16 Urine Blood Neg (Negative) 06/09/23 13:16 Urine Nitrate Negative (Negative) 06/09/23 13:16 Urine Bilirubin Neg (Negative) 06/09/23 13:16 Urine Urobilinogen 4 mg/dL (Negative) H 06/09/23 13:16 Ur Leukocyte Esterase Trace (Negative) H 06/09/23 13:16 Urine RBC 0-4 /hpf (0-2) H 06/09/23 13:16 Urine WBC 0-4 /hpf (0-5) H 06/09/23 13:16 Ur Squamous Epith Cells 0-4 /hpf (0-5) H 06/09/23 13:16 Amorphous Sediment Not Reportable 06/09/23 13:16 Urine Bacteria Trace /hpf (NONE) 06/09/23 13:16 Urine Mucus Trace /hpf 06/09/23 13:16 All radiology interpretation(s) finalized by discharge Discharge Plan Discharge Patient Disposition: Home Clinical Impression: Cellulitis of left anterior lower leg, Lymphedema Chronic kidney disease (CKD) Qualifiers: Chronic kidney disease stage: unspecified stage Qualified Code(s): N18.9 - Chronic kidney disease, unspecified Condition: Stable Prescriptions: New amoxicillin-pot clavulanate 875-125 mg tablet 1 tab PO BID Qty: 14 0RF No Action cholecalciferol (vitamin D3) 50 mcg (2,000 unit) capsule 50 mcg PO QAM Eliquis 2.5 mg tablet 2.5 mg PO BID Qty: 60 3RF hydrocodone-acetaminophen 5-325 mg tablet 1 tab PO Q8H PRN (Reason: pain) 7 Days Qty: 21 0RF loratadine 10 mg tablet 10 mg PO BID PRN (Reason: allergies) bumetanide 1 mg tablet 1 mg PO DAILY diltiazem HCl 120 mg capsule,extended release 12 hr 120 mg PO BID midodrine 10 mg tablet 10 mg PO TID Rx Instructions: do not give last dose of day after 6PM or within 4 hrs of bedtime sucralfate [Carafate] 1 gram tablet 1 g PO BID pantoprazole 40 mg tablet,delayed release (DR/EC) 40 mg PO DAILY PRN (Reason: Acid Reflux) metolazone 5 mg tablet 5 mg PO .MWF zinc acetate 50 mg (zinc) Capsule 50 mg PO DAILY tamsulosin 0.4 mg capsule 0.4 mg PO DAILY ondansetron 4 mg tablet,disintegrating 4 mg PO Q8H PRN (Reason: nausea and vomiting) Qty: 15 0RF potassium chloride 20 mEq tablet extended release 20 meq PO QID melatonin 10 mg Tablet 10 mg PO BEDTIME PRN (Reason: Sleep) levothyroxine [Levoxyl] 100 mcg Tablet 100 mcg PO QAM Qty: 90 3RF finasteride 5 mg Tablet 5 mg PO DAILY Discharge Orders: Discharge ED (Routine); Ordered 06/09/23 Ordered By: Kenia Billingsley Referrals: Daniel Rios DO [Primary Care Provider] - Patient Instructions: Cellulitis (ED) Activity Restrictions/Additional Instructions: As we discussed continue current plan for his lymphedema wraps. Continue antibiotic therapy. He need to return to the emergency department if redness continues to worsen or begin spreading up his leg or if he begins running fevers, generally feels worse or unwell, or any other concerns you may have. Otherwise please follow-up with [facility]. Coding Level of Care Code ED [employer] for [employer]
[2023-06-09 12:08] LABS: Basophils # 0.1 10^3/uL (0.0-0.1); Basophils % 0.8 %; Eosinophils # 0.2 10^3/uL (0.0-0.8); Eosinophils % 1.7 %; Hematocrit 34.7 % (37-53); Lymphocytes # 1.5 10^3/uL (0.8-4.8); Lymphocytes % 15.2 %; Mean Corpuscular HGB Conc 32.9 g/dL (30-55); Mean Corpuscular Hemoglobin 31.5 pg (27-33); Mean Corpuscular Volume 95.9 fl (82-101); Monocytes # 1.1 10^3/uL (0.2-0.9); Monocytes % 11.1 %; Neutrophils # 6.59 10^3/uL (1.8-7.7); Neutrophils % 66.9 %; Nucleated Red Blood Cells % 0 %; Platelet Count 133 10^3/cmm (157-399); Red Blood Count 3.62 10^6/uL (3.85-5.65); Red Cell Distribution Width 17.4 % (12.1-15.1); White Blood Count 9.85 10^3/uL (3.29-11.43)
[2023-06-09 12:12] VITALS: BP 103/69; PULSE 82; RESP 18; O2SAT 96
[2023-06-09 12:28] LABS: Alanine Aminotransferase 14 U/L (0-41); Albumin Level 3.5 g/dL (3.5-5.2); Alkaline Phosphatase 135 U/L (40-130); Anion Gap 18.3 (5-19); Aspartate Amino Transferase 32 U/L (0-40); Blood Urea Nitrogen 44 mg/dL (8-23); C Reactive Protein 77.4 mg/L (0.0-4.9); Calcium 9.1 mg/dL (8.5-10.5); Carbon Dioxide 23 mmol/L (22-29); Chloride 101 mmol/L (98-107); Globulin 3.2 g/dL (1.3-4.6); Glucose 118 mg/dL (65-115); Osmolality Calculated 298 mOsm/kg (285-295); Potassium 4.3 mmol/L (3.5-5.1); Sodium 138 mmol/L (136-145); Total Bilirubin 2.6 mg/dL (0.15-1.2); Total Protein 6.7 g/dL (6.6-8.7)
[2023-06-09 12:54] LABS: Slide Review Slide Review Perform
[2023-06-09 13:02] VITALS: BP 103/69; PULSE 71; RESP 17; O2SAT 91
[2023-06-09 13:07] LABS: Erythrocyte Sedimentation Rate 5 mm/hr (0-10)
[2023-06-09 13:21] VITALS: BP 103/64; PULSE 84; RESP 19; O2SAT 96
[2023-06-09 13:49] LABS: Add Urine Microscopic? YES; Bacteria Urine TRACE /hpf; Bilirubin Urine Neg (Negative); Blood Urine Neg (Negative); Glucose Urine UA Norm (Normal); Ketones Urine 1+ (Negative); Leukocyte Esterase Urine Trace (Negative); Mucus Urine TRACE /hpf; Nitrate Urine Negative (Negative); Protein Urine 1+ (Negative); RBC Urine 0-4 /hpf (0-2); Squamous Epithelial Cell Urine 0-4 /hpf (0-5); Urine Appearance Clear (CLEAR); Urine Color Yellow (Yellow); Urobilinogen Urine 4 mg/dL (Negative); WBC Urine 0-4 /hpf (0-5); pH Urine 5 (5-7)
[2023-06-09 14:36] VITALS: BP 103/64; PULSE 84; RESP 19; TEMP 36.7; O2SAT 96
== END 2023-06-09 14:37 | disposition home or self-care (01) ==
PROVIDERS: Emergency Provider Physician Assistant; PCP Emergency Medicine Emergency Medical Services
DX: L03.116 Cellulitis of left lower limb (principal); I89.0 Lymphedema, not elsewhere classified; N18.9 Chronic kidney disease, unspecified; I50.30 Unspecified diastolic (congestive) heart failure; Z79.01 Long term (current) use of anticoagulants
CPT/HCPCS: 36415; 71045; 74176; 80053; 81001; 85025; 85651; 86140; 87040; 99284

== ENCOUNTER → 2023-06-13 10:00 | Outpatient (BNVA) | payer OTHER, MEDICARE, SELFPAY | PROVIDERS: PCP Emergency Medicine Emergency Medical Services; Visit Provider Nurse Practitioner Family | DX: L29.8 Other pruritus (principal); L27.0 Generalized skin eruption due to drugs and medicaments taken internally; L57.0 Actinic keratosis; D69.2 Other nonthrombocytopenic purpura; I87.2 Venous insufficiency (chronic) (peripheral); L03.116 Cellulitis of left lower limb | CPT/HCPCS: 99204 ==

== ENCOUNTER 2023-06-21 11:34 | Outpatient (RCR) | payer OTHER, SELFPAY | END 2023-07-16 23:59 | disposition home or self-care (01) | LOC: SPT 11:34 | PROVIDERS: PCP Emergency Medicine Emergency Medical Services; Visit Provider Emergency Medicine Emergency Medical Services | DX: I89.0 Lymphedema, not elsewhere classified (principal) | CPT/HCPCS: 97110; 97161 ==

== ENCOUNTER 2023-07-01 17:09 | Inpatient (IN) | payer OTHER, SELFPAY ==
[2023-07-01 17:14] VITALS: BP 118/66; PULSE 89; RESP 25; TEMP 36.7; O2SAT 91
--- NOTE | 2023-07-01 17:14 | XRR_ITS ---
PROCEDURE INFORMATION: Exam: XR Chest Exam date and time: 07/01/2023 5:35 PM Age: 83 years old Clinical indication: Cough; Patient HX: Weakness; SOB; HX cabg TECHNIQUE: Imaging protocol: Radiologic exam of the chest. Views: 1 view. COMPARISON: CR XR chest 1V portable [id number] 06/09/2023 12:13 PM FINDINGS: Lungs: There is a right pleural effusion with right lower lobe consolidation collapse. Pleural spaces: Small left pleural effusion. Heart/Mediastinum: Cardiomegaly. Post valve replacement. Vasculature: Aortic arch calcifications. Unfolding of the aortic arch. Bones/joints: Post sternotomy. Moderate degenerative disease of bilateral glenohumeral joints. XR/XR chest 1V portable [id number] IMPRESSION: Increase in the right pleural effusion with right lower lobe consolidation collapse.
--- NOTE | 2023-07-01 17:14 | ECG_ITS ---
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 Measurements Intervals [place] Rate: 80 P: 0 [place]: 0 QRS: 105 QRSD: 112 T: 89 QT: 414 QTc: 479 Interpretive Statements ATRIAL FIBRILLATION WITH ABERRANT CONDUCTION OR VENTRICULAR PREMATURE COMPLEXES RIGHT AXIS DEVIATION [QRS AXIS > 100] MODERATE INTRAVENTRICULAR CONDUCTION DELAY [110+ ms QRS DURATION] NONSPECIFIC ST & T-WAVE ABNORMALITY WARNING: DATA QUALITY MAY AFFECT INTERPRETATION Compared to ECG 01/30/2023 01:22:03 Right-axis deviation now present Intraventricular conduction delay now present Atrial abnormality no longer present Prolonged QT interval no longer present T-wave abnormality still present Electronically Signed On 07-02-2023 21:35:12 CDT by Anneliese Aceves M.D. [id number]
--- NOTE | 2023-07-01 17:17 | W.ED.GENADLT ---
Documented by User: Inder Abraham DO 07/01/23 18:00 HPI - General Adult General: Chief complaint: Shortness of Breath/Dyspnea Stated complaint: weakness, sob Time Seen by Provider: 07/01/23 17:13 Source: patient Mode of arrival: ambulatory History of Present Illness: 83-year-old male presents emergency room with altered mental status weakness shortness of breath. He has a history of CHF anemia and congestive heart failure. No fever sweats or chills no productive cough he had some issues with back pain has a history of compression fractures he has follow-up advanced imaging scheduled. Denies any chest pain at this time. He has been taking all of his medications regularly. Onset (ago): day(s) Relieving factors: none Exacerbating factors: none Associated symptoms: Reports cough, decreased appetite, dyspnea, malaise, nausea and short of breath; Deny chest pain, confusion, diaphoresis, fevers/chills, headache(s), rash, palpitations, seizures, syncope, vomiting or weakness Treatments prior to arrival: none Review of Systems Const: Reports: fatigue and malaise; Denies: fever(s), chills or diaphoresis Card: Reports: orthopnea; Denies: chest pain, palpitations or syncope Resp: Reports: dyspnea GI: Reports: nausea; Denies: abdominal pain or vomiting : Denies: dysuria, urinary frequency or urinary urgency Musc: Denies: neck pain or back pain Skin/Breast: Denies: rash Neuro: Denies: headache(s) or confusion [facility] ED PFSH: Medical History Hypothyroid Transaminitis Elevated bilirubin Abnormal TSH Hyperkalemia Pulmonary embolism Atrial fibrillation Deep venous thrombosis Atrial fibrillation with RVR Diastolic CHF Stenosis of prosthetic mitral valve Tricuspid valve regurgitation, nonrheumatic Chronic kidney disease (CKD) Thrombocytopenia Atrial fibrillation Surgical History Hx of mitral valve replacement 2005 Family History Father Myocardial infarction Denies family history of Diabetes Stroke Social History Smoking and tobacco/nicotine status: never used tobacco/nicotine Substance/Drug Use: never Physical Exam Const: GENERAL APPEARANCE: cooperative, comfortable and lethargic ORIENTATION/CONSCIOUSNESS: Yes awake and Yes lethargic HENMT: COMMON NORMALS: normocephalic and atraumatic HEAD & SCALP: normocephalic and atraumatic Resp: COMMON NORMALS: normal respiratory effort, No retractions, No use of accessory muscles and clear to auscultation bilaterally AUSCULTATION: clear to auscultation bilaterally Cardio: COMMON NORMALS: regular rate, regular rhythm and No murmurs present (Cardio) RATE: regular rate RHYTHM: regular rhythm GI: COMMON NORMALS: Soft to palpation and No hepatosplenomegaly present AUSCULTATION: Yes normoactive bowel sounds PALPATION: Yes Soft to palpation, No Tenderness to palpation present (GI), No Guarding due to palpation present (GI) and Yes No hepatosplenomegaly present Extremity: COMMON NORMALS: normal to inspection, capillary refill normal, no clubbing, cyanosis or edema, no calf tenderness and no pedal edema Neuro: SENSORIUM/ORIENTATION: Yes lethargic Skin: COMMON NORMALS: no rashes or lesions noted GENERAL SKIN EXAM: no rashes or lesions noted Course Vital Signs: Vital signs: Vital Signs Temperature 98.0 F 07/01/23 17:14 Pulse Rate 84 07/01/23 18:32 Respiratory Rate 26 H 07/01/23 18:32 Blood Pressure 101/82 07/01/23 18:32 Pulse Oximetry 97 07/01/23 18:32 Oxygen Delivery Me thod Room Air 07/01/23 17:14 MDM - General Adult Medical Decision Making Care signed out to Dr. Fallon at change of shift. See final notes for diagnosis and disposition. Lab Data 07/01/23 17:35 07/01/23 18:10 Radiology Impressions Chest X-Ray 07/01/23 17:14 IMPRESSION: Increase in the right pleural effusion with right lower lobe consolidation collapse. Laboratory Results WBC 8.31 10^3/uL (3.29-11.43) 07/01/23 17:35 RBC 3.87 10^6/uL (3.85-5.65) 07/01/23 17:35 Hgb 12.30 g/dL (11.27-16.99) 07/01/23 17:35 Hct 37.4 % (37-53) 07/01/23 17:35 MCV 96.6 fl (82-101) 07/01/23 17:35 MCH 31.8 pg (27-33) 07/01/23 17:35 MCHC 32.9 g/dL (30-55) 07/01/23 17:35 RDW 19.2 % (12.1-15.1) H 07/01/23 17:35 Plt Count 209 10^3/cmm (157-399) 07/01/23 17:35 MPV 11.6 fL (7.4-10.4) H 07/01/23 17:35 Neut % (Auto) 72.3 % 07/01/23 17:35 Lymph % (Auto) 14.3 % 07/01/23 17:35 Orange % (Auto) 9.7 % 07/01/23 17:35 Eos % (Auto) 2.2 % 07/01/23 17:35 Baso % (Auto) 0.7 % 07/01/23 17:35 Neut # (Auto) 6.00 10^3/uL (1.8-7.7) 07/01/23 17:35 Lymph # (Auto) 1.2 10^3/uL (0.8-4.8) 07/01/23 17:35 Orange # (Auto) 0.8 10^3/uL (0.2-0.9) 07/01/23 17:35 Eos # (Auto) 0.2 10^3/uL (0.0-0.8) 07/01/23 17:35 Baso # (Auto) 0.1 10^3/uL (0.0-0.1) 07/01/23 17:35 Nucleated RBC % (auto) 0 % 07/01/23 17:35 Nucleated RBCs # 0.0 /100WBC 07/01/23 17:35 Specimen Type Arterial 07/01/23 17:45 Sample Site Radial, right 07/01/23 17:45 ABG pH 7.48 (7.35-7.45) H 07/01/23 17:45 ABG pCO2 33.3 mmHg (35-45) L 07/01/23 17:45 ABG pO2 70.4 mmHg (80.0-100.0) L 07/01/23 17:45 ABG PO2/FiO2 Ratio 0 07/01/23 17:45 ABG HCO3 24.9 mmol/L (22-26) 07/01/23 17:45 ABG O2 Saturation 96.2 07/01/23 17:45 ABG Base Excess 1.8 mmol/L (-2.0-2.0) 07/01/23 17:45 Ethan Test Pos 07/01/23 17:45 A-a O2 Gradient 18.6 mmHg (5-10) H 07/01/23 17:45 Hematocrit 36.2 % (42-52) L 07/01/23 17:45 Hgb O2 Saturation 93.7 % (95-100) L 07/01/23 17:45 Carboxyhemoglobin 2.0 %THgb (0.4-20.1) 07/01/23 17:45 Methemoglobin 0.6 % (0.4-1.5) 07/01/23 17:45 Total Hemoglobin 11.8 g/dL (14-18) L 07/01/23 17:45 Sodium 136.0 mmol/L (131-143) 07/01/23 17:45 Potassium 3.7 mmol/L (3.5-5.0) 07/01/23 17:45 Glucose 96.0 mg/dL (70-115) 07/01/23 17:45 Ionized Calcium 1.2 mmol/L (1.1-1.4) 07/01/23 17:45 O2 Delivery Device Nc 07/01/23 17:45 O2 Liters/Min 4.0 % 07/01/23 17:45 FiO2 36.0 % 07/01/23 17:45 Surgical Instrument Repair Specialist ID [email or web address] 07/01/23 17:45 Sodium 135 mmol/L (136-145) L 07/01/23 18:10 Potassium 3.8 mmol/L (3.5-5.1) 07/01/23 18:10 Chloride 100 mmol/L (98-107) 07/01/23 18:10 Carbon Dioxide 24 mmol/L (22-29) 07/01/23 18:10 Anion Gap 14.8 (5-19) 07/01/23 18:10 BUN 44 mg/dL (8-23) H 07/01/23 18:10 Creatinine 2.1 mg/dL (0.7-1.2) H 07/01/23 18:10 GFR Calculation Not Reportable 07/01/23 18:10 Glucose 88 mg/dL (65-115) 07/01/23 18:10 Calculated Osmolality 291 mOsm/kg (285-295) 07/01/23 18:10 Lactic Acid 1.6 mmol/L (0.5-2.2) 07/01/23 18:10 Calcium 8.8 mg/dL (8.5-10.5) 07/01/23 18:10 Total Bilirubin 2.1 mg/dL (0.15-1.2) H 07/01/23 18:10 AST 37 U/L (0-40) 07/01/23 18:10 ALT 16 U/L (0-41) 07/01/23 18:10 Alkaline Phosphatase 131 U/L (40-130) H 07/01/23 18:10 Troponin T Baseline 63 ng/L (0-15) H 07/01/23 18:10 NT-Pro-B Natriuret Pep 6687 pg/mL (0-450) H 07/01/23 18:10 Total Protein 6.0 g/dL (6.6-8.7) L 07/01/23 18:10 Albumin 3.3 g/dL (3.5-5.2) L 07/01/23 18:10 Globulin 2.7 g/dL (1.3-4.6) 07/01/23 18:10 Urine Color Dark yellow (Yellow) 07/01/23 18:30 Urine Appearance Hazy (CLEAR) A 07/01/23 18:30 Urine pH 5 (5-7) 07/01/23 18:30 Ur Specific [place] 1.020 (1.005-1.030) 07/01/23 18:30 Urine Protein Trace (Negative) 07/01/23 18:30 Urine Glucose (UA) Norm (Normal) 07/01/23 18:30 Urine Ketones Negative (Negative) 07/01/23 18:30 Urine Blood 3+ (Negative) H 07/01/23 18:30 Urine Nitrate Negative (Negative) 07/01/23 18:30 Urine Bilirubin Neg (Negative) 07/01/23 18:30 Urine Urobilinogen Neg mg/dL (Negative) 07/01/23 18:30 Ur Leukocyte Esterase Negative (Negative) 07/01/23 18:30 Urine RBC 0-4 /hpf (0-2) H 07/01/23 18:30 Urine WBC 5-10 /hpf (0-5) H 07/01/23 18:30 Ur Squamous Epith Cells 0-4 /hpf (0-5) H 07/01/23 18:30 Amorphous Sediment Trace /hpf 07/01/23 18:30 Urine Bacteria 1+ /hpf (NONE) H 07/01/23 18:30 Hyaline Casts 0-4 /lpf H 07/01/23 18:30 Urine Mucus 1+ /hpf 07/01/23 18:30 Urine Yeast 1+ /hpf H 07/01/23 18:30 XR interpretation done by ED provider, pending radiology final review Discharge Plan Discharge Admit Provider: Christophe García Clinical Impression: CHF exacerbation, Chronic pulmonary edema, Pleural effusion, Acute hypoxemic respiratory failure Condition: Fair Coding Level of Care Code ED [employer] [place] Attendant for Chg Fwd Documented by User: Ismael Fallon DO 07/01/23 20:21 HPI - General Adult General: Chief complaint: Shortness of Breath/Dyspnea Stated complaint: weakness, sob Time Seen by Provider: 07/01/23 17:13 PFSH ED PFSH: Medical History Hypothyroid Transaminitis Elevated bilirubin Abnormal TSH Hyperkalemia Pulmonary embolism Atrial fibrillation Deep venous thrombosis Atrial fibrillation with RVR Diastolic CHF Stenosis of prosthetic mitral valve Tricuspid valve regurgitation, nonrheumatic Chronic kidney disease (CKD) Thrombocytopenia Atrial fibrillation Surgical History Hx of mitral valve replacement 2005 Family History Father Myocardial infarction Denies family history of Diabetes Stroke Social History (Reviewed 07/01/23 @ 17:18 by KEAGAN Orona Smoking and tobacco/nicotine status: never used tobacco/nicotine Substance/Drug Use: never Course Vital Signs: Vital signs: Vital Signs Temperature 98.0 F 07/01/23 17:14 Pulse Rate 84 07/01/23 18:32 Respiratory Rate 26 H 07/01/23 18:32 Blood Pressure 101/82 07/01/23 18:32 Pulse Oximetry 97 07/01/23 18:32 Oxygen Delivery Me thod Room Air 07/01/23 17:14 MDM - General Adult Medical Decision Making Care signed out to Dr. Fallon at change of shift. See final notes for diagnosis and disposition. 83-year-old gentleman who has hypoxic respiratory failure. He is on 4 L currently. He is more comfortable with this and saturations are improved. His pO2 was 70 on 4 L on blood gas. He is not hypercapnic. His CBC is normal. Creatinine is 2.1. BNP is significantly elevated. Troponin is 63 at baseline. This is nearly double his normal baseline although he is not having chest pain. Chest x-ray shows moderate right pleural effusion and pulmonary edema with cardiomegaly. He will be admitted for heart failure. Spoke with hospitalist. Lab Data 07/01/23 17:35 07/01/23 18:10 Radiology Impressions Chest X-Ray 07/01/23 17:14 IMPRESSION: Increase in the right pleural effusion with right lower lobe consolidation collapse. Laboratory Results WBC 8.31 10^3/uL (3.29-11.43) 07/01/23 17:35 RBC 3.87 10^6/uL (3.85-5.65) 07/01/23 17:35 Hgb 12.30 g/dL (11.27-16.99) 07/01/23 17:35 Hct 37.4 % (37-53) 07/01/23 17:35 MCV 96.6 fl (82-101) 07/01/23 17:35 MCH 31.8 pg (27-33) 07/01/23 17:35 MCHC 32.9 g/dL (30-55) 07/01/23 17:35 RDW 19.2 % (12.1-15.1) H 07/01/23 17:35 Plt Count 209 10^3/cmm (157-399) 07/01/23 17:35 MPV 11.6 fL (7.4-10.4) H 07/01/23 17:35 Neut % (Auto) 72.3 % 07/01/23 17:35 Lymph % (Auto) 14.3 % 07/01/23 17:35 Orange % (Auto) 9.7 % 07/01/23 17:35 Eos % (Auto) 2.2 % 07/01/23 17:35 Baso % (Auto) 0.7 % 07/01/23 17:35 Neut # (Auto) 6.00 10^3/uL (1.8-7.7) 07/01/23 17:35 Lymph # (Auto) 1.2 10^3/uL (0.8-4.8) 07/01/23 17:35 Orange # (Auto) 0.8 10^3/uL (0.2-0.9) 07/01/23 17:35 Eos # (Auto) 0.2 10^3/uL (0.0-0.8) 07/01/23 17:35 Baso # (Auto) 0.1 10^3/uL (0.0-0.1) 07/01/23 17:35 Nucleated RBC % (auto) 0 % 07/01/23 17:35 Nucleated RBCs # 0.0 /100WBC 07/01/23 17:35 Specimen Type Arterial 07/01/23 17:45 Sample Site Radial, right 07/01/23 17:45 ABG pH 7.48 (7.35-7.45) H 07/01/23 17:45 ABG pCO2 33.3 mmHg (35-45) L 07/01/23 17:45 ABG pO2 70.4 mmHg (80.0-100.0) L 07/01/23 17:45 ABG PO2/FiO2 Ratio 0 07/01/23 17:45 ABG HCO3 24.9 mmol/L (22-26) 07/01/23 17:45 ABG O2 Saturation 96.2 07/01/23 17:45 ABG Base Excess 1.8 mmol/L (-2.0-2.0) 07/01/23 17:45 Ethan Test Pos 07/01/23 17:45 A-a O2 Gradient 18.6 mmHg (5-10) H 07/01/23 17:45 Hematocrit 36.2 % (42-52) L 07/01/23 17:45 Hgb O2 Saturation 93.7 % (95-100) L 07/01/23 17:45 Carboxyhemoglobin 2.0 %THgb (0.4-20.1) 07/01/23 17:45 Methemoglobin 0.6 % (0.4-1.5) 07/01/23 17:45 Total Hemoglobin 11.8 g/dL (14-18) L 07/01/23 17:45 Sodium 136.0 mmol/L (131-143) 07/01/23 17:45 Potassium 3.7 mmol/L (3.5-5.0) 07/01/23 17:45 Glucose 96.0 mg/dL (70-115) 07/01/23 17:45 Ionized Calcium 1.2 mmol/L (1.1-1.4) 07/01/23 17:45 O2 Delivery Device Nc 07/01/23 17:45 O2 Liters/Min 4.0 % 07/01/23 17:45 FiO2 36.0 % 07/01/23 17:45 Surgical Instrument Repair Specialist ID [email or web address] 07/01/23 17:45 Sodium 135 mmol/L (136-145) L 07/01/23 18:10 Potassium 3.8 mmol/L (3.5-5.1) 07/01/23 18:10 Chloride 100 mmol/L (98-107) 07/01/23 18:10 Carbon Dioxide 24 mmol/L (22-29) 07/01/23 18:10 Anion Gap 14.8 (5-19) 07/01/23 18:10 BUN 44 mg/dL (8-23) H 07/01/23 18:10 Creatinine 2.1 mg/dL (0.7-1.2) H 07/01/23 18:10 GFR Calculation Not Reportable 07/01/23 18:10 Glucose 88 mg/dL (65-115) 07/01/23 18:10 Calculated Osmolality 291 mOsm/kg (285-295) 07/01/23 18:10 Lactic Acid 1.6 mmol/L (0.5-2.2) 07/01/23 18:10 Calcium 8.8 mg/dL (8.5-10.5) 07/01/23 18:10 Total Bilirubin 2.1 mg/dL (0.15-1.2) H 07/01/23 18:10 AST 37 U/L (0-40) 07/01/23 18:10 ALT 16 U/L (0-41) 07/01/23 18:10 Alkaline Phosphatase 131 U/L (40-130) H 07/01/23 18:10 Troponin T Baseline 63 ng/L (0-15) H 07/01/23 18:10 NT-Pro-B Natriuret Pep 6687 pg/mL (0-450) H 07/01/23 18:10 Total Protein 6.0 g/dL (6.6-8.7) L 07/01/23 18:10 Albumin 3.3 g/dL (3.5-5.2) L 07/01/23 18:10 Globulin 2.7 g/dL (1.3-4.6) 07/01/23 18:10 Urine Color Dark yellow (Yellow) 07/01/23 18:30 Urine Appearance Hazy (CLEAR) A 07/01/23 18:30 Urine pH 5 (5-7) 07/01/23 18:30 Ur Specific [place] 1.020 (1.005-1.030) 07/01/23 18:30 Urine Protein Trace (Negative) 07/01/23 18:30 Urine Glucose (UA) Norm (Normal) 07/01/23 18:30 Urine Ketones Negative (Negative) 07/01/23 18:30 Urine Blood 3+ (Negative) H 07/01/23 18:30 Urine Nitrate Negative (Negative) 07/01/23 18:30 Urine Bilirubin Neg (Negative) 07/01/23 18:30 Urine Urobilinogen Neg mg/dL (Negative) 07/01/23 18:30 Ur Leukocyte Esterase Negative (Negative) 07/01/23 18:30 Urine RBC 0-4 /hpf (0-2) H 07/01/23 18:30 Urine WBC 5-10 /hpf (0-5) H 07/01/23 18:30 Ur Squamous Epith Cells 0-4 /hpf (0-5) H 07/01/23 18:30 Amorphous Sediment Trace /hpf 07/01/23 18:30 Urine Bacteria 1+ /hpf (NONE) H 07/01/23 18:30 Hyaline Casts 0-4 /lpf H 07/01/23 18:30 Urine Mucus 1+ /hpf 07/01/23 18:30 Urine Yeast 1+ /hpf H 07/01/23 18:30 Discharge Plan Discharge Admit Provider: Christophe García Clinical Impression: CHF exacerbation, Chronic pulmonary edema, Pleural effusion, Acute hypoxemic respiratory failure Condition: Fair Coding Level of Care Code ED [place] Attendant for Gal [place]era
[2023-07-01 17:42] LABS: Basophils # 0.1 10^3/uL (0.0-0.1); Basophils % 0.7 %; Eosinophils # 0.2 10^3/uL (0.0-0.8); Eosinophils % 2.2 %; Hematocrit 37.4 % (37-53); Lymphocytes # 1.2 10^3/uL (0.8-4.8); Lymphocytes % 14.3 %; Mean Corpuscular HGB Conc 32.9 g/dL (30-55); Mean Corpuscular Hemoglobin 31.8 pg (27-33); Mean Corpuscular Volume 96.6 fl (82-101); Mean Platelet Volume 11.6 fL (7.4-10.4); Monocytes # 0.8 10^3/uL (0.2-0.9); Monocytes % 9.7 %; Neutrophils % 72.3 %; Nucleated Red Blood Cells % 0 %; Platelet Count 209 10^3/cmm (157-399); Red Blood Count 3.87 10^6/uL (3.85-5.65); Red Cell Distribution Width 19.2 % (12.1-15.1); White Blood Count 8.31 10^3/uL (3.29-11.43)
[2023-07-01 17:57] LABS: ABG PCO2 33.3 mmHg (35-45); ABG PH Result 7.48 (7.35-7.45); Alveolar-Arterial Oxygen Gradi 18.6 mmHg (5-10); Arterial Blood Gas Hematocrit 36.2 % (42-52); Base Excess ABG 1.8 mmol/L (-2.0-2.0); Blood Gas Allen Test Pos; Blood Gas Operator Identificat glc; Blood Gas Sample Site Radial, right; Blood Gas Sample Type Arterial; HCO3 ABG 24.9 mmol/L (22-26); HGB O2 Sat 93.7 % (95-100); Ionized Calcium Level - ABG 1.2 mmol/L (1.1-1.4); Methemoglobin 0.6 % (0.4-1.5); Oxygen Device NC; Oxygen Saturation ABG 96.2; PO2 ABG 70.4 mmHg (80.0-100.0); PO2 FiO2 Ratio Arterial Blood 0; Potassium Level - ABG 3.7 mmol/L (3.5-5.0); Total Hemoglobin 11.8 g/dL (14-18)
--- NOTE | 2023-07-01 18:09 | PC.NURSE ---
Medication and Intervention Delay: Merritt Cath placement delayed d/t needing coude catheter, [employer] Worker notified. Lasix delayed d/t needing merritt catheter prior to administration.
[2023-07-01 18:32] VITALS: BP 101/82; PULSE 84; RESP 26; O2SAT 97
[2023-07-01] MEDS: FUROsemide 10 mg/mL SDV 4mL 40 MG IVP (18:40)
[2023-07-01 18:43] LABS: Alanine Aminotransferase 16 U/L (0-41); Albumin Level 3.3 g/dL (3.5-5.2); Alkaline Phosphatase 131 U/L (40-130); Anion Gap 14.8 (5-19); Aspartate Amino Transferase 37 U/L (0-40); Blood Urea Nitrogen 44 mg/dL (8-23); Calcium 8.8 mg/dL (8.5-10.5); Carbon Dioxide 24 mmol/L (22-29); Chloride 100 mmol/L (98-107); Creatinine Clr Calc Pharmacy 30.8611; Globulin 2.7 g/dL (1.3-4.6); Glucose 88 mg/dL (65-115); Lactic Sepsis W/Reflex 1.6 mmol/L (0.5-2.2); Osmolality Calculated 291 mOsm/kg (285-295); Potassium 3.8 mmol/L (3.5-5.1); Sodium 135 mmol/L (136-145); Total Bilirubin 2.1 mg/dL (0.15-1.2)
[2023-07-01 18:46] LABS: Troponin(5th) Baseline 63 ng/L (0-15)
--- NOTE | 2023-07-01 18:46 | PC.NURSE ---
pt [facility] ED provider increased NC from 2L to 4L. pt is currently 97% on 4L NC.
[2023-07-01 18:53] LABS: Add Urine Microscopic? YES; Bilirubin Urine Neg (Negative); Blood Urine 3+ (Negative); Glucose Urine UA Norm (Normal); Ketones Urine Negative (Negative); Leukocyte Esterase Urine Negative (Negative); Nitrate Urine Negative (Negative); Protein Urine Trace (Negative); Urine Appearance Hazy (CLEAR); Urine Color Dark Yellow (Yellow); Urobilinogen Urine Neg (Negative); pH Urine 5 (5-7)
[2023-07-01 18:58] LABS: Amorphous Sediment Urine TRACE /hpf; Bacteria Urine 1+ /hpf; Hyaline Casts Urine 0-4 /lpf; Mucus Urine 1+ /hpf; RBC Urine 0-4 /hpf (0-2); Squamous Epithelial Cell Urine 0-4 /hpf (0-5)
[2023-07-01 18:59] LABS: Add Urine Culture? Yes
[2023-07-01 19:05] LABS: NT Pro B Type Natriuretic Pept 6687 pg/mL (0-450)
--- NOTE | 2023-07-01 20:44 | P.HP_ITS ---
Providers/Chief Complaint 2 Admitting Physician: Christophe García MD Primary Care Provider: Daniel Rios DO Chief Complaint: weakness, sob History of Present Illness Ernst Garcia is a 83 year old male with history of mildly reduced 44% ejection fraction heart failure with severe valve regurgitation, came from home for worsening of shortness of breath fatigue lethargy weight gain and heart failure features. Patient is with his , is very vigilant with his medications and medical treatment. Patient at home requires 2 L of oxygen at baseline, and last 2 weeks he has been experiencing orthopnea PND weight gain scrotal edema his p.o. intake has decreased significantly as per the he only ate a few bites which were a little better in last 48 hours. He has not experienced any fever, chest pain, diarrhea. He is constipated. In the ER he has been diagnosed with anasarca Lasix was given he has already put out 1 L in the ER, x-ray showing significant congestion, he is currently on 2 L Doing abdominal breathing Increased work of breathing I would recommend BiPAP to decrease work of breathing however pH is showing alkalosis Patient is full code Previous review of records patient has mild to moderate pulmonary valve regurgitation, bioprosthetic mitral valve, EF 44% diffuse hypokinesia left ventricle, severe tricuspid valve regurgitation Review of Systems 2 Const: Reports: fatigue and malaise Eyes: Denies: change in vision ENMT: Denies: throat pain Card: Denies: chest pain Resp: Reports: dyspnea and non-productive cough GI: Denies: abdominal pain : Denies: flank pain Musc: Denies: neck pain Skin/Breast: Denies: rash Neuro: Denies: headache(s) Psych: Reports: anxiety Endo: Denies: polyuria Medications/Allergies Home Medications Medication Instructions Recorded Confirmed Last Taken Type cholecalciferol (vitamin D3) 50 50 mcg PO QAM 10/13/20 06/02/23 05/29/23 History mcg (2,000 unit) capsule melatonin 10 mg tablet 10 mg PO BEDTIME PRN Sleep 08/28/22 06/02/23 08/27/22 History levothyroxine 100 mcg tablet 100 mcg PO QAM #90 tabs 08/31/22 06/02/23 05/29/23 Rx (Levoxyl) ondansetron 4 mg disintegrating 4 mg PO Q8H PRN nausea and 11/12/22 06/02/23 Unknown Rx tablet vomiting #15 tabs tamsulosin 0.4 mg capsule 0.4 mg PO DAILY 11/12/22 06/02/23 05/29/23 History zinc acetate 50 mg (zinc) capsule 50 mg PO DAILY 11/12/22 06/02/23 05/29/23 History bumetanide 1 mg tablet 1 mg PO DAILY 12/27/22 06/02/23 05/29/23 History diltiazem HCl 120 mg 120 mg PO BID 12/27/22 06/02/23 05/29/23 History capsule,extended release 12 hr loratadine 10 mg tablet 10 mg PO BID PRN allergies 12/27/22 06/02/23 05/29/23 History metolazone 5 mg tablet 5 mg PO .MWF 12/27/22 06/02/23 Unknown History midodrine 10 mg tablet 10 mg PO TID 12/27/22 06/02/23 05/29/23 History pantoprazole 40 mg tablet,delayed 40 mg PO DAILY PRN Acid Reflux 12/27/22 06/02/23 05/29/23 History release sucralfate 1 gram tablet (Carafate) 1 g PO BID 12/27/22 06/02/23 05/29/23 History apixaban 2.5 mg tablet (Eliquis) 2.5 mg PO BID #60 tabs 01/16/23 06/02/23 05/29/23 Rx finasteride 5 mg tablet 5 mg PO DAILY 01/30/23 06/02/23 05/29/23 History potassium chloride 20 mEq 20 meq PO QID 04/03/23 06/02/23 05/29/23 History tablet,extended release hydrocodone 5 mg-acetaminophen 325 1 tab PO Q8H PRN pain 7 days #21 06/02/23 06/02/23 Unknown Rx mg tablet tabs amoxicillin 875 mg-potassium 1 tab PO BID #14 tabs 06/09/23 Unknown Rx clavulanate 125 mg tablet Allergies Allergy/AdvReac Type Severity Reaction Status Date / Time codeine Allergy Unknown Unknown Verified 06/02/23 14:59 acetaminophen [From Percocet] Allergy Unknown Verified 06/02/23 14:59 Histamine H2 Inhibitors Allergy Unknown Verified 06/02/23 14:59 milk Allergy ADR-Itching Verified 06/02/23 14:59 oxycodone [From Percocet] Allergy Unknown Verified 06/02/23 14:59 pork derived (porcine) Allergy Unknown Verified 06/02/23 14:59 shellfish derived Allergy Unknown Verified 06/02/23 14:59 PFSH Acute 2 PFSH: Medical History Hypothyroid Transaminitis Elevated bilirubin Abnormal TSH Hyperkalemia Pulmonary embolism Atrial fibrillation Deep venous thrombosis Atrial fibrillation with RVR Diastolic CHF Stenosis of prosthetic mitral valve Tricuspid valve regurgitation, nonrheumatic Chronic kidney disease (CKD) Thrombocytopenia Atrial fibrillation Surgical History Hx of mitral valve replacement 2006 Family History Father Myocardial infarction Denies family history of Diabetes Stroke Social History Smoking and tobacco/nicotine status: never used tobacco/nicotine Substance/Drug Use: never Vitals/I&O/Wt Last Vital Signs Temp 98.0 F 07/01/23 17:14 Pulse 84 07/01/23 18:32 Resp 26 H 07/01/23 18:32 BP 101/82 07/01/23 18:32 Pulse Ox 97 07/01/23 18:32 O2 Del Method Room Air 07/01/23 17:14 Weight last 48 hrs Weight 102.058 kg Physical Exam 2 Narrative: Patient extremely fluid overload Anasarca Extending all the way up to his abdominal wall Gentle edema Scrotal edema Tinsley catheter in place Currently on 2 L GCS 15 Present Lethargic Muscle mass loss evident with temporal muscle wasting Abdomen soft at the bedside Nonfocal neuroexam Urinary Catheter Management: Tinsley: Cath Placed During This Visit: yes Urinary Catheter Date of Insertion: 07/01/23 Urinary Catheter Time of Insertion: 18:31 Data 07/01/23 17:35 07/01/23 18:10 Micro: Microbiology 07/01/23 18:15 Blood Culture - Preliminary Blood SPECIMEN COLLECTED 07/01/23 18:10 Blood Culture - Preliminary Blood SPECIMEN COLLECTED A&P Assessment and plan (1) CHF exacerbation: (2) Systolic CHF: Qualifiers: Heart failure chronicity: chronic Qualified Code(s): I50.22 - Chronic systolic (congestive) heart failure (3) Pulmonary hypertension: (4) Tricuspid valve regurgitation, nonrheumatic: (5) Atrial fibrillation: Qualifiers: Atrial fibrillation type: persistent (not longstanding) Qualified Code(s): I48.19 - Other persistent atrial fibrillation (6) Abdominal aortic aneurysm (AAA) 3.0 cm to 5.5 cm in diameter in male: (7) Pulmonary embolism: (8) Elevated bilirubin: (9) Liver cirrhosis: (10) Ascites: (11) Chronic kidney disease (CKD): Qualifiers: Chronic kidney disease stage: unspecified stage Qualified Code(s): N 18.9 - Chronic kidney disease, unspecified (12) Nocturnal hypoxemia: Plan Acute systolic CHF exacerbation3 I do believe this is gradual deterioration from valvular regurgitation with reduced ejection fraction No active chest pain Anasarca Edema extending all the way up to abdominal wall Scrotal edema Patient was taking Bumex at home along metolazone Monday I will put him on IV Bumex Increased work of breathing patient is abdominal muscle Respiratory alkalosis on ABG To decrease work of breathing I will put him on BiPAP Patient is agreeable to try overnight He is full code as well Chronic kidney disease creatinine baseline Anticipating more improvement with diuresis He has already put out 1 L with Lasix in the ER A-fib without RVR Continue Eliquis Full code goals of care discussed with the patient and his Cardiac diet fluid restriction Abnormal transaminases related to congestive hepatopathy Scleral icterus noticed Patient recently has used Augmentin and Keflex for nonpurulent cellulitis of lower extremities Has mild pruritic rash around abdominal wall no significant signs of anaphylaxis Attestations 2 Medical Necessity Statement*: More than 2 midnights anticipated Diagnoses CHF exacerbation I50.9 Chronic systolic congestive heart failure I50.22 Heart failure chronicity: chronic Pulmonary hypertension I27.20 Tricuspid valve regurgitation, nonrheumatic I36.1 Persistent atrial fibrillation I48.19 Atrial fibrillation type: persistent (not longstanding) Abdominal aortic aneurysm (AAA) 3.0 cm to 5.5 cm in diameter in male I71.40 Pulmonary embolism I26.99 Elevated bilirubin R17 Liver cirrhosis K74.60 Ascites R18.8 Chronic kidney disease, unspecified CKD stage N18.9 Chronic kidney disease stage: unspecified stage Nocturnal hypoxemia G47.34
[2023-07-01 21:00] LABS: Troponin 5 2HR 61.91 ng/L (0-15)
[2023-07-01 21:01] LABS: Troponin 5 2HR Delta -1.09 ABS# (0-10)
[2023-07-01 22:22] VITALS: BP 121/78; PULSE 83; RESP 20; O2SAT 95
[2023-07-01 22:25] VITALS: BP 110/76; PULSE 90; RESP 20; O2SAT 97
[2023-07-01 22:46] LABS: Thyroid Stimulating Hormone 8.18 uIU/mL (0.27-4.20)
[2023-07-01] MEDS: apixaban 5 mg Tablet 2.5 MG PO (23:14)
[2023-07-01] MEDS: dilTIAZem ER (24HR) 120 mg Capsule PO (23:14)
[2023-07-01] MEDS: bumetanide 0.25 mg/mL SDV 10 mL 2 MG IVP (23:16)
[2023-07-02] VITALS (13 sets, daily range): BP systolic 94–111; BP diastolic 49–71; PULSE 25–96; RESP 16–25; TEMP 36.6–37.1; O2SAT 90–98
[2023-07-02 00:17] LABS: Troponin 5 6HR 61.26 ng/L (0-15)
[2023-07-02 00:23] LABS: Troponin 5 6HR Delta -1.74 ng/L (0-12)
--- NOTE | 2023-07-02 06:00 | USCV_ITS ---
Ernst Garcia Age: 83 Gender: M : 1940 Exam Date: 07/02/2023 09:38 Ordering Phys: Christophe García MD Technologist: Venkata Bowen Exam Location: [facility] – [place] Indication: chf BP: 107 / 68 HR: 107 Rhythm: Sinus Technical Quality: Adequate MEASUREMENTS (Male / Female) Normal Values 2D ECHO LVOT Diameter 2.1 cm LA Diameter 5.6 cm RA Systolic Volume 4C AL 174.3 ml RA Systolic Volume 4C MOD 178.5 ml Aorta at Sinotubular Diameter 2.8 cm IVC Diameter 5.0 cm M-MODE LA Ao Ratio MM 2.2 AV Cusp Separation MM 1.8 cm DOPPLER AV Peak Velocity 142.0 cm/s MV Peak Velocity 203.0 cm/s TV Peak Velocity 377.0 cm/s TR Peak Velocity 293.0 cm/s TR Peak Gradient 34.3 mmHg TR Mean Velocity 212.0 cm/s TR Mean Gradient 20.3 mmHg TR Velocity Time Integral 79.2 cm PV Peak Velocity 100.0 cm/s FINDINGS Left Ventricle Normal LV size with diminished ejection fraction around 40%. Diffuse hypokinesia of the ventricle with a paradoxical septal motion. Mild concentric left-ventricular hypertrophy Right Ventricle Dilated right ventricle with some features of paradoxical septal motion. Diffuse hypokinesia of the right ventricle with moderately diminished ejection fraction Right Atrium Moderately increased right atrial size. Left Atrium Moderately increased left atrial size. Mitral Valve Bioprosthetic valve in the mitral position appears to be well- seated. The mitral leaflet appears to be thickened.mild mitral valve regurgitation. Aortic Valve Thickened aortic valve. Tricuspid Valve Minimally thickened tricuspid valve [id number] tricuspid valve regurgitation. Severe pulmonary hypertension with an estimated pulmonary artery peak systolic pressure of 71 mmHg Pulmonic Valve Moderate pulmonary valve regurgitation. Pericardium No pericardial effusion. Aorta Normal aortic annulus size. IVC Dilated IVC with decreased respiratory variation. CONCLUSIONS Normal LV size with diminished ejection fraction around 40%. Diffuse hypokinesia of the ventricle with a paradoxical septal motion. Mild concentric left-ventricular hypertrophy. [id number] tricuspid valve regurgitation. Severe pulmonary hypertension with an estimated pulmonary artery peak systolic pressure of 71 mmHg. Moderate pulmonary valve regurgitation. Bioprosthetic valve in the mitral position appears to be well- seated. The mitral leaflet appears to be thickened.mild mitral valve regurgitation. Moderate biatrial enlargement Thickened aortic valve. Dilated right ventricle with some features of paradoxical septal motion. Diffuse hypokinesia of the right ventricle with moderately diminished ejection fraction. Comparison with the previous study is difficult because of the difference in the technical quality. Dr Anneliese Aceves MD [facility] (Electronically Signed) Final Date: 02 July 2023 21:02 S
[2023-07-02] MEDS: levothyroxine 100 mcg Tablet PO (06:22)
[2023-07-02] MEDS: sucralfate 1 gm Tablet PO ×2 (06:23→17:34)
[2023-07-02 07:39] LABS: Basophils # 0.1 10^3/uL (0.0-0.1); Basophils % 0.6 %; Eosinophils # 0.3 10^3/uL (0.0-0.8); Hematocrit 33.8 % (37-53); Lymphocytes # 1.2 10^3/uL (0.8-4.8); Lymphocytes % 14.1 %; Mean Corpuscular HGB Conc 33.4 g/dL (30-55); Mean Corpuscular Hemoglobin 31.7 pg (27-33); Mean Corpuscular Volume 94.7 fl (82-101); Mean Platelet Volume 9.7 fL (7.4-10.4); Monocytes # 0.9 10^3/uL (0.2-0.9); Monocytes % 10.3 %; Neutrophils # 5.93 10^3/uL (1.8-7.7); Neutrophils % 71.2 %; Nucleated Red Blood Cells % 0 %; Platelet Count 115 10^3/cmm (157-399); Red Blood Count 3.57 10^6/uL (3.85-5.65); Red Cell Distribution Width 18.6 % (12.1-15.1); White Blood Count 8.34 10^3/uL (3.29-11.43)
[2023-07-02 08:05] LABS: Anion Gap 16.2 (5-19); Blood Urea Nitrogen 42 mg/dL (8-23); C Reactive Protein 38.1 mg/L (0.0-4.9); Calcium 8.8 mg/dL (8.5-10.5); Carbon Dioxide 26 mmol/L (22-29); Chloride 96 mmol/L (98-107); Glucose 79 mg/dL (65-115); Magnesium 2.5 mg/dL (1.7-2.3); Osmolality Calculated 289 mOsm/kg (285-295); Phosphorus 3.7 mg/dL (2.5-4.5); Potassium 3.2 mmol/L (3.5-5.1); Sodium 135 mmol/L (136-145)
[2023-07-02 08:08] LABS: Creatinine Clr Calc Pharmacy 35.0245
[2023-07-02] MEDS: dilTIAZem ER (24HR) 120 mg Capsule PO ×2 (09:13→17:33)
[2023-07-02] MEDS: sennosides-docusate Tablet 1 TAB PO (09:13)
[2023-07-02] MEDS: tamsulosin 0.4 mg Capsule 0.400000000000000022 MG PO (09:13)
[2023-07-02] MEDS: apixaban 5 mg Tablet 2.5 MG PO ×2 (09:14→17:33)
[2023-07-02] MEDS: potassium chloride ER 20 mEq Tablet PO (09:14)
[2023-07-02] MEDS: finasteride 5 mg Tablet PO (09:14)
[2023-07-02] MEDS: bumetanide 0.25 mg/mL SDV 10 mL 2 MG IVP ×2 (09:14→17:34)
[2023-07-02] MEDS: acetaminophen 500 mg Tablet PO (09:24)
--- NOTE | 2023-07-02 09:29 | PC.OT ---
OT orders received to evaluate and treat. Evaluation to be completed on Monday secondary to weekend protocol.
--- NOTE | 2023-07-02 13:49 | P.PN_ITS ---
Subjective 2 Subjective: Seen this morning. Patient is quite uncomfortable in bed since his perineal region is erythematous. He was repositioned in bed and he felt better. at bedside. stated that she looked on the portal that patient's potassium was low. Patient is getting potassium 20 twice daily orally. He states he feels slightly better than admission. Vitals/I&O/Wt Last Vital Signs Temp 98.8 F 07/02/23 11:00 Pulse 25 L 07/02/23 11:00 Resp 25 H 07/02/23 11:00 BP 94/49 07/02/23 11:00 Pulse Ox 93 07/02/23 11:00 O2 Del Method Nasal Cannula 07/02/23 11:00 O2 Flow Rate 2.5 07/02/23 08:23 07/01/23 07/02/23 07/02/23 22:59 06:59 14:59 Intake Total 240 / 240 Output Total 1400 / 1400 2700 / 4100 1750 / 1750 Balance -1400 / -1400 -2700 / -4100 -1510 / -1510 Weight last 48 hrs Weight 107.547 kg Weight 108.59 kg Weight 102.058 kg Physical Exam 2 Narrative: Patient extremely fluid overload Anasarca Extending all the way up to his abdominal wall Gentle edema Scrotal edema Tinsley catheter in place Currently on 2 L GCS 15 Present Lethargic Muscle mass loss evident with temporal muscle wasting Abdomen soft at the bedside Nonfocal neuroexam Crackles bilaterally at bases Urinary Catheter Management: Tinsley: Cath Placed During This Visit: yes Reason for Continuing Indwelling Catheter: Other Urinary Catheter Date of Insertion: 07/01/23 Urinary Catheter Time of Insertion: 22:13 Data 07/02/23 07:22 07/02/23 07:22 Micro: Microbiology 07/01/23 18:15 Blood Culture - Preliminary Blood SPECIMEN COLLECTED 07/01/23 18:10 Blood Culture - Preliminary Blood SPECIMEN COLLECTED A&P Assessment and plan (1) CHF exacerbation: (2) Systolic CHF: Qualifiers: Heart failure chronicity: chronic Qualified Code(s): I50.22 - Chronic systolic (congestive) heart failure (3) Pulmonary hypertension: (4) Tricuspid valve regurgitation, nonrheumatic: (5) Atrial fibrillation: Qualifiers: Atrial fibrillation type: persistent (not longstanding) Qualified Code(s): I48.19 - Other persistent atrial fibrillation (6) Abdominal aortic aneurysm (AAA) 3.0 cm to 5.5 cm in diameter in male: (7) Pulmonary embolism: (8) Elevated bilirubin: (9) Liver cirrhosis: (10) Ascites: (11) Chronic kidney disease (CKD): Qualifiers: Chronic kidney disease stage: unspecified stage Qualified Code(s): N 18.9 - Chronic kidney disease, unspecified (12) Nocturnal hypoxemia: Plan Acute systolic CHF exacerbation3 I do believe this is gradual deterioration from valvular regurgitation with reduced ejection fraction No active chest pain Anasarca Edema extending all the way up to abdominal wall Scrotal edema Patient was taking Bumex at home along metolazone Monday Continue Bumex 2 mg IV twice daily Increased work of breathing patient is abdominal muscle Respiratory alkalosis on ABG To decrease work of breathing I will put him on BiPAP Patient is agreeable to try overnight He is full code as well No acute respiratory distress this morning. He feels a lot better. Chronic kidney disease creatinine baseline Anticipating more improvement with diuresis He has already put out 1 L with Lasix in the ER A-fib without RVR Continue Eliquis Full code goals of care discussed with the patient and his Cardiac diet fluid restriction Abnormal transaminases related to congestive hepatopathy Scleral icterus noticed Patient recently has used Augmentin and Keflex for nonpurulent cellulitis of lower extremities Has mild pruritic rash around abdominal wall no significant signs of anaphylaxis I will order nystatin for perineal area. Updated RN. Attestations 2 Medical Necessity Statement*: More than 2 midnights anticipated Diagnoses CHF exacerbation I50.9 Chronic systolic congestive heart failure I50.22 Heart failure chronicity: chronic Pulmonary hypertension I27.20 Tricuspid valve regurgitation, nonrheumatic I36.1 Persistent atrial fibrillation I48.19 Atrial fibrillation type: persistent (not longstanding) Abdominal aortic aneurysm (AAA) 3.0 cm to 5.5 cm in diameter in male I71.40 Pulmonary embolism I26.99 Elevated bilirubin R17 Liver cirrhosis K74.60 Ascites R18.8 Chronic kidney disease, unspecified CKD stage N18.9 Chronic kidney disease stage: unspecified stage Nocturnal hypoxemia G47.34
[2023-07-02] MEDS: nystatin powder 15 gm Btl 1 APPLIC TOPICAL (17:34)
[2023-07-02] MEDS: potassium chloride oral liq 20 mEq/15 mL UDC PO (17:34)
[2023-07-02] MEDS: HYDROmorphone 1 mg/mL INJ 1 mL 0.5 MG IVP (17:34)
[2023-07-02] MEDS: ondansetron 2 mg/ML SDV 2 mL 4 MG IVP (17:35)
[2023-07-03] VITALS (61 sets, daily range): BP systolic 84–113; BP diastolic 48–76; PULSE 77–103; RESP 8–30; TEMP 36.2–37.2; O2SAT 83–98
[2023-07-03] MEDS: acetaminophen 500 mg Tablet PO ×2 (00:27→11:06)
[2023-07-03] MEDS: cyclobenzaprine 10 mg Tablet 5 MG PO (02:20)
[2023-07-03 07:29] LABS: Basophils # 0.1 10^3/uL (0.0-0.1); Basophils % 0.9 %; Eosinophils # 0.3 10^3/uL (0.0-0.8); Eosinophils % 3.9 %; Hematocrit 35.2 % (37-53); Lymphocytes # 1.5 10^3/uL (0.8-4.8); Lymphocytes % 19.5 %; Mean Corpuscular HGB Conc 32.7 g/dL (30-55); Mean Corpuscular Hemoglobin 31.3 pg (27-33); Mean Corpuscular Volume 95.7 fl (82-101); Mean Platelet Volume 9.7 fL (7.4-10.4); Monocytes # 0.7 10^3/uL (0.2-0.9); Monocytes % 9.7 %; Neutrophils # 4.82 10^3/uL (1.8-7.7); Neutrophils % 64.9 %; Nucleated Red Blood Cells % 0 %; Platelet Count 101 10^3/cmm (157-399); Red Blood Count 3.68 10^6/uL (3.85-5.65); Red Cell Distribution Width 18.7 % (12.1-15.1); White Blood Count 7.43 10^3/uL (3.29-11.43)
[2023-07-03 07:51] LABS: Anion Gap 11.8 (5-19); Blood Urea Nitrogen 39 mg/dL (8-23); Calcium 8.9 mg/dL (8.5-10.5); Carbon Dioxide 31 mmol/L (22-29); Chloride 93 mmol/L (98-107); Glucose 79 mg/dL (65-115); Osmolality Calculated 284 mOsm/kg (285-295); Sodium 133 mmol/L (136-145)
[2023-07-03 07:54] LABS: Creatinine Clr Calc Pharmacy 32.7633
[2023-07-03 07:55] LABS: Potassium 2.8 mmol/L (3.5-5.1)
--- NOTE | 2023-07-03 09:15 | PC.SOCIAL ---
Pg 2 IMM Explained to pt & Pg 2 IMM. No questions voiced. Provided pt a copy. Initialed, dated, & timed a copy & placed in chart.
--- NOTE | 2023-07-03 09:37 | PC.CHAP ---
Pastoral Care Encounter/Spiritual Assessment Type of Contact [] Declined manager customs visit [] Patient/Family/Request visit [] Outpatient visit [] Follow-up visit [] Physician referral [] Code/Alert [x] Routine visit [] Staff referral [] Actively dying [] Patient sleeping [] Family support [] [] Out of room [] Palliative care [] [] Receiving care in room [] Pre-surgical visit [] Trauma [] Long length of stay [] ICU visit [] Other: Relational/Emotional Strength [] Patient feels connected with others/family/visitors/staff [] Distress [] Loneliness/isolation [] Abandonment Spirituality of Patient [] Person of Sofía [] Attends Jew of their Sofía [] Believes in Prayer [] Reads Bible or Rastafarian materials [] There are Spiritual issues to be addressed Plant Quality Manager Interventions [x] Prayer [] Active listening [] Non-anxious presence [] Spiritual/emotional support [] Crisis/trauma care [] Spiritual counseling [] Bereavement support [] Provided bereavement packet [] Provided Bible/devotional materials [] Provided toy/stuffed animal, coloring book to patient or family member [] Provided Communion [] Anointing/[place] [] Salvation [] Completed spiritual assessment [] Other: Impact on Illness or Injury [] Angry [] Fearful [] Anxious [] Often cries [] Exhaustion [] Unable to work [] Unable to attend gnosticism [] Unable to walk/stand [] Unable to read [] Unable to drive [] Unable to eat/drink [] Unable to sleep [] Unable to be with family [] Patient intubated [] Other: Summary Sleep Time spent with patient
--- NOTE | 2023-07-03 10:43 | PC.OT ---
PAKO VERA ATTEMPTED 1015 AM OF 07/02; SPOUSE REQUEST TO HOLD EVALUATION THE PATIENT DID NOT SLEEP WELL AND NEEDS TO SLEEP AT THIS TIME; WILL ATTEMPT AGAIN LATER THIS DATE
[2023-07-03] MEDS: dilTIAZem ER (24HR) 120 mg Capsule PO ×2 (11:06→17:17)
[2023-07-03] MEDS: sennosides-docusate Tablet 1 TAB PO (11:06)
[2023-07-03] MEDS: finasteride 5 mg Tablet PO (11:06)
[2023-07-03] MEDS: apixaban 5 mg Tablet 2.5 MG PO ×2 (11:07→17:17)
[2023-07-03] MEDS: tamsulosin 0.4 mg Capsule 0.400000000000000022 MG PO (11:07)
[2023-07-03] MEDS: potassium chloride oral liq 20 mEq/15 mL UDC PO ×2 (11:08→17:17)
[2023-07-03] MEDS: potassium chloride oral liq 20 mEq/15 mL UDC 40 MEQ PO (11:08)
[2023-07-03] MEDS: nystatin powder 15 gm Btl 1 APPLIC TOPICAL ×2 (11:16→17:18)
[2023-07-03] MEDS: bumetanide 0.25 mg/mL SDV 10 mL 2 MG IVP ×2 (11:39→17:17)
--- NOTE | 2023-07-03 16:01 | PC.OT ---
EVAL ATTEMPTED FROM [id number] ON 07/02; SOME INFORMATION OBTAINED FROM /SON BUT WILL ATTEMPT AGAIN TOMORROW PATIENT FELL ASLEEP MULTIPLE TIMES AND WAS UNABLE TO MAINTAIN ALERTNESS
[2023-07-03] MEDS: sucralfate 1 gm Tablet PO (17:17)
--- NOTE | 2023-07-03 17:30 | P.PN_ITS ---
Subjective 2 Subjective: Lower extremity edema is improving today. Patient's breathing is improving as confirmed by family at bedside. Medications: Reviewed: Yes Vitals/I&O/Wt Last Vital Signs Temp 97.8 F 07/03/23 08:00 Pulse 79 07/03/23 17:00 Resp 20 H 07/03/23 17:00 BP 103/57 07/03/23 17:00 Pulse Ox 96 07/03/23 17:00 O2 Del Method Nasal Cannula 07/03/23 07:54 O2 Flow Rate 2.5 07/03/23 07:54 07/03/23 07/03/23 07/03/23 06:59 14:59 22:59 Intake Total 120 / 120 120 / 240 Output Total 1550 / 4750 550 / 550 Balance -1550 / -4510 -430 / -430 120 / -310 Weight last 48 hrs Weight 104.326 kg Weight 107.547 kg Weight 108.59 kg Physical Exam 2 Narrative: General: No acute distress, AAO x3, chronically ill appearing HEENT: PERRLA, pupils bilaterally equal and reactive, pallors not present Chest: Normal vesicular breath sounds, no added sounds, equal good air entry bilaterally CVS: S1-S2 regular, no murmurs, no tachycardia, no gallops, no rubs Abdomen: Soft, nontender, no organomegaly, bowel sounds present Neuro: No focal deficits, no facial deformity, AO x3, power 5/5 in all limbs Extremities: improving LE edema Urinary Catheter Management: Tinsley: Cath Placed During This Visit: yes Reason for Continuing Indwelling Catheter: Accurate Measurement of Urinary Output in Critically Ill Patients Urinary Catheter Date of Insertion: 07/01/23 Urinary Catheter Time of Insertion: 22:13 Data 07/03/23 07:17 07/03/23 07:17 Micro: Microbiology 07/01/23 18:30 Urine Culture - Preliminary Urine,Clean Catch Yeast species 07/01/23 18:15 Blood Culture - Preliminary Blood NEGATIVE TO DATE 07/01/23 18:10 Blood Culture - Preliminary Blood NEGATIVE TO DATE A&P Assessment and plan (1) CHF exacerbation: (2) Systolic CHF: Qualifiers: Heart failure chronicity: chronic Qualified Code(s): I50.22 - Chronic systolic (congestive) heart failure (3) Pulmonary hypertension: (4) Tricuspid valve regurgitation, nonrheumatic: (5) Atrial fibrillation: Qualifiers: Atrial fibrillation type: persistent (not longstanding) Qualified Code(s): I48.19 - Other persistent atrial fibrillation (6) Abdominal aortic aneurysm (AAA) 3.0 cm to 5.5 cm in diameter in male: (7) Pulmonary embolism: (8) Elevated bilirubin: (9) Liver cirrhosis: (10) Ascites: (11) Chronic kidney disease (CKD): Qualifiers: Chronic kidney disease stage: unspecified stage Qualified Code(s): N 18.9 - Chronic kidney disease, unspecified (12) Nocturnal hypoxemia: Plan Acute systolic CHF exacerbation3 I do believe this is gradual deterioration from valvular regurgitation with reduced ejection fraction No active chest pain Anasarca Edema extending all the way up to abdominal wall Scrotal edema Patient was taking Bumex at home along metolazone Monday Continue Bumex 2 mg IV twice daily Increased work of breathing patient is abdominal muscle Respiratory alkalosis on ABG To decrease work of breathing I will put him on BiPAP Patient is agreeable to try overnight He is full code as well No acute respiratory distress this morning. He feels a lot better. Chronic kidney disease creatinine baseline Anticipating more improvement with diuresis He has already put out 1 L with Lasix in the ER A-fib without RVR Continue Eliquis Full code goals of care discussed with the patient and his Cardiac diet fluid restriction Abnormal transaminases related to congestive hepatopathy Scleral icterus noticed Patient recently has used Augmentin and Keflex for nonpurulent cellulitis of lower extremities Has mild pruritic rash around abdominal wall no significant signs of anaphylaxis I will order nystatin for perineal area. Updated RN. Plan for today: Clinically improving with regards to lower extremity edema and respiratory status. Reviewed prior chart extensively. Noted to have a large right-sided pleural effusion, it appears previously thoracentesis has been attempted but not been successful. There is concern for possibly underlying consolidation versus atelectasis. CT of the abdomen and pelvis in May 2022 had partially visualized lower right lung. There were findings of a small right pleural effusion with atelectasis at the lung base. Possible balanitis around Tinsley insertion. Additionally noted to have intertrigo. Start fluconazole 100 mg p.o. daily. Urine culture preliminarily showing yeast species. Continue Bumex 2 mg IV every 12 hours. Attestations 2 Medical Necessity Statement*: Continued need of IV diuretics. Add fluconazole, monitor for continued improvement. Coding Level of Care Code Acute Code for Chg Fwd Moderate MDM includes number and complexity of problems actively addressed during encounter, amount and/or complexity of data reviewed/ordered and described risk of complication, morbidity or mortality of management as documented Diagnoses CHF exacerbation I50.9 Chronic systolic congestive heart failure I50.22 Heart failure chronicity: chronic Pulmonary hypertension I27.20 Tricuspid valve regurgitation, nonrheumatic I36.1 Persistent atrial fibrillation I48.19 Atrial fibrillation type: persistent (not longstanding) Abdominal aortic aneurysm (AAA) 3.0 cm to 5.5 cm in diameter in male I71.40 Pulmonary embolism I26.99 Elevated bilirubin R17 Liver cirrhosis K74.60 Ascites R18.8 Chronic kidney disease, unspecified CKD stage N18.9 Chronic kidney disease stage: unspecified stage Nocturnal hypoxemia G47.34
[2023-07-04] VITALS (8 sets, daily range): BP systolic 90–103; BP diastolic 53–77; PULSE 78–92; RESP 16–25; TEMP 36.5–36.6; O2SAT 91–98
[2023-07-04] MEDS: acetaminophen 500 mg Tablet PO (02:47)
[2023-07-04 05:40] LABS: Basophils # 0.1 10^3/uL (0.0-0.1); Basophils % 0.8 %; Eosinophils # 0.2 10^3/uL (0.0-0.8); Eosinophils % 2.9 %; Hematocrit 33.7 % (37-53); Lymphocytes # 1.6 10^3/uL (0.8-4.8); Lymphocytes % 20.1 %; Mean Corpuscular HGB Conc 32.6 g/dL (30-55); Mean Corpuscular Hemoglobin 31.2 pg (27-33); Mean Corpuscular Volume 95.5 fl (82-101); Mean Platelet Volume 9.9 fL (7.4-10.4); Monocytes # 0.8 10^3/uL (0.2-0.9); Monocytes % 10.3 %; Neutrophils # 5.15 10^3/uL (1.8-7.7); Neutrophils % 65.3 %; Nucleated Red Blood Cells % 0 %; Platelet Count 101 10^3/cmm (157-399); Red Blood Count 3.53 10^6/uL (3.85-5.65); Red Cell Distribution Width 18.6 % (12.1-15.1); White Blood Count 7.88 10^3/uL (3.29-11.43)
[2023-07-04] MEDS: sucralfate 1 gm Tablet PO (06:04)
[2023-07-04] MEDS: levothyroxine 100 mcg Tablet PO (06:04)
[2023-07-04 06:20] LABS: Alanine Aminotransferase 13 U/L (0-41); Albumin Level 2.9 g/dL (3.5-5.2); Alkaline Phosphatase 113 U/L (40-130); Anion Gap 13.9 (5-19); Aspartate Amino Transferase 34 U/L (0-40); Blood Urea Nitrogen 33 mg/dL (8-23); Calcium 8.3 mg/dL (8.5-10.5); Carbon Dioxide 30 mmol/L (22-29); Chloride 97 mmol/L (98-107); Creatinine Clr Calc Pharmacy 36.4036; Globulin 2.6 g/dL (1.3-4.6); Glucose 80 mg/dL (65-115); Osmolality Calculated 292 mOsm/kg (285-295); Sodium 138 mmol/L (136-145); Total Bilirubin 1.8 mg/dL (0.15-1.2); Total Protein 5.5 g/dL (6.6-8.7)
[2023-07-04 06:28] LABS: Potassium 2.9 mmol/L (3.5-5.1)
[2023-07-04] MEDS: lidocaine 1% 5 ML in potassium chloride premix 100 ML 52.5 ML IV ×2 (07:27→10:35)
[2023-07-04] MEDS: potassium chloride oral liq 20 mEq/15 mL UDC PO ×2 (08:24→18:15)
[2023-07-04] MEDS: dilTIAZem ER (24HR) 120 mg Capsule PO ×2 (08:25→18:15)
[2023-07-04] MEDS: sennosides-docusate Tablet 1 TAB PO (08:25)
[2023-07-04] MEDS: bumetanide 0.25 mg/mL SDV 10 mL 2 MG IVP (08:25)
[2023-07-04] MEDS: tamsulosin 0.4 mg Capsule 0.400000000000000022 MG PO (08:25)
[2023-07-04] MEDS: nystatin powder 15 gm Btl 1 APPLIC TOPICAL (08:27)
[2023-07-04] MEDS: apixaban 5 mg Tablet 2.5 MG PO ×2 (08:29→18:15)
[2023-07-04] MEDS: fluconazole 100 mg Tablet PO (08:29)
[2023-07-04] MEDS: finasteride 5 mg Tablet PO (08:29)
[2023-07-04] MEDS: cyclobenzaprine 10 mg Tablet 5 MG PO (08:29)
--- NOTE | 2023-07-04 09:50 | XR_ITS ---
WS: [id number] Portable AP upright chest, 07/04/2023 Clinical Data: pleural effusion Comparison: Portable chest, 07/01/2023 Findings: The moderate right pleural effusion and small left pleural effusion remain the same. There is pulmonary vascular congestion. The heart is enlarged. There is an artificial heart valve. Midline sternotomy sutures are present. The aortic arch and descending thoracic aorta show calcification and tortuosity. Monitor leads are on the chest wall. Impression: 1. No change in bilateral pleural effusions. 2. Increase in pulmonary vascular congestion.
[2023-07-04] MEDS: HYDROcodone-acetaminophen 5-325 mg Tablet 1 TAB PO ×2 (13:03→20:56)
[2023-07-04] MEDS: OLANZapine 5 mg ODT 2.5 MG PO (13:03)
--- NOTE | 2023-07-04 15:24 | P.PN_ITS ---
Subjective 2 Subjective: Patient complains of pain in his back. He is overall irritable, states that he cannot get comfortable. Lower extremity swelling similar to yesterday's exam. Net -3800 cc over last 24 hours. Stable kidney function. Medications: Reviewed: Yes Vitals/I&O/Wt Last Vital Signs Temp 97.8 F 07/04/23 09:34 Pulse 92 07/04/23 09:34 Resp 24 H 07/04/23 09:34 BP 100/66 07/04/23 09:34 Pulse Ox 93 07/04/23 08:19 O2 Del Method Nasal Cannula 07/04/23 08:19 O2 Flow Rate 2 07/04/23 08:19 07/04/23 07/04/23 07/04/23 06:59 14:59 22:59 Intake Total 950 / 1310 210 / 210 Output Total 1950 / 4800 900 / 900 Balance -1000 / -3490 -690 / -690 Weight last 48 hrs Weight 101.151 kg Weight 104.326 kg Physical Exam 2 Narrative: General: No acute distress, AAO x3, chronically ill appearing HEENT: PERRLA, pupils bilaterally equal and reactive, pallors not present Chest: Normal vesicular breath sounds, no added sounds, equal good air entry bilaterally CVS: S1-S2 regular, no murmurs, no tachycardia, no gallops, no rubs Abdomen: Soft, nontender, no organomegaly, bowel sounds present Neuro: No focal deficits, no facial deformity, AO x3, power 5/5 in all limbs Extremities: improving LE edema Urinary Catheter Management: Tinsley: Cath Placed During This Visit: yes Reason for Continuing Indwelling Catheter: Accurate Measurement of Urinary Output in Critically Ill Patients Urinary Catheter Date of Insertion: 07/01/23 Urinary Catheter Time of Insertion: 22:13 Data 07/04/23 04:17 07/04/23 04:17 A&P Assessment and plan (1) CHF exacerbation: (2) Systolic CHF: Qualifiers: Heart failure chronicity: chronic Qualified Code(s): I50.22 - Chronic systolic (congestive) heart failure (3) Pulmonary hypertension: (4) Tricuspid valve regurgitation, nonrheumatic: (5) Atrial fibrillation: Qualifiers: Atrial fibrillation type: persistent (not longstanding) Qualified Code(s): I48.19 - Other persistent atrial fibrillation (6) Abdominal aortic aneurysm (AAA) 3.0 cm to 5.5 cm in diameter in male: (7) Pulmonary embolism: (8) Elevated bilirubin: (9) Liver cirrhosis: (10) Ascites: (11) Chronic kidney disease (CKD): Qualifiers: Chronic kidney disease stage: unspecified stage Qualified Code(s): N 18.9 - Chronic kidney disease, unspecified (12) Nocturnal hypoxemia: Plan Acute systolic CHF exacerbation3 I do believe this is gradual deterioration from valvular regurgitation with reduced ejection fraction No active chest pain Anasarca Edema extending all the way up to abdominal wall Scrotal edema Patient was taking Bumex at home along metolazone Monday Continue Bumex 2 mg IV twice daily Increased work of breathing patient is abdominal muscle Respiratory alkalosis on ABG To decrease work of breathing I will put him on BiPAP Patient is agreeable to try overnight He is full code as well No acute respiratory distress this morning. He feels a lot better. Chronic kidney disease creatinine baseline Anticipating more improvement with diuresis He has already put out 1 L with Lasix in the ER A-fib without RVR Continue Eliquis Full code goals of care discussed with the patient and his Cardiac diet fluid restriction Abnormal transaminases related to congestive hepatopathy Scleral icterus noticed Patient recently has used Augmentin and Keflex for nonpurulent cellulitis of lower extremities Has mild pruritic rash around abdominal wall no significant signs of anaphylaxis I will order nystatin for perineal area. Updated RN. Plan for today: Clinically improving with regards to lower extremity edema and respiratory status. Reviewed prior chart extensively. Noted to have a large right-sided pleural effusion, it appears previously thoracentesis has been attempted but not been successful. There is concern for possibly underlying consolidation versus atelectasis. CT of the abdomen and pelvis in May 2022 had partially visualized lower right lung. There were findings of a small right pleural effusion with atelectasis at the lung base. Possible balanitis around Tinsley insertion. Additionally noted to have intertrigo. Start fluconazole 100 mg p.o. daily. Urine culture preliminarily showing yeast species. Continue Bumex 2 mg IV every 12 hours. Plan for today July 04, 2023 Net negative about 12 L since admission. DC IV Bumex today. Changed to Bumex 2 mg p.o. twice daily and monitor for any worsening with this change. Reviewed recent echocardiogram from July 01, 2022. Severe pulmonary hypertension with PASP of 71 mmHg. Patient has appointment with pulmonology in September 2023. Discussed referring to [place] so he could get established quicker than September, however he states that this will not be possible for him. Continues to complain of significant back pain. Review of medication shows patient to take as needed hydrocodone at home. This has been resumed today. His has noticed over the last several weeks to months that patient tends to sundown, she is concerned about potentially patient developing dementia. 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 Recommended that patient get MMSE as outpatient to evaluate further. For now to help with agitation, discussed adding Zyprexa 2.5 mg and assessing for response. Patient and agreeable for the same. Patient requesting retaining Tinsley catheter today, plan to remove at discharge. Continue fluconazole for balanitis. Anticipate discharge in the upcoming 24 hours if patient remains stable, continues to be net negative, tolerates transition from IV to p.o. Bumex. Attestations 2 Medical Necessity Statement*: Transition diuretics from IV to oral, monitor fluid status, resume pain medication. Coding Level of Care Code Acute Code for Chg Fwd Moderate MDM includes number and complexity of problems actively addressed during encounter, amount and/or complexity of data reviewed/ordered and described risk of complication, morbidity or mortality of management as documented Diagnoses CHF exacerbation I50.9 Chronic systolic congestive heart failure I50.22 Heart failure chronicity: chronic Pulmonary hypertension I27.20 Tricuspid valve regurgitation, nonrheumatic I36.1 Persistent atrial fibrillation I48.19 Atrial fibrillation type: persistent (not longstanding) Abdominal aortic aneurysm (AAA) 3.0 cm to 5.5 cm in diameter in male I71.40 Pulmonary embolism I26.99 Elevated bilirubin R17 Liver cirrhosis K74.60 Ascites R18.8 Chronic kidney disease, unspecified CKD stage N18.9 Chronic kidney disease stage: unspecified stage Nocturnal hypoxemia G47.34
[2023-07-04] MEDS: predniSONE 20 mg Tablet PO (18:14)
[2023-07-04] MEDS: bumetanide 1 mg Tablet 2 MG PO (18:15)
[2023-07-05] VITALS (7 sets, daily range): BP systolic 101–115; BP diastolic 62–67; PULSE 71–91; RESP 18–19; O2SAT 85–94
[2023-07-05 05:31] LABS: Basophils % 0.3 %; Eosinophils % 0.2 %; Hematocrit 35.1 % (37-53); Lymphocytes # 1.1 10^3/uL (0.8-4.8); Lymphocytes % 16.7 %; Mean Corpuscular HGB Conc 32.2 g/dL (30-55); Mean Corpuscular Hemoglobin 30.8 pg (27-33); Mean Corpuscular Volume 95.6 fl (82-101); Monocytes # 0.3 10^3/uL (0.2-0.9); Neutrophils # 5.03 10^3/uL (1.8-7.7); Neutrophils % 76.9 %; Nucleated Red Blood Cells % 0 %; Platelet Count 92 10^3/cmm (157-399); Red Blood Count 3.67 10^6/uL (3.85-5.65); Red Cell Distribution Width 18.3 % (12.1-15.1); White Blood Count 6.54 10^3/uL (3.29-11.43)
[2023-07-05 06:07] LABS: Alanine Aminotransferase 14 U/L (0-41); Albumin Level 3.1 g/dL (3.5-5.2); Alkaline Phosphatase 115 U/L (40-130); Anion Gap 14.2 (5-19); Aspartate Amino Transferase 31 U/L (0-40); Blood Urea Nitrogen 33 mg/dL (8-23); Calcium 8.7 mg/dL (8.5-10.5); Carbon Dioxide 31 mmol/L (22-29); Chloride 98 mmol/L (98-107); Glucose 122 mg/dL (65-115); Osmolality Calculated 299 mOsm/kg (285-295); Potassium 3.2 mmol/L (3.5-5.1); Sodium 140 mmol/L (136-145); Total Bilirubin 1.8 mg/dL (0.15-1.2); Total Protein 6.1 g/dL (6.6-8.7)
[2023-07-05] MEDS: levothyroxine 100 mcg Tablet PO (06:13)
[2023-07-05] MEDS: sucralfate 1 gm Tablet PO (06:13)
[2023-07-05 06:14] LABS: Creatinine Clr Calc Pharmacy 37.9536
[2023-07-05] MEDS: tamsulosin 0.4 mg Capsule 0.400000000000000022 MG PO (08:22)
[2023-07-05] MEDS: cyclobenzaprine 10 mg Tablet 5 MG PO (08:22)
[2023-07-05] MEDS: fluconazole 100 mg Tablet PO (08:22)
[2023-07-05] MEDS: predniSONE 20 mg Tablet PO (08:22)
[2023-07-05] MEDS: OLANZapine 5 mg ODT 2.5 MG PO (08:22)
[2023-07-05] MEDS: dilTIAZem ER (24HR) 120 mg Capsule PO (08:22)
[2023-07-05] MEDS: sennosides-docusate Tablet 1 TAB PO (08:22)
[2023-07-05] MEDS: potassium chloride oral liq 20 mEq/15 mL UDC PO (08:23)
[2023-07-05] MEDS: finasteride 5 mg Tablet PO (08:23)
[2023-07-05] MEDS: apixaban 5 mg Tablet 2.5 MG PO (08:23)
--- NOTE | 2023-07-05 13:51 | P.DS_ITS ---
Discharge Providers Date of Admission: 07/01/23 19:56 Date of Discharge: July 05, 2023 Attending Provider at Admission: Christophe García MD Attending Provider at Discharge: Kanchan Fields MD Primary Care Provider: Daniel Rios DO Diagnoses at Discharge Discharge Diagnosis (1) CHF exacerbation: Status: Acute (2) Systolic CHF: Status: Acute Qualifiers: Heart failure chronicity: chronic Qualified Code(s): I50.22 - Chronic systolic (congestive) heart failure Permanent problem details: 10/29/22 LVEF 44% (3) Pulmonary hypertension: Status: Acute (4) Tricuspid valve regurgitation, nonrheumatic: Status: Acute (5) Atrial fibrillation: Status: Acute Qualifiers: Atrial fibrillation type: persistent (not longstanding) Qualified C ode(s): I48.19 - Other persistent atrial fibrillation (6) Abdominal aortic aneurysm (AAA) 3.0 cm to 5.5 cm in diameter in male: Status: Acute (7) Pulmonary embolism: Status: Acute (8) Elevated bilirubin: Status: Acute (9) Liver cirrhosis: Status: Acute (10) Ascites: Status: Acute (11) Chronic kidney disease (CKD): Status: Acute Qualifiers: Chronic kidney disease stage: unspecified stage Qualified Code(s): N18.9 - Chronic kidney disease, unspecified (12) Nocturnal hypoxemia: Status: Acute Reason for Visit Reason for Visit: weakness, sob Hospital Course Hospital Course Ernst Garcia is a 82 year old male with history of hypertension CHF hypothyroidism BPH atrial fibrillation on Eliquis was brought in by family for complaint of Worsening LE swelling and shortness of breath. He was diagnosed to have Acute on chronic diastolic CHF exacerbation and severe pulmonary hypertension with PASP 71 mmhg and right ventricular dysfunction. Patient has been on Bumex 1 mg p.o. daily and alternate day metolazone 5 mg p.o. He often does not take his night time dosing as it makes him urinate very frequently. he was treated with aggressive diuresis with Bumex 2 mg IV every 12 hours. Patient was overall net negative by 12 L by the time of discharge. His lower extremity swelling and respiratory status did improve with these interventions. Patient is noted to have chronic bilateral moderate pleural effusions which have previously not been amenable to thoracentesis. Given his good response to diuresis, patient was discharged today in stable condition with recommendations to continue Bumex 2 mg p.o. twice daily at home. Repeat CMP in 1 week. Orders provided to be completed at [facility] [place] locally for the patient. He also has appointment with Dr. Enciso for follow-up to further address concerns for pulmonary hypertension. Patient has a past history of A-fib, rate remained well-controlled during this current episode. He was diagnosed also with intertrigo and balanitis, he was treated with oral fluconazole 100 mg daily, recommendations to continue as outpatient for the next week. Over the recent weeks patient has demonstrated increased agitation especially towards the evening hours, exhibits confusion at home. Intermittently hallucinates especially during the night. Family is concerned that patient may be developing dementia. 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 After discussion with patient and , we tried addition of Zyprexa 2.5 mg to his daily regimen. With low-dose Zyprexa patient did exhibit improved sleep, improved agitation. States he feels more relaxed and would like this medication to be continued for home use. Prescription has been provided at discharge. Referral was also provided to neurology due to above concerns. Home O2 evaluation was completed as patient was noted to be needing oxygen with exertion while previously he only use nighttime oxygen. He qualified for 3 L/min at all times, which is being arranged by case management. Patient is discharged today in improved but chronically ill condition. He remains at high risk of readmission. Physical Exam Narrative: General: No acute distress, AO x3 HEENT: PERRLA, pupils bilaterally equal and reactive, pallors not present Chest: Normal vesicular breath sounds, no added sounds, equal good air entry bilaterally CVS: S1-S2 regular, no murmurs, no tachycardia, no gallops, no rubs Abdomen: Soft, nontender, no organomegaly, bowel sounds present Neuro: No focal deficits, no facial deformity, AO x3, power 5/5 in all limbs Extremities: imporoved edema B/L LE, changes of stasis dermatitis over lower extremities Urinary Catheter Management: Tinsley: Cath Placed During This Visit: yes Reason for Continuing Indwelling Catheter: Accurate Measurement of Urinary Output in Critically Ill Patients Urinary Catheter Date of Insertion: 07/01/23 Urinary Catheter Time of Insertion: 22:13 Discharge Data Studies Completed and Pending Completed Studies During Hospitalization Category Date Time Status CXRP [XR chest 1V portable [id number]] Routine Exams 07/04/23 09:50 Completed XR chest 1V portable [id number] Stat Exams 07/01/23 17:14 Completed CV. echo complete* [id number] Routine Ultrasound 07/02/23 06:00 Completed Pending at discharge Category Date Time Status Blood Culture Stat Lab 07/01/23 18:15 Results Laboratory Results WBC 6.54 10^3/uL (3.29-11.43) 07/05/23 04:26 RBC 3.67 10^6/uL (3.85-5.65) L 07/05/23 04:26 Hgb 11.30 g/dL (11.27-16.99) 07/05/23 04:26 Hct 35.1 % (37-53) L 07/05/23 04:26 MCV 95.6 fl (82-101) 07/05/23 04:26 MCH 30.8 pg (27-33) 07/05/23 04:26 MCHC 32.2 g/dL (30-55) 07/05/23 04:26 RDW 18.3 % (12.1-15.1) H 07/05/23 04:26 Plt Count 92 10^3/cmm (157-399) L 07/05/23 04:26 MPV 10.0 fL (7.4-10.4) 07/05/23 04:26 Neut % (Auto) 76.9 % 07/05/23 04:26 Lymph % (Auto) 16.7 % 07/05/23 04:26 [place] % (Auto) 5.0 % 07/05/23 04:26 Eos % (Auto) 0.2 % 07/05/23 04:26 Baso % (Auto) 0.3 % 07/05/23 04:26 Neut # (Auto) 5.03 10^3/uL (1.8-7.7) 07/05/23 04:26 Lymph # (Auto) 1.1 10^3/uL (0.8-4.8) 07/05/23 04:26 [place] # (Auto) 0.3 10^3/uL (0.2-0.9) 07/05/23 04:26 Eos # (Auto) 0.0 10^3/uL (0.0-0.8) 07/05/23 04:26 Baso # (Auto) 0.0 10^3/uL (0.0-0.1) 07/05/23 04:26 Nucleated RBC % (auto) 0 % 07/05/23 04:26 Nucleated RBCs # 0.0 /100WBC 07/05/23 04:26 Specimen Type Arterial 07/01/23 17:45 Sample Site Radial, right 07/01/23 17:45 ABG pH 7.48 (7.35-7.45) H 07/01/23 17:45 ABG pCO2 33.3 mmHg (35-45) L 07/01/23 17:45 ABG pO2 70.4 mmHg (80.0-100.0) L 07/01/23 17:45 ABG PO2/FiO2 Ratio 0 07/01/23 17:45 ABG HCO3 24.9 mmol/L (22-26) 07/01/23 17:45 ABG O2 Saturation 96.2 07/01/23 17:45 ABG Base Excess 1.8 mmol/L (-2.0-2.0) 07/01/23 17:45 Ethan Test Pos 07/01/23 17:45 A-a O2 Gradient 18.6 mmHg (5-10) H 07/01/23 17:45 Hematocrit 36.2 % (42-52) L 07/01/23 17:45 Hgb O2 Saturation 93.7 % (95-100) L 07/01/23 17:45 Carboxyhemoglobin 2.0 %THgb (0.4-20.1) 07/01/23 17:45 Methemoglobin 0.6 % (0.4-1.5) 07/01/23 17:45 Total Hemoglobin 11.8 g/dL (14-18) L 07/01/23 17:45 Sodium 136.0 mmol/L (131-143) 07/01/23 17:45 Potassium 3.7 mmol/L (3.5-5.0) 07/01/23 17:45 Glucose 96.0 mg/dL (70-115) 07/01/23 17:45 Ionized Calcium 1.2 mmol/L (1.1-1.4) 07/01/23 17:45 O2 Delivery Device Nc 07/01/23 17:45 O2 Liters/Min 4.0 % 07/01/23 17:45 FiO2 36.0 % 07/01/23 17:45 Database Operator ID glc 07/01/23 17:45 Sodium 140 mmol/L (136-145) 07/05/23 04:26 Potassium 3.2 mmol/L (3.5-5.1) L 07/05/23 04:26 Chloride 98 mmol/L (98-107) 07/05/23 04:26 Carbon Dioxide 31 mmol/L (22-29) H 07/05/23 04:26 Anion Gap 14.2 (5-19) 07/05/23 04:26 BUN 33 mg/dL (8-23) H 07/05/23 04:26 Creatinine 1.7 mg/dL (0.7-1.2) H 07/05/23 04:26 GFR Calculation Not Reportable 07/05/23 04:26 Glucose 122 mg/dL (65-115) H 07/05/23 04:26 Calculated Osmolality 299 mOsm/kg (285-295) H 07/05/23 04:26 Lactic Acid 1.6 mmol/L (0.5-2.2) 07/01/23 18:10 Calcium 8.7 mg/dL (8.5-10.5) 07/05/23 04:26 Phosphorus 3.7 mg/dL (2.5-4.5) 07/02/23 07:22 Magnesium 2.5 mg/dL (1.7-2.3) H 07/02/23 07:22 Total Bilirubin 1.8 mg/dL (0.15-1.2) H 07/05/23 04:26 AST 31 U/L (0-40) 07/05/23 04:26 ALT 14 U/L (0-41) 07/05/23 04:26 Alkaline Phosphatase 115 U/L (40-130) 07/05/23 04:26 Troponin T Baseline 63 ng/L (0-15) H 07/01/23 18:10 Troponin T 120 Minute 61.91 ng/L (0-15) H 07/01/23 20:24 Delta Troponin T -1.09 ABS# (0-10) L 07/01/23 20:24 Troponin T Hi Sens 6Hr 61.26 ng/L (0-15) H 07/01/23 23:45 Troponin T Hi Sens 6Hr Delta -1.74 ng/L (0-12) L 07/01/23 23:45 C-Reactive Protein 38.1 mg/L (0.0-4.9) H 07/02/23 07:22 NT-Pro-B Natriuret Pep 6687 pg/mL (0-450) H 07/01/23 18:10 Total Protein 6.1 g/dL (6.6-8.7) L 07/05/23 04:26 Albumin 3.1 g/dL (3.5-5.2) L 07/05/23 04:26 Globulin 3.0 g/dL (1.3-4.6) 07/05/23 04:26 TSH 8.18 uIU/mL (0.27-4.20) H 07/01/23 20:24 Urine Color Dark yellow (Yellow) 07/01/23 18:30 Urine Appearance Hazy (CLEAR) A 07/01/23 18:30 Urine pH 5 (5-7) 07/01/23 18:30 Ur Specific [place] 1.020 (1.005-1.030) 07/01/23 18:30 Urine Protein Trace (Negative) 07/01/23 18:30 Urine Glucose (UA) Norm (Normal) 07/01/23 18:30 Urine Ketones Negative (Negative) 07/01/23 18:30 Urine Blood 3+ (Negative) H 07/01/23 18:30 Urine Nitrate Negative (Negative) 07/01/23 18:30 Urine Bilirubin Neg (Negative) 07/01/23 18:30 Urine Urobilinogen Neg mg/dL (Negative) 07/01/23 18:30 Ur Leukocyte Esterase Negative (Negative) 07/01/23 18:30 Urine RBC 0-4 /hpf (0-2) H 07/01/23 18:30 Urine WBC 5-10 /hpf (0-5) H 07/01/23 18:30 Ur Squamous Epith Cells 0-4 /hpf (0-5) H 07/01/23 18:30 Amorphous Sediment Trace /hpf 07/01/23 18:30 Urine Bacteria 1+ /hpf (NONE) H 07/01/23 18:30 Hyaline Casts 0-4 /lpf H 07/01/23 18:30 Urine Mucus 1+ /hpf 07/01/23 18:30 Urine Yeast 1+ /hpf H 07/01/23 18:30 Vitals Last Vital Signs Temp 97.7 F 07/04/23 20:00 Pulse 87 07/05/23 10:27 Resp 19 H 07/05/23 10:27 BP 101/62 07/05/23 10:27 Pulse Ox 85 L 07/05/23 10:41 O2 Del Method Nasal Cannula 07/05/23 10:00 O2 Flow Rate 3 07/05/23 10:41 Discharge Plan Discharge Patient Disposition: Home Condition: Fair Prescriptions: New fluconazole 100 mg Tablet 100 mg PO DAILY 5 Days Qty: 5 0RF sucralfate 1 gram Tablet 1 g PO BIDAC 30 Days Qty: 30 0RF prednisone 20 mg Tablet 20 mg PO DAILY PRN (Reason: rash/itching) 5 Days Qty: 5 0RF pantoprazole 40 mg Tablet,Delayed Release (Dr/Ec) 40 mg PO DAILY 30 Days Qty: 30 0RF olanzapine 5 mg Tablet,Disintegrating 2.5 mg PO DAILY 30 Days Qty: 30 0RF Continued cholecalciferol (vitamin D3) 50 mcg (2,000 unit) capsule 50 mcg PO QAM Eliquis 2.5 mg tablet 2.5 mg PO BID Qty: 60 3RF hydrocodone-acetaminophen 5-325 mg tablet 1 tab PO Q8H PRN (Reason: pain) 7 Days Qty: 21 0RF diltiazem HCl 120 mg capsule,extended release 12 hr 120 mg PO BID midodrine 10 mg tablet 10 mg PO TID PRN (Reason: sbp < 90) Rx Instructions: do not give last dose of day after 6PM or within 4 hrs of bedtime zinc acetate 50 mg (zinc) Capsule 50 mg PO DAILY tamsulosin 0.4 mg capsule 0.4 mg PO DAILY ondansetron 4 mg tablet,disintegrating 4 mg PO Q8H PRN (Reason: nausea and vomiting) Qty: 15 0RF potassium chloride 20 mEq tablet extended release 20 meq PO QID levothyroxine [Levoxyl] 100 mcg Tablet 100 mcg PO QAM Qty: 90 3RF finasteride 5 mg Tablet 5 mg PO DAILY Changed metolazone 5 mg tablet 5 mg PO .MWF PRN (Reason: increasing edema) 30 Days Qty: 30 0RF bumetanide 1 mg tablet 2 mg PO BID 30 Days Qty: 60 0RF Discharge Orders: Discharge Order (Routine); Ordered 07/05/23 Ordered By: Kanchan Fields Other Ambulatory Orders: DME: Oxygen (Order) Location: None Selected Ordered By: Kanchan Fields Referrals: Parag Rubio MD [Physician] - 2 weeks (concern for development of dementia ) Daniel Rios DO [Primary Care Provider] - 07/12/23 9:30 am Discharge Diet: Usual diet Discharge Activity: Resume usual activity Patient Instructions: Abdominal Aortic Aneurysm, Sucralfate (By mouth) (Griselda fate), Prednisone (By mouth) (predniSONE Intensol, Prednicot, Deltasone, Michael), Fluconazole (By mouth) (Diflucan), Olanzapine (By mouth), Pantoprazole (By mouth) (Protonix), Heart Failure (DC), CHF Stoplight, Opioid Safety Discharge Attestations Time Spent in Discharge Care*: greater than 30 min Quality Metrics Clinical Quality Measures [ No reported AMI, CVA or VTE this stay] Coding Level of Care Code Acute Code for Chg Fwd Total time (in minutes) for Discharge: 60 Diagnoses CHF exacerbation I50.9 Chronic systolic congestive heart failure I50.22 Heart failure chronicity: chronic Pulmonary hypertension I27.20 Tricuspid valve regurgitation, nonrheumatic I36.1 Persistent atrial fibrillation I48.19 Atrial fibrillation type: persistent (not longstanding) Abdominal aortic aneurysm (AAA) 3.0 cm to 5.5 cm in diameter in male I71.40 Pulmonary embolism I26.99 Elevated bilirubin R17 Liver cirrhosis K74.60 Ascites R18.8 Chronic kidney disease, unspecified CKD stage N18.9 Chronic kidney disease stage: unspecified stage Nocturnal hypoxemia G47.34
== END 2023-07-05 10:49 | disposition home or self-care (01) | DRG 291 ==
LOC: ER 18:17 → CSU 20:11
PROVIDERS: Family Medicine; Internal Medicine; Admitting Provider Internal Medicine; Emergency Provider Emergency Medicine; PCP Emergency Medicine Emergency Medical Services; Visit Provider Student in an Organized Health Care Education/Training Program
DX: I13.0 Hypertensive heart and chronic kidney disease with heart failure and stage 1 through stage 4 chronic kidney disease, or unspecified chronic kidney disease (principal); I50.23 Acute on chronic systolic (congestive) heart failure; I48.20 Chronic atrial fibrillation, unspecified; I27.20 Pulmonary hypertension, unspecified; I36.1 Nonrheumatic tricuspid (valve) insufficiency; Z79.01 Long term (current) use of anticoagulants; I71.40 Abdominal aortic aneurysm, without rupture, unspecified; N40.0 Benign prostatic hyperplasia without lower urinary tract symptoms; E03.9 Hypothyroidism, unspecified; Z99.81 Dependence on supplemental oxygen; K59.00 Constipation, unspecified; M54.9 Dorsalgia, unspecified; R45.1 Restlessness and agitation; N18.9 Chronic kidney disease, unspecified; H15.89 Other disorders of sclera
CPT/HCPCS: 36415; 36600; 51702; 71045; 80048; 80051; 80053; 81001; 82330; 82805; 83605; 83735; 83880; 84100; 84443; 84484; 85025; 86140; 87040; 87086; 87106; 93005; 93306; 94760; 96374; 96375; 96376; 97161; 97167; 97530; 99285; A9270; J1170; J1940; J2405; J3480; J3490; J7512

== ENCOUNTER 2023-07-05 10:50 | Outpatient (CLI) | payer OTHER, SELFPAY ==
--- NOTE | 2023-07-05 11:00 | MR_ITS ---
WS: [id number] MRI LUMBAR SPINE NONCONTRAST TECHNIQUE: Sagittal T1, T2 and STIR imaging. Axial T1 and T2 imaging. CLINICAL INFORMATION: back pain COMPARISON: CT 01/30/2023 FINDINGS: Mild compression superior plate L1 with diffuse edema. Loss of approximately 30% vertebral body heigh t. No significant retropulsion. No other acute appearing compression fractures in the lumbar spine. L1-L2: Mild disc bulging. Spinal canal and foramen are patent. Mild facet arthropathy. L2-L3: Mild disc bulging. Slight effacement of the ventral thecal sac. Slight narrowing of the LEFT g reater than RIGHT subarticular recess. Moderate facet arthropathy. Tiny LEFT proximal foraminal protr usion with mild LEFT foraminal narrowing. L3-L4: Mild annular bulging. Mild to moderate narrowing of the thecal sac with prominent epidural fat . Moderate facet arthropathy and ligamentum flavum hypertrophy. Mild bilateral foraminal narrowing. S mall RIGHT facet effusion. Tiny RIGHT synovial cyst with slight narrowing of the RIGHT subarticular r ecess. L4-L5: Mild disc bulging with slight effacement of the ventral thecal sac. Moderate facet arthropathy . Mild RIGHT greater than LEFT foraminal narrowing. L5-S1: Mild disc bulge with osteophytic ridging. Mild facet arthropathy. Foramen are patent. Visualized pelvic bony structures: Normal. Paravertebral soft tissues: Normal. IMPRESSION: Some images degraded by motion. 1. Mild compression superior endplate L1 with diffuse edema. Loss of approximately 30% vertebral candido dy height. No significant retropulsion. Paravertebral soft tissue edema. 2. Mild central canal stenosis L2-3 with narrowing of the LEFT subarticular recess. Mild LEFT forami nal narrowing at this level with a small LEFT proximal foraminal protrusion. 3. Mild to moderate narrowing of the thecal sac at L3-L4. Tiny RIGHT synovial cyst at this level sli ghtly impinges the RIGHT subarticular recess.
--- NOTE | 2023-07-05 11:45 | MR_ITS ---
WS: [id number] MRI THORACIC SPINE WITHOUT CONTRAST TECHNIQUE: Sagittal T1, T2 and STIR imaging. Axial T2 imaging. Noncontrast imaging obtained. CLINICAL INFORMATION: back pain FINDINGS: Moderate thoracic kyphosis. Acute compression with anterior wedging at L1 with loss of approximately 30% vertebral body height anteriorly. No significant retropulsion. Fluid-filled fracture cleft in the superior endplate at L1. Chronic anterior wedging at T12. No other acute appearing compression fract ures. No high-grade central canal stenosis. Cord signal is normal. Small RIGHT greater than LEFT pleu ral effusions. Normal caliber thoracic aorta. Shallow disc protrusions at T2-3 and in the midthoracic spine at T7-T9. No high-grade central canal n arrowing. Moderate facet arthropathy lower thoracic spine. 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 IMPRESSION: 1. Acute compression fracture L1 vertebral body with fracture cleft in the superior endplate with di ffuse edema. Loss of approximately 30% vertebral body height. No retropulsion. 2. No other acute appearing compression fractures.
== END 2023-07-05 10:51 | disposition home or self-care (01) ==
LOC: RAD 10:51
PROVIDERS: PCP Emergency Medicine Emergency Medical Services; Visit Provider Orthopaedic Surgery
DX: S32.010A Wedge compression fracture of first lumbar vertebra, initial encounter for closed fracture (principal); X58.XXXA Exposure to other specified factors, initial encounter; M48.061 Spinal stenosis, lumbar region without neurogenic claudication; M71.38 Other bursal cyst, other site
CPT/HCPCS: 72146; 72148

== ENCOUNTER → 2023-07-12 10:23 | Outpatient (BNVA) | payer OTHER, SELFPAY | PROVIDERS: PCP Emergency Medicine Emergency Medical Services; Visit Provider Nurse Practitioner Family | DX: I48.19 Other persistent atrial fibrillation (principal); I50.22 Chronic systolic (congestive) heart failure; Z79.01 Long term (current) use of anticoagulants | CPT/HCPCS: 99214 ==

== ENCOUNTER → 2023-07-13 12:48 | Outpatient (BNVA) | payer OTHER, SELFPAY | PROVIDERS: PCP Emergency Medicine Emergency Medical Services; Visit Provider Internal Medicine Pulmonary Disease | DX: J81.1 Chronic pulmonary edema (principal); I82.409 Acute embolism and thrombosis of unspecified deep veins of unspecified lower extremity; I50.22 Chronic systolic (congestive) heart failure; I27.20 Pulmonary hypertension, unspecified | CPT/HCPCS: 99214 ==

== ENCOUNTER → 2023-07-24 09:49 | Outpatient (BNVA) | payer OTHER, SELFPAY | PROVIDERS: PCP Emergency Medicine Emergency Medical Services; Visit Provider Psychiatry & Neurology Neurology | DX: R41.0 Disorientation, unspecified (principal); R26.89 Other abnormalities of gait and mobility; R29.818 Other symptoms and signs involving the nervous system; R41.3 Other amnesia | CPT/HCPCS: 99203 ==

== ENCOUNTER 2023-07-29 03:22 | Emergency (ER) | payer OTHER, SELFPAY ==
[2023-07-29 03:31] VITALS: BP 106/74; PULSE 89; RESP 18; TEMP 36.1; O2SAT 100; BMI 32.2
[2023-07-29 03:35] VITALS: BP 106/74; PULSE 89; RESP 18; TEMP 36.1; O2SAT 100
--- NOTE | 2023-07-29 03:36 | CTR_ITS ---
PROCEDURE INFORMATION: Exam: CT Head Without Contrast Exam date and time: 07/29/2023 3:49 AM Age: 83 years old Clinical indication: Injury or trauma; Fall; Blunt trauma (contusions or hematomas); Patient HX: Patient fell in bathroom this morning hitting head on floor. Anticoagulated. C/O lower back pain. History of compression fracture. ; Additional info: Fall head trauma, oneliquis TECHNIQUE: Imaging protocol: Computed tomography of the head without contrast. Radiation optimization: All CT scans at this facility use at least one of these dose optimization techniques: automated exposure control; mA and/or kV adjustment per patient size (includes targeted exams where dose is matched to clinical indication); or iterative reconstruction. COMPARISON: CT head wo con* [id number] 08/06/2022 5:45 AM RADIATION DOSE METRICS: Total DLP (mGy-cm): 1185.8 FINDINGS: Brain: There is moderate diffuse cerebral atrophy. Patchy areas of hypoattenuation are seen in the deep white matter of the cerebral hemispheres bilaterally compatible with deep white matter microvascular disease. 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 Cerebral ventricles: No ventriculomegaly. Paranasal sinuses: Mild mucosal thickening and fluid is seen within the sinuses and within the left maxillary sinus. Additionally, is opacification of the left frontal sinus. Mastoid air cells: Visualized mastoid air cells are well aerated. Bones/joints: Unremarkable. No acute fracture. Soft tissues: Unremarkable. CT/CT head wo con* [id number] IMPRESSION: There are no acute intracranial findings.
--- NOTE | 2023-07-29 03:52 | CTR_ITS ---
PROCEDURE INFORMATION: Exam: CT Lumbar Spine Without Contrast Exam date and time: 07/29/2023 3:53 AM Age: 83 years old Clinical indication: Injury or trauma; Fall; Blunt trauma (contusions or hematomas); Patient HX: Patient fell in bathroom this morning hitting head on floor. Anticoagulated. C/O lower back pain. History of compression fracture. ; Additional info: Fall. Low back pain. HX of compression FX TECHNIQUE: Imaging protocol: Computed tomography of the lumbar spine without contrast. Radiation optimization: All CT scans at this facility use at least one of these dose optimization techniques: automated exposure control; mA and/or kV adjustment per patient size (includes targeted exams where dose is matched to clinical indication); or iterative reconstruction. COMPARISON: MR lumbar spine wo con* [id number] 07/05/2023 11:41 AM RADIATION DOSE METRICS: Total DLP (mGy-cm): 950.35 FINDINGS: Bones/joints: There approximate 26% compression superior endplate L1. There is a diffuse loss of disc height is seen within the visualized lumbar spine. Vacuum disc phenomenon is seen at T12-L1 and L3-S1. Most severe loss of disc height is seen L4-S1. Sclerosis, joint space narrowing bone spurring is seen within the facets of the lumbar spine compatible with osteoarthritic changes. Soft tissues: Unremarkable. Other findings: There is diffuse demineralization. CT/CT lumbar spine wo con* [id number] IMPRESSION: 1. There are no acute osseous findings. 2. 26% compression of the superior endplate L1 similar to the findings seen 07/05/2023. 3. Diffuse degenerative disc disease lumbar most severe L4-S1. 4. Diffuse osteoarthritic changes within the facets lumbar spine.
--- NOTE | 2023-07-29 04:23 | W.ED.FALL ---
HPI - Fall General: Chief Complaint: Fall Stated Complaint: Fall Time Seen by Provider: 07/29/23 03:23 History of Present Illness: Patient presents to the ER this morning after he slipped on some powder that was on the floor of his bathroom tile floor. Patient hit his head against the door frame on the way down. Patient also has low back pain. Patient has a history of compression fractures as low back. Patient is on blood thinner Eliquis. Patient did not lose consciousness, pass out or get knocked out. Patient is alert oriented and coherent. Patient has no complaints other than mild head pain and back pain. Review of Systems General: Reports: 10 or more systems reviewed and unremarkable except in HPI and below PFSH ED PFSH: Medical History Hypothyroid Transaminitis Elevated bilirubin Abnormal TSH Hyperkalemia Pulmonary embolism Atrial fibrillation Deep venous thrombosis Atrial fibrillation with RVR Diastolic CHF Stenosis of prosthetic mitral valve Tricuspid valve regurgitation, nonrheumatic Chronic kidney disease (CKD) Thrombocytopenia Atrial fibrillation Surgical History Hx of mitral valve replacement 2005 Family History Father Myocardial infarction Denies family history of Diabetes Stroke Social History Smoking and tobacco/nicotine status: never used tobacco/nicotine Substance/Drug Use: never Physical Exam Const: COMMON NORMALS: no acute distress, average body habitus, patient oriented x3, no limitations, healthy appearing, alert and well nourished HENMT: COMMON NORMALS: normocephalic, hearing grossly normal bilaterally, external ears normal, EAC's normal, TM's normal bilaterally and Normal external nose present; head/scalp not atraumatic (Mild abrasion to posterior superior) HEAD & SCALP: normocephalic; not atraumatic (Mild abrasion to posterior superior) NOSE: Normal external nose present EXTERNAL EAR: Yes external ears normal EXTERNAL AUDITORY CANAL: EAC's normal TYMPANIC MEMBRANE: TM's normal bilaterally Eye: COMMON NORMALS: Equal, round and reactive pupils present, EOMs intact bilaterally, conjunctivae normal and no scleral icterus CONJUNCTIVA: Yes conjunctivae normal PUPIL: Yes Equal, round and reactive pupils present Neck/C-Spine: COMMON NORMALS: full ROM, no lymphadenopathy, supple, no meningeal signs, no JVD and Thyroid normal THYROID: Thyroid normal Chest: COMMONS NORMALS: normal inspection of the chest and normal palpation of entire chest wall Resp: COMMON NORMALS: normal respiratory effort, No retractions, No use of accessory muscles and clear to auscultation bilaterally AUSCULTATION: clear to auscultation bilaterally Cardio: COMMON NORMALS: no JVD, regular rate, regular rhythm, S1 normal heart sound present, S2 normal heart sound present, No gallops present (Cardio), No clicks present (Cardio), No murmurs present (Cardio) and No rub (Cardio) RATE: regular rate RHYTHM: regular rhythm HEART SOUNDS: S1 normal heart sound present and S2 normal heart sound present GI: COMMON NORMALS: Normal to inspection, nondistended, normoactive bowel sounds present, Soft to palpation, non-tender, No hepatosplenomegaly present and no masses PALPATION: Yes Soft to palpation and Yes No hepatosplenomegaly present Neuro: COMMON NORMALS: patient oriented x3 SENSORIUM/ORIENTATION: Yes alert MENINGEAL SIGNS: Yes no meningeal signs Course Vital Signs: Vital signs: Vital Signs Temperature 96.9 F L 07/29/23 03:35 Pulse Rate 89 07/29/23 03:35 Respiratory Rate 18 07/29/23 03:35 Blood Pressure 106/74 07/29/23 03:35 Pulse Oximetry 100 07/29/23 03:35 Oxygen Delivery Me thod Nasal Cannula 07/29/23 03:35 Oxygen Flow Rate 2 07/29/23 03:35 MDM - Fall Medical Decision Making Patient is a head CT and a lumbar spine CT performed. No acute findings in the head CT and no acute findings in the lumbar CT there was an old compression fracture noted but it was unchanged. These results was discussed with the family. Patient be discharged home to follow-up with his PCP on an as-needed basis. Differential Diagnosis Unlikely syncope, dislocation of shoulder region, fracture of wrist, compression fracture, concussion with loss of consciousness or concussion without loss of consciousness Medical Records I reviewed the patient's medical records. Lab Data I reviewed the patient's lab results. Radiology Impressions Head CT 07/29/23 03:36 IMPRESSION: There are no acute intracranial findings. Lumbar Spine CT 07/29/23 03:52 IMPRESSION: 1. There are no acute osseous findings. 2. 26% compression of the superior endplate L1 similar to the findings seen 07/05/2023. 3. Diffuse degenerative disc disease lumbar most severe L4-S1. 4. Diffuse osteoarthritic changes within the facets lumbar spine. All radiology interpretation(s) finalized by discharge Discharge Plan Discharge Patient Disposition: Home Clinical Impression: Fall Qualifiers: Encounter type: initial encounter Qualified Code(s): W19.XXXA - Unspecified fall, initial encounter Contusion of scalp Qualifiers: Encounter type: initial encounter Qualified Code(s): S00.03XA - Contusion of scalp, initial encounter Condition: Stable Prescriptions: No Action cholecalciferol (vitamin D3) 50 mcg (2,000 unit) capsule 50 mcg PO QAM Eliquis 2.5 mg tablet 2.5 mg PO BID Qty: 60 3RF hydrocodone-acetaminophen 5-325 mg tablet 1 tab PO Q8H PRN (Reason: pain) 7 Days Qty: 21 0RF diltiazem HCl 120 mg capsule,extended release 12 hr 120 mg PO BID midodrine 10 mg tablet 10 mg PO TID PRN (Reason: sbp < 90) Rx Instructions: do not give last dose of day after 6PM or within 4 hrs of bedtime olanzapine 5 mg tablet,disintegrating 5 mg PO DAILY zinc acetate 50 mg (zinc) Capsule 50 mg PO DAILY tamsulosin 0.4 mg capsule 0.4 mg PO DAILY ondansetron 4 mg tablet,disintegrating 4 mg PO Q8H PRN (Reason: nausea and vomiting) Qty: 15 0RF potassium chloride 20 mEq tablet extended release 20 meq PO QID sucralfate 1 gram Tablet 1 g PO BIDAC 30 Days Qty: 30 0RF pantoprazole 40 mg Tablet,Delayed Release (Dr/Ec) 40 mg PO DAILY 30 Days Qty: 30 0RF metolazone 5 mg tablet 5 mg PO .MWF PRN (Reason: increasing edema) 30 Days Qty: 30 0RF bumetanide 1 mg tablet 2 mg PO BID 30 Days Qty: 60 0RF levothyroxine [Levoxyl] 100 mcg Tablet 100 mcg PO QAM Qty: 90 3RF finasteride 5 mg Tablet 5 mg PO DAILY Discharge Orders: Discharge ED (Routine); Ordered 07/29/23 Ordered By: Bladimir Gooden Referrals: Daniel Rios, DO [Primary Care Provider] - Patient Instructions: Fall Prevention for Older Adults (ED), Scalp Contusion in Adults (ED) Activity Restrictions/Additional Instructions: Your CT scan of your head and low back did not show any acute new findings. Please follow-up with your family practitioner for further evaluation testing as needed. 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
[2023-07-29 04:50] VITALS: BP 92/69; PULSE 86; RESP 18; O2SAT 97
== END 2023-07-29 04:57 | disposition home or self-care (01) ==
PROVIDERS: Emergency Provider Emergency Medicine; PCP Emergency Medicine Emergency Medical Services
DX: S00.03XA Contusion of scalp, initial encounter (principal); W01.198A Fall on same level from slipping, tripping and stumbling with subsequent striking against other object, initial encounter; Z79.01 Long term (current) use of anticoagulants; N18.9 Chronic kidney disease, unspecified; I50.30 Unspecified diastolic (congestive) heart failure
CPT/HCPCS: 70450; 72131; 99284

== ENCOUNTER 2023-08-09 06:15 | Inpatient (IN) | payer OTHER, SELFPAY ==
[2023-08-09] VITALS (44 sets, daily range): BP systolic 79–120; BP diastolic 51–73; PULSE 75–108; RESP 12–33; TEMP 36.2–36.5; O2SAT 84–100; BMI 24.3
--- NOTE | 2023-08-09 06:23 | ECG_ITS ---
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 Measurements Intervals [place] Rate: 94 P: 0 GA: 0 QRS: 108 QRSD: 104 T: -55 QT: 382 QTc: 478 Interpretive Statements ATRIAL FIBRILLATION WITH ABERRANT CONDUCTION OR VENTRICULAR PREMATURE COMPLEXES RIGHT AXIS DEVIATION [QRS AXIS > 100] LOW QRS VOLTAGE IN PRECORDIAL LEADS [QRS DEFLECTION < 1.0 mV IN CHEST LEADS] MINIMAL ST DEPRESSION [0.025+ mV ST DEPRESSION] ABNORMAL QRS-T ANGLE [QRS-T AXIS DIFFERENCE > 60] Compared to ECG 07/01/2023 17:28:34 Low QRS voltage now present ST (T wave) deviation now present Intraventricular conduction delay no longer present T-wave abnormality no longer present Electronically Signed On 08-09-2023 18:29:34 CDT by Anneliese Aceves M.D. [id number]
[2023-08-09 06:35] LABS: Basophils # 0.1 10^3/uL (0.0-0.1); Basophils % 0.4 %; Eosinophils # 0.1 10^3/uL (0.0-0.8); Eosinophils % 0.9 %; Hematocrit 37.8 % (37-53); Lymphocytes # 1.4 10^3/uL (0.8-4.8); Mean Corpuscular HGB Conc 31.2 g/dL (30-55); Mean Corpuscular Hemoglobin 31.2 pg (27-33); Mean Platelet Volume 10.1 fL (7.4-10.4); Monocytes # 1.1 10^3/uL (0.2-0.9); Monocytes % 9.7 %; Neutrophils # 8.69 10^3/uL (1.8-7.7); Nucleated Red Blood Cells % 0.2 %; Platelet Count 135 10^3/cmm (157-399); Red Blood Count 3.78 10^6/uL (3.85-5.65); Red Cell Distribution Width 20.4 % (12.1-15.1); White Blood Count 11.43 10^3/uL (3.29-11.43)
[2023-08-09 06:49] LABS: Alanine Aminotransferase 17 U/L (0-41); Albumin Level 3.4 g/dL (3.5-5.2); Alkaline Phosphatase 144 U/L (40-130); Anion Gap 19.8 (5-19); Aspartate Amino Transferase 39 U/L (0-40); Blood Urea Nitrogen 63 mg/dL (8-23); Calcium 9.6 mg/dL (8.5-10.5); Carbon Dioxide 19 mmol/L (22-29); Chloride 107 mmol/L (98-107); Creatinine Clr Calc Pharmacy 24.1183; Globulin 3.4 g/dL (1.3-4.6); Glucose 78 mg/dL (65-115); Osmolality Calculated 309 mOsm/kg (285-295); Potassium 4.8 mmol/L (3.5-5.1); Sodium 141 mmol/L (136-145); Total Bilirubin 5.1 mg/dL (0.15-1.2); Total Protein 6.8 g/dL (6.6-8.7)
--- NOTE | 2023-08-09 06:57 | W.ED.AMS ---
HPI - Altered Mental Status General: Chief Complaint: Fall Stated Complaint: slid out of bed Time Seen by Provider: 08/09/23 06:22 Source: family Mode of arrival: EMS Limitations: altered mental status History of Present Illness: 83-year-old male presents emergency room via EMS with family. He has had progressively worsening altered mental status and dementia like symptoms for several months. It has gotten markedly worse in the last month. Family reports that every night he has significant worsening of his confusion through the night he often does not sleep with a half to sit at his bedside to keep him from falling out or climbing out of bed. He did slide out of bed this morning they are concerned he may have hurt his left hip. They did call EMS for help to get him back up and then ultimately ended up bringing him in this had been progressively worsening and through the [place] they had arranged to see a neurologist. They seen Dr. Rubio and he had set up for an MRI and carotid studies that were actually supposed to be done today. No recent change in medications. Patient is on Eliquis. They had gotten a hospital bed with rails on the upper portion of the bed but despite this he still has difficulty and is frequently trying to climb out of bed. This morning's episode was precipitated more by him falling out of bed but is a continuous progression of worsening rather than a marked sudden change. When patient first seen and evaluated he appears to have significant difficulty with breathing although the family states this is typical for him at night when he gets more confused. He makes purposeful movements. Adjusting his blanket and repositioning himself. He does not seem to have any particular focal lateralizing neurologic deficits. He is currently on 3 L/min by nasal cannula, he normally uses 2 L/min at home. MD complaint: altered mental status and confusion Onset (ago): hour(s) Timing confirmed by: family member Severity: similar to previous episodes Consistency of symptoms: Getting Worse Review of Systems General: Reports: ROS unobtainable due to mental status (Minimal review of systems per family) Const: Denies: fever(s) Card: Denies: chest pain Resp: Reports: dyspnea GI: Denies: abdominal pain [facility] ED PFSH: Medical History (Updated 08/18/23 @ 06:48 by Inder Abraham DO) Orbital mass Elevated troponin Abdominal aortic aneurysm (AAA) 3.0 cm to 5.5 cm in diameter in male Chronic pulmonary edema Anemia Systolic CHF 10/29/22 LVEF 44%----> 07/02/23 LVEF 40%, right sided heart failure CHF exacerbation Liver cirrhosis Pulmonary hypertension Atrial fibrillation with RVR Hypothyroid Transaminitis Elevated bilirubin Abnormal TSH Hyperkalemia Pulmonary embolism Atrial fibrillation Deep venous thrombosis Diastolic CHF Stenosis of prosthetic mitral valve Tricuspid valve regurgitation, nonrheumatic Chronic kidney disease (CKD) Thrombocytopenia Atrial fibrillation Surgical History Hx of mitral valve replacement 2005 Family History Father Myocardial infarction Denies family history of Diabetes Stroke Social History Smoking and tobacco/nicotine status: never used tobacco/nicotine Substance/Drug Use: never Physical Exam Const: GENERAL APPEARANCE: lethargic ORIENTATION/CONSCIOUSNESS: Yes lethargic HENMT: COMMON NORMALS: normocephalic, atraumatic and hearing grossly normal bilaterally HEAD & SCALP: normocephalic and atraumatic Resp: COMMON NORMALS: No retractions and No use of accessory muscles AUSCULTATION: rhonchi Cardio: COMMON NORMALS: regular rate, regular rhythm and No murmurs present (Cardio) RATE: regular rate RHYTHM: regular rhythm GI: COMMON NORMALS: Soft to palpation and No hepatosplenomegaly present AUSCULTATION: Yes normoactive bowel sounds PALPATION: Yes Soft to palpation, No Tenderness to palpation present (GI), No Guarding due to palpation present (GI) and Yes No hepatosplenomegaly present Extremity: OTHER: 1+ edema lower extremities venous stasis changes. Feet are cool to the touch. Neuro: SENSORIUM/ORIENTATION: Yes lethargic Skin: COMMON NORMALS: no rashes or lesions noted GENERAL SKIN EXAM: no rashes or lesions noted Course Vital Signs: Vital signs: Vital Signs Temperature 98.3 F 08/17/23 11:02 Pulse Rate 67 08/17/23 11:02 Respiratory Rate 15 08/17/23 11:02 Blood Pressure 105/63 08/17/23 11:02 Pulse Oximetry 93 08/17/23 11:02 Oxygen Delivery Me thod Nasal Cannula 08/17/23 07:59 Oxygen Flow Rate 3 08/16/23 08:00 Fraction of Inspir ed Oxygen 40 08/10/23 03:09 MDM - Altered Mental Status Medical Decision Making Progressive dementia with acute delirium over the last few days. Patient is acute hypoxic respiratory failure with CHF and acute kidney injury. Troponin is elevated likely secondary to his congestive heart failure. His bilirubin is also elevated I suspect it also may be due to his heart failure. Discussed with hospitalist will admit. Discussed with family they are still wishing for him to be a full code. Discussed the extent of his illness at this point his prognosis is poor but they still wish him to be a full code. Orders written. Medical Records I reviewed the patient's medical records. Lab Data I reviewed the patient's lab results. 08/17/23 04:59 08/17/23 04:59 Radiology Impressions Hip/Pelvis X-Ray 08/09/23 07:08 IMPRESSION: Mild degenerative changes. Chest X-Ray 08/13/23 07:00 IMPRESSION: 1. Cardiomegaly, stable. 2. Stable slightly worsened right basilar airspace opacity. 3. Probable small right pleural effusion. Modified Barium Swallow 08/15/23 09:00 IMPRESSION: Modified barium swallow as above. Laboratory Results WBC 11.43 10^3/uL (3.29-11.43) 08/09/23 06:27 RBC 3.78 10^6/uL (3.85-5.65) L 08/09/23 06:27 Hgb 11.80 g/dL (11.27-16.99) 08/09/23 06:27 Hct 37.8 % (37-53) 08/09/23 06:27 MCV 100.0 fl (82-101) 08/09/23 06:27 MCH 31.2 pg (27-33) 08/09/23 06:27 MCHC 31.2 g/dL (30-55) 08/09/23 06:27 RDW 20.4 % (12.1-15.1) H 08/09/23 06:27 Plt Count 135 10^3/cmm (157-399) L 08/09/23 06:27 MPV 10.1 fL (7.4-10.4) 08/09/23 06:27 Neut % (Auto) 76.0 % 08/09/23 06:27 Lymph % (Auto) 12.0 % 08/09/23 06:27 [place]aine % (Auto) 9.7 % 08/09/23 06:27 Eos % (Auto) 0.9 % 08/09/23 06: Baso % (Auto) 0.4 % 08/09/23 06:27 Neut # (Auto) 8.69 10^3/uL (1.8-7.7) H 08/09/23 06:27 Lymph # (Auto) 1.4 10^3/uL (0.8-4.8) 08/09/23 06: [place]aine # (Auto) 1.1 10^3/uL (0.2-0.9) H 08/09/23 06:27 Eos # (Auto) 0.1 10^3/uL (0.0-0.8) 08/09/23 06: Baso # (Auto) 0.1 10^3/uL (0.0-0.1) 08/09/23 06: Nucleated RBC % (auto) 0.2 % 08/09/23 06: Nucleated RBCs # 0.0 /100WBC 08/09/23 06:27 Specimen Type Arterial 08/09/23 09:46 Sample Site Radial, right 08/09/23 09:46 ABG pH 7.43 (7.35-7.45) 08/09/23 09:46 ABG pCO2 28.6 mmHg (35-45) L 08/09/23 09:46 ABG pO2 71.0 mmHg (80.0-100.0) L 08/09/23 09:46 ABG PO2/FiO2 Ratio 0 08/09/23 09:46 ABG HCO3 18.7 mmol/L (22-26) L 08/09/23 09:46 ABG O2 Saturation 95.5 08/09/23 09:46 ABG Base Excess -4.5 mmol/L (-2.0-2.0) L 08/09/23 09:46 Ethan Test Pos 08/09/23 09:46 A-a O2 Gradient 19.5 mmHg (5-10) H 08/09/23 09:46 Hematocrit 36.3 % (42-52) L 08/09/23 09:46 Hgb O2 Saturation 93.4 % (95-100) L 08/09/23 09:46 Carboxyhemoglobin 2.1 %THgb (0.4-20.1) 08/09/23 09:46 Methemoglobin 0.1 % (0.4-1.5) L 08/09/23 09:46 Total Hemoglobin 11.9 g/dL (14-18) L 08/09/23 09:46 Sodium 141.0 mmol/L (131-143) 08/09/23 09:46 Potassium 4.4 mmol/L (3.5-5.0) 08/09/23 09:46 Glucose 84.0 mg/dL (70-115) 08/09/23 09:46 Ionized Calcium 1.3 mmol/L (1.1-1.4) 08/09/23 09:46 O2 Delivery Device Nc 08/09/23 09:46 O2 Liters/Min 4.0 % 08/09/23 09:46 FiO2 36.0 % 08/09/23 09:46 Manager Fitness ID glc 08/09/23 09:46 Sodium 141 mmol/L (136-145) 08/09/23 06:27 Potassium 4.8 mmol/L (3.5-5.1) 08/09/23 06:27 Chloride 107 mmol/L (98-107) 08/09/23 06:27 Carbon Dioxide 19 mmol/L (22-29) L 08/09/23 06:27 Anion Gap 19.8 (5-19) H 08/09/23 06:27 BUN 63 mg/dL (8-23) H 08/09/23 06:27 Creatinine 2.3 mg/dL (0.7-1.2) H 08/09/23 06:27 GFR Calculation Not Reportable 08/09/23 06:27 Glucose 78 mg/dL (65-115) 08/09/23 06:27 Calculated Osmolality 309 mOsm/kg (285-295) H 08/09/23 06:27 Lactic Acid 2.5 mmol/L (0.5-2.2) H 08/09/23 07:35 Lactic Acid (Sepsis) 2.1 mmol/L (0.5-2.2) 08/09/23 10:22 Calcium 9.6 mg/dL (8.5-10.5) 08/09/23 06:27 Magnesium 2.7 mg/dL (1.7-2.3) H 08/09/23 06:27 Total Bilirubin 5.1 mg/dL (0.15-1.2) H 08/09/23 06:27 AST 39 U/L (0-40) 08/09/23 06:27 ALT 17 U/L (0-41) 08/09/23 06:27 Alkaline Phosphatase 144 U/L (40-130) H 08/09/23 06:27 Ammonia 53 umol/L (16-60) 08/09/23 10:22 Troponin T Baseline 101 ng/L (0-15) H* 08/09/23 06:27 Troponin T 120 Minute 94.74 ng/L (0-15) H 08/09/23 08:39 Delta Troponin T -6.26 ABS# (0-10) L 08/09/23 08:39 Troponin T Hi Sens 6Hr 90.88 ng/L (0-15) H 08/09/23 12:42 Troponin T Hi Sens 6Hr Delta -10.12 ng/L (0-12) L 08/09/23 12:42 Total Protein 6.8 g/dL (6.6-8.7) 08/09/23 06:27 Albumin 3.4 g/dL (3.5-5.2) L 08/09/23 06:27 Globulin 3.4 g/dL (1.3-4.6) 08/09/23 06:27 Lipase 34 U/L (13-60) 08/09/23 06:27 Vitamin B12 > 2000 pg/mL (232-1245) H 08/09/23 06:27 TSH 7.11 uIU/mL (0.27-4.20) H 08/09/23 06:27 Urine Color [place] (Yellow) 08/09/23 08:49 Urine Appearance Cloudy (CLEAR) A 08/09/23 08:49 Urine pH 5 (5-7) 08/09/23 08:49 Ur Specific [place] 1.025 (1.005-1.030) 08/09/23 08:49 Urine Protein 1+ (Negative) H 08/09/23 08:49 Urine Glucose (UA) Norm (Normal) 08/09/23 08:49 Urine Ketones 1+ (Negative) H 08/09/23 08:49 Urine Blood Neg (Negative) 08/09/23 08:49 Urine Nitrate Negative (Negative) 08/09/23 08:49 Urine Bilirubin Neg (Negative) 08/09/23 08:49 Urine Urobilinogen Norm mg/dL (Negative) 08/09/23 08:49 Ur Leukocyte Esterase Negative (Negative) 08/09/23 08:49 Urine RBC None /hpf (0-2) 08/09/23 08:49 Urine WBC None /hpf (0-5) 08/09/23 08:49 Ur Squamous Epith Cells None /hpf (0-5) 08/09/23 08:49 Amorphous Sediment 2+ /hpf 08/09/23 08:49 Urine Bacteria 1+ /hpf (NONE) H 08/09/23 08:49 Urine Mucus Trace /hpf 08/09/23 08:49 Serum Ketones Negative (Negative) 08/09/23 06:27 MRSA (PCR) Detected (NOT DETECTED) A 08/09/23 12:43 All radiology interpretation(s) finalized by discharge Discharge Plan Discharge Patient Disposition: Admitted As Inpatient Admit Provider: Jin Aguilera Clinical Impression: Acute hypoxemic respiratory failure, Pneumonia, Congestive heart failure, Elevated troponin I level, Elevated bilirubin, Acute delirium, Atrial fibrillation Condition: Critical 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
--- NOTE | 2023-08-09 07:08 | XRR_ITS ---
PROCEDURE INFORMATION: Exam: XR Left Hip Exam date and time: 08/09/2023 7:21 AM Age: 83 years old Clinical indication: Injury or trauma; Fall; Blunt trauma (contusions or hematomas); Left; Hip TECHNIQUE: Imaging protocol: Radiologic exam of the left hip. Views: 2 or 3 views hip with pelvis when performed. COMPARISON: CT abdomen pelvis wo con [id number] 06/09/2023 12:07 PM FINDINGS: Bones/joints: Slight articular surface narrowing and spurring. No fracture or dislocation. No acute osseous or joint abnormality.. No acute fracture. Soft tissues: Unremarkable. XR/XR hip LT 2-3V wo/w pel* [id number] IMPRESSION: Mild degenerative changes.
--- NOTE | 2023-08-09 07:09 | CT_ITS ---
WS: [id number] CT HEAD NONCONTRAST HISTORY: AMS, fall TECHNIQUE: Contiguous axial imaging performed through the brain in 2.5 mm imaging. Bone and soft tiss ue windows. Sagittal and coronal reformats reviewed. All CT scans at [facility] use at least one of these dose optimization techniques: automated exposure control; mA and/or kV adjustment per pa tient size (includes targeted exams where dose is matched to clinical indication); or iterative recon struction. DLP: 2666.06 mGy.cm COMPARISON: 07/29/2023 No acute intracranial hemorrhage, midline shift or mass effect. Advanced bilateral symmetric atrophy. Mild small vessel ischemic disease. Ventricles: Normal size with no hydrocephalus. Paranasal sinuses: As visualized are clear. Mastoid air cells: Well pneumatized. Calvarium and scalp: Skull is intact with no soft tissue edema or swelling. There is a high density lobulated soft tissue mass in the RIGHT orbit displacing and inseparable from the optic nerve and the medial rectus muscle. There is a tail extending towards the optic canal. Mas s measures 1.7 x 1.0 cm. IMPRESSION: 1. No acute intracranial hemorrhage or edema. 2. Bilateral symmetric atrophy and small vessel ischemic disease. 3. Soft tissue mass with increased attenuation in the RIGHT orbit measures 1.7 x 1.0 cm. Mass is ins eparable from the optic nerve and the medial rectus muscle. Differential includes a venous varix, gli josh and lymphoma. This can be evaluated by MRI orbits with and without contrast if necessary.
--- NOTE | 2023-08-09 07:09 | XRR_ITS ---
PROCEDURE INFORMATION: Exam: XR Chest Exam date and time: 08/09/2023 7:19 AM Age: 83 years old Clinical indication: Cough and dyspnea; Prior surgery; Surgery date: 6+ months; Surgery type: Cabg; Additional info: Dyspnea/cough TECHNIQUE: Imaging protocol: Radiologic exam of the chest. Views: 1 view. COMPARISON: CR XR chest 1V portable [id number] 07/04/2023 8:57 AM FINDINGS: Lungs: Vascular engorgement with interstitial edema. Pleural spaces: Moderate right and small left pleural effusion. Heart/Mediastinum: Marked cardiomegaly. Bones/joints: Median sternotomy with valve replacement. XR/XR chest 1V portable [id number] IMPRESSION: 1. No significant change. 2. Marked cardiomegaly with findings of CHF and effusions.
--- NOTE | 2023-08-09 07:18 | PC.NURSE ---
PATIENT IS ON CARDIAC MONITORING WITH HR AT 92
[2023-08-09 07:38] LABS: Ketone (Acetest) Serum Negative (Negative)
[2023-08-09 07:44] LABS: Lipase 34 U/L (13-60); Magnesium 2.7 mg/dL (1.7-2.3)
[2023-08-09 07:47] LABS: Troponin(5th) Baseline 101 ng/L (0-15)
[2023-08-09 07:55] LABS: ABG PCO2 30.8 mmHg (35-45); Alveolar-Arterial Oxygen Gradi 14.3 mmHg (5-10); Arterial Blood Gas Hematocrit 38.5 % (42-52); Base Excess ABG -4.6 mmol/L (-2.0-2.0); Blood Gas Allen Test Pos; Blood Gas Operator Identificat glc; Blood Gas Sample Site Radial, left; Blood Gas Sample Type Arterial; HCO3 ABG 19.1 mmol/L (22-26); HGB O2 Sat 94.2 % (95-100); Ionized Calcium Level - ABG 1.3 mmol/L (1.1-1.4); Oxygen Device NC; Oxygen Saturation ABG 96.1; PO2 ABG 80.1 mmHg (80.0-100.0); PO2 FiO2 Ratio Arterial Blood 0; Potassium Level - ABG 4.5 mmol/L (3.5-5.0); Total Hemoglobin 12.6 g/dL (14-18)
[2023-08-09 08:05] LABS: Ammonia 69 umol/L (16-60); Lactic Sepsis W/Reflex 2.5 mmol/L (0.5-2.2)
[2023-08-09 09:02] LABS: Troponin 5 2HR 94.74 ng/L (0-15)
[2023-08-09 09:12] LABS: Troponin 5 2HR Delta -6.26 ABS# (0-10)
[2023-08-09 09:16] LABS: Glucose Urine UA Norm (Normal); Specific Gravity, Urine 1.025 (1.005-1.030); Urine Appearance Cloudy (CLEAR); Urine Color Amber (Yellow); pH Urine 5 (5-7)
[2023-08-09 09:17] LABS: Add Urine Microscopic? YES; Bilirubin Urine Neg (Negative); Blood Urine Neg (Negative); Ketones Urine 1+ (Negative); Leukocyte Esterase Urine Negative (Negative); Nitrate Urine Negative (Negative); Protein Urine 1+ (Negative); Urobilinogen Urine Norm (Negative)
[2023-08-09 09:27] LABS: Bacteria Urine 1+ /hpf; Mucus Urine TRACE /hpf
[2023-08-09 09:28] LABS: Add Urine Culture? No; Amorphous Sediment Urine 2+ /hpf
[2023-08-09 09:33] LABS: Reflex Lactate Order REFLEX LACTIC ORDERD
--- NOTE | 2023-08-09 09:34 | ECG_ITS ---
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 Measurements Intervals [place] Rate: 90 P: 0 UT: 0 QRS: 101 QRSD: 109 T: 118 QT: 403 QTc: 493 Interpretive Statements ATRIAL FIBRILLATION WITH ABERRANT CONDUCTION OR VENTRICULAR PREMATURE COMPLEXES RIGHT AXIS DEVIATION [QRS AXIS > 100] ANTERIOR MYOCARDIAL INFARCTION , PROBABLY OLD [40+ ms Q WAVE AND/OR ST/T ABNORMALITY IN V3/V4] Compared to ECG 08/09/2023 06:32:40 Myocardial infarct finding now present ST (T wave) deviation no longer present Electronically Signed On 08-09-2023 18:49:27 CDT by Anneliese Aceves M.D. [id number]
[2023-08-09] MEDS: levofloxacin-dextrose 5 % 750 MG/150 ML PREMIX 100 MG IV (09:42)
[2023-08-09] MEDS: sodium chloride 0.9% 500 ML 999 ML IV (09:43)
[2023-08-09 10:06] LABS: ABG PCO2 28.6 mmHg (35-45); ABG PH Result 7.43 (7.35-7.45); Alveolar-Arterial Oxygen Gradi 19.5 mmHg (5-10); Arterial Blood Gas Hematocrit 36.3 % (42-52); Base Excess ABG -4.5 mmol/L (-2.0-2.0); Blood Gas Allen Test Pos; Blood Gas Operator Identificat glc; Blood Gas Sample Site Radial, right; Blood Gas Sample Type Arterial; Carboxyhemoglobin 2.1 %THgb (0.4-20.1); HCO3 ABG 18.7 mmol/L (22-26); HGB O2 Sat 93.4 % (95-100); Ionized Calcium Level - ABG 1.3 mmol/L (1.1-1.4); Methemoglobin 0.1 % (0.4-1.5); Oxygen Device NC; Oxygen Saturation ABG 95.5; PO2 FiO2 Ratio Arterial Blood 0; Potassium Level - ABG 4.4 mmol/L (3.5-5.0); Total Hemoglobin 11.9 g/dL (14-18)
[2023-08-09 10:44] LABS: Ammonia 53 umol/L (16-60); Lactic Acid level (Lactate) 2.1 mmol/L (0.5-2.2)
--- NOTE | 2023-08-09 10:52 | CT_ITS ---
WS: [id number] CT CHEST, ABDOMEN AND PELVIS WITHOUT CONTRAST HISTORY: effusions, ABD PAIN TECHNIQUE: Contiguous 5 mm axial imaging performed through the chest, abdomen and pelvis without IV c ontrast, oral contrast has has not been provided. Coronal and sagittal reformats chest. Coronal and s agittal reformats through the abdomen and pelvis. All CT scans at [facility] use at least one of these dose optimization techniques: automated exposure control; mA and/or kV adjustment per patie nt size (includes targeted exams where dose is matched to clinical indication); or iterative reconstr uction. CONTRAST: None DLP: 993.93 mGy.cm COMPARISON: 06/09/2023. Diffuse motion artifact. Chest CT: Moderate size layering RIGHT pleural effusion. Probably not significantly changed since the prior study. Trace LEFT pleural effusion. Breathing motion artifact. Areas of atelectasis at the lung bases. No pneumonia. No pneumothorax. Sev erely enlarged heart. All 4 chambers are enlarged. Prior mitral valve replacement. Prior median foster otomy. There is diffuse chest wall edema. Edema has increased since the prior exam. Atherosclerosis a kaycee. Abdomen CT: Diffuse soft tissue anasarca. Mesenteric edema. Cirrhotic appearance of the liver. Gallst ones are noted within the gallbladder. There is edema adjacent to the gallbladder which may be due to the ascites and cirrhosis. Spleen is normal size. No adrenal mass identified. Fatty replacement of t he pancreas. Extensive atherosclerosis aorta. Kidneys are small caliber with no obstruction. No GI tract obstruction. There is submucosal edema which can be related to the liver disease and flui d overload. Small amount of ascites. Diffuse mesenteric edema. Pelvic CT: Extensive soft tissue edema throughout the pelvis. There is a small amount of ascites. Non distended urinary bladder. Tinsley catheter is noted. There are a few diverticula in the sigmoid colon. Increase in thoracic kyphosis. Numerous osteoporotic compression fractures. T12 and L1 compression fr actures. L1 fracture has progressed since 06/09/2023. No retropulsion. Mild anterior wedging of T6 and T7. Healed fractures RIGHT pubic rami. IMPRESSION: 1. Progression of extensive chest, abdomen and pelvic subcutaneous edema and anasarca. 2. Increasing mesenteric edema and ascites since 06/09/2023. 3. Moderate RIGHT pleural effusion and trace LEFT pleural effusion. 4. Severe cardiomegaly. 5. Cirrhotic liver. 6. Cholelithiasis. 7. No GI tract obstruction.
--- NOTE | 2023-08-09 10:56 | PM.HP ---
Providers/Chief Complaint Admitting Physician: Jin Aguilera MD Primary Care Provider: Daniel Rios DO Chief Complaint: slid out of bed History of Present Illness Ernst Garcia is a 83 year old male with history of chronic kidney disease, CHF, severe pulmonary hypertension, valvular heart disease, A-fib, and multiple other medical problems who presents to the emergency department after sliding out of bed. They are worried as he has been indicating he may have pain in his left hip. They also note his right arm is somewhat swollen. They report that he has been swelling lately, having poor oral intake, had increasing confusion. Occasionally he will yell out. He has been evaluated by neurology, and there is concern of dementia. They had plans for an MRI, and a carotid study today. They report he is had general failing of his health over the last 2 months that has been rather abrupt but in general going on over at least the last year. He has not had any vomiting, diarrhea. He occasionally coughs. He has had no fever. There has been no blood in his stool or black or tarry stools. History is obtained from the emergency department physician, the patient's . The patient is confused and cannot answer questions adequately. 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 Review of Systems General: Reports: ROS unobtainable due to mental status Medications/Allergies Home Medications Medication Instructions Recorded Confirmed Last Taken Type cholecalciferol (vitamin D3) 50 50 mcg PO QAM 10/13/20 08/09/23 05/29/23 History mcg (2,000 unit) capsule levothyroxine 100 mcg tablet 100 mcg PO QAM #90 tabs 08/31/22 08/09/23 05/29/23 Rx (Levoxyl) tamsulosin 0.4 mg capsule 0.4 mg PO DAILY@1230 11/12/22 08/09/23 05/29/23 History zinc acetate 50 mg (zinc) capsule 50 mg PO DAILY 11/12/22 08/09/23 05/29/23 History midodrine 10 mg tablet 10 mg PO TID PRN sbp < 90 12/27/22 08/09/23 05/29/23 History finasteride 5 mg tablet 5 mg PO DAILY@1230 01/30/23 08/09/23 05/29/23 History potassium chloride 20 mEq 20 meq PO QID 04/03/23 08/09/23 3 Days Ago History tablet,extended release ~08/06/23 hydrocodone 5 mg-acetaminophen 325 1 tab PO Q8H PRN pain 7 days #21 06/02/23 08/09/23 Unknown Rx mg tablet tabs bumetanide 1 mg tablet 2 mg (2 x 1 mg) PO BID 30 days #60 07/05/23 08/09/23 05/29/23 Rx tabs metolazone 5 mg tablet 5 mg PO .MWF PRN increasing edema 07/05/23 08/09/23 Unknown Rx 30 days #30 tabs acetaminophen 500 mg tablet 500 mg PO Q6H PRN Pain 08/09/23 08/09/23 Unknown History apixaban 5 mg tablet (Eliquis) 2.5 mg PO BID 08/09/23 08/09/23 Unknown History diltiazem HCl 60 mg tablet 120 mg PO BID PRN Blood Pressure 08/09/23 08/09/23 Unknown History lanolin alcohols-mineral 1 applic topical BID PRN Dry Skin 08/09/23 08/09/23 Unknown History oil-w.petrolatum-ceresin topical cream (Eucerin topical cream) olanzapine 5 mg tablet (Zyprexa) 5 mg PO DAILY@15 08/09/23 08/09/23 Unknown History pantoprazole 40 mg tablet,delayed 40 mg PO DAILY PRN Acid Reflux 08/09/23 08/09/23 Unknown History release (Protonix) promethazine 50 mg tablet 25 mg PO Q6H PRN Nausea And 08/09/23 08/09/23 Unknown History Vomiting sucralfate 1 gram tablet 1 g PO BID 08/09/23 08/09/23 Unknown History Allergies Allergy/AdvReac Type Severity Reaction Status Date / Time codeine Allergy Unknown Unknown Verified 08/09/23 06:24 acetaminophen [From Percocet] Allergy Unknown Verified 08/09/23 06:24 Histamine H2 Inhibitors Allergy Unknown Verified 08/09/23 06:24 milk Allergy ADR-Itching Verified 08/09/23 06:24 morphine Allergy ADR-Halluci Verified 08/09/23 06:24 nating oxycodone [From Percocet] Allergy Unknown Verified 08/09/23 06:24 pork derived (porcine) Allergy Unknown Verified 08/09/23 06:24 shellfish derived Allergy Unknown Verified 08/09/23 06:24 PFSH Acute PFSH: Medical History Hypothyroid Transaminitis Elevated bilirubin Abnormal TSH Hyperkalemia Pulmonary embolism Atrial fibrillation Deep venous thrombosis Atrial fibrillation with RVR Diastolic CHF Stenosis of prosthetic mitral valve Tricuspid valve regurgitation, nonrheumatic Chronic kidney disease (CKD) Thrombocytopenia Atrial fibrillation Surgical History Hx of mitral valve replacement 2005 Family History Father Myocardial infarction Denies family history of Diabetes Stroke Social History Smoking and tobacco/nicotine status: never used tobacco/nicotine Substance/Drug Use: never Vitals/I&O/Wt Last Vital Signs Temp 97.7 F 08/09/23 06:16 Pulse 83 08/09/23 10:45 Resp 25 H 08/09/23 06:54 BP 106/61 08/09/23 10:19 Pulse Ox 96 08/09/23 10:45 O2 Del Method Nasal Cannula 08/09/23 10:19 O2 Flow Rate 5 08/09/23 10:19 FiO2 40 08/09/23 10:45 Weight last 48 hrs Weight 72.575 kg Physical Exam Narrative: General exam demonstrates a confused white male, who can answer few questions but is difficult to understand at times. Patient intermittently sleeping with significant pauses consistent with sleep apnea. Neuro shows confusion but no obvious focal deficits HEENT: Pupils equally round. Cataract surgery is evident from lens replacement. Oropharynx clear Neck is supple no lymphadenopathy or thyromegaly Cardiovascular irregularly irregular with a 2/6 to 3/6 systolic murmur Lungs diminished breath sounds bilaterally. Bilateral expiratory wheezes. Abdomen is soft. No obvious fluid wave. Possible some tenderness in the lower quadrants. Difficult to tell with patient's level of confusion. exam was deferred Extremities show 2+ edema bilaterally. Data 08/09/23 06:27 08/09/23 06:27 Other Labs: Repeat ABG done in the ER demonstrates pH 7.43, pCO2 of 29, pO2 of 71 on 4 L Lactic acid is 2.5 with a repeat of 2.1 Magnesium 2.7 Bilirubin 5.1 AST ALT are normal, alk phos 144 Troponin 101 with repeat of 94 Albumin 3.4, calcium 9.6 Urinalysis negative Serum ketones negative Head CT no acute changes. There is a soft tissue mass right orbit 1.7 x 1 cm inseparable from the optic nerve with differential including AV [place], glioma, lymphoma. MRI orbits with and without contrast is recommended. I reviewed this as well Chest x-ray which I reviewed demonstrates cardiomegaly, bilateral pleural effusions,, Pulmonary edema Blood cultures were drawn EKG demonstrates atrial fibrillation, right axis deviation, nonspecific ST-T wave changes. Poor R wave progression. Micro: Microbiology 08/09/23 07:40 Blood Culture - Preliminary Blood SPECIMEN COLLECTED 08/09/23 07:35 Blood Culture - Preliminary Blood SPECIMEN COLLECTED A&P Assessment and plan (1) Acute delirium: Patient has increased confusion. He has been worked up for underlying dementia. Check B12 and TSH CT head is already been performed. There is concern of a mass right orbit which may need an MRI if we can get some semblance of patient recovery. Currently he has multiorgan dysfunction and prognosis is very poor. Monitor for improvement of delirium with treatment of his underlying medical conditions. Hold Zyprexa currently, is worried this may be contributing some to his lethargy. He has had frequent falls lately. Hip and pelvis x-rays which I reviewed today demonstrate no fracture. Check ammonia level Hold narcotics (2) CHF exacerbation: Patient has a CHF exacerbation His last echo recently done demonstrated an EF of 40%, severe pulmonary hypertension, severe tricuspid regurgitation and RV dysfunction. Currently with his hypoxic respiratory failure he needs to be diuresed. He also has evidence of peripheral edema. Hypotension, could preclude aggressive diuresis. Lasix 80 mg IV every [address] [place] Close follow-up of electrolytes daily No need at this point to repeat echocardiogram. (3) Acute hypoxic respiratory failure: Patient with acute hypoxic respiratory failure, thought to be secondary to CHF but cannot completely exclude pulmonary infiltrate considering his abnormal chest x-ray Zosyn empirically MRSA PCR CT chest without contrast to gauge degree of pleural effusions He obviously has sleep apnea as well. To facilitate treatment of this as well as has hypoxic respiratory failure BiPAP will be used. (4) Acute kidney injury: Patient with acute kidney injury. This may be cardiorenal. Either way he needs diuresis. Place Tinsley CT abdomen and pelvis noncontrast to rule out obstruction as well as to check for any potential cause of elevated bilirubin, elevated lactic acid Follow renal function closely daily Avoid renal toxic medication. (5) Elevated bilirubin: Patient has a markedly elevated bilirubin. This may be secondary to liver congestion, although he has notes of cirrhosis on previous CT scan Check ammonia level Monitor for improvement with diuresis CT abdomen and pelvis as above (6) Elevated troponin: Consistent with type II elevation. No further workup currently. (7) Atrial fibrillation: Patient with history of atrial fibrillation. Continue apixaban Currently on diltiazem for rate control. Potentially may have to consider amiodarone if Cardizem is unable to be used secondary to hypotension. Qualifiers: Atrial fibrillation type: persistent (not longstanding) Qualified Code(s): I48.19 - Other persistent atrial fibrillation Plan Right upper extremity edema check venous duplex. Consider x-ray if this is negative. Hopefully delirium will proceed and patient can communicate if he has any discomfort in the arm. Multiple other medical problems outlined in his past medical history Overall prognosis is poor. Discussed in detail with and son for prolonged period of time. They still request that he be full code currently, but realize that he is very ill and prognosis is poor. Change Eliquis to heparin subcu for DVT prophylaxis currently. Protonix for GI prophylaxis Attestations Medical Necessity Statement*: Will require greater than 2 midnight stay for evaluation and treatment of multiorgan system dysfunction with acute CHF, delirium, acute kidney injury, etc. Critical Care Time: The high probability of a clinically significant, sudden or life threatening deterioration of the patient's [pulmonary, renal, hepatic, neurologic, cardiac] system(s) required my full and direct attention, intervention and personal management. The critical care time is as shown. This time is in addition to time spent performing any reported procedures but includes the following: [x] Data and vital sign review and interpretation [x] Patient assessment, examination and intervention [x] Documentation [x] Medication orders and management Critical Care Time (min): 69 Coding Level of Care Code Critical Care >/= 30 minutes Critical care time (in minutes): 69 The high probability of a clinically significant, sudden or life threatening deterioration, as referenced in this documentation, required my full and direct attention, intervention and personal management. The critical care time shown is in addition to time spent performing any reported separately billable procedures and includes the following: [x] Data and vital sign review and interpretation [x] Patient assessment, examination and intervention [x] Medication orders and management [x] Patient/Family updates as able [x] Care Coordination and Documentation. Diagnoses Acute delirium R41.0 CHF exacerbation I50.9 Acute hypoxic respiratory failure J96.01 Acute kidney injury N17.9 Elevated bilirubin R17 Elevated troponin R79.89 Persistent atrial fibrillation I48.19 Atrial fibrillation type: persistent (not longstanding)
--- NOTE | 2023-08-09 10:59 | PC.PHAR ---
PTS VERIFIED PTS MEDICATIONS-STATES THE PT NO LONGER TAKES DOXEPIN 10MG TAKE 20MG HS PRN -MEDICATIONS ENTERED ARE WHAT THE PT STATES STATES HE TAKES -NOTES ARE MADE IN THE PHARMACY COMMENTS
--- NOTE | 2023-08-09 11:11 | USCV_ITS ---
Ernst Garcia Age: 83 Gender: M : 1940 Exam Date: 08/09/2023 11:39 Ordering Phys: Jin Aguilera MD Technologist: CT Exam Location: [facility] [place]_ Indication: swelling PROCEDURES: Venous duplex imaging was performed in only the right upper extremity. In addition, the basilic vein and cephalic vein. FINDINGS: No evidence of deep vein thrombosis or superficial thrombophlebitis in the right upper extremity. CONCLUSIONS No right upper extremity DVT. Dr. Rahel Dooley DO (Electronically Signed) Final Date: 09 August 2023 16:29 S
[2023-08-09] MEDS: FUROsemide 10 mg/mL SDV 10mL 80 MG IVP ×2 (11:47→22:51)
[2023-08-09] MEDS: heparin 5,000 unit/mL INJ 1 mL 5000 UNIT SUBCUT ×2 (12:12→22:52)
[2023-08-09 12:31] LABS: Thyroid Stimulating Hormone 7.11 uIU/mL (0.27-4.20)
[2023-08-09 12:44] LABS: Vitamin B12 > 2000 pg/mL (232-1245)
[2023-08-09 13:06] LABS: Troponin 5 6HR 90.88 ng/L (0-15); Troponin 5 6HR Delta -10.12 ng/L (0-12)
--- NOTE | 2023-08-09 13:10 | ECG_ITS ---
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 Measurements Intervals [place] Rate: 86 P: 0 VT: 0 QRS: 104 QRSD: 105 T: 60 QT: 414 QTc: 496 Interpretive Statements ATRIAL FIBRILLATION WITH ABERRANT CONDUCTION OR VENTRICULAR PREMATURE COMPLEXES LOW QRS VOLTAGE IN EXTREMITY LEADS [QRS DEFLECTION < 0.5 mV IN LIMB LEADS] SEPTAL MYOCARDIAL INFARCTION , PROBABLY OLD [40+ ms Q WAVE IN V1/V2] LATERAL MYOCARDIAL INFARCTION , PROBABLY OLD [40+ ms Q WAVE AND/OR ST/T ABNORMALITY IN I/aVL/V5/V6] Compared to ECG 08/09/2023 09:34:41 Low QRS voltage now present Right-axis deviation no longer present Myocardial infarct finding still present Electronically Signed On 08-09-2023 18:54:45 CDT by Anneliese Aceves M.D. [email or web address]
[2023-08-09] MEDS: piperacillin-tazobactam 3.375 GM in sodium chloride 0.9% (plus) 50 ML IV ×2 (14:24→18:24)
--- NOTE | 2023-08-09 15:21 | PC.NURSE ---
arrived from ED, mumbles but not able to understand, with drawls from pain not following commands. family at bedside
[2023-08-09 23:47] LABS: Glucose Point of Care 70 mg/dL (70-110)
--- NOTE | 2023-08-09 23:49 | PC.NURSE ---
BG 70: Called Dr. García @[phone] to report low BG. New order for hypoglycemic protocol.
[2023-08-10] VITALS (36 sets, daily range): BP systolic 82–115; BP diastolic 44–76; PULSE 75–101; RESP 13–34; TEMP 36.3–36.8; O2SAT 90–100
[2023-08-10] MEDS: dextrose 10% 125 ML 750 ML IV (00:04)
[2023-08-10 00:56] LABS: Glucose Point of Care 88 mg/dL (70-110)
[2023-08-10] MEDS: piperacillin-tazobactam 3.375 GM in sodium chloride 0.9% (plus) 50 ML IV ×3 (02:30→18:05)
[2023-08-10 04:11] LABS: Basophils # 0.1 10^3/uL (0.0-0.1); Basophils % 0.6 %; Eosinophils # 0.2 10^3/uL (0.0-0.8); Eosinophils % 1.9 %; Lymphocytes # 1.4 10^3/uL (0.8-4.8); Lymphocytes % 18.1 %; Mean Corpuscular HGB Conc 31.1 g/dL (30-55); Mean Corpuscular Hemoglobin 31.1 pg (27-33); Mean Platelet Volume 10.1 fL (7.4-10.4); Monocytes # 0.7 10^3/uL (0.2-0.9); Monocytes % 8.9 %; Neutrophils # 5.53 10^3/uL (1.8-7.7); Neutrophils % 69.5 %; Nucleated Red Blood Cells % 0 %; Platelet Count 105 10^3/cmm (157-399); Red Cell Distribution Width 20.2 % (12.1-15.1); White Blood Count 7.96 10^3/uL (3.29-11.43)
[2023-08-10 04:38] LABS: Alanine Aminotransferase 14 U/L (0-41); Albumin Level 2.9 g/dL (3.5-5.2); Alkaline Phosphatase 120 U/L (40-130); Anion Gap 18.1 (5-19); Aspartate Amino Transferase 32 U/L (0-40); Blood Urea Nitrogen 65 mg/dL (8-23); Calcium 9.2 mg/dL (8.5-10.5); Carbon Dioxide 20 mmol/L (22-29); Chloride 109 mmol/L (98-107); Creatinine Clr Calc Pharmacy 26.0698; Globulin 2.8 g/dL (1.3-4.6); Glucose 73 mg/dL (65-115); Magnesium 2.7 mg/dL (1.7-2.3); Osmolality Calculated 313 mOsm/kg (285-295); Potassium 4.1 mmol/L (3.5-5.1); Sodium 143 mmol/L (136-145); Total Bilirubin 3.9 mg/dL (0.15-1.2); Total Protein 5.7 g/dL (6.6-8.7)
[2023-08-10 07:42] LABS: Glucose Point of Care 67 mg/dL (70-110)
[2023-08-10] MEDS: midodrine 5 mg TABLET PO ×3 (08:24→21:27)
[2023-08-10] MEDS: lactulose oral liq 20 gm/30 mL UDC PO ×2 (08:24→21:27)
[2023-08-10] MEDS: pantoprazole 40 mg SDV IVP (08:25)
--- NOTE | 2023-08-10 09:35 | PM.PN ---
Documented by User: Laurita Flores, [facility] 08/10/23 10:43 Subjective Subjective: Patient sitting up in bed with at bedside. Patient noted to be very drowsy this morning, falling asleep between questions. He wakes up intermittently and asks for salt and water. Medications: Reviewed: Yes Vitals/I&O/Wt Last Vital Signs Temp 97.3 F L 08/10/23 07:42 Pulse 92 08/10/23 06:00 Resp 22 H 08/10/23 06:00 BP 90/63 08/10/23 06:00 Pulse Ox 97 08/10/23 06:00 O2 Del Method Nasal Cannula 08/10/23 06:00 O2 Flow Rate 2 08/10/23 06:00 FiO2 40 08/10/23 03:09 08/09/23 08/10/23 08/10/23 22:59 06:59 14:59 Intake Total 100 / 750 175 / 925 Output Total 1050 / 1050 1350 / 2400 Balance -950 / -300 -1175 / -1475 Weight last 48 hrs Weight 206 lb 1.6 oz Weight 209 lb 6.4 oz Weight 160 lb Physical Exam Narrative: General exam demonstrates a white male with intermittent confusion, better than yesterday. Neuro A&Ox3 HEENT: Pupils equally round. Cataract surgery is evident from lens replacement. lNeck is supple no lymphadenopathy or thyromegaly Cardiovascular irregularly irregular with a 2/6 to 3/6 systolic murmur Lungs diminished breath sounds clear. On baseline 2L NC.. Abdomen is soft, non-tender. Extremities show 1+ edema bilaterally. Urinary Catheter Management: Tinsley: Cath Placed During This Visit: yes Reason for Continuing Indwelling Catheter: Accurate Measurement of Urinary Output in Critically Ill Patients Urinary Catheter Date of Insertion: 08/09/23 Urinary Catheter Time of Insertion: 11:44 Data 08/10/23 03:30 08/10/23 03:30 Micro: Microbiology 08/09/23 07:40 Blood Culture - Preliminary Blood NEGATIVE TO DATE 08/09/23 07:35 Blood Culture - Preliminary Blood NEGATIVE TO DATE A&P Assessment and plan (1) Acute delirium: Patient confusion noted to be better today, A&Ox3. He has been worked up for underlying dementia. Check B12 >[address] head is already been performed. There is concern of a mass right orbit which may need an MRI if we can get some semblance of patient recovery. Currently he has multiorgan dysfunction and prognosis is very poor. Delirium is improved. Hold Zyprexa currently, is worried this may be contributing some to his lethargy. He has had frequent falls lately. Hip and pelvis x-rays which I reviewed today demonstrate no fracture. Ammonia level 53 Hold narcotics (2) CHF exacerbation: Patient has a CHF exacerbation His last echo recently done demonstrated an EF of 40%, severe pulmonary hypertension, severe tricuspid regurgitation and RV dysfunction. Admitted with hypoxic respiratory failure he needs to be diuresed, has evidence of peripheral edema. Hypotension, could preclude aggressive diuresis. Lasix to 60 mg IV every [address], monitor I&Os Close follow-up of electrolytes daily No need at this point to repeat echocardiogram. (3) Acute hypoxic respiratory failure: Patient with acute hypoxic respiratory failure, thought to be secondary to CHF but cannot completely exclude pulmonary infiltrate considering his abnormal chest x-ray Continue Zosyn empirically MRSA PCR pending. CT chest 08/09/23 without contrast to gauge degree of pleural effusions demonstrates extensive chest, abdomen and pelvic subcutaneous edema and anasarca, with increasing mesenteric edema and ascites since 06/10, ,moderate right pleural effusion and trace left pleural effusion,severe cadiomegaly, cirrhotic liver, and cholelithiasis. He has sleep apnea as well. To facilitate treatment of this as well as has hypoxic respiratory failure BiPAP will be used. (4) Acute kidney injury: Patient with acute kidney injury. This may be cardiorenal. Either way he needs diuresis. Tinsley in place monitor I&Os. CT abdomen 08/09/23 see above listed. Follow renal function closely daily Avoid renal toxic medication. (5) Elevated bilirubin: Patient has a markedly elevated bilirubin. This may be secondary to liver congestion, although he has notes of cirrhosis on CT scan Ammonia level 53 Monitor for improvement with diuresis CT abdomen and pelvis as above (6) Elevated troponin: Consistent with type II elevation. No further workup currently. (7) Atrial fibrillation: Patient with history of atrial fibrillation. Continue apixaban Currently on diltiazem for rate control. Potentially may have to consider amiodarone if Cardizem is unable to be used secondary to hypotension. Qualifiers: Atrial fibrillation type: persistent (not longstanding) Qualified Code(s): I48.19 - Other persistent atrial fibrillation Plan Right upper extremity edema check venous duplex negative 08/09/23, Consider x-ray. Hopefully delirium will proceed and patient can communicate if he has any discomfort in the arm. Multiple other medical problems outlined in his past medical history Overall prognosis is poor. Discussed in detail with and son for prolonged period of time. They still request that he be full code currently, but realize that he is very ill and prognosis is poor. Change Eliquis to heparin subcu for DVT prophylaxis currently. Protonix for GI prophylaxis Coding Level of Care Code 74793 Diagnoses Acute delirium R41.0 CHF exacerbation I50.9 Acute hypoxic respiratory failure J96.01 Acute kidney injury N17.9 Elevated bilirubin R17 Elevated troponin R79.89 Persistent atrial fibrillation I48.19 Atrial fibrillation type: persistent (not longstanding) Time Spent (min) 30 Documented by User: Jin Aguilera MD 08/10/23 10:55 Physical Exam Narrative: General exam demonstrates a white male with intermittent confusion, better than yesterday. 1.5 L negative Neuro A&Ox3 HEENT: Pupils equally round. Cataract surgery is evident from lens replacement. lNeck is supple no lymphadenopathy or thyromegaly Cardiovascular irregularly irregular with a 2/6 to 3/6 systolic murmur Lungs diminished breath sounds clear. On baseline 2L NC.. Abdomen is soft, non-tender. Extremities show 1+ edema bilaterally. Urinary Catheter Management: Tinsley: Cath Placed During This Visit: yes Data 08/10/23 03:30 08/10/23 03:30 A&P Assessment and plan (1) Acute delirium: Patient confusion noted to be better today, A&Ox3. He has been worked up for underlying dementia. Check B12 >[address] head is already been performed. There is concern of a mass right orbit which may need an MRI if we can get some semblance of patient recovery. Currently he has multiorgan dysfunction and prognosis is very poor. Delirium is improved. Hold Zyprexa currently, is worried this may be contributing some to his lethargy. He has had frequent falls lately. Hip and pelvis x-rays which I reviewed today demonstrate no fracture. Ammonia level 53 Hold narcotics Lactulose twice daily will be initiated. (2) CHF exacerbation: Patient has a CHF exacerbation His last echo recently done demonstrated an EF of 40%, severe pulmonary hypertension, severe tricuspid regurgitation and RV dysfunction. Admitted with hypoxic respiratory failure he needs to be diuresed, has evidence of peripheral edema. Hypotension, could preclude aggressive diuresis. Lasix to 60 mg IV every 12 hours. Close follow-up of potassium and creatinine as renal function may worsen with Lasix treatment. So far it is stable. Tinsley in place, monitor I&Os Close follow-up of electrolytes daily No need at this point to repeat echocardiogram. (3) Acute hypoxic respiratory failure: (4) Acute kidney injury: (5) Elevated bilirubin: Patient has a markedly elevated bilirubin. This may be secondary to liver congestion, although he has notes of cirrhosis on CT scan. Bilirubin level has improved Ammonia level 53. Initiate lactulose twice daily CT abdomen and pelvis as above (6) Elevated troponin: (7) Atrial fibrillation: Patient with history of atrial fibrillation. Continue apixaban Currently on diltiazem for rate control. This is being held secondary to lower blood pressures. Potentially may have to consider amiodarone if Cardizem is unable to be used secondary to hypotension. Qualifiers: Atrial fibrillation type: persistent (not longstanding) Qualified Code(s): I48.19 - Other persistent atrial fibrillation Plan Hypotension. Initiate midodrine 5 mg 3 times daily, increase as needed. Right upper extremity edema check venous duplex negative 08/09/23, no evidence of pain right upper extremity today. Multiple other medical problems outlined in his past medical history Overall prognosis is poor. Discussed in detail with and son for prolonged period of time. They still request that he be full code currently, but realize that he is very ill and prognosis is poor. Heparin subcu for DVT prophylaxis currently. Protonix for GI prophylaxis Transfer to CSU Clear liquid diet. Speech therapy to evaluate as well as physical therapy. Attestations Medical Necessity Statement*: Needs continued hospitalization for IV diuresis secondary to anasarca Diagnoses Acute delirium R41.0 CHF exacerbation I50.9 Acute hypoxic respiratory failure J96.01 Acute kidney injury N17.9 Elevated bilirubin R17 Elevated troponin R79.89 Persistent atrial fibrillation I48.19 Atrial fibrillation type: persistent (not longstanding) Time Spent (min) 30
[2023-08-10] MEDS: FUROsemide 10 mg/mL SDV 10mL 60 MG IVP ×2 (10:20→23:30)
[2023-08-10] MEDS: heparin 5,000 unit/mL INJ 1 mL 5000 UNIT SUBCUT ×2 (11:22→23:30)
[2023-08-10] MEDS: finasteride 5 mg Tablet PO (12:31)
[2023-08-10] MEDS: tamsulosin 0.4 mg Capsule 0.400000000000000022 MG PO (12:31)
[2023-08-10 14:27] LABS: Methicillin-Resist S.aureu PCR DETECTED (NOT DETECTED)
[2023-08-10] MEDS: micafungin 100 MG in sodium chloride 0.9% (plus) 100 ML IV (21:34)
[2023-08-11] VITALS (9 sets, daily range): BP systolic 91–113; BP diastolic 62–77; PULSE 74–100; RESP 14–26; TEMP 36.4–37.2; O2SAT 93–100
[2023-08-11] MEDS: piperacillin-tazobactam 3.375 GM in sodium chloride 0.9% (plus) 50 ML IV ×3 (03:57→21:50)
[2023-08-11 04:19] LABS: Basophils # 0.1 10^3/uL (0.0-0.1); Basophils % 0.8 %; Eosinophils # 0.3 10^3/uL (0.0-0.8); Eosinophils % 3.3 %; Hematocrit 35.9 % (37-53); Lymphocytes % 24.7 %; Mean Corpuscular HGB Conc 31.2 g/dL (30-55); Mean Corpuscular Hemoglobin 30.9 pg (27-33); Mean Corpuscular Volume 99.2 fl (82-101); Mean Platelet Volume 9.7 fL (7.4-10.4); Monocytes # 0.9 10^3/uL (0.2-0.9); Monocytes % 11.1 %; Neutrophils # 4.85 10^3/uL (1.8-7.7); Neutrophils % 58.6 %; Nucleated Red Blood Cells % 0 %; Platelet Count 108 10^3/cmm (157-399); Red Blood Count 3.62 10^6/uL (3.85-5.65); Red Cell Distribution Width 20.4 % (12.1-15.1); White Blood Count 8.27 10^3/uL (3.29-11.43)
[2023-08-11 04:35] LABS: Alanine Aminotransferase 16 U/L (0-41); Albumin Level 2.9 g/dL (3.5-5.2); Alkaline Phosphatase 131 U/L (40-130); Anion Gap 18.4 (5-19); Aspartate Amino Transferase 38 U/L (0-40); Blood Urea Nitrogen 65 mg/dL (8-23); Carbon Dioxide 21 mmol/L (22-29); Chloride 107 mmol/L (98-107); Creatinine Clr Calc Pharmacy 24.8374; Globulin 3.4 g/dL (1.3-4.6); Glucose 88 mg/dL (65-115); Magnesium 2.5 mg/dL (1.7-2.3); Osmolality Calculated 314 mOsm/kg (285-295); Potassium 3.4 mmol/L (3.5-5.1); Sodium 143 mmol/L (136-145); Total Protein 6.3 g/dL (6.6-8.7)
[2023-08-11] MEDS: levothyroxine 100 mcg Tablet PO (06:28)
[2023-08-11 06:37] LABS: Glucose Point of Care 84 mg/dL (70-110)
--- NOTE | 2023-08-11 07:51 | USCV_ITS ---
Ernst Garcia Age: 83 Gender: M : 1940 Exam Date: 08/11/2023 08:53 Ordering Phys: Jin Aguilera MD Technologist: JEFF Exam Location: [facility] – [place] Indication: fungal infection BP: 113 / 93 HR: 89 Rhythm: Atrial fibrillation Technical Quality: Adequate MEASUREMENTS (Male / Female) Normal Values 2D ECHO LVOT Diameter 2.2 cm LV Ejection Fraction MOD 2C 37.8 % LV Ejection Fraction 2C AL 36.5 % LA Diameter 5.8 cm RA Systolic Volume 4C AL 236.7 ml RA Systolic Volume 4C MOD 230.8 ml LA Sys Volume AL 163.6 cm cubed LA Sys Volume Index AL 77.0 cm cubed/m squared Aorta at Sinotubular Diameter 2.6 cm IVC Diameter 5.9 cm M-MODE LA Ao Ratio MM 1.9 AV Cusp Separation MM 1.7 cm DOPPLER AV Peak Velocity 122.0 cm/s LVOT Peak Velocity 56.0 cm/s AV Area Cont Eq vti 2.3 cm squared AV Area Cont Eq pk 1.7 cm squared MV Peak Velocity 222.3 cm/s MV Area PHT 2.3 cm squared Mitral E to A Ratio 37.7 TV Peak Velocity 341.0 cm/s TR Peak Velocity 363.0 cm/s TR Peak Gradient 52.7 mmHg TV Peak E Velocity 123.0 cm/s Right Atrial Pressure 15.0 mmHg Pulmonary Artery Systolic Pressu 67.7 mmHg PV Peak Velocity 83.5 cm/s FINDINGS Left Ventricle Normal LV size with slightly diminished ejection fraction of 38%. Mild diffuse hypokinesia of the left ventricle Right Ventricle Dilated right ventricle with moderately diminished ejection fraction. Paradoxical septal motion Right Atrium Severely increased right atrial size. Left Atrium Moderately increased left atrial size. Mitral Valve The bioprosthetic valve in the mitral position appears to be well-seated. Thickened mitral leaflet Aortic Valve Thickened aortic valve. Mild aortic valve calcification. Tricuspid Valve Thickened tricuspid valve. Moderately severe tricuspid valve regurgitation. Estimated pulmonary artery peak systolic pressure 68 mmHg Pulmonic Valve Mild pulmonary valve regurgitation. Pericardium No pericardial effusion. Aorta Normal ascending aorta dimension. IVC Markedly dilated IVC of 5.9 cm CONCLUSIONS Normal LV size with slightly diminished ejection fraction of 38%. Mild diffuse hypokinesia of the left ventricle. Dilated right ventricle with moderately diminished ejection fraction. Moderately severe tricuspid valve regurgitation. Moderate pulmonary hypertension with estimated pulmonary artery peak systolic pressure of 68 mmHgThe bioprosthetic valve in the mitral position appears to be well-seated. Thickened mitral leaflet. Mitral valve area by pressure half-time was 2.3 cm squared Moderately increased left atrial size. Severely increased right atrial size. Thickened aortic valve. Mild aortic valve calcification. Mild pulmonary valve regurgitation. No pericardial effusion. No obvious intracardiac masses or vegetations noted. Compared to the previous study from 07/02/2023, there may not be a significant change. Consider HÉCTOR, if clinically indicated Dr Anneliese Aceves MD FACC (Electronically Signed) Final Date: 11 August 2023 19:25 S
--- NOTE | 2023-08-11 08:24 | PC.NURSE ---
Provider notified that patient is still having several bowel movements daily. He ordered to change dose of lactulose to 10gm BID. Order entered.
[2023-08-11] MEDS: lactulose oral liq 20 gm/30 mL UDC 10 GM PO (08:37)
[2023-08-11] MEDS: potassium chloride ER 20 mEq Tablet PO (08:37)
[2023-08-11] MEDS: midodrine 5 mg TABLET 10 MG PO ×3 (08:38→20:32)
[2023-08-11] MEDS: pantoprazole 40 mg SDV IVP (08:38)
--- NOTE | 2023-08-11 08:57 | US_ITS ---
WS: [id number] ULTRASOUND-GUIDED THORACENTESIS CLINICAL INFORMATION: right pleural effusion, fungemia COMPARISON: None. PROCEDURE: Informed consent: The risks, benefits, and alternatives of the procedure were discussed with the prasanna ent. Verbal and written consent was obtained. Timeout: A timeout was performed to confirm the correct patient, procedure, and site. Site: RIGHT chest Preparation: A suitable skin site was identified. The patient was prepped and draped in usual sterile fashion. Lidocaine 1% was used for local anesthesia. Catheter: 4 [place] One-Step catheter. Fluid Volume: 900 cc Color: Bloody serous fluid 50 cc sent to the laboratory for requested diagnostic tests. Complications: None. IMPRESSION: Uncomplicated ultrasound-guided RIGHT thoracentesis with removal of 900 cc bloody serous fluid.
--- NOTE | 2023-08-11 09:30 | MR_ITS ---
WS: [id number] MRI HEAD WITHOUT CONTRAST TECHNIQUE: Sagittal T1, T2 axial, T2 axial FLAIR, axial and coronal T1 images, axial susceptibility w eighted imaging, axial diffusion weighted images, and coronal T2 images were obtained. Fast imaging p rotocol utilized. Patient could not tolerate orbit protocol due to discomfort. Gadolinium not adminis tered. CLINICAL INFORMATION: fungemia, abnormal CT orbit on right COMPARISON: CT head 08/06/2022 and 08/09/2023 FINDINGS: Noncontrast fast imaging protocol utilized. Patient could not tolerate further imaging. Supa olinium not administered and orbit protocol not performed. No evidence of restricted diffusion to suggest acute ischemia. Ventricular system and basal cisterns are patent. Moderate small vessel changes. Moderate parenchymal volume loss. Moderate to advanced sym metric atrophy temporal lobes and hippocampal formations. Normal posterior fossa. Normal vascular carina w voids at the skull base. No extra-axial fluid collections. Mastoid air cells are well aerated. Opac ification of the LEFT frontal sinus and frontoethmoidal recess. Mild mucosal thickening in the ethmoi d air cells. Normal posterior nasopharynx. A few tiny foci of hemosiderin within the RIGHT frontal lobe laterally, LEFT basal ganglia, and RIGHT cerebellum. 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 Normal optic chiasm and pituitary infundibulum. T2 hyperintense lobulated RIGHT intraconal lesion is again visualized. This is stable in appearance dating back to 08/06/2022. This is interposed between t he medial rectus and inferior rectus and slightly abuts the optic nerve without displacement. This me asures approximately 1.0 x 1.6 cm. Differential considerations include venous varix/venous malformati on, meningioma, nerve sheath tumor, and less likely lymphoma/glioma considering stability. This lesi on appears well-circumscribed with a few internal septations. Slight splaying of the medial rectus an d inferior rectus. IMPRESSION: Limited fast noncontrast MRI head performed. Some images degraded by patient motion. 1. Again seen is a lobulated tubular 1.0 x 1.6 cm T2 hyperintense lesion in the RIGHT inferomedial o rbit described above. Differential considerations include venous varix/venous malformation, hemangiom a, schwannoma, and less likely lymphoma or glioma considering stability. Recommend ophthalmology cons ult and correlation with orbital symptoms. Otherwise recommend 6-month follow-up contrast-enhanced CT orbits to evaluate stability since patient unable to tolerate extended MRI imaging. 2. Intraconal lesion abuts the optic nerve although without significant compression or displacement. 3. No evidence of restricted diffusion to suggest acute ischemia. 4. Moderate small vessel changes with moderate parenchymal volume loss. 5. 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 A few associated foci of hemosiderin in the posterior fossa. 6. Moderate to advanced symmetric atrophy temporal lobes and hippocampal formations.
--- NOTE | 2023-08-11 09:47 | P.PN_ITS ---
Subjective 2 Subjective: Ernst reports he is doing okay currently. Less short of breath. answers most of the questions. No pain. I had an in detailed discussion with them regarding the fungus/yeast in blood. Medications: Reviewed: Yes Vitals/I&O/Wt Last Vital Signs Temp 97.9 F 08/11/23 07:43 Pulse 89 08/11/23 07:43 Resp 16 08/11/23 07:43 BP 103/67 08/11/23 07:43 Pulse Ox 95 08/11/23 07:43 O2 Del Method Nasal Cannula 08/11/23 04:00 O2 Flow Rate 2 08/10/23 06:00 FiO2 40 08/10/23 03:09 08/10/23 08/11/23 08/11/23 22:59 06:59 14:59 Intake Total 500 / 500 200 / 700 Output Total 550 / 550 600 / 1150 Balance -50 / -50 -400 / -450 Weight last 48 hrs Weight 97.25 kg Weight 93.485 kg Weight 94.982 kg Physical Exam 2 Narrative: General exam demonstrates with improved cognition. 450 cc negative Neuro A&Ox3 HEENT: Pupils equally round. Cataract surgery is evident from lens replacement. lNeck is supple no lymphadenopathy or thyromegaly Cardiovascular irregularly irregular with a 2/6 to 3/6 systolic murmur Lungs diminished breath sounds clear. On baseline 2L NC.. Abdomen is soft, non-tender. Extremities show 1+ edema bilaterally. Urinary Catheter Management: Tinsley: Cath Placed During This Visit: yes Reason for Continuing Indwelling Catheter: Acute Urinary Retention or Obstruction Urinary Catheter Date of Insertion: 08/09/23 Urinary Catheter Time of Insertion: 11:44 Data 08/11/23 03:23 08/11/23 03:23 Micro: Microbiology 08/10/23 19:41 Blood Culture - Preliminary Blood SPECIMEN COLLECTED 08/10/23 19:39 Blood Culture - Preliminary Blood SPECIMEN COLLECTED 08/09/23 07:40 Blood Culture - Preliminary Blood Yeast species 08/09/23 07:35 Blood Culture - Preliminary Blood NEGATIVE TO DATE A&P Assessment and plan (1) Acute delirium: His mental status has returned to baseline. He has been worked up for underlying dementia. B12 >[address] head is already been performed. There is concern of a mass right orbit. MRI has been ordered. He has had frequent falls lately. Hip and pelvis x-rays which I reviewed today demonstrate no fracture. Ammonia level 53 on admission Hold narcotics He is having some diarrhea. Reduce lactulose slightly. (2) CHF exacerbation: Patient has a CHF exacerbation His last echo recently done demonstrated an EF of 40%, severe pulmonary hypertension, severe tricuspid regurgitation and RV dysfunction. Admitted with hypoxic respiratory failure he needs to be diuresed, has evidence of peripheral edema. Hypotension, could preclude aggressive diuresis. His midodrine has been added Discontinue IV Lasix, changed to Bumex 1 mg p.o. twice daily. Continue to monitor electrolytes closely. May need an increase further. Tinsley in place, monitor I&Os Close follow-up of electrolytes daily Echocardiogram will be ordered. (3) Acute hypoxic respiratory failure: Patient with acute hypoxic respiratory failure, thought to be secondary to CHF but cannot completely exclude pulmonary infiltrate considering his abnormal chest x-ray Continue Zosyn empirically MRSA PCR detected. Add doxycycline p.o. at this time. CT chest 08/09/23 without contrast to gauge degree of pleural effusions demonstrates extensive chest, abdomen and pelvic subcutaneous edema and anasarca, with increasing mesenteric edema and ascites since 06/10, ,moderate right pleural effusion and trace left pleural effusion,severe cadiomegaly, cirrhotic liver, and cholelithiasis. He has sleep apnea as well. To facilitate treatment of this as well as has hypoxic respiratory failure BiPAP will be used. Secondary to his right pleural effusion, now with fungemia will arrange thoracentesis. (4) Acute kidney injury: Patient with acute kidney injury. This may be cardiorenal. Tinsley in place monitor I&Os. CT abdomen 08/09/23 see above listed. Follow renal function closely daily Avoid renal toxic medication. Renal function relatively stable. (5) Elevated bilirubin: Patient has a markedly elevated bilirubin. This may be secondary to liver congestion, although he has notes of cirrhosis on CT scan. Bilirubin level has improved Ammonia level 53. Initiate lactulose twice daily CT abdomen and pelvis as above Bilirubin level improved INR around 1.7 (6) Elevated troponin: Consistent with type II elevation. No further workup currently. (7) Atrial fibrillation: Patient with history of atrial fibrillation. Holding apixaban in case procedure is needed Currently rate controlled without medication. This is being held secondary to lower blood pressures. Potentially may have to consider amiodarone if rate increases Qualifiers: Atrial fibrillation type: persistent (not longstanding) Qualified Code(s): I48.19 - Other persistent atrial fibrillation Plan Yeast noted on blood culture. In the past he has had Joselyn grow from his urine, which is likely source. Micafungin added 08/09. Repeat cultures drawn prior to this being added. Ophthalmology consultation. Check for endophthalmitis Hypotension. Increase midodrine to 10 mg 3 times daily Right upper extremity edema check venous duplex negative 08/09/23, no evidence of pain right upper extremity today. Mild hypokalemia, supplement. Multiple other medical problems outlined in his past medical history Overall prognosis is poor. Discussed in detail with and son for prolonged period of time. They still request that he be full code currently, but realize that he is very ill and prognosis is poor. Heparin subcu for DVT prophylaxis currently. Protonix for GI prophylaxis Attestations 2 Medical Necessity Statement*: Needs continued hospitalization, for treatment of budding yeast/likely candidemia in blood.. Diagnoses Acute delirium R41.0 CHF exacerbation I50.9 Acute hypoxic respiratory failure J96.01 Acute kidney injury N17.9 Elevated bilirubin R17 Elevated troponin R79.89 Persistent atrial fibrillation I48.19 Atrial fibrillation type: persistent (not longstanding) Time Spent (min) 33
[2023-08-11] MEDS: bumetanide 1 mg Tablet PO ×2 (11:25→17:24)
[2023-08-11 11:38] LABS: Glucose Point of Care 123 mg/dL (70-110)
--- NOTE | 2023-08-11 12:27 | PC.SOCIAL ---
Pg 2 IMM Explained to pt & Pg 2 IMM. No questions voiced. Provided pt a copy. Initialed, dated, & timed a copy & placed in chart.
--- NOTE | 2023-08-11 12:50 | XR_ITS ---
WS: [id number] CHEST XRAY TECHNIQUE: Portable chest. CLINICAL INFORMATION: post thoracentesis COMPARISON: 08/09/2023 FINDINGS: Heart: Marked cardiomegaly. Sternotomy. Aortic calcification. Lungs: Pulmonary vascular congestion. Improved aeration RIGHT lower lobe status post thoracentesis. N o visualized pneumothorax. Bones: Osteopenia IMPRESSION: 1. Status post RIGHT thoracentesis. No pneumothorax. 2. Improved RIGHT pleural effusion with improved aeration RIGHT lower lobe. 3. Stable marked cardiomegaly with CHF and pulmonary vascular congestion. 4. Sternotomy.
[2023-08-11 13:30] LABS: Body Fluid WBC 307 /uL; Monocytes # Body Fluid 0.247
[2023-08-11 13:37] LABS: Apprearance, Body Fluid CLOUDY; Color, Body Fluid YELLOW
[2023-08-11 13:40] LABS: Hematocrit Body Fluid 0.1 %
[2023-08-11 13:51] LABS: Albumin Body Fluid 0.8 g/dL; Creatinine Body Fluid 2.66 (0.7-1.2); LDH Pleural Fluid 105 U/L; Total Protein Pleural Fluid 1.5 g/dL; Triglycerides, Pleural Fluid 9 mg/dL
[2023-08-11 13:52] LABS: Fluid Laterality Right Middle Upper
[2023-08-11 13:55] LABS: Cyto Order Verification Order Verified
[2023-08-11 13:56] LABS: PATH Referral YES
[2023-08-11] MEDS: tamsulosin 0.4 mg Capsule 0.400000000000000022 MG PO (14:42)
[2023-08-11] MEDS: finasteride 5 mg Tablet PO (14:42)
[2023-08-11 16:59] LABS: Glucose Point of Care 110 mg/dL (70-110)
[2023-08-11] MEDS: doxycycline 100 mg Tablet PO (17:23)
--- NOTE | 2023-08-11 20:27 | XRR_ITS ---
PROCEDURE INFORMATION: Exam: XR Chest Exam date and time: 08/11/2023 8:37 PM Age: 83 years old Clinical indication: Shortness of breath; Prior surgery; Surgery date: 6+ months; Surgery type: Cabg/mvr; Patient HX: Diminished RT lung sounds after RT thoracentesis TECHNIQUE: Imaging protocol: Radiologic exam of the chest. Views: 2 views. COMPARISON: CR XR chest 1V portable [id number] 08/11/2023 12:55 PM FINDINGS: Lungs: Stable bilateral pulmonary opacities most consistent with pulmonary vascular congestion/mild pulmonary edema. Pleural spaces: Mild bilateral pleural fluid collections. Heart/Mediastinum: Moderate globular cardiomegaly consistent with 4-chamber enlargment and/or pericardial effusion. Stable mitral heart valve replacement. Vasculature: Calcification of the thoracic aorta and/or great vessels consistent with atherosclerotic vessel disease. Bones/joints: Stable sternotomy. XR/XR chest 2V insp/exp [id number] IMPRESSION: 1. Moderate globular cardiomegaly consistent with 4-chamber enlargment and/or pericardial effusion. 2. Stable mitral heart valve replacement. 3. Stable bilateral pulmonary opacities most consistent with pulmonary vascular congestion/mild pulmonary edema. 4. Mild bilateral pleural fluid collections.
[2023-08-11 20:29] LABS: Glucose Point of Care 95 mg/dL (70-110)
[2023-08-11] MEDS: heparin 5,000 unit/mL INJ 1 mL 5000 UNIT SUBCUT (20:30)
[2023-08-11] MEDS: micafungin 100 MG in sodium chloride 0.9% (plus) 100 ML IV (20:31)
[2023-08-11] MEDS: acetaminophen 325 mg Tablet 650 MG PO (20:35)
--- NOTE | 2023-08-11 21:08 | PM.CONSULT ---
Providers/Reason For Consult Consulting Physician/Specialty*: Daniel Javier MD / Ophthalmology Reason for Consult*: Orbital mass, fungemia Requesting Physician: Dr. Salvador Aguilera Attending Physician: Jin Aguilera MD Primary Care Provider: Daniel Rios DO History of Present Illness History of Present Illness Ernst Garcia is a 83 year old male currently admitted for treatment of respiratory distress and fungemia. Patient and his daughter deny visual complaints, orbital / periorbital pain, pain with EOMs, or other ocular symptoms. Medications/Allergies Home Medications Medication Instructions Recorded Confirmed Last Taken Type cholecalciferol (vitamin D3) 50 50 mcg PO QAM 10/13/20 08/09/23 05/29/23 History mcg (2,000 unit) capsule levothyroxine 100 mcg tablet 100 mcg PO QAM #90 tabs 08/31/22 08/09/23 05/29/23 Rx (Levoxyl) tamsulosin 0.4 mg capsule 0.4 mg PO DAILY@1230 11/12/22 08/09/23 05/29/23 History zinc acetate 50 mg (zinc) capsule 50 mg PO DAILY 11/12/22 08/09/23 05/29/23 History midodrine 10 mg tablet 10 mg PO TID PRN sbp < 90 12/27/22 08/09/23 05/29/23 History finasteride 5 mg tablet 5 mg PO DAILY@1230 01/30/23 08/09/23 05/29/23 History potassium chloride 20 mEq 20 meq PO QID 04/03/23 08/09/23 3 Days Ago History tablet,extended release ~08/06/23 hydrocodone 5 mg-acetaminophen 325 1 tab PO Q8H PRN pain 7 days #21 06/02/23 08/09/23 Unknown Rx mg tablet tabs bumetanide 1 mg tablet 2 mg (2 x 1 mg) PO BID 30 days #60 07/05/23 08/09/23 05/29/23 Rx tabs metolazone 5 mg tablet 5 mg PO .MWF PRN increasing edema 07/05/23 08/09/23 Unknown Rx 30 days #30 tabs acetaminophen 500 mg tablet 500 mg PO Q6H PRN Pain 08/09/23 08/09/23 Unknown History apixaban 5 mg tablet (Eliquis) 2.5 mg PO BID 08/09/23 08/09/23 Unknown History diltiazem HCl 60 mg tablet 120 mg PO BID PRN Blood Pressure 08/09/23 08/09/23 Unknown History lanolin alcohols-mineral 1 applic topical BID PRN Dry Skin 08/09/23 08/09/23 Unknown History oil-w.petrolatum-ceresin topical cream (Eucerin topical cream) olanzapine 5 mg tablet (Zyprexa) 5 mg PO DAILY@15 08/09/23 08/09/23 Unknown History pantoprazole 40 mg tablet,delayed 40 mg PO DAILY PRN Acid Reflux 08/09/23 08/09/23 Unknown History release (Protonix) promethazine 50 mg tablet 25 mg PO Q6H PRN Nausea And 08/09/23 08/09/23 Unknown History Vomiting sucralfate 1 gram tablet 1 g PO BID 08/09/23 08/09/23 Unknown History Allergies Allergy/AdvReac Type Severity Reaction Status Date / Time codeine Allergy Unknown Unknown Verified 08/09/23 06:24 Histamine H2 Inhibitors Allergy Unknown Verified 08/09/23 06:24 milk Allergy ADR-Itching Verified 08/09/23 06:24 morphine Allergy ADR-Halluci Verified 08/09/23 06:24 nating oxycodone [From Percocet] Allergy Unknown Verified 08/09/23 06:24 pork derived (porcine) Allergy Unknown Verified 08/09/23 06:24 shellfish derived Allergy Unknown Verified 08/09/23 06:24 Current Medications Generic Name Dose Route Start Last Admin Trade Name Freq PRN Reason Stop Dose Admin Acetaminophen 650 mg 08/11/23 19:56 08/11/23 20:35 Acetaminophen 325 Mg Tablet PO 650 mg Q4H PRN Administration MILD PAIN OR INCREASE TEMP Bumetanide 1 mg 08/11/23 10:00 08/11/23 17:24 Bumetanide 1 Mg Tablet PO 1 mg BID INES Administration Doxycycline Monohydrate 100 mg 08/11/23 18:00 08/11/23 17:23 Doxycycline 100 Mg Tablet PO 100 mg BID INES Administration Protocol Finasteride 5 mg 08/09/23 12:30 08/11/23 14:42 Finasteride 5 Mg Tablet PO 5 mg DAILY@1230 INES Administration Heparin Sodium (Porcine) 5,000 unit 08/11/23 19:00 08/11/23 20:30 Heparin 5,000 Unit/Ml Inj 1 Ml SUBCUT 5,000 unit Q12H INES Administration Piperacillin Sod/Tazobactam 50 mls @ 12.5 mls/hr 08/09/23 11:00 08/11/23 15:16 Sod 3.375 gm/ Sodium Chloride IV Infused Q8H INES Infusion Dextrose 125 mls @ 750 mls/hr 08/09/23 23:47 08/10/23 00:23 D10w IV Infused PRN PRN Infusion Adult Acute Hypoglycemia Nursing Protocol Protocol Micafungin Sodium 100 mg/ 100 mls @ 100 mls/hr 08/10/23 19:30 08/11/23 20:31 Sodium Chloride IV 100 mls/hr Q24H INES Administration Lactulose 10 gm 08/11/23 08:22 08/11/23 08:37 Lactulose Oral Liq 20 Gm/30 Ml Udc PO 10 gm Q12H PRN Administration CONSTIPATION Levothyroxine Sodium 100 mcg 08/10/23 06:00 08/11/23 06:28 Levothyroxine 100 Mcg Tablet PO 100 mcg QAM INES Administration Midodrine 10 mg 08/11/23 09:00 08/11/23 20:32 Midodrine 5 Mg Tablet PO 10 mg TID INES Administration Pantoprazole Sodium 40 mg 08/10/23 09:00 08/11/23 08:38 Pantoprazole 40 Mg Sdv IVP 40 mg DAILY INES Administration Tamsulosin HCl 0.4 mg 08/09/23 12:30 08/11/23 14:42 Tamsulosin 0.4 Mg Capsule PO 0.4 mg DAILY@1230 INES Administration PFSH Acute PFSH: Medical History Hypothyroid Transaminitis Elevated bilirubin Abnormal TSH Hyperkalemia Pulmonary embolism Atrial fibrillation Deep venous thrombosis Atrial fibrillation with RVR Diastolic CHF Stenosis of prosthetic mitral valve Tricuspid valve regurgitation, nonrheumatic Chronic kidney disease (CKD) Thrombocytopenia Atrial fibrillation Surgical History Hx of mitral valve replacement 2005 Family History Father Myocardial infarction Denies family history of Diabetes Stroke Social History Smoking and tobacco/nicotine status: never used tobacco/nicotine Substance/Drug Use: never Vitals/I&O/Wt Last Vital Signs Temp 97.8 F 08/11/23 20:00 Pulse 84 08/11/23 20:00 Resp 18 08/11/23 20:00 BP 100/62 08/11/23 20:00 Pulse Ox 100 08/11/23 20:00 O2 Del Method Nasal Cannula 08/11/23 16:00 O2 Flow Rate 2 08/10/23 06:00 FiO2 40 08/10/23 03:09 08/11/23 08/11/23 08/11/23 06:59 14:59 22:59 Intake Total 200 / 700 650 / 650 50 / 700 Output Total 600 / 1150 950 / 950 1650 / 2600 Balance -400 / -450 -300 / -300 -1600 / -1900 Weight last 48 hrs Weight 214 lb 6.4 oz Weight 206 lb 1.6 oz Physical Exam Urinary Catheter Management: Tinsley: Cath Placed During This Visit: yes Reason for Continuing Indwelling Catheter: Accurate Measurement of Urinary Output in Critically Ill Patients Urinary Catheter Date of Insertion: 08/09/23 Urinary Catheter Time of Insertion: 11:44 Data 08/11/23 03:23 08/11/23 03:23 Micro: Microbiology 08/10/23 19:41 Blood Culture - Preliminary Blood NEGATIVE TO DATE 08/10/23 19:39 Blood Culture - Preliminary Blood NEGATIVE TO DATE 08/11/23 13:00 Gram Stain - Final Pleural Fluid 08/09/23 07:40 Blood Culture - Preliminary Blood Yeast species A&P Assessment and plan (1) Orbital mass: Plan #Fungemia No signs of seeding to the orbit. Normal retinal / fundoscopic exam. #Orbital mass No signs of optic neuropathy within the bounds of inpatient testing (ie, no rAPD, no red desturation, confrontational driver grossly in tact). No ophthalmology recommendations, but exam was reassuring for no acute ocular process. [facility] follows Mr. Dukes outpatient and can see him again at any time with acute visual complaints during this admission. Will arrange outpatient follow-up when discharge is anticipated. Coding Level of Care Code 21621 Diagnoses Orbital mass H05.89 Time Spent (min) 45
[2023-08-12] VITALS (8 sets, daily range): BP systolic 91–98; BP diastolic 57–75; PULSE 74–108; RESP 14–28; TEMP 36.4–36.9; O2SAT 93–98
[2023-08-12] MEDS: acetaminophen 325 mg Tablet 650 MG PO ×3 (04:04→22:22)
[2023-08-12] MEDS: piperacillin-tazobactam 3.375 GM in sodium chloride 0.9% (plus) 50 ML IV ×3 (04:07→22:44)
[2023-08-12 04:43] LABS: Basophils # 0.1 10^3/uL (0.0-0.1); Basophils % 0.9 %; Eosinophils # 0.2 10^3/uL (0.0-0.8); Eosinophils % 2.6 %; Lymphocytes # 1.6 10^3/uL (0.8-4.8); Lymphocytes % 24.2 %; Mean Corpuscular HGB Conc 31.4 g/dL (30-55); Mean Corpuscular Hemoglobin 31.9 pg (27-33); Mean Corpuscular Volume 101.6 fl (82-101); Mean Platelet Volume 10.5 fL (7.4-10.4); Monocytes # 0.6 10^3/uL (0.2-0.9); Monocytes % 9.2 %; Neutrophils % 62.2 %; Nucleated Red Blood Cells % 0 %; Platelet Count 95 10^3/cmm (157-399); Red Blood Count 3.64 10^6/uL (3.85-5.65); Red Cell Distribution Width 20.7 % (12.1-15.1)
[2023-08-12 05:00] LABS: Alanine Aminotransferase 14 U/L (0-41); Albumin Level 2.8 g/dL (3.5-5.2); Alkaline Phosphatase 120 U/L (40-130); Anion Gap 18.9 (5-19); Aspartate Amino Transferase 33 U/L (0-40); Blood Urea Nitrogen 57 mg/dL (8-23); Calcium 8.7 mg/dL (8.5-10.5); Carbon Dioxide 22 mmol/L (22-29); Chloride 108 mmol/L (98-107); Creatinine Clr Calc Pharmacy 27.5156; Globulin 3.3 g/dL (1.3-4.6); Glucose 84 mg/dL (65-115); Magnesium 2.3 mg/dL (1.7-2.3); Osmolality Calculated 317 mOsm/kg (285-295); Sodium 146 mmol/L (136-145); Total Protein 6.1 g/dL (6.6-8.7)
[2023-08-12 05:03] LABS: Potassium 2.9 mmol/L (3.5-5.1)
[2023-08-12] MEDS: levothyroxine 100 mcg Tablet PO (06:14)
[2023-08-12] MEDS: heparin 5,000 unit/mL INJ 1 mL 5000 UNIT SUBCUT ×2 (06:16→17:57)
[2023-08-12 06:23] LABS: Glucose Point of Care 89 mg/dL (70-110)
[2023-08-12] MEDS: bumetanide 1 mg Tablet PO (08:40)
[2023-08-12] MEDS: pantoprazole 40 mg SDV IVP (08:40)
[2023-08-12] MEDS: doxycycline 100 mg Tablet PO ×2 (08:40→17:51)
[2023-08-12] MEDS: midodrine 5 mg TABLET 10 MG PO ×3 (08:40→21:59)
[2023-08-12 11:39] LABS: Glucose Point of Care 119 mg/dL (70-110)
[2023-08-12] MEDS: tamsulosin 0.4 mg Capsule 0.400000000000000022 MG PO (12:54)
[2023-08-12] MEDS: finasteride 5 mg Tablet PO (12:54)
[2023-08-12 17:03] LABS: Glucose Point of Care 105 mg/dL (70-110)
[2023-08-12 17:03] LABS: Glucose Point of Care 84 mg/dL (70-110)
--- NOTE | 2023-08-12 17:12 | XRR_ITS ---
PROCEDURE INFORMATION: Exam: XR Chest Exam date and time: 08/12/2023 6:35 PM Age: 83 years old Clinical indication: Other: Hypoxia; Prior surgery; Surgery date: 6+ months; Surgery type: Cabg/mvr TECHNIQUE: Imaging protocol: Radiologic exam of the chest. Views: 1 view. COMPARISON: CR XR chest 2V insp/exp [id number] 08/11/2023 8:37 PM FINDINGS: Lungs: Diffuse interstitial edema. [id number]-left lung base opacities and small effusions. Pleural spaces: No pneumothorax. Heart/Mediastinum: Heart is large. CABG and vascular calcification with heart valve replacement. Bones/joints: Unchanged. XR/XR chest 1V portable [id number] IMPRESSION: Stable chest from prior day.
--- NOTE | 2023-08-12 17:24 | P.PN_ITS ---
Subjective 2 Subjective: patient was seen this morning, has persistent cough, no fever, no chills, no abdominal pain, no lightheadedness Vitals/I&O/Wt Last Vital Signs Temp 98.4 F 08/12/23 16:00 Pulse 108 H 08/12/23 16:00 Resp 20 H 08/12/23 16:00 BP 98/75 08/12/23 16:00 Pulse Ox 96 08/12/23 16:00 O2 Del Method Room Air 08/12/23 16:00 O2 Flow Rate 3 08/12/23 09:48 FiO2 40 08/10/23 03:09 08/12/23 08/12/23 08/12/23 06:59 14:59 22:59 Intake Total 200.000 / 1000.000 530 / 530 Output Total 400 / 3750 725 / 725 Balance -200.000 / -2750.000 -195 / -195 Weight last 48 hrs Weight 92.079 kg Weight 97.25 kg Physical Exam 2 Const: COMMON NORMALS: no acute distress and patient oriented x3 Resp: COMMON NORMALS: normal respiratory effort, No retractions, No use of accessory muscles and clear to auscultation bilaterally AUSCULTATION: clear to auscultation bilaterally Cardio: COMMON NORMALS: regular rate, regular rhythm, S1 normal heart sound present and S2 normal heart sound present RATE: regular rate RHYTHM: r egular rhythm HEART SOUNDS: S1 normal heart sound present and S2 normal heart sound present GI: COMMON NORMALS: Normal to inspection, nondistended, normoactive bowel sounds present and non-tender Extremity: COMMON NORMALS: no pedal edema Neuro: COMMON NORMALS: patient oriented x3 Psych: COMMON NORMALS: mental status grossly normal Urinary Catheter Management: Tinsley: Cath Placed During This Visit: yes Reason for Continuing Indwelling Catheter: Accurate Measurement of Urinary Output in Critically Ill Patients Urinary Catheter Date of Insertion: 08/09/23 Urinary Catheter Time of Insertion: 11:44 Data 08/12/23 03:36 08/12/23 03:36 Micro: Microbiology 08/11/23 13:00 Gram Stain - Final Pleural Fluid Body Fluid Culture - Preliminary 08/10/23 23:35 Urine Culture - Preliminary Urine Catheterized 08/10/23 19:41 Blood Culture - Preliminary Blood NEGATIVE TO DATE 08/10/23 19:39 Blood Culture - Preliminary Blood NEGATIVE TO DATE A&P Assessment and plan (1) Acute delirium: resolving His mental status has returned to baseline. He has been worked up for underlying dementia. B12 >[address] head is already been performed. There is concern of a mass right orbit. MRI has been ordered. He has had frequent falls lately. Hip and pelvis x-rays which I reviewed today demonstrate no fracture. Ammonia level 53 on admission Hold narcotics He is having some diarrhea. Reduce lactulose slightly. (2) CHF exacerbation: Patient has a CHF exacerbation His last echo recently done demonstrated an EF of 40%, severe pulmonary hypertension, severe tricuspid regurgitation and RV dysfunction. Admitted with hypoxic respiratory failure he needs to be diuresed, has evidence of peripheral edema. Hypotension, could preclude aggressive diuresis. His midodrine has been added Discontinue IV Lasix, changed to Bumex 1 mg p.o. twice daily. Continue to monitor electrolytes closely. May need an increase further. Tinsley in place, monitor I&Os Close follow-up of electrolytes daily Echocardiogram will be ordered. (3) Acute hypoxic respiratory failure: Patient with acute hypoxic respiratory failure, thought to be secondary to CHF but cannot completely exclude pulmonary infiltrate considering his abnormal chest x-ray Continue Zosyn empirically MRSA PCR detected. Add doxycycline p.o. at this time. CT chest 08/09/23 without contrast to gauge degree of pleural effusions demonstrates extensive chest, abdomen and pelvic subcutaneous edema and anasarca, with increasing mesenteric edema and ascites since 06/10, ,moderate right pleural effusion and trace left pleural effusion,severe cadiomegaly, cirrhotic liver, and cholelithiasis. He has sleep apnea as well. To facilitate treatment of this as well as has hypoxic respiratory failure BiPAP will be used. Secondary to his right pleural effusion, now with fungemia s/p thoracocentesis (4) Acute kidney injury: Patient with acute kidney injury. This may be cardiorenal. Tinsley in place monitor I&Os. CT abdomen 08/09/23 see above listed. Follow renal function closely daily Avoid renal toxic medication. Renal function relatively stable. (5) Elevated bilirubin: Patient has a markedly elevated bilirubin. This may be secondary to liver congestion, although he has notes of cirrhosis on CT scan. Bilirubin level has improved Ammonia level 53. Initiate lactulose twice daily CT abdomen and pelvis as above Bilirubin level improved INR around 1.7 (6) Elevated troponin: Consistent with type II elevation. No further workup currently. (7) Atrial fibrillation: Patient with history of atrial fibrillation. Holding apixaban in case procedure is needed Currently rate controlled without medication. This is being held secondary to lower blood pressures. Potentially may have to consider amiodarone if rate increases Qualifiers: Atrial fibrillation type: persistent (not longstanding) Qualified Code(s): I48.19 - Other persistent atrial fibrillation Plan Yeast noted on blood culture. In the past he has had Joselyn grow from his urine, which is likely source. Micafungin added 08/09. Repeat cultures drawn prior to this being added. Hypotension. Increase midodrine to 10 mg 3 times daily Right upper extremity edema check venous duplex negative 08/09/23, no evidence of pain right upper extremity today. Mild hypokalemia, supplement. Multiple other medical problems outlined in his past medical history Overall prognosis is poor. Discussed in detail with and son for prolonged period of time. They still request that he be full code currently, but realize that he is very ill and prognosis is poor. Heparin subcu for DVT prophylaxis currently. Protonix for GI prophylaxis plan for today, continue antifungals, monitor chf, monitor afib Attestations 2 Medical Necessity Statement*: patient requires hospitalization for fungemia, chf, afib Diagnoses Acute delirium R41.0 CHF exacerbation I50.9 Acute hypoxic respiratory failure J96.01 Acute kidney injury N17.9 Elevated bilirubin R17 Elevated troponin R79.89 Persistent atrial fibrillation I48.19 Atrial fibrillation type: persistent (not longstanding)
[2023-08-12] MEDS: FUROsemide 10 mg/mL SDV 2mL 20 MG IVP (17:50)
[2023-08-12] MEDS: amiodarone 150 MG/100 ML PREMIX 400 MG IV (17:51)
[2023-08-12] MEDS: OLANZapine 5 mg TABLET PO (17:51)
[2023-08-12 21:04] LABS: Glucose Point of Care 96 mg/dL (70-110)
[2023-08-12] MEDS: OLANZapine 10 mg VIAL IM (21:35)
[2023-08-12] MEDS: micafungin 100 MG in sodium chloride 0.9% (plus) 100 ML IV (21:38)
[2023-08-12] MEDS: trazodone 100 mg Tablet PO (21:59)
[2023-08-12] MEDS: sodium chloride 0.9% 250 ML 999 ML IV (22:03)
--- NOTE | 2023-08-12 23:15 | PC.NURSE ---
upon my initial assessment tonight, pt was found to be confused, agitated and hateful to anyone trying to redirect his behavior. nurse called doc with concerns and was given new orders. pt and son were able to stay bedside til about 2300. annual greenhouse manager was able to find a sitter for the pt to help redirect and settle pt. order to have 1-1 will be entered for pt safety.
[2023-08-13] VITALS (10 sets, daily range): BP systolic 90–102; BP diastolic 60–69; PULSE 68–95; RESP 14–33; TEMP 36.1–36.3; O2SAT 93–99
[2023-08-13 03:55] LABS: Basophils % 0.7 %; Eosinophils # 0.1 10^3/uL (0.0-0.8); Eosinophils % 1.1 %; Hematocrit 36.7 % (37-53); Lymphocytes # 1.5 10^3/uL (0.8-4.8); Lymphocytes % 26.3 %; Mean Corpuscular HGB Conc 31.3 g/dL (30-55); Mean Corpuscular Volume 98.9 fl (82-101); Mean Platelet Volume 9.9 fL (7.4-10.4); Monocytes # 0.6 10^3/uL (0.2-0.9); Monocytes % 10.4 %; Neutrophils # 3.44 10^3/uL (1.8-7.7); Neutrophils % 60.6 %; Nucleated Red Blood Cells % 0 %; Platelet Count 77 10^3/cmm (157-399); Red Blood Count 3.71 10^6/uL (3.85-5.65); Red Cell Distribution Width 20.7 % (12.1-15.1); White Blood Count 5.67 10^3/uL (3.29-11.43)
[2023-08-13 04:12] LABS: Alanine Aminotransferase 14 U/L (0-41); Alkaline Phosphatase 119 U/L (40-130); Anion Gap 19.8 (5-19); Aspartate Amino Transferase 32 U/L (0-40); Blood Urea Nitrogen 50 mg/dL (8-23); C Reactive Protein 33.2 mg/L (0.0-4.9); Calcium 8.2 mg/dL (8.5-10.5); Carbon Dioxide 23 mmol/L (22-29); Chloride 108 mmol/L (98-107); Creatinine Clr Calc Pharmacy 25.6868; Globulin 2.4 g/dL (1.3-4.6); Glucose 98 mg/dL (65-115); Magnesium 2.2 mg/dL (1.7-2.3); Osmolality Calculated 319 mOsm/kg (285-295); Phosphorus 3.9 mg/dL (2.5-4.5); Sodium 148 mmol/L (136-145); Total Bilirubin 2.6 mg/dL (0.15-1.2); Total Protein 5.4 g/dL (6.6-8.7)
[2023-08-13 04:20] LABS: NT Pro B Type Natriuretic Pept 16103 pg/mL (0-450); Potassium 2.8 mmol/L (3.5-5.1)
[2023-08-13] MEDS: piperacillin-tazobactam 3.375 GM in sodium chloride 0.9% (plus) 50 ML IV ×3 (05:19→22:52)
--- NOTE | 2023-08-13 07:00 | XRR_ITS ---
PROCEDURE INFORMATION: Exam: XR Chest Exam date and time: 08/13/2023 7:51 AM Age: 83 years old Clinical indication: Shortness of breath; Additional info: SOB TECHNIQUE: Imaging protocol: Radiologic exam of the chest. Views: 1 view. COMPARISON: CR (CHEST, ) 08/12/2023 6:35 PM FINDINGS: Lungs: Stable slightly worsened right basilar airspace opacity. Pleural spaces: Probable small right pleural effusion. No distinct pneumothorax. Heart/Mediastinum: Cardiomegaly, stable. Bones/joints: Postsurgical changes of median sternotomy. XR/XR chest 1V portable [id number] IMPRESSION: 1. Cardiomegaly, stable. 2. Stable slightly worsened right basilar airspace opacity. 3. Probable small right pleural effusion.
[2023-08-13 07:05] LABS: Glucose Point of Care 89 mg/dL (70-110)
[2023-08-13] MEDS: levothyroxine 100 mcg Tablet PO (09:17)
[2023-08-13] MEDS: doxycycline 100 mg Tablet PO ×2 (09:17→19:09)
[2023-08-13] MEDS: pantoprazole 40 mg SDV IVP (09:17)
[2023-08-13] MEDS: midodrine 5 mg TABLET 10 MG PO ×3 (09:18→21:53)
[2023-08-13] MEDS: lidocaine 1% 5 ML in potassium chloride premix 100 ML 26.25 ML IV ×2 (09:19→13:05)
[2023-08-13 11:38] LABS: Glucose Point of Care 92 mg/dL (70-110)
[2023-08-13] MEDS: albumin 25 G/100 ML BAG 60 G IV (13:06)
[2023-08-13] MEDS: FUROsemide 10 mg/mL SDV 4mL 40 MG IVP ×2 (13:06→19:09)
[2023-08-13] MEDS: heparin drip 25,000 UNIT/500 ML PREMIX 25.7800000000000011 UNIT IV (13:07)
[2023-08-13 14:57] LABS: Anion Gap 17.1 (5-19); Blood Urea Nitrogen 47 mg/dL (8-23); Calcium 8.8 mg/dL (8.5-10.5); Carbon Dioxide 22 mmol/L (22-29); Chloride 108 mmol/L (98-107); Glucose 83 mg/dL (65-115); Osmolality Calculated 309 mOsm/kg (285-295); Potassium 3.1 mmol/L (3.5-5.1); Sodium 144 mmol/L (136-145)
[2023-08-13 15:15] LABS: Creatinine Clr Calc Pharmacy 29.3564
[2023-08-13] MEDS: tamsulosin 0.4 mg Capsule 0.400000000000000022 MG PO (15:41)
[2023-08-13] MEDS: OLANZapine 5 mg TABLET PO (15:41)
[2023-08-13] MEDS: finasteride 5 mg Tablet PO (15:41)
--- NOTE | 2023-08-13 16:18 | P.PN_ITS ---
Subjective 2 Subjective: -Yesterday afternoon ? Patient developed worsening respiratory status shortness of breath with A-fib with RVR with respiratory failure, concerns for aspiration event ? Was kept n.p.o. ? Placed on amiodarone drip remains on amiodarone drip heart rates more well- controlled ? Was given Lasix therapy, chest x-ray showing interstitial edema, ? Patient was seen this morning, he is alert to person, to place not to time, kept n.p.o., he wants sips and chips as his mouth is dry ? Spoke to at bedside extensively, about aspiration pneumonitis aspiration pneumonia will continue to monitor his respiratory status closely is on Zosyn speech therapy eval, aspiration precautions ? His potassium 2.8 this morning, will replace IV, given a dose of albumin with Lasix therapy at noon time and then give another dose of Lasix potentially in the evening based upon his repeat potassium this afternoon ? Will continue to monitor his respiratory status closely, will consider modified barium swallow based on clinical progress ? Spoke to speech therapy, patient continues to have concerns for aspiration, will order a modified barium swallow for tomorrow Vitals/I&O/Wt Last Vital Signs Temp 97.0 F L 08/13/23 11:24 Pulse 77 08/13/23 11:24 Resp 14 08/13/23 11:24 BP 97/66 08/13/23 11:24 Pulse Ox 99 08/13/23 11:24 O2 Del Method Nasal Cannula 08/13/23 11:24 O2 Flow Rate 3 08/13/23 08:08 FiO2 40 08/10/23 03:09 08/13/23 08/13/23 08/13/23 06:59 14:59 22:59 Intake Total 292.203 / 1372.203 348.875 / 348.875 Output Total 525 / 1750 Balance -232.797 / -377.797 348.875 / 348.875 Weight last 48 hrs Weight 92.079 kg Physical Exam 2 Urinary Catheter Management: Tinsley: Cath Placed During This Visit: yes Reason for Continuing Indwelling Catheter: Accurate Measurement of Urinary Output in Critically Ill Patients Urinary Catheter Date of Insertion: 08/09/23 Urinary Catheter Time of Insertion: 11:44 Data 08/13/23 02:29 08/13/23 14:18 Micro: Microbiology 08/11/23 13:00 Gram Stain - Final Pleural Fluid Body Fluid Culture - Preliminary 08/10/23 23:35 Urine Culture - Final Urine Catheterized A&P Assessment and plan (1) Acute delirium: (2) CHF exacerbation: (3) Acute hypoxic respiratory failure: (4) Acute kidney injury: (5) Elevated bilirubin: (6) Elevated troponin: (7) Atrial fibrillation: Qualifiers: Atrial fibrillation type: persistent (not longstanding) Qualified Code(s): I48.19 - Other persistent atrial fibrillation (8) Fungemia: (9) Atrial fibrillation with RVR: (10) Aspiration pneumonia: (11) Aspiration pneumonitis: (12) Protein calorie malnutrition: (13) Physical deconditioning: (14) Sarcopenia: Plan Acute hypoxic respiratory failure ? Secondary to fluid overload, CHF exacerbation ? Now with aspiration pneumonia, aspiration pneumonitis ? MRSA nares detected ? With right pleural effusion status post thoracocentesis, -900cc ? Secondary A-fib with RVR ? Secondary to severe pulm hypertension ? Secondary to systolic EF of 45%, RV dysfunction ? Plan ? Keep n.p.o., sips and chips ? Modified barium swallow tomorrow ? Continue Zosyn -mrsa nares positive on doxycycline ? Lasix 40 mg IV twice daily ? Monitor creatinine monitor potassium ? Monitor respiratory status closely ? Follow right pleural studies ? A-fib with RVR currently on amiodarone, add on amiodarone drip ? Will consider steroids based on clinical progress ? Full code ? Heparin drip for DVT prophylaxis Aspiration pneumonia, aspiration pneumonitis ? During my examination patient does have significant events of coughing, throat clearing after even on a aspiration precaution and dysphagia diet ? Speech therapy to evaluate today, but will order modified barium swallow tomorrow, if patient continues to have high aspiration risk possibly will require PEG tube placement given his severe protein calorie malnutrition, physical deconditioning Severe protein calorie malnutrition, physical deconditioning, sarcopenia ? Ever evidence of muscle loss, including bilateral arms, bilateral thighs temporal muscle wasting, loss of fat pad under bilateral ribs, bilateral clavicles ? Secondary to CHF, EF of 30%, CAD, CABG, chronic respiratory failure ? Consult dietary ? Given his aspiration as above, due to his significant deconditioning muscle loss heme might require PEG tube placement depends on goals of care with discussion with family History of CHF, EF of 38%, CONCLUSIONS Normal LV size with slightly diminished ejection fraction of 38%. Mild diffuse hypokinesia of the left ventricle. Dilated right ventricle with moderately diminished ejection fraction. Moderately severe tricuspid valve regurgitation. Moderate pulmonary hypertension with estimated pulmonary artery peak systolic pressure of 68 mmHgThe bioprosthetic valve in the mitral position appears to be well-seated. Thickened mitral leaflet. Mitral valve area by pressure half-time was 2.3 cm squared Moderately increased left atrial size. Severely increased right atrial size. Thickened aortic valve. Mild aortic valve calcification. Mild pulmonary valve regurgitation. No pericardial effusion. No obvious intracardiac masses or vegetations noted. Compared to the previous study from 07/02/2023, there may not be a significant change. Consider HÉCTOR, if clinically indicated . History of cad, history of cabg History of severe pulmonary hypertension, severe tricuspid valve regurg, RV dysfunction Bilateral pleural effusions, right pleural effusion status post thoracocentesis , 900 out, serous, bloody ? No growth so far ? Light criteria, LDH pending, but seems transudative, follow-up LDH ? Fungal smear pending With evidence of KE on CKD ? Likely cardiorenal syndrome, continue diuresis Cardiac cirrhosis, elevated bilirubin, -Is likely congestive hepatopathy from heart failure Elevated troponins, likely type I versus type II NSTEMI Atrial fibrillation ? Heparin drip ? Amiodarone drip fungemia ? Yeast positive blood cultures Has has had Joselyn in his urine in the past ? Currently on micafungin ? Repeat blood cultures negative so far, ? Ophthalmology consulted, for concerns for endophthalmitis, no acute interventions, continue medical management Hypotension ? Midodrine 10 mg 3 times daily, Right upper extremity edema, venous ultrasound negative for DVT Hyperkalemia potassium 2.8, replaced potassium 80 mg IV acute delerium -confusion overnight -continue home zyprexa, monitor Full code ? Heparin for DVT prophylaxis ? Protonix for GI prophylaxis ,?overall prognosis is poor, with chronic medical problems status is stable Attestations 2 Medical Necessity Statement*: Patient requires hospitalization for aspiration pneumonia, aspiration pneumonitis, fungemia, fluid overload, A-fib with RVR, deconditioning, protein calorie malnutrition, CHF, Diagnoses Acute delirium R41.0 CHF exacerbation I50.9 Acute hypoxic respiratory failure J96.01 Acute kidney injury N17.9 Elevated bilirubin R17 Elevated troponin R79.89 Persistent atrial fibrillation I48.19 Atrial fibrillation type: persistent (not longstanding) Fungemia B49 Atrial fibrillation with RVR I48.91 Aspiration pneumonia J69.0 Aspiration pneumonitis J69.0 Protein calorie malnutrition E46 Physical deconditioning R53.81 Sarcopenia M62.84
[2023-08-13 17:09] LABS: Glucose Point of Care 106 mg/dL (70-110)
[2023-08-13 17:18] LABS: Lactate Dehydrogenase 252 U/L (135-225)
[2023-08-13] MEDS: amiodarone 200 mg Tablet 400 MG PO (19:09)
[2023-08-13] MEDS: potassium chloride oral liq 20 mEq/15 mL UDC 40 MEQ PO (19:09)
[2023-08-13] MEDS: acetaminophen 325 mg Tablet 650 MG PO (19:14)
[2023-08-13 19:21] LABS: Partial Thromboplastin Time > 250.0 SECONDS (23.9-36.7)
[2023-08-13 20:27] LABS: Glucose Point of Care 91 mg/dL (70-110)
[2023-08-13 21:10] LABS: Partial Thromboplastin Time 185.3 SECONDS (23.9-36.7)
[2023-08-13] MEDS: micafungin 100 MG in sodium chloride 0.9% (plus) 100 ML IV (21:40)
[2023-08-13] MEDS: trazodone 100 mg Tablet PO (22:02)
[2023-08-14] VITALS (7 sets, daily range): BP systolic 93–104; BP diastolic 56–73; PULSE 70–85; RESP 13–22; TEMP 35.9–36.8; O2SAT 91–95
[2023-08-14] MEDS: midodrine 5 mg TABLET 10 MG PO ×3 (01:49→13:14)
[2023-08-14 03:26] LABS: Basophils # 0.1 10^3/uL (0.0-0.1); Eosinophils # 0.2 10^3/uL (0.0-0.8); Eosinophils % 3.4 %; Hematocrit 38.3 % (37-53); Lymphocytes # 1.6 10^3/uL (0.8-4.8); Lymphocytes % 25.6 %; Mean Corpuscular HGB Conc 31.1 g/dL (30-55); Mean Corpuscular Hemoglobin 30.7 pg (27-33); Mean Platelet Volume 10.3 fL (7.4-10.4); Monocytes # 0.6 10^3/uL (0.2-0.9); Monocytes % 10.2 %; Neutrophils # 3.66 10^3/uL (1.8-7.7); Neutrophils % 59.2 %; Nucleated Red Blood Cells % 0 %; Platelet Count 63 10^3/cmm (157-399); Red Blood Count 3.87 10^6/uL (3.85-5.65); Red Cell Distribution Width 20.7 % (12.1-15.1); White Blood Count 6.18 10^3/uL (3.29-11.43)
[2023-08-14 03:42] LABS: Alanine Aminotransferase 13 U/L (0-41); Alkaline Phosphatase 107 U/L (40-130); Anion Gap 17.4 (5-19); Aspartate Amino Transferase 29 U/L (0-40); Blood Urea Nitrogen 47 mg/dL (8-23); Calcium 8.5 mg/dL (8.5-10.5); Carbon Dioxide 23 mmol/L (22-29); Chloride 112 mmol/L (98-107); Globulin 2.8 g/dL (1.3-4.6); Glucose 87 mg/dL (65-115); Osmolality Calculated 320 mOsm/kg (285-295); Potassium 3.4 mmol/L (3.5-5.1); Sodium 149 mmol/L (136-145); Total Bilirubin 2.5 mg/dL (0.15-1.2); Total Protein 5.8 g/dL (6.6-8.7)
[2023-08-14 03:53] LABS: NT Pro B Type Natriuretic Pept 12431 pg/mL (0-450)
[2023-08-14 03:54] LABS: Partial Thromboplastin Time 239.2 SECONDS (23.9-36.7)
--- NOTE | 2023-08-14 04:11 | PC.NURSE ---
with new ptt result- hold for 4 hrs and decrease by 2 units for new dosing per dr flower.
[2023-08-14] MEDS: piperacillin-tazobactam 3.375 GM in sodium chloride 0.9% (plus) 50 ML IV ×3 (04:34→22:36)
[2023-08-14] MEDS: FUROsemide 10 mg/mL SDV 4mL 40 MG IVP (06:39)
[2023-08-14] MEDS: levothyroxine 100 mcg Tablet PO (06:40)
[2023-08-14 06:46] LABS: Glucose Point of Care 88 mg/dL (70-110)
[2023-08-14] MEDS: doxycycline 100 mg Tablet PO ×2 (08:48→17:26)
[2023-08-14] MEDS: pantoprazole 40 mg SDV IVP (08:48)
[2023-08-14] MEDS: dextrose 5%-ns 0.45% + KCl 10 1,000 ML 30 MEQ IV (08:49)
[2023-08-14] MEDS: amiodarone 200 mg Tablet 400 MG PO ×2 (08:49→17:26)
[2023-08-14 10:00] LABS: Partial Thromboplastin Time 48.4 SECONDS (23.9-36.7)
--- NOTE | 2023-08-14 10:18 | PC.SOCIAL ---
IMM Update pg 2 of IMM Updated and reviewed w/ patient. Copy provided and copy dated, initialed and placed in chart.
--- NOTE | 2023-08-14 12:12 | PM.PN ---
Subjective Subjective: This morning patient is able to answer simple questions I discussed indication for PEG tube modified barium swallow and what could happen if he is not able to eat with high risk of aspiration He is getting dehydrated Holding diuretics giving D5 normal saline with potassium supplementation Goals of care discussed with the patient and his , patient wants to stay full code he thinks DNR/DNI means we are letting him without any help or intervention Spent 5 to 10 minutes talking with the patient and his at the bedside Vitals/I&O/Wt Last Vital Signs Temp 97.6 F 08/14/23 08:45 Pulse 81 08/14/23 08:45 Resp 20 H 08/14/23 08:45 BP 102/73 08/14/23 08:45 Pulse Ox 95 08/14/23 08:45 O2 Del Method Nasal Cannula 08/14/23 04:00 O2 Flow Rate 3 08/13/23 08:08 FiO2 40 08/10/23 03:09 08/13/23 08/14/23 08/14/23 22:59 06:59 14:59 Intake Total 417.844 / 866.719 380.333 / 1247.052 250 / 250 Output Total 1000 / 1000 500 / 1500 Balance -582.156 / -133.281 -119.667 / -252.948 250 / 250 Weight last 48 hrs Weight 92.533 kg Physical Exam Narrative: Patient is extremely frail and lethargic Drowsy Able to understand and answer simple questions Nonfocal neuroexam Signs of intravascular depletion Currently patient is on 3 L Hemodynamically stable He is not able to get up on his own He is max assist S1, S2 variable Abdomen with midline hernia Urinary Catheter Management: Tinsley: Cath Placed During This Visit: yes Reason for Continuing Indwelling Catheter: Accurate Measurement of Urinary Output in Critically Ill Patients Urinary Catheter Date of Insertion: 08/09/23 Urinary Catheter Time of Insertion: 11:44 Data 08/14/23 03:18 08/14/23 03:18 Micro: Microbiology 08/11/23 13:00 Gram Stain - Final Pleural Fluid Body Fluid Culture - Final 08/09/23 07:35 Blood Culture - Final Blood NO GROWTH AFTER 5 DAYS 08/11/23 13:00 Mycobacterial Smear - Preliminary Body Fluids - Pleura 08/10/23 23:35 Urine Culture - Final Urine Catheterized A&P Assessment and plan (1) Systolic CHF: Qualifiers: Heart failure chronicity: chronic Qualified Code(s): I50.22 - Chronic systolic (congestive) heart failure (2) Pulmonary hypertension: (3) Atrial fibrillation: Qualifiers: Atrial fibrillation type: persistent (not longstanding) Qualified Code(s): I48.19 - Other persistent atrial fibrillation (4) Abdominal aortic aneurysm (AAA) 3.0 cm to 5.5 cm in diameter in male: (5) Thrombocytopenia: (6) Deep venous thrombosis: (7) Protein calorie malnutrition: (8) Fungemia: (9) Sarcopenia: (10) Acute delirium: (11) Aspiration pneumonia: Plan Acute on chronic hypoxic respiratory failure At baseline uses 2 to 3 L Currently down to 3 L of oxygen No conversational dyspnea Aspiration pneumonia currently on Zosyn Fungemia: Will finish antifungal until day of discharge Afebrile Severe protein calorie malnourishment deconditioning and immunocompromise state Modified barium swallow today Patient does not want PEG tube placement in case he is high risk for aspiration He does not want to go to skilled nursing he wants to stay full code significant mount of time was spent in discussing current issues, multiple comorbid conditions, poor prognostic signs and goals of care A-fib without RVR I will switch him to Eliquis low-dose along amiodarone Discontinue heparin drip and Avoid midodrine in setting of heart failure and hypotension Right upper extremity edema: No acute exacerbation Delirium: Resolved Full code Can be transferred to [facility] Attestations Medical Necessity Statement*: Continue medical management Diagnoses Chronic systolic congestive heart failure I50.22 Heart failure chronicity: chronic Pulmonary hypertension I27.20 Persistent atrial fibrillation I48.19 Atrial fibrillation type: persistent (not longstanding) Abdominal aortic aneurysm (AAA) 3.0 cm to 5.5 cm in diameter in male I71.40 Thrombocytopenia D69.6 Deep venous thrombosis I82.409 Protein calorie malnutrition E46 Fungemia B49 Sarcopenia M62.84 Acute delirium R41.0 Aspiration pneumonia J69.0
[2023-08-14 12:30] LABS: Glucose Point of Care 94 mg/dL (70-110)
[2023-08-14] MEDS: finasteride 5 mg Tablet PO (13:14)
[2023-08-14] MEDS: tamsulosin 0.4 mg Capsule 0.400000000000000022 MG PO (13:14)
[2023-08-14] MEDS: OLANZapine 5 mg TABLET PO (14:19)
[2023-08-14 17:27] LABS: Glucose Point of Care 87 mg/dL (70-110)
--- NOTE | 2023-08-14 17:50 | PC.NURSE ---
transferred to room 277-1 via bed.report given to farnaz.
[2023-08-14 21:00] LABS: Glucose Point of Care 95 mg/dL (70-110)
[2023-08-14] MEDS: trazodone 100 mg Tablet PO (21:18)
[2023-08-14] MEDS: micafungin 100 MG in sodium chloride 0.9% (plus) 100 ML IV (21:18)
[2023-08-14] MEDS: apixaban 5 mg Tablet 2.5 MG PO (21:18)
[2023-08-15] VITALS (8 sets, daily range): BP systolic 93–105; BP diastolic 52–71; PULSE 72–84; RESP 16–18; TEMP 36.1–36.4; O2SAT 93–94
[2023-08-15] MEDS: acetaminophen 325 mg Tablet 650 MG PO (01:35)
[2023-08-15] MEDS: piperacillin-tazobactam 3.375 GM in sodium chloride 0.9% (plus) 50 ML IV (05:15)
[2023-08-15] MEDS: levothyroxine 100 mcg Tablet PO (05:15)
[2023-08-15 05:39] LABS: Basophils # 0.1 10^3/uL (0.0-0.1); Basophils % 0.9 %; Eosinophils # 0.2 10^3/uL (0.0-0.8); Lymphocytes # 1.9 10^3/uL (0.8-4.8); Lymphocytes % 35.1 %; Mean Corpuscular HGB Conc 31.1 g/dL (30-55); Mean Corpuscular Hemoglobin 30.9 pg (27-33); Mean Corpuscular Volume 99.5 fl (82-101); Mean Platelet Volume 9.8 fL (7.4-10.4); Monocytes # 0.7 10^3/uL (0.2-0.9); Neutrophils % 47.3 %; Nucleated Red Blood Cells % 0 %; Platelet Count 57 10^3/cmm (157-399); Red Blood Count 3.82 10^6/uL (3.85-5.65); Red Cell Distribution Width 20.6 % (12.1-15.1)
[2023-08-15 06:09] LABS: Alanine Aminotransferase 12 U/L (0-41); Albumin Level 3.1 g/dL (3.5-5.2); Alkaline Phosphatase 98 U/L (40-130); Anion Gap 17.1 (5-19); Aspartate Amino Transferase 29 U/L (0-40); Blood Urea Nitrogen 43 mg/dL (8-23); Calcium 9.1 mg/dL (8.5-10.5); Carbon Dioxide 24 mmol/L (22-29); Chloride 111 mmol/L (98-107); Creatinine Clr Calc Pharmacy 28.6998; Globulin 2.9 g/dL (1.3-4.6); Glucose 87 mg/dL (65-115); Osmolality Calculated 318 mOsm/kg (285-295); Potassium 3.1 mmol/L (3.5-5.1); Sodium 149 mmol/L (136-145); Total Bilirubin 2.4 mg/dL (0.15-1.2)
[2023-08-15 06:23] LABS: NT Pro B Type Natriuretic Pept 10091 pg/mL (0-450)
[2023-08-15 06:38] LABS: Glucose Point of Care 85 mg/dL (70-110)
--- NOTE | 2023-08-15 09:00 | FL_ITS ---
WS: [id number] FL barium swallow modifd 72051 REASON FOR EXAM: Oral dysphagia FLUOROSCOPY TIME: 3min [id number] # OF SPOT FILMS: 0 FINDINGS: Examination was supervised by the speech therapy department. The patient was examined in the upright sitting lateral projection. Multiple swallows of varying consistency barium was monitored fluoroscopically and video recorded. Detailed description of the swallowing will be rendered by the speech therapy department. FL/FL barium swallow modifd 04354 IMPRESSION: Modified barium swallow as above.
[2023-08-15 10:54] LABS: Glucose Point of Care 92 mg/dL (70-110)
[2023-08-15] MEDS: amiodarone 200 mg Tablet 400 MG PO ×2 (11:08→17:58)
[2023-08-15] MEDS: apixaban 5 mg Tablet 2.5 MG PO ×2 (11:09→17:58)
[2023-08-15] MEDS: doxycycline 100 mg Tablet PO ×2 (11:09→17:57)
[2023-08-15] MEDS: pantoprazole 40 mg SDV IVP (11:10)
--- NOTE | 2023-08-15 11:56 | P.PN_ITS ---
Subjective 2 Subjective: Modified barium swallow study completed today Patient is stating that he is feeling hungry Awaiting for speech therapy recommendations Afebrile Sodium 149 D5 fluids discontinued Vitals/I&O/Wt Last Vital Signs Temp 97.5 F L 08/15/23 07:50 Pulse 73 08/15/23 11:32 Resp 16 08/15/23 11:32 BP 105/71 08/15/23 11:32 Pulse Ox 93 08/15/23 11:32 O2 Del Method Nasal Cannula 08/15/23 11:32 O2 Flow Rate 3 08/13/23 08:08 FiO2 40 08/10/23 03:09 08/14/23 08/15/23 08/15/23 22:59 06:59 14:59 Intake Total 150 / 606.823 50 / 656.823 Output Total 1850 / 1850 300 / 2150 Balance -1700 / -1243.177 -250 / -1493.177 Weight last 48 hrs Weight 87.725 kg Weight 87.725 kg Weight 92.533 kg Physical Exam 2 Narrative: Extreme lethargic and fatigued Awake and alert Oriented to time place and person Pleasant cooperative Nonfocal neuroexam Muscle wasting present Protein calorie malnourishment S1, S2 Hemodynamically stable Currently on 3 L nasal cannula Urinary Catheter Management: Tinsley: Cath Placed During This Visit: yes Reason for Continuing Indwelling Catheter: Other Urinary Catheter Date of Insertion: 08/09/23 Urinary Catheter Time of Insertion: 11:44 Data 08/15/23 05:28 08/15/23 05:28 Micro: Microbiology 08/09/23 07:40 Blood Culture - Final Blood Joselyn tropicalis 08/11/23 13:00 Gram Stain - Final Pleural Fluid Body Fluid Culture - Final 08/09/23 07:35 Blood Culture - Final Blood NO GROWTH AFTER 5 DAYS A&P Assessment and plan (1) Pulmonary hypertension: (2) Atrial fibrillation: Qualifiers: Atrial fibrillation type: persistent (not longstanding) Qualified Code(s): I48.19 - Other persistent atrial fibrillation (3) Thrombocytopenia: (4) Deep venous thrombosis: (5) Pulmonary embolism: (6) Protein calorie malnutrition: (7) Orbital mass: (8) Liver cirrhosis: (9) Chronic kidney disease (CKD): Qualifiers: Chronic kidney disease stage: unspecified stage Qualified Code(s): N 18.9 - Chronic kidney disease, unspecified (10) Anemia: (11) Fungemia: (12) Sarcopenia: (13) Chronic pulmonary edema: (14) Aspiration pneumonia: Plan Acute on chronic hypoxic respiratory failure Currently down to baseline of 3 L Aspiration pneumonia: Afebrile can discontinue Zosyn no leukocytosis Fungemia: Afebrile no leukocytosis I will go ahead and discontinue antifungal treatment as well Severe protein calorie malnourishment, modified barium swallow study done today, awaiting speech therapy recommendations Patient is experiencing hunger pains A-fib: Continue Eliquis along amiodarone Delirium: Resolved Dehydration Free water deficit related hyponatremia: Discontinue D5 IV fluids Focus on increasing p.o. 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
[2023-08-15] MEDS: finasteride 5 mg Tablet PO (15:03)
[2023-08-15] MEDS: tamsulosin 0.4 mg Capsule 0.400000000000000022 MG PO (15:03)
[2023-08-15] MEDS: OLANZapine 5 mg TABLET PO (15:32)
[2023-08-15 16:50] LABS: Glucose Point of Care 86 mg/dL (70-110)
[2023-08-15] MEDS: trazodone 100 mg Tablet PO (20:34)
[2023-08-15 21:10] LABS: Amylase, Pleural Fluid 11 U/L
[2023-08-15 21:27] LABS: Glucose Point of Care 89 mg/dL (70-110)
[2023-08-16] VITALS (9 sets, daily range): BP systolic 93–114; BP diastolic 66–78; PULSE 60–86; RESP 16–19; TEMP 36.4–36.8; O2SAT 92–98
[2023-08-16] MEDS: levothyroxine 100 mcg Tablet PO (06:03)
[2023-08-16 06:29] LABS: Anion Gap 16.8 (5-19); Blood Urea Nitrogen 41 mg/dL (8-23); Calcium 9.5 mg/dL (8.5-10.5); Carbon Dioxide 27 mmol/L (22-29); Chloride 110 mmol/L (98-107); Creatinine Clr Calc Pharmacy 27.2581; Glucose 79 mg/dL (65-115); Osmolality Calculated 321 mOsm/kg (285-295); Sodium 151 mmol/L (136-145)
[2023-08-16 06:40] LABS: Glucose Point of Care 80 mg/dL (70-110)
[2023-08-16 06:40] LABS: Potassium 2.8 mmol/L (3.5-5.1)
[2023-08-16] MEDS: potassium chloride ER 20 mEq Tablet 40 MEQ PO (07:31)
[2023-08-16] MEDS: apixaban 5 mg Tablet 2.5 MG PO (09:40)
[2023-08-16] MEDS: amiodarone 200 mg Tablet 400 MG PO ×2 (09:40→18:15)
[2023-08-16] MEDS: doxycycline 100 mg Tablet PO ×2 (09:41→18:15)
[2023-08-16] MEDS: pantoprazole 40 mg SDV IVP (09:41)
--- NOTE | 2023-08-16 09:59 | PC.SOCIAL ---
IMM Update Pg. 2 of IMM updated. Copy provided, copy placed in chart.
[2023-08-16] MEDS: dextrose 5% + KCl 20 mEq 20 MEQ/1,000 ML BAG 75 MEQ IV ×2 (10:26→21:54)
[2023-08-16 11:16] LABS: Glucose Point of Care 100 mg/dL (70-110)
--- NOTE | 2023-08-16 12:14 | PC.NURSE ---
Irrigated bladder per verbal orders from Dr. García. No clots present. Urine is still dark red at this time.
--- NOTE | 2023-08-16 12:31 | P.PN_ITS ---
Subjective 2 Subjective: Worsening of mentation Patient kept on his Tinsley catheter as well Hematuria present Hyponatremia dehydration worsened Hypokalemia Goals of care discussed again with the patient and his , I was offering them palliative care for his acute on chronic conditions, protein calorie malnourishment gradual decline in mental status and functional capacity is stating that she considers giving up on the patient if fci is considered or hospice Vitals/I&O/Wt Last Vital Signs Temp 97.5 F L 08/16/23 11:20 Pulse 86 08/16/23 11:20 Resp 16 08/16/23 11:20 BP 112/78 08/16/23 11:20 Pulse Ox 98 08/16/23 11:20 O2 Del Method Nasal Cannula 08/16/23 11:20 O2 Flow Rate 3 08/16/23 08:00 FiO2 40 08/10/23 03:09 08/15/23 08/16/23 08/16/23 22:59 06:59 14:59 Intake Total 940 / 990 150 / 1140 240 / 240 Output Total 500 / 500 250 / 250 Balance 440 / 490 150 / 640 -10 / -10 Weight last 48 hrs Weight 86.772 kg Weight 86.721 kg Weight 87.725 kg Weight 87.725 kg Physical Exam 2 Narrative: Patient is frail and lethargic poor mentation Drowsy Falling asleep well talking Tinsley catheter with bright red blood in the bag Currently patient is on nasal cannula Blood pressure stable Patient can remain keep his head straight Extremely drowsy and fatigued muscle deconditioning Physical deconditioning No active chest pain or shortness of breath Lower extremity swelling S1, S2 variable Bilateral diminished breath sounds Urinary Catheter Management: Tinsley: Cath Placed During This Visit: yes Reason for Continuing Indwelling Catheter: Acute Urinary Retention or Obstruction Urinary Catheter Date of Insertion: 08/09/23 Urinary Catheter Time of Insertion: 11:44 Data 08/15/23 05:28 08/16/23 05:21 Micro: Microbiology 08/10/23 19:41 Blood Culture - Final Blood NO GROWTH AFTER 5 DAYS 08/10/23 19:39 Blood Culture - Final Blood NO GROWTH AFTER 5 DAYS A&P Assessment and plan (1) Acute hypoxemic respiratory failure: (2) Aspiration pneumonia: (3) Sarcopenia: (4) Difficulty balancing: (5) Acute delirium: (6) Fungemia: (7) Anemia: (8) Atrial fibrillation: Qualifiers: Atrial fibrillation type: persistent (not longstanding) Qualified Code(s): I48.19 - Other persistent atrial fibrillation (9) Pulmonary hypertension: (10) Systolic CHF: Qualifiers: Heart failure chronicity: chronic Qualified Code(s): I50.22 - Chronic systolic (congestive) heart failure (11) CHF exacerbation: (12) Pulmonary embolism: (13) Protein calorie malnutrition: (14) Orbital mass: (15) Liver cirrhosis: (16) Hypernatremia: (17) Hypokalemia: Plan Metabolic encephalopathy related to hypernatremia and dehydration Patient also takes naproxen which I have continued for now He is also experiencing Gradual decline in functional status and mentation Added D5 with potassium supplementation Aspiration pneumonitis/pneumonia Currently on dysphagia diet Poor p.o. intake Patient does not want feeding tube/PEG tube Hypernatremia with hypokalemia Added D5 with potassium supplementation Check BMP around in the evening Systolic CHF exacerbation Holding off on diuretics for now secondary to hypernatremia A-fib without RVR On AV alisa blocking agent amiodarone Anticoagulating agent on board Hematuria traumatic experience Patient tugged on his Tinsley catheter Manual irrigation recommended, nurse notified Orbital mass: No acute intervention needed Fungemia: Treated discontinue antifungal Guarded prognosis Poor functional capacity and mentation is worsening Family is not interested in discussing palliative or hospice care they think even fci consideration is considered giving up on the patient He is full code Patient is two-person assist, is stating that she would not consider fci she is thinking to take him home, at this point patient is not ready to be discharged home at all I do anticipate him getting worse in the hospital Attestations 2 Medical Necessity Statement*: Guarded prognosis, Diagnoses Acute hypoxemic respiratory failure J96.01 Aspiration pneumonia J69.0 Sarcopenia M62.84 Difficulty balancing R29.818 Acute delirium R41.0 Fungemia B49 Anemia D64.9 Persistent atrial fibrillation I48.19 Atrial fibrillation type: persistent (not longstanding) Pulmonary hypertension I27.20 Chronic systolic congestive heart failure I50.22 Heart failure chronicity: chronic CHF exacerbation I50.9 Pulmonary embolism I26.99 Protein calorie malnutrition E46 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
[2023-08-16] MEDS: OLANZapine 5 mg TABLET PO (14:24)
[2023-08-16] MEDS: finasteride 5 mg Tablet PO (14:27)
[2023-08-16] MEDS: tamsulosin 0.4 mg Capsule 0.400000000000000022 MG PO (14:28)
[2023-08-16 17:46] LABS: Glucose Point of Care 110 mg/dL (70-110)
[2023-08-16 19:46] LABS: Anion Gap 14.2 (5-19); Blood Urea Nitrogen 41 mg/dL (8-23); Calcium 8.8 mg/dL (8.5-10.5); Carbon Dioxide 26 mmol/L (22-29); Chloride 113 mmol/L (98-107); Creatinine Clr Calc Pharmacy 28.5561; Glucose 127 mg/dL (65-115); Osmolality Calculated 322 mOsm/kg (285-295); Potassium 3.2 mmol/L (3.5-5.1); Sodium 150 mmol/L (136-145)
[2023-08-16 20:37] LABS: Glucose Point of Care 111 mg/dL (70-110)
[2023-08-16] MEDS: trazodone 100 mg Tablet PO (21:42)
[2023-08-17] VITALS: BP 100/71; PULSE 83; RESP 22; TEMP 37; O2SAT 92
[2023-08-17 04:00] VITALS: BP 103/76; PULSE 85; RESP 24; TEMP 36.4; O2SAT 94
[2023-08-17 05:07] LABS: Basophils % 0.7 %; Eosinophils # 0.2 10^3/uL (0.0-0.8); Eosinophils % 3.9 %; Hematocrit 38.7 % (37-53); Lymphocytes % 33.8 %; Mean Corpuscular HGB Conc 30.5 g/dL (30-55); Mean Corpuscular Hemoglobin 30.7 pg (27-33); Mean Corpuscular Volume 100.8 fl (82-101); Mean Platelet Volume 11.6 fL (7.4-10.4); Monocytes # 0.7 10^3/uL (0.2-0.9); Monocytes % 11.7 %; Neutrophils # 2.91 10^3/uL (1.8-7.7); Neutrophils % 49.1 %; Nucleated Red Blood Cells % 0 %; Platelet Count 56 10^3/cmm (157-399); Red Blood Count 3.84 10^6/uL (3.85-5.65); Red Cell Distribution Width 20.6 % (12.1-15.1); White Blood Count 5.92 10^3/uL (3.29-11.43)
[2023-08-17] MEDS: acetaminophen 325 mg Tablet 650 MG PO (05:17)
[2023-08-17] MEDS: levothyroxine 100 mcg Tablet PO (05:17)
[2023-08-17 05:32] LABS: Slide Review Slide Review Perform
[2023-08-17 05:34] LABS: Anion Gap 14.3 (5-19); Blood Urea Nitrogen 38 mg/dL (8-23); Calcium 9.3 mg/dL (8.5-10.5); Carbon Dioxide 26 mmol/L (22-29); Chloride 114 mmol/L (98-107); Creatinine Clr Calc Pharmacy 28.5484; Glucose 100 mg/dL (65-115); Osmolality Calculated 321 mOsm/kg (285-295); Potassium 3.3 mmol/L (3.5-5.1); Sodium 151 mmol/L (136-145)
[2023-08-17 06:00] VITALS: PULSE 82
[2023-08-17 06:52] LABS: Glucose Point of Care 96 mg/dL (70-110)
[2023-08-17 07:59] VITALS: BP 105/63; PULSE 67; RESP 15; TEMP 36.8; O2SAT 93
[2023-08-17] MEDS: doxycycline 100 mg Tablet PO (08:21)
[2023-08-17] MEDS: amiodarone 200 mg Tablet 400 MG PO (08:21)
--- NOTE | 2023-08-17 09:52 | PC.NURSE ---
This nurse in to see patient and was discussing plan of care for the morning with the first task being to start a new IV. The requested that we leave the IV out because she was going to be signing her out and going home. This nurse tried discussing with the that the patient is not medically ready to be discharged and that the concerns of his well being were expressed. The proceeded to tell this nurse that she is does not feel like the current physician is treating him appropriately and that she feels like he is giving up on him. This nurse tried reassuring the that the doctor would not do that and that staff has his best interest in mind. This nurse notified the doctor of the situation. AMA form signed by the . Patient does not have an IV. Tinsley will be removed once the son arrives. Son is bringing the patients oxygen and will help patients transport home. Currently waiting for the son to arrive, will continue to monitor.
[2023-08-17 11:02] VITALS: BP 105/63; PULSE 67; RESP 15; TEMP 36.8; O2SAT 93
--- NOTE | 2023-08-17 12:19 | P.DS_ITS ---
Discharge Providers Date of Admission: 08/09/23 13:03 Date of Discharge: August 17, 2023 Attending Provider at Admission: Jin Aguilera MD Attending Provider at Discharge: Christophe García MD Primary Care Provider: Daniel Rios DO Diagnoses at Discharge Discharge Diagnosis (1) Acute hypoxemic respiratory failure: Status: Acute (2) Aspiration pneumonia: Status: Acute (3) Sarcopenia: Status: Acute (4) Difficulty balancing: Status: Acute (5) Acute delirium: Status: Acute (6) Fungemia: Status: Acute (7) Anemia: Status: Acute (8) Atrial fibrillation: Status: Acute Qualifiers: Atrial fibrillation type: persistent (not longstanding) Qualified Code(s): I48.19 - Other persistent atrial fibrillation (9) Pulmonary hypertension: Status: Acute (10) Systolic CHF: Status: Acute Qualifiers: Heart failure chronicity: chronic Qualified Code(s): I50.22 - Chronic systolic (congestive) heart failure Permanent problem details: 10/29/22 LVEF 44%----> 07/02/23 LVEF 40%, right sided heart failure (11) CHF exacerbation: Status: Acute (12) Pulmonary embolism: Status: Acute (13) Protein calorie malnutrition: Status: Acute (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 (15) Liver cirrhosis: Status: Acute (16) Hypernatremia: Status: Acute (17) Hypokalemia: Status: Acute Reason for Visit Reason for Visit: slid out of bed Hospital Course Hospital Course 83-year-old male with multiple comorbid conditions, history of COPD, CHF, coronary disease chronically ill with poor functional status, multiple hospitalization with severe deconditioning came in for shortness of breath, he was diagnosed with A-fib RVR and CHF exacerbation, he was given IV antifungal which was switched to Diflucan, repeat cultures are negative, he was seen by bessemer converter operator for orbital mass there was no acute intervention recommended, patient was kept on IV amiodarone along heparin drip because he was not able to eat anything via p.o. route, aspiration precautions were took because he developed respiratory compromise due to aspiration pneumonia, he became intravascular depleted which showed hypernatremia, his poor p.o. intake further exacerbated his symptoms he became fatigued and lethargic and confused delirium was intermittent, he was put on dysphagia diet after modified barium swallow multiple family meetings conducted patient and family both decided to stick with full CODE STATUS they are not willing to consider palliative care despite active worsening of underlying condition, they are also against PEG tube placement. They were wanting to go home today I frankly told him that I will not be able to discharge him because he is not stable enough to go home and it would only make sense for discharge from the hospital if he decides to go with palliative/for hospice care, they are not willing to pursue hospice care at this point seems to have unrealistic expectations she thinks she will request physical therapy and home health services at home at this point patient extreme lethargic, not able to follow commands, he is drowsy, he would not be able to participate with PT, patient left with his against medical recommendations. Physical Exam Urinary Catheter Management: Tinsley: Cath Placed During This Visit: yes Reason for Continuing Indwelling Catheter: Acute Urinary Retention or Obstruction Urinary Catheter Date of Insertion: 08/09/23 Urinary Catheter Time of Insertion: 11:44 Discharge Data Studies Completed and Pending Completed Studies During Hospitalization Category [place] [address]/99019 Stat Cat Scan 08/09/23 10:[address] head wo con* [id number] Stat Cat Scan 08/09/23 07:09 Completed [place] barium swallow modifd [id number] Routine Exams 08/15/23 09:00 Completed XR chest 1V portable [id number] Routine Exams 08/11/23 12:50 Completed XR chest 1V portable [id number] Routine Exams 08/12/23 17:12 Completed XR chest 1V portable [id number] Routine Exams 08/13/23 07:00 Completed XR chest 1V portable [id number] Stat Exams 08/09/23 07:09 Completed XR chest 2V insp/exp [id number] Stat Exams 08/11/23 20:27 Completed XR hip LT 2-3V wo/w pel* [id number] Stat Exams 08/09/23 07:08 Completed MR head wo con* [id number] Routine MRI 08/11/23 09:30 Completed Cytology [PTH] Routine Pth 08/11/23 08:58 [place] [id number] Routine Ultrasound 08/09/23 11:11 Completed CV. echo complete* [id number] Routine Ultrasound 08/11/23 07:51 Completed US thoracentesis [id number] Routine Ultrasound 08/11/23 08:57 Completed Pending at discharge Category Date Time Status Fungal Culture not HR/SK/BL Routine Lab 08/11/23 13:00 Received Mycobacteria, Culture w/Fluor Routine Lab 08/11/23 13:00 Results Radiology Impressions Hip/Pelvis X-Ray 08/09/23 07:08 IMPRESSION: Mild degenerative changes. Chest X-Ray 08/13/23 07:00 IMPRESSION: 1. Cardiomegaly, stable. 2. Stable slightly worsened right basilar airspace opacity. 3. Probable small right pleural effusion. Modified Barium Swallow 08/15/23 09:00 IMPRESSION: Modified barium swallow as above. Laboratory Results WBC 5.92 10^3/uL (3.29-11.43) 08/17/23 04:59 RBC 3.84 10^6/uL (3.85-5.65) L 08/17/23 04:59 Hgb 11.80 g/dL (11.27-16.99) 08/17/23 04:59 Hct 38.7 % (37-53) 08/17/23 04:59 MCV 100.8 fl (82-101) 08/17/23 04:59 MCH 30.7 pg (27-33) 08/17/23 04:59 MCHC 30.5 g/dL (30-55) 08/17/23 04:59 RDW 20.6 % (12.1-15.1) H 08/17/23 04:59 Plt Count 56 10^3/cmm (157-399) L 08/17/23 04:59 MPV 11.6 fL (7.4-10.4) H 08/17/23 04:59 Neut % (Auto) 49.1 % 08/17/23 04:59 Lymph % (Auto) 33.8 % 08/17/23 04:59 [place] % (Auto) 11.7 % 08/17/23 04:59 Eos % (Auto) 3.9 % 08/17/23 04:59 Baso % (Auto) 0.7 % 08/17/23 04:59 Neut # (Auto) 2.91 10^3/uL (1.8-7.7) 08/17/23 04:59 Lymph # (Auto) 2.0 10^3/uL (0.8-4.8) 08/17/23 04:59 [place] # (Auto) 0.7 10^3/uL (0.2-0.9) 08/17/23 04:59 Eos # (Auto) 0.2 10^3/uL (0.0-0.8) 08/17/23 04:59 Baso # (Auto) 0.0 10^3/uL (0.0-0.1) 08/17/23 04:59 Nucleated RBC % (auto) 0 % 08/17/23 04:59 Nucleated RBCs # 0.0 /100WBC 08/17/23 04:59 Differential Comment Yes 08/11/23 13:00 PT 20.60 SECONDS (12.1-14.9) H 08/11/23 03:23 INR 1.70 (0.8-1.2) H 08/11/23 03:23 APTT 48.4 SECONDS (23.9-36.7) H D 08/14/23 08:24 Specimen Type Arterial 08/09/23 09:46 Sample Site Radial, right 08/09/23 09:46 ABG pH 7.43 (7.35-7.45) 08/09/23 09:46 ABG pCO2 28.6 mmHg (35-45) L 08/09/23 09:46 ABG pO2 71.0 mmHg (80.0-100.0) L 08/09/23 09:46 ABG PO2/FiO2 Ratio 0 08/09/23 09:46 ABG HCO3 18.7 mmol/L (22-26) L 08/09/23 09:46 ABG O2 Saturation 95.5 08/09/23 09:46 ABG Base Excess -4.5 mmol/L (-2.0-2.0) L 08/09/23 09:46 Ethan Test Pos 08/09/23 09:46 A-a O2 Gradient 19.5 mmHg (5-10) H 08/09/23 09:46 Hematocrit 36.3 % (42-52) L 08/09/23 09:46 Hgb O2 Saturation 93.4 % (95-100) L 08/09/23 09:46 Carboxyhemoglobin 2.1 %THgb (0.4-20.1) 08/09/23 09:46 Methemoglobin 0.1 % (0.4-1.5) L 08/09/23 09:46 Total Hemoglobin 11.9 g/dL (14-18) L 08/09/23 09:46 Sodium 141.0 mmol/L (131-143) 08/09/23 09:46 Potassium 4.4 mmol/L (3.5-5.0) 08/09/23 09:46 Glucose 84.0 mg/dL (70-115) 08/09/23 09:46 Ionized Calcium 1.3 mmol/L (1.1-1.4) 08/09/23 09:46 O2 Delivery Device Nc 08/09/23 09:46 O2 Liters/Min 4.0 % 08/09/23 09:46 FiO2 36.0 % 08/09/23 09:46 Sourcing Specialist ID glc 08/09/23 09:46 Sodium 151 mmol/L (136-145) H 08/17/23 04:59 Potassium 3.3 mmol/L (3.5-5.1) L 08/17/23 04:59 Chloride 114 mmol/L (98-107) H 08/17/23 04:59 Carbon Dioxide 26 mmol/L (22-29) 08/17/23 04:59 Anion Gap 14.3 (5-19) 08/17/23 04:59 BUN 38 mg/dL (8-23) H 08/17/23 04:59 Creatinine 2.1 mg/dL (0.7-1.2) H 08/17/23 04:59 GFR Calculation Not Reportable 08/17/23 04:59 Glucose 100 mg/dL (65-115) 08/17/23 04:59 POC Glucose 96 mg/dL (70-110) 08/17/23 06:48 Calculated Osmolality 321 mOsm/kg (285-295) H 08/17/23 04:59 Lactic Acid 2.5 mmol/L (0.5-2.2) H 08/09/23 07:35 Lactic Acid (Sepsis) 2.1 mmol/L (0.5-2.2) 08/09/23 10:22 Calcium 9.3 mg/dL (8.5-10.5) 08/17/23 04:59 Phosphorus 3.9 mg/dL (2.5-4.5) 08/13/23 02:29 Magnesium 2.2 mg/dL (1.7-2.3) 08/13/23 02:29 Total Bilirubin 2.4 mg/dL (0.15-1.2) H 08/15/23 05:28 AST 29 U/L (0-40) 08/15/23 05:28 ALT 12 U/L (0-41) 08/15/23 05:28 Alkaline Phosphatase 98 U/L (40-130) 08/15/23 05:28 Ammonia 53 umol/L (16-60) 08/09/23 10:22 Lactate Dehydrogenase 252 U/L (135-225) H 08/13/23 14:18 Troponin T Baseline 101 ng/L (0-15) H* 08/09/23 06:27 Troponin T 120 Minute 94.74 ng/L (0-15) H 08/09/23 08:39 Delta Troponin T -6.26 ABS# (0-10) L 08/09/23 08:39 Troponin T Hi Sens 6Hr 90.88 ng/L (0-15) H 08/09/23 12:42 Troponin T Hi Sens 6Hr Delta -10.12 ng/L (0-12) L 08/09/23 12:42 C-Reactive Protein 33.2 mg/L (0.0-4.9) H 08/13/23 02:29 NT-Pro-B Natriuret Pep 64891 pg/mL (0-450) H 08/15/23 05:28 Total Protein 6.0 g/dL (6.6-8.7) L 08/15/23 05:28 Albumin 3.1 g/dL (3.5-5.2) L 08/15/23 05:28 Globulin 2.9 g/dL (1.3-4.6) 08/15/23 05:28 Lipase 34 U/L (13-60) 08/09/23 06:27 Vitamin B12 > 2000 pg/mL (232-1245) H 08/09/23 06:27 TSH 7.11 uIU/mL (0.27-4.20) H 08/09/23 06:27 Urine Color [place] (Yellow) 08/09/23 08:49 Urine Appearance Cloudy (CLEAR) A 08/09/23 08:49 Urine pH 5 (5-7) 08/09/23 08:49 Ur Specific [place] 1.025 (1.005-1.030) 08/09/23 08:49 Urine Protein 1+ (Negative) H 08/09/23 08:49 Urine Glucose (UA) Norm (Normal) 08/09/23 08:49 Urine Ketones 1+ (Negative) H 08/09/23 08:49 Urine Blood Neg (Negative) 08/09/23 08:49 Urine Nitrate Negative (Negative) 08/09/23 08:49 Urine Bilirubin Neg (Negative) 08/09/23 08:49 Urine Urobilinogen Norm mg/dL (Negative) 08/09/23 08:49 Ur Leukocyte Esterase Negative (Negative) 08/09/23 08:49 Urine RBC None /hpf (0-2) 08/09/23 08:49 Urine WBC None /hpf (0-5) 08/09/23 08:49 Ur Squamous Epith Cells None /hpf (0-5) 08/09/23 08:49 Amorphous Sediment 2+ /hpf 08/09/23 08:49 Urine Bacteria 1+ /hpf (NONE) H 08/09/23 08:49 Urine Mucus Trace /hpf 08/09/23 08:49 Fluid Color Yellow 08/11/23 13:00 Fluid Appearance Cloudy 08/11/23 13:00 Fluid WBC 307 /uL 08/11/23 13:00 Fluid RBC 13.000 10^3/uL 08/11/23 13:00 Fluid Hematocrit 0.1 % 08/11/23 13:00 Fld Polynuclear WBCs # 0.060 08/11/23 13:00 Fld Polynuclear WBCs % 19.600 % 08/11/23 13:00 Fl Mononucl WBCs #(Auto) 0.247 08/11/23 13:00 Fl Mononuclear % Auto 80.400 % 08/11/23 13:00 Fld Crystal Laterality Right middle upper 08/11/23 13:00 Fluid Albumin 0.8 g/dL 08/11/23 13:00 Fluid Creatinine 2.66 (0.7-1.2) H 08/11/23 13:00 Pleural pH 8.00 (6.5-7.5) H 08/11/23 13:00 Pleural Total Protein 1.5 g/dL 08/11/23 13:00 Pleural LDH 105 U/L 08/11/23 13:00 Pleural Glucose 101.0 mg/dL 08/11/23 13:00 Pleural Amylase 11 U/L 08/11/23 13:00 Pleural Triglycerides 9 mg/dL 08/11/23 13:00 Serum Ketones Negative (Negative) 08/09/23 06:27 MRSA (PCR) Detected (NOT DETECTED) A 08/09/23 12:43 Vitals Last Vital Signs Temp 98.3 F 08/17/23 11:02 Pulse 67 08/17/23 11:02 Resp 15 08/17/23 11:02 BP 105/63 08/17/23 11:02 Pulse Ox 93 08/17/23 11:02 O2 Del Method Nasal Cannula 08/17/23 07:59 O2 Flow Rate 3 08/16/23 08:00 FiO2 40 08/10/23 03:09 Discharge Plan Discharge Patient Disposition: Left Against Medical Advice Condition: Critical Prescriptions: New amoxicillin-pot clavulanate [Augmentin ES-600] 600-42.9 mg/5 mL suspension for reconstitution 7.3 ml PO BID 7 Days Qty: 102.2 0RF Continued cholecalciferol (vitamin D3) 50 mcg (2,000 unit) capsule 50 mcg PO QAM hydrocodone-acetaminophen 5-325 mg tablet 1 tab PO Q8H PRN (Reason: pain) 7 Days Qty: 21 0RF midodrine 10 mg tablet 10 mg PO TID PRN (Reason: sbp < 90) Rx Instructions: do not give last dose of day after 6PM or within 4 hrs of bedtime zinc acetate 50 mg (zinc) Capsule 50 mg PO DAILY tamsulosin 0.4 mg capsule 0.4 mg PO DAILY@1230 potassium chloride 20 mEq tablet extended release 20 meq PO QID metolazone 5 mg tablet 5 mg PO .MWF PRN (Reason: increasing edema) 30 Days Qty: 30 0RF bumetanide 1 mg tablet 2 mg PO BID 30 Days Qty: 60 0RF levothyroxine [Levoxyl] 100 mcg Tablet 100 mcg PO QAM Qty: 90 3RF finasteride 5 mg Tablet 5 mg PO DAILY@1230 sucralfate 1 gram tablet 1 g PO BID Zyprexa 5 mg Tablet 5 mg PO DAILY@15 diltiazem HCl 60 mg Tablet 120 mg PO BID PRN (Reason: Blood Pressure) Eliquis 5 mg Tablet 2.5 mg PO BID Tylenol Ex Str Rapid Release 500 mg Tablet 500 mg PO Q6H PRN (Reason: Pain) promethazine 50 mg Tablet 25 mg PO Q6H PRN (Reason: Nausea And Vomiting) Protonix 40 mg Tablet,Delayed Release (Dr/Ec) 40 mg PO DAILY PRN (Reason: Acid Reflux) Eucerin Cream 1 applic TOPICAL BID PRN (Reason: Dry Skin) Other Ambulatory Orders: DME: Miscellaneous (Order) Location: None Selected Ordered By: Christophe García Referrals: [facility] Home Care ([facility]) [Outside] Daniel Rios DO [Primary Care Provider] - Patient Instructions: Heart Failure (DC), Altered Mental Status (ED), CHF Stoplight, Opioid Safety Discharge Attestations Time Spent in Discharge Care*: other Quality Metrics Clinical Quality Measures [ No reported AMI, CVA or VTE this stay] Coding Level of Care Code Acute Code for Chg Fwd Diagnoses Acute hypoxemic respiratory failure J96.01 Aspiration pneumonia J69.0 Sarcopenia M62.84 Difficulty balancing R29.818 Acute delirium R41.0 Fungemia B49 Anemia D64.9 Persistent atrial fibrillation I48.19 Atrial fibrillation type: persistent (not longstanding) Pulmonary hypertension I27.20 Chronic systolic congestive heart failure I50.22 Heart failure chronicity: chronic CHF exacerbation I50.9 Pulmonary embolism I26.99 Protein calorie malnutrition E46 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
== END 2023-08-17 10:20 | disposition left against medical advice (07) | DRG 280 ==
LOC: ER 06:58 → ICU 13:05 → CSU 08-10 16:19 → MEDSURG 08-14 17:53
PROVIDERS: Family Medicine; Internal Medicine; Admitting Provider Internal Medicine; Emergency Provider Family Medicine; PCP Emergency Medicine Emergency Medical Services; Visit Provider Internal Medicine
DX: I13.0 Hypertensive heart and chronic kidney disease with heart failure and stage 1 through stage 4 chronic kidney disease, or unspecified chronic kidney disease (principal); I50.23 Acute on chronic systolic (congestive) heart failure; I21.A1 Myocardial infarction type 2; J96.01 Acute respiratory failure with hypoxia; J69.0 Pneumonitis due to inhalation of food and vomit; I48.11 Longstanding persistent atrial fibrillation; N17.9 Acute kidney failure, unspecified; B37.89 Other sites of candidiasis; E46 Unspecified protein-calorie malnutrition; B49 Unspecified mycosis; E87.0 Hyperosmolality and hypernatremia; N18.9 Chronic kidney disease, unspecified; M25.552 Pain in left hip; W06.XXXA Fall from bed, initial encounter; I27.20 Pulmonary hypertension, unspecified; E03.9 Hypothyroidism, unspecified; R41.0 Disorientation, unspecified; H05.89 Other disorders of orbit; I07.1 Rheumatic tricuspid insufficiency; I95.9 Hypotension, unspecified; G47.30 Sleep apnea, unspecified; Z53.29 Procedure and treatment not carried out because of patient's decision for other reasons; D63.1 Anemia in chronic kidney disease; K74.60 Unspecified cirrhosis of liver; E87.6 Hypokalemia; M62.84 Sarcopenia; Z68.29 Body mass index [BMI] 29.0-29.9, adult; Z79.01 Long term (current) use of anticoagulants; Z95.2 Presence of prosthetic heart valve; Z86.718 Personal history of other venous thrombosis and embolism; Z86.711 Personal history of pulmonary embolism
CPT/HCPCS: 32555; 36415; 36416; 36600; 51702; 70450; 70551; 71045; 71046; 71250; 73502; 74176; 74230; 80048; 80051; 80053; 80503; 81001; 82009; 82042; 82140; 82150; 82330; 82570; 82607; 82805; 82945; 82962; 83605; 83615; 83690; 83735; 83880; 83986; 84100; 84157; 84443; 84478; 84484; 85014; 85025; 85610; 85730; 86140; 87015; 87040; 87070; 87075; 87086; 87102; 87106; 87116; 87205; 87206; 87641; 87801; 88112; 89050; 92526; 92610; 92611; 93005; 93306; 93971; 96365; 96372; 96375; 96376; 97110; 97161; 97530; 99253; 99291; 99292; A4222; C9113; J0283; J1644; J1940; J1956; J2248; J2543; J3480; J3490; J7040; J7050; J7799; P9046